=== PATIENT | female | born 1985 | race Caucasian/White ===

== ENCOUNTER 2018-02-11 17:01 | Emergency (ER) | payer OTHER, MEDICAID, SELFPAY ==
[2018-02-11 17:14] VITALS: BP 104/65; PULSE 72; RESP 16; TEMP 37.1; O2SAT 100; BMI 28.3
--- NOTE | 2018-02-11 17:30 | ED.EXTPRO ---
HPI - Extremity Problem General Chief complaint: Extremity Problem,Nontraumatic Stated complaint: LUMP LOWER ABDOMEN RIGHT SIDE Time Seen by Provider: 02/11/18 17:30 Source: patient Mode of arrival: ambulatory Limitations: no limitations History of Present Illness HPI Narrative: 32-year-old female here for complaint of right groin pain for the past couple weeks. She states she was crossing her legs when the pain started. She reports having increased pain trying to get into her vehicle and was trying to lift her leg. She denies any direct trauma to the area. She is ambulatory into the emergency room. No fevers no chills pain is limited to the right groin area. Decreased pain with not moving the groin area MD Complaint: extremity pain Related Data Home Medications Medication Instructions Recorded Confirmed LEVOTHYROXINE SODIUM (#LEVOTHROID 224 mcg PO QDAY #0 08/22/12 OFF MARKET) lamotrigine [Lamictal XR] 200 mg PO DAILY #0 08/22/12 02/11/18 sumatriptan succinate [Imitrex] #0 08/22/12 dextroamphetamine-amphetamine 20 mg PO QAM PRN 02/11/18 02/11/18 [Adderall XR] lithium carbonate 300 mg PO QID 02/11/18 02/11/18 Allergies Allergy/AdvReac Type Severity Reaction Status Date / Time adhesive [ADHESIVE] Allergy Intermediate Verified 02/11/18 17:18 amoxicillin [AMOXICILLIN] Allergy Intermediate Verified 02/11/18 17:18 cephalexin [From KEFLEX] Allergy Intermediate Verified 02/11/18 17:18 clindamycin [CLINDAMYCIN] Allergy Intermediate Verified 02/11/18 17:18 doxycycline [DOXYCYCLINE] Allergy Intermediate Verified 02/11/18 17:18 iodine [IODINE] Allergy Intermediate Verified 02/11/18 17:18 Sulfa (Sulfonamide Allergy Intermediate Verified 02/11/18 17:18 Antibiotics) [SULFA (SULFONAMIDE ANTIBIOTICS)] Penicillins [PENICILLINS] Allergy Unknown Verified 02/11/18 17:18 Review of Systems Constitutional Denies chills, Denies fever(s), Denies lethargy and Denies weakness Eyes Denies change in vision, Denies eye discharge, Denies irritation and Denies loss of vision ENT Ears, Nose, Mouth, and Throat: Denies change in voice, Denies neck pain and Denies sore throat Cardiovascular Denies chest pain, Denies irregular heart rhythm, Denies lightheadedness, Denies palpitations, Denies dyspnea, Denies dyspnea on exertion and Denies orthopnea Respiratory Denies cough, Denies dyspnea, Denies dyspnea on exertion and Denies wheezing Gastrointestinal Gastrointestinal: Denies abdominal pain, Denies change in bowel habits, Denies diarrhea, Denies nausea and Denies vomiting Genitourinary Denies hematuria, Denies flank pain, Denies urinary incontinence and Denies urinary urgency Musculoskeletal Denies neck pain Comments: Right groin pain Integumentary/Breasts Denies pruritus, Denies erythema, Denies rash and Denies wounds Neurologic Denies confusion, Denies loss of vision and Denies weakness Psychiatric Denies anxiety, Denies confusion, Denies depression, Denies homicidal ideation and Denies suicidal ideation Endocrine Denies palpitations Hematologic/Lymphatic Denies easy bruising Allergic/Immunologic Denies wheezing PFSH Medical History Bipolar 1 disorder (Acute) Hypothyroid (Acute) Thyroid cancer (Acute) Social History Smoking Status: Current some day smoker Exam Initial Vital Signs Initial Vital Signs: Vital Signs Temperature 98.7 F 02/11/18 17:14 Pulse Rate 72 02/11/18 17:14 Respiratory Rate 16 02/11/18 17:14 Blood Pressure 104/65 02/11/18 17:14 Pulse Oximetry 100 02/11/18 17:14 Const General: cooperative and well developed Nutritional Appearance: well nourished Orientation: alert, awake, oriented x3 and not confused [facility] Mouth: oral mucosae normal and moist mucous membranes Eyes Conjunctivae: conjunctivae normal Sclera: sclerae normal Pupils: PERRL EOM: EOM intact bilaterally Resp Effort & Inspection: normal respiratory effort, able to speak in complete sentences, no respiratory distress and no use of accessory muscles Auscultation: clear to auscultation bilaterally, no rales, no rhonchi and no wheezes Cardio Rate: regular rate Rhythm: regular rhythm Heart Sounds: no click, no gallops, no murmurs and no rubs Pulses: normal peripheral pulses GI Inspection: non-distended Palpation: soft, no hepatosplenomegaly, No guarding, No pulsatile mass and No tender Auscultation: normal bowel sounds General: No CVA tenderness Neuro General: alert, oriented x3, gait normal and no focal motor deficits Speech: speech normal Extrem General: full ROM, no clubbing, cyanosis or edema, no pedal edema and no calf tenderness Other: Tenderness on palpation to the left groin area. No swelling and no ecchymosis no signs of trauma. Distal sensation is intact. Distal pulses are intact. Full range of motion distally. Pain with flexion of the right hip Course Orders Ordered: ED Orders 02/11/18 18:33 XR hip w pel if done RT 2V Stat Discontinued Medications Ibuprofen (Advil) 400 mg PO NOW ONE Stop: 02/11/18 19:35 Last Admin: 02/11/18 19:36 Dose: 400 mg Vital Signs - 8 hr 02/11/18 17:14 02/11/18 17:53 02/11/18 19:37 Temperature 98.7 F Pulse Rate 72 72 Pulse Rate [Right Dorsalis Pedis] 72 Respiratory Rate 16 12 Blood Pressure 104/65 Blood Pressure [Left Arm] 122/72 H Pulse Oximetry 100 99 MDM - Extremity (Nontraumatic) Imaging Data Hip and pelvis: Radiologist's impression: [address] [address] XRay Report Signed Patient: Lexy Callahan MR#: [id number] : 1985 Acct:[id number] Age/Sex: 32 / F Date of Service: 02/11/18 Loc: ED Accession Number: [id number] Procedure: XR hip w pel if done RT 2V Ordering Provider: Donis Johnson PROCEDURE: XR HIP W PEL IF DONE RT 2V INDICATIONS: Pain into RIGHT groin area last couple weeks TECHNIQUE: AP pelvis with lateral view of the right hip. COMPARISON: [facility], CR, PELVIS W/LAT HIP (LT) (PNL), 09/06/2011, 16:07. FINDINGS: Bones: No fractures or dislocations. Pelvic ring appears intact. The hip joint spaces appear preserved. No suspicious bony lesions. Soft tissues: The visualized bowel gas pattern is normal. No suspicious soft tissue calcifications. IMPRESSION: 1. No acute bony abnormality. Dictated by: Juan Francisco Ordoñez M.D. on 02/11/2018 at 19:02 Approved by: Juan Francisco Ordoñez M.D. on 02/11/2018 at 19:02 [facility] Narrative Medical decision making narrative: X-ray of the right hip and pelvis was obtained was negative for any acute findings. Signs and symptoms presents as groin strain. [id number] Tylenol or Motrin as needed for any discomfort. Rest area. Follow up with primary care provider next week. Recommend MRI if symptoms do not resolve. For any worsening symptoms return to the emergency room. Discharge Plan Departure Patient Disposition: Home Clinical Impression: Strain of muscle of right groin region Discharge Date/Time: 02/11/18 19:39 Interventions: ED Discharge Assessment Last Done: 02/11/18 19:37 Instructions: DI for Groin Strain Activity Restrictions/Additional Instructions: X-ray of the right hip and pelvis was obtained was negative for any acute findings. Signs and symptoms presents as groin strain. [id number] Tylenol or Motrin as needed for any discomfort. Rest area. Follow up with primary care provider next week. Recommend MRI if symptoms do not resolve. For any worsening symptoms return to the emergency room. Prescriptions: No Action lamotrigine [Lamictal XR] 100 MG tablet extended release 24hr 200 mg PO DAILY Qty: 0 RF: 0 LEVOTHYROXINE SODIUM (#LEVOTHROID [place] MARKET) 224 mcg PO QDAY Qty: 0 RF: 0 sumatriptan succinate [Imitrex] 100 MG tablet Qty: 0 RF: 0 lithium carbonate 300 mg Capsule 300 mg PO QID RF: 0 dextroamphetamine-amphetamine [Adderall XR] 20 mg Capsule,Extended Release 24hr 20 mg PO QAM PRN (Reason: to help focus at work) RF: 0 Referrals: [facility] [Provider Group]
[2018-02-11 17:53] VITALS: PULSE 72
--- NOTE | 2018-02-11 17:54 | PC.NURSE ---
c/o right groin pain that worsens w/ deep palpation, movement. Denies trauma or known injury. Has been getting worse x 2 weeks.
--- NOTE | 2018-02-11 18:33 | DI.RAD.S_ITS ---
PROCEDURE: XR HIP W PEL IF DONE RT 2V INDICATIONS: Pain into RIGHT groin area last couple weeks TECHNIQUE: AP pelvis with lateral view of the right hip. COMPARISON: [facility], CR, PELVIS W/LAT HIP (LT) (PNL), 09/06/2011, 16:07. FINDINGS: Bones: No fractures or dislocations. Pelvic ring appears intact. The hip joint spaces appear preserved. No suspicious bony lesions. Soft tissues: The visualized bowel gas pattern is normal. No suspicious soft tissue calcifications. IMPRESSION: 1. No acute bony abnormality. Dictated by: Juan Francisco Ordoñez M.D. on 02/11/2018 at 19:02 Approved by: Juan Francisco Odroñez M.D. on 02/11/2018 at 19:02
--- NOTE | 2018-02-11 19:34 | ED_ITS ---
HPI - Extremity Problem General Chief complaint: Extremity Problem,Nontraumatic Stated complaint: LUMP LOWER ABDOMEN RIGHT SIDE Time Seen by Provider: 02/11/18 17:30 Source: patient Mode of arrival: ambulatory Limitations: no limitations History of Present Illness HPI Narrative: 32-year-old female here for complaint of right groin pain for the past couple weeks. She states she was crossing her legs when the pain started. She reports having increased pain trying to get into her vehicle and was trying to lift her leg. She denies any direct trauma to the area. She is ambulatory into the emergency room. No fevers no chills pain is limited to the right groin area. Decreased pain with not moving the groin area MD Complaint: extremity pain Related Data Home Medications Medication Instructions Recorded Confirmed LEVOTHYROXINE SODIUM (#LEVOTHROID 224 mcg PO QDAY #0 08/22/12 [place]) lamotrigine [Lamictal XR] 200 mg PO DAILY #0 08/22/12 02/11/18 sumatriptan succinate [Imitrex] #0 08/22/12 dextroamphetamine-amphetamine 20 mg PO QAM PRN 02/11/18 02/11/18 [Adderall XR] lithium carbonate 300 mg PO QID 02/11/18 02/11/18 Allergies Allergy/AdvReac Type Severity Reaction Status Date / Time adhesive [ADHESIVE] Allergy Intermediate Verified 02/11/18 17:18 amoxicillin [AMOXICILLIN] Allergy Intermediate Verified 02/11/18 17:18 cephalexin [From KEFLEX] Allergy Intermediate Verified 02/11/18 17:18 clindamycin [CLINDAMYCIN] Allergy Intermediate Verified 02/11/18 17:18 doxycycline [DOXYCYCLINE] Allergy Intermediate Verified 02/11/18 17:18 iodine [IODINE] Allergy Intermediate Verified 02/11/18 17:18 Sulfa (Sulfonamide Allergy Intermediate Verified 02/11/18 17:18 Antibiotics) [SULFA (SULFONAMIDE ANTIBIOTICS)] Penicillins [PENICILLINS] Allergy Unknown Verified 02/11/18 17:18 Review of Systems Constitutional Denies chills, Denies fever(s), Denies lethargy and Denies weakness Eyes Denies change in vision, Denies eye discharge, Denies irritation and Denies loss of vision ENT Ears, Nose, Mouth, and Throat: Denies change in voice, Denies neck pain and Denies sore throat Cardiovascular Denies chest pain, Denies irregular heart rhythm, Denies lightheadedness, Denies palpitations, Denies dyspnea, Denies dyspnea on exertion and Denies orthopnea Respiratory Denies cough, Denies dyspnea, Denies dyspnea on exertion and Denies wheezing Gastrointestinal Gastrointestinal: Denies abdominal pain, Denies change in bowel habits, Denies diarrhea, Denies nausea and Denies vomiting Genitourinary Denies hematuria, Denies flank pain, Denies urinary incontinence and Denies urinary urgency Musculoskeletal Denies neck pain Comments: Right groin pain Integumentary/Breasts Denies pruritus, Denies erythema, Denies rash and Denies wounds Neurologic Denies confusion, Denies loss of vision and Denies weakness Psychiatric Denies anxiety, Denies confusion, Denies depression, Denies homicidal ideation and Denies suicidal ideation Endocrine Denies palpitations Hematologic/Lymphatic Denies easy bruising Allergic/Immunologic Denies wheezing PFSH Medical History Bipolar 1 disorder (Acute) Hypothyroid (Acute) Thyroid cancer (Acute) Social History Smoking Status: Current some day smoker Exam Initial Vital Signs Initial Vital Signs: Vital Signs Temperature 98.7 F 02/11/18 17:14 Pulse Rate 72 02/11/18 17:14 Respiratory Rate 16 02/11/18 17:14 Blood Pressure 104/65 02/11/18 17:14 Pulse Oximetry 100 02/11/18 17:14 Const General: cooperative and well developed Nutritional Appearance: well nourished Orientation: alert, awake, oriented x3 and not confused [facility] Mouth: oral mucosae normal and moist mucous membranes Eyes Conjunctivae: conjunctivae normal Sclera: sclerae normal Pupils: PERRL EOM: EOM intact bilaterally Resp Effort & Inspection: normal respiratory effort, able to speak in complete sentences, no respiratory distress and no use of accessory muscles Auscultation: clear to auscultation bilaterally, no rales, no rhonchi and no wheezes Cardio Rate: regular rate Rhythm: regular rhythm Heart Sounds: no click, no gallops, no murmurs and no rubs Pulses: normal peripheral pulses GI Inspection: non-distended Palpation: soft, no hepatosplenomegaly, No guarding, No pulsatile mass and No tender Auscultation: normal bowel sounds General: No CVA tenderness Neuro General: alert, oriented x3, gait normal and no focal motor deficits Speech: speech normal Extrem General: full ROM, no clubbing, cyanosis or edema, no pedal edema and no calf tenderness Other: Tenderness on palpation to the left groin area. No swelling and no ecchymosis no signs of trauma. Distal sensation is intact. Distal pulses are intact. Full range of motion distally. Pain with flexion of the right hip Course Orders Ordered: ED Orders 02/11/18 18:33 XR hip w pel if done RT 2V Stat Discontinued Medications Ibuprofen (Advil) 400 mg PO NOW ONE Stop: 02/11/18 19:35 Last Admin: 02/11/18 19:36 Dose: 400 mg Vital Signs - 8 hr 02/11/18 17:14 02/11/18 17:53 02/11/18 19:37 Temperature 98.7 F Pulse Rate 72 72 Pulse Rate [Right Dorsalis Pedis] 72 Respiratory Rate 16 12 Blood Pressure 104/65 Blood Pressure [Left Arm] 122/72 H Pulse Oximetry 100 99 MDM - Extremity (Nontraumatic) Imaging Data Hip and pelvis: Radiologist's impression: [address] [address] XRay Report Signed Patient: Lexy Callahan MR#: [id number] : 1985 Acct:[id number] Age/Sex: 32 / F Date of Service: 02/11/18 Loc: ED Accession Number: [id number] Procedure: XR hip w pel if done RT 2V Ordering Provider: Donis Johnson PROCEDURE: XR HIP W PEL IF DONE RT 2V INDICATIONS: Pain into RIGHT groin area last couple weeks TECHNIQUE: AP pelvis with lateral view of the right hip. COMPARISON: [facility], CR, PELVIS W/LAT HIP (LT) (PNL), 09/06/2011 , 16:07. FINDINGS: Bones: No fractures or dislocations. Pelvic ring appears intact. The hip joint spaces appear preserved. No suspicious bony lesions. Soft tissues: The visualized bowel gas pattern is normal. No suspicious soft tissue calcifications. IMPRESSION: 1. No acute bony abnormality. Dictated by: Juan Francisco Ordoñez M.D. on 02/11/2018 at 19:02 Approved by: Juan Francisco Ordoñez M.D. on 02/11/2018 at 19:02 [facility] Narrative Medical decision making narrative: X-ray of the right hip and pelvis was obtained was negative for any acute findings. Signs and symptoms presents as groin strain. [id number] Tylenol or Motrin as needed for any discomfort. Rest area. Follow up with primary care provider next week. Recommend MRI if symptoms do not resolve. For any worsening symptoms return to the emergency room. Discharge Plan Departure Patient Disposition: Home Clinical Impression: Strain of muscle of right groin region Discharge Date/Time: 02/11/18 19:39 Interventions: ED Discharge Assessment Last Done: 02/11/18 19:37 Instructions: DI for Groin Strain Activity Restrictions/Additional Instructions: X-ray of the right hip and pelvis was obtained was negative for any acute findings. Signs and symptoms presents as groin strain. [id number] Tylenol or Motrin as needed for any discomfort. Rest area. Follow up with primary care provider next week. Recommend MRI if symptoms do not resolve. For any worsening symptoms return to the emergency room. Prescriptions: No Action lamotrigine [Lamictal XR] 100 MG tablet extended release 24hr 200 mg PO DAILY Qty: 0 RF: 0 LEVOTHYROXINE SODIUM (#LEVOTHROID [place] [employer]ET) 224 mcg PO QDAY Qty: 0 RF: 0 sumatriptan succinate [Imitrex] 100 MG tablet Qty: 0 RF: 0 lithium carbonate 300 mg Capsule 300 mg PO QID RF: 0 dextroamphetamine-amphetamine [Adderall XR] 20 mg Capsule,Extended Release 24hr 20 mg PO QAM PRN (Reason: to help focus at work) RF: 0 Referrals: [facility] [Provider Group]
[2018-02-11] MEDS: IBUPROFEN 400 MG TABLET PO (19:36)
[2018-02-11 19:37] VITALS: BP 122/72; PULSE 72; RESP 12; O2SAT 99
--- NOTE | 2018-02-11 19:37 | PC.NURSE ---
Pt requesting pain med for abd pain and rates 9/10. Informed the [employer] provider and obtained IBUprofen 400mg and medicated pt prior dc to home.
== END 2018-02-11 19:39 | disposition home or self-care (01) ==
PROVIDERS: Emergency Provider Nurse Practitioner Family
DX: S39.013A Strain of muscle, fascia and tendon of pelvis, initial encounter (principal)
CPT/HCPCS: 73502; 81003; 81025; 99282; 99284

== ENCOUNTER 2018-02-28 21:36 | Emergency (ER) | payer OTHER, MEDICAID, SELFPAY ==
[2018-02-28 21:56] VITALS: BP 112/63; PULSE 80; RESP 18; TEMP 36.8; O2SAT 100; BMI 28.1
--- NOTE | 2018-02-28 22:04 | PC.NURSE ---
pt reports long history of migraines. she had a headache all day that was mild. [place] 3[place] symptoms increased to migraine. pt took ibuprofen, tylenol, and imitrex with no relief. pt states i need the migraine cocktail.
--- NOTE | 2018-02-28 22:08 | ED_ITS ---
HPI - Headache General Chief Complaint: Headache Stated Complaint: states migraine Time Seen by Provider: 02/28/18 21:46 Source: patient Mode of arrival: ambulatory Limitations: no limitations History of Present Illness HPI Narrative: Patient states she has had headache for the last couple of days but today the headache ?turned into a migraine?. Patient has a longstanding history of headaches, including migraine headaches and states this feels the same. She states she took her Imitrex at home, but did not help. Patient states she began to have nausea and vomiting, and when she tried to take Tylenol and ibuprofen, she just threw them up. Patient denies any fever or head injury prior to the headache. She states symptoms are consistent with prior migraines. MD Complaint: migraine Onset (ago): day(s) Onset description: gradual Location: frontal Severity: similar to previous episodes Quality: throbbing Relieving factors: nothing Exacerbating factors: light Context: occurred at rest Associated symptoms: nausea and other (No neck stiffness, fever, malaise, shortness of breath, visual loss, or lightheadedness.) Treatments prior to arrival: migraine medication Related Data Home Medications Medication Instructions Recorded Confirmed LEVOTHYROXINE SODIUM (#LEVOTHROID 224 mcg PO QDAY #0 08/22/12 [place] [facility]ET) lamotrigine [Lamictal XR] 200 mg PO DAILY #0 08/22/12 02/11/18 sumatriptan succinate [Imitrex] #0 08/22/12 dextroamphetamine-amphetamine 20 mg PO QAM PRN 02/11/18 02/11/18 [Adderall XR] lithium carbonate 300 mg PO QID 02/11/18 02/11/18 Allergies Allergy/AdvReac Type Severity Reaction Status Date / Time adhesive [ADHESIVE] Allergy Intermediate Verified 02/11/18 17:18 amoxicillin [AMOXICILLIN] Allergy Intermediate Verified 02/11/18 17:18 cephalexin [From KEFLEX] Allergy Intermediate Verified 02/11/18 17:18 clindamycin [CLINDAMYCIN] Allergy Intermediate Verified 02/11/18 17:18 doxycycline [DOXYCYCLINE] Allergy Intermediate Verified 02/11/18 17:18 iodine [IODINE] Allergy Intermediate Verified 02/11/18 17:18 Sulfa (Sulfonamide Allergy Intermediate Verified 02/11/18 17:18 Antibiotics) [SULFA (SULFONAMIDE ANTIBIOTICS)] Penicillins [PENICILLINS] Allergy Unknown Verified 02/11/18 17:18 Review of Systems Review of Systems All systems reviewed & are unremarkable except as noted in HPI and below Constitutional Denies chills, Denies fever(s), Reports headache(s), Denies lethargy and Denies weakness Eyes Denies change in vision, Denies eye discharge, Denies irritation and Denies loss of vision ENT Ears, Nose, Mouth, and Throat: Denies change in voice, Reports headache(s), Denies neck pain and Denies sore throat Cardiovascular Denies chest pain, Denies irregular heart rhythm, Denies lightheadedness, Denies palpitations, Denies dyspnea, Denies dyspnea on exertion and Denies orthopnea Respiratory Denies cough, Denies dyspnea, Denies dyspnea on exertion and Denies wheezing Gastrointestinal Gastrointestinal: Denies abdominal pain, Denies change in bowel habits, Denies diarrhea, Reports nausea and Reports vomiting Genitourinary Denies hematuria, Denies flank pain, Denies urinary incontinence and Denies urinary urgency Musculoskeletal Denies neck pain Integumentary/Breasts Denies pruritus, Denies erythema, Denies rash and Denies wounds Neurologic Denies confusion, Reports headache(s), Denies loss of vision and Denies weakness Psychiatric Denies anxiety, Denies confusion, Denies depression, Denies homicidal ideation and Denies suicidal ideation Endocrine Denies palpitations Hematologic/Lymphatic Denies easy bruising Allergic/Immunologic Denies wheezing [facility] Medical History Bipolar 1 disorder (Acute) Hypothyroid (Acute) Thyroid cancer (Acute) Surgical History No pertinent past surgical history (Acute) Social History Smoking Status: Current some day smoker Exam Initial Vital Signs Initial Vital Signs: Vital Signs Temperature 98.2 F 02/28/18 21:56 Pulse Rate 80 02/28/18 21:56 Respiratory Rate 18 02/28/18 21:56 Blood Pressure 112/63 02/28/18 21:56 Pulse Oximetry 100 02/28/18 21:56 Const General: cooperative and well developed Nutritional Appearance: well nourished Orientation: alert, awake, oriented x3 and not confused Other: Patient appears uncomfortable, lying with her eyes covered in a darkened room. [facility] Head: normocephalic and atraumatic Ears: external ears normal and TM's normal bilaterally Nose: external nose normal and No nasal discharge Face and sinus: sinuses nontender, face symmetric, no sinus tenderness and No dry mucous membranes Mouth: oral mucosae normal and moist mucous membranes Teeth and gingiva: dentition normal Throat: tonsils normal and uvula midline Eyes General: appearance normal, both eyes and all related structures Eyelids: eyelids normal Conjunctivae: conjunctivae normal Sclera: sclerae normal Pupils: PERRL EOM: EOM intact bilaterally Neck Neck: normal visual inspection, trachea midline, No lymphadenopathy, No midline deformity and No JVD Lymphatic: No lymphedema Chest Chest: normal inspection of the chest Resp Effort & Inspection: normal respiratory effort, able to speak in complete sentences, no respiratory distress and no use of accessory muscles Auscultation: clear to auscultation bilaterally, no rales, no rhonchi and no wheezes Cardio Rate: regular rate Rhythm: regular rhythm Heart Sounds: no click, no gallops, no murmurs and no rubs Pulses: normal peripheral pulses GI Inspection: non-distended Palpation: soft, no hepatosplenomegaly, No guarding, No pulsatile mass and No tender Auscultation: normal bowel sounds Back/Spine/Pelvis Back: No CVA tenderness Cervical Spine: cervical ROM normal and No pain with cervical ROM Thoracic/Lumbar Spine: thoracic and lumbar spine normal to inspection Skin General: no rashes or lesions noted, No jaundice and No petechiae Neuro General: alert, oriented x3, gait normal and no focal motor deficits Speech: speech normal Extrem General: full ROM, no clubbing, cyanosis or edema, no pedal edema and no calf tenderness Psych Appearance: well kempt Mental Status: mental status grossly normal Attitude: cooperative Thought Content: normal and suicidality Judgment: judgment good Course Course Narrative: Patient was treated symptomatically with IV fluids, Toradol, and Reglan. Her symptoms were consistent with prior migraines. Patient was found to be feeling much better. I felt she was stable for discharge home. We have discussed symptomatic control at home and the usual indications for return. Orders Ordered: Discontinued Medications Hydromorphone HCl (Dilaudid) 0.5 mg IV NOW ONE Stop: 02/28/18 22:20 Sodium Chloride (Normal Saline 0.9%) 1,000 mls @ 1,000 mls/hr IV BOLUS ONE Stop: 02/28/18 23:18 Last Admin: 02/28/18 22:44 Dose: 1,000 mls/hr Ketorolac Tromethamine (Toradol) 30 mg IV NOW ONE Stop: 02/28/18 22:20 Last Admin: 02/28/18 22:44 Dose: 30 mg Metoclopramide HCl (Reglan) 10 mg IV NOW ONE Stop: 02/28/18 22:20 Last Admin: 02/28/18 22:44 Dose: 10 mg Vital Signs - 8 hr 02/28/18 21:56 Temperature 98.2 F Pulse Rate 80 Respiratory Rate 18 Blood Pressure 112/63 Pulse Oximetry 100 Discharge Plan Departure Patient Disposition: Home Clinical Impression: Migraine Discharge Date/Time: 02/28/18 23:59 Interventions: ED Discharge Assessment Last Done: 02/28/18 23:56 Instructions: DI for Migraine Prescriptions: No Action lamotrigine [Lamictal XR] 100 MG tablet extended release 24hr 200 mg PO DAILY Qty: 0 RF: 0 LEVOTHYROXINE SODIUM (#LEVOTHROID [place]ET) 224 mcg PO QDAY Qty: 0 RF: 0 sumatriptan succinate [Imitrex] 100 MG tablet Qty: 0 RF: 0 lithium carbonate 300 mg Capsule 300 mg PO QID RF: 0 dextroamphetamine-amphetamine [Adderall XR] 20 mg Capsule,Extended Release 24hr 20 mg PO QAM PRN (Reason: to help focus at work) RF: 0 Referrals: [facility] [Provider Group] (Follow-up as needed.)
[2018-02-28] MEDS: METOCLOPRAMIDE 10 MG/2 ML INJ IV (22:44)
[2018-02-28] MEDS: KETOROLAC 60 MG/2 ML VIAL 30 MG IV (22:44)
[2018-02-28] MEDS: SODIUM CHLORIDE 0.9% 1,000 ML 1000 ML IV (22:44)
[2018-02-28 23:56] VITALS: BP 85/52; PULSE 88; RESP 16; O2SAT 98
--- NOTE | 2018-02-28 23:56 | PC.NURSE ---
pt stated my normal blood pressure is in the 80s. It's normal now. 115 earlier is high for me. Provider notified and ok'd discharge.
== END 2018-02-28 23:59 | disposition home or self-care (01) ==
PROVIDERS: Emergency Provider Emergency Medicine
DX: G43.909 Migraine, unspecified, not intractable, without status migrainosus (principal)
CPT/HCPCS: 96361; 96374; 96375; 99282; 99284; J1885; J2765

== ENCOUNTER 2018-03-31 17:47 | Emergency (ER) | payer OTHER, MEDICAID, SELFPAY ==
[2018-03-31 17:59] VITALS: BP 106/66; PULSE 85; RESP 18; TEMP 36.7; O2SAT 98
--- NOTE | 2018-03-31 18:39 | DI.RAD.S_ITS ---
PROCEDURE: XR CHEST 1V INDICATIONS: chest pain TECHNIQUE: One view of the chest was acquired. COMPARISON: None. FINDINGS: Surgical changes and devices: Surgical clips are present at the thoracic inlet. Lungs and pleura: No pleural effusions or pneumothorax. Lungs are clear. Mediastinum: Mediastinal contours appear normal. Heart size is normal. Bones and chest wall: No suspicious bony lesions. Overlying soft tissues appear unremarkable. IMPRESSION: No acute cardiopulmonary findings. Dictated by: Cierra Wan M.D. on 03/31/2018 at 19:04 Approved by: Cierra Wan M.D. on 03/31/2018 at 19:04
[2018-03-31 19:47] LABS: Add Manual Diff / Slide Review NO; Basophils Percent Auto 0.9 % (0-2); Eosinophils Percent Auto 2.3 % (2-4); Hematocrit 41.1 % (36-46); Hemoglobin 13.7 g/dL (12.0-16.0); Lymphocytes Percent Auto 42.9 % (25-40); Mean Corpuscular HGB Conc 33.4 % (30-36); Monocytes Percent Auto 9.5 % (3-14); Neutrophils Absolute Auto 2200 /uL (3000-5900); Neutrophils Percent Auto 44.4 % (50-75); Platelet Count 254 X10^3/uL (150-400); Red Blood Cell Count 4.41 X10^6/uL (4.0-5.2); Red Cell Distribution Width 13.7 % (11.6-14.8)
[2018-03-31 19:57] LABS: Alanine Aminotransferase 28 IU/L (9-52); Albumin 4.1 g/dL (3.5-5.0); Albumin Globulin Ratio 1.3 (1.0-2.8); Alkaline Phosphatase 50 U/L (38-126); Aspartate Aminotransferase 25 IU/L (14-36); BUN Creatinine Ratio 27.1 (6-22); Bilirubin Total 0.3 mg/dL (0.2-1.3); Blood Urea Nitrogen 19 mg/dL (7-17); Carbon Dioxide 28 mmol/L (22-32); Chloride 104 mmol/L (98-107); Creatine Kinase 82 U/L (30-135); Estimated Glomerular Filt Rate > 60.0 mL/min (>60); Globulin 3.1 g/dL (1.7-4.1); Glucose 89 mg/dL (70-100); HEMOLYSIS < 15 (0-50); Lipase 88 U/L (23-300); Potassium 3.4 mmol/L (3.4-5.1); Sodium 142 mmol/L (137-145); Total Protein 7.2 g/dL (6.3-8.2)
[2018-03-31 20:09] LABS: Troponin I < 0.012 ng/mL (0.01-0.034)
[2018-03-31] MEDS: ASPIRIN 81 MG TAB 324 MG PO (20:15)
[2018-03-31 20:24] VITALS: BP 109/41; PULSE 78; RESP 18; O2SAT 99
--- NOTE | 2018-03-31 20:51 | ED_ITS ---
HPI - Chest Pain General Chief Complaint: Chest Pain Stated Complaint: CHEST PAIN - GETTING WORSE Time Seen by Provider: 03/31/18 18:39 Source: patient Mode of arrival: ambulatory Limitations: no limitations History of Present Illness HPI narrative: This is a 32-year-old female who comes to the emergency department with complaint of chest pain. She states this started about 530 this evening sort of sudden in symptoms. Nothing really seems to make it better or worse. It sort of sharp Um and right in the anterior chest hurts almost some point tenderness. She states she had similar symptoms in 2008 and was told that they were muscle spasms her chest. At that time she was also found to have changes on her chest x-ray and was ultimately diagnosed with thyroid cancer as well as some metastases to the uterus. She had thyroidectomy and hysterectomy. Patient states that she has felt a little bit of short of breath Um especially when she takes a deep breath. No nausea, no vomiting, no issues with bowel movements or urination. No changes to the skin or lesions. She does not smoke she uses alcohol rarely. She usually uses THC. Related Data Home Medications Medication Instructions Recorded Confirmed LEVOTHYROXINE SODIUM (#LEVOTHROID 224 mcg PO QDAY #0 08/22/12 [place]) lamotrigine [Lamictal XR] 200 mg PO DAILY #0 08/22/12 02/11/18 sumatriptan succinate [Imitrex] #0 08/22/12 dextroamphetamine-amphetamine 20 mg PO QAM PRN 02/11/18 02/11/18 [Adderall XR] lithium carbonate 300 mg PO QID 02/11/18 02/11/18 Previous Rx's Medication Instructions Recorded meloxicam [Mobic] 7.5 mg PO BID #10 tab 03/31/18 Allergies Allergy/AdvReac Type Severity Reaction Status Date / Time adhesive [ADHESIVE] Allergy Intermediate Verified 02/11/18 17:18 amoxicillin [AMOXICILLIN] Allergy Intermediate Verified 02/11/18 17:18 cephalexin [From KEFLEX] Allergy Intermediate Verified 02/11/18 17:18 clindamycin [CLINDAMYCIN] Allergy Intermediate Verified 02/11/18 17:18 doxycycline [DOXYCYCLINE] Allergy Intermediate Verified 02/11/18 17:18 iodine [IODINE] Allergy Intermediate Verified 02/11/18 17:18 Sulfa (Sulfonamide Allergy Intermediate Verified 02/11/18 17:18 Antibiotics) [SULFA (SULFONAMIDE ANTIBIOTICS)] Penicillins [PENICILLINS] Allergy Unknown Verified 02/11/18 17:18 Review of Systems Review of Systems All systems reviewed & are unremarkable except as noted in HPI and below Constitutional Denies chills and Denies fever(s) Cardiovascular Reports chest pain, Denies diaphoresis, Denies syncope, Denies rapid heart rate , Denies irregular heart rhythm, Denies lightheadedness, Denies radiating jaw, neck or arm pain, Denies palpitations and Denies dyspnea Respiratory Denies chest congestion, Denies cough, Denies excessive phlegm production, Reports pain on inspiration and Denies dyspnea Gastrointestinal Gastrointestinal: Denies abdominal pain, Denies constipation, Denies diarrhea, Denies nausea and Denies vomiting Genitourinary Denies hematuria, Denies flank pain, Denies urinary incontinence and Denies urinary urgency Musculoskeletal Denies back pain Integumentary/Breasts Denies lesions and Denies rash Neurologic Denies syncope Endocrine Denies palpitations PFSH Medical History Bipolar 1 disorder (Acute) H/O: hysterectomy (Acute) Hypothyroid (Acute) Thyroid cancer (Acute) Surgical History H/O thyroidectomy (Acute) No pertinent past surgical history (Acute) Social History Smoking Status: Current some day smoker Exam Narrative Exam Narrative: GENERAL: Alert and oriented x three, well-nourished, well- appearing female in mild distress. HEENT: Head normocephalic, atraumatic, EOMI, pupils reactive, face symmetric, moist mucous membranes NECK: Supple, full range of motion CARDIOVASCULAR: Regular rate and rhythm without murmurs, rubs or gallops. No rashes or skin changes. Patient does have tenderness with palpation of the anterior chest at the mid sternum. RESPIRATORY: Breath sounds equal bilaterally, no wheezes rales or rhonchi. ABDOMEN: Soft, nontender. Normoactive bowel sounds all 4 quadrants. No guarding or rebound, rigidity, no mass : No CVA tenderness EXTREMITIES: Normal range of motion, no clubbing or edema. Neurovascularly intact NEUROLOGICAL: Cranial nerves II through XII grossly intact. Moving all extremities SKIN: Warm, dry, no petechiae, no rashes or lesions. Initial Vital Signs Initial Vital Signs: Vital Signs Temperature 98.0 F 03/31/18 17:59 Pulse Rate 85 03/31/18 17:59 Respiratory Rate 18 03/31/18 17:59 Blood Pressure 106/66 03/31/18 17:59 Pulse Oximetry 98 03/31/18 17:59 Scores HEART Score Heart Score history: Slightly Suspicious Heart Score EKG: Non-Specific repolarization disturbance Heart Score Age: < 45 years old Heart Score risk factors: 1-2 risk factors Heart Score troponin: < or = to normal limit Heart Score Total: 2 Course Orders Ordered: ED Orders 03/31/18 21:27 Troponin I Stat 03/31/18 22:15 Urine Microscopic Stat Discontinued Medications Aspirin (Aspirin Chew) 324 mg PO NOW ONE Stop: 03/31/18 18:40 Last Admin: 03/31/18 20:15 Dose: 324 mg Ketorolac Tromethamine (Toradol) 60 mg IM NOW ONE Stop: 03/31/18 21:12 Last Admin: 03/31/18 21:16 Dose: 60 mg Vital Signs - 8 hr 03/31/18 21:30 03/31/18 22:30 Pulse Rate 69 90 Respiratory Rate 16 20 Blood Pressure 103/58 L Blood Pressure [Left Arm] 102/63 Pulse Oximetry 99 MDM - Chest Pain Lab Data Result diagrams: 03/31/18 19:35 03/31/18 19:35 Lab Results 03/31/18 03/31/18 03/31/18 Range/Units 19:35 19:35 19:35 WBC 5.0 (4.5-11.0) X10^3/uL RBC 4.41 (4.0-5.2) X10^6/uL Hgb 13.7 (12.0-16.0) g/dL Hct 41.1 (36-46) % MCV 93.0 (80-100) fL MCH 31.0 (26-34) PG MCHC 33.4 (30-36) % RDW 13.7 (11.6-14.8) % Plt Count 254 (150-400) X10^3/uL Neut % (Auto) 44.4 L (50-75) % Lymph % (Auto) 42.9 H (25-40) % [place] % (Auto) 9.5 (3-14) % Eos % (Auto) 2.3 (2-4) % Baso % (Auto) 0.9 (0-2) % Neut # (Auto) 2200 L (9024-3850) /uL D-Dimer 129 (<230) ng/mL Sodium 142 (137-145) mmol/L Potassium 3.4 (3.4-5.1) mmol/L Chloride 104 (98-107) mmol/L Carbon Dioxide 28 (22-32) mmol/L BUN 19 H (7-17) mg/dL Creatinine 0.70 (0.52-1.04) mg/dL Estimated GFR > 60.0 (>60) mL/min BUN/Creatinine Ratio 27.1 H (6-22) Glucose 89 (70-100) mg/dL Calcium 9.0 (8.4-10.2) mg/dL Total Bilirubin 0.3 (0.2-1.3) mg/dL AST 25 (14-36) IU/L ALT 28 (9-52) IU/L Alkaline Phosphatase 50 (38-126) U/L Total Creatine Kinase 82 (30-135) U/L CK-MB (CK-2) TNP CK-MB (CK-2) Rel Index TNP Troponin I < 0.012 (0.01-0.034) ng/mL Total Protein 7.2 (6.3-8.2) g/dL Albumin 4.1 (3.5-5.0) g/dL Globulin 3.1 (1.7-4.1) g/dL Albumin/Globulin Ratio 1.3 (1.0-2.8) Lipase 88 (23-300) U/L Urine RBC (0-5/HPF) Urine WBC (0-5/HPF) Urine Bacteria (None) Ur Culture Indicated? Micro UA Comment 03/31/18 03/31/18 Range/Units 21:27 22:15 WBC (4.5-11.0) X10^3/uL RBC (4.0-5.2) X10^6/uL Hgb (12.0-16.0) g/dL Hct (36-46) % MCV (80-100) fL MCH (26-34) PG MCHC (30-36) % RDW (11.6-14.8) % Plt Count (150-400) X10^3/uL Neut % (Auto) (50-75) % Lymph % (Auto) (25-40) % [place] % (Auto) (3-14) % Eos % (Auto) (2-4) % Baso % (Auto) (0-2) % Neut # (Auto) (0174-9999) /uL D-Dimer (<230) ng/mL Sodium (137-145) mmol/L Potassium (3.4-5.1) mmol/L Chloride (98-107) mmol/L Carbon Dioxide (22-32) mmol/L BUN (7-17) mg/dL Creatinine (0.52-1.04) mg/dL Estimated GFR (>60) mL/min BUN/Creatinine Ratio (6-22) Glucose (70-100) mg/dL Calcium (8.4-10.2) mg/dL Total Bilirubin (0.2-1.3) mg/dL AST (14-36) IU/L ALT (9-52) IU/L Alkaline Phosphatase (38-126) U/L Total Creatine Kinase (30-135) U/L CK-MB (CK-2) CK-MB (CK-2) Rel Index Troponin I < 0.012 (0.01-0.034) ng/mL Total Protein (6.3-8.2) g/dL Albumin (3.5-5.0) g/dL Globulin (1.7-4.1) g/dL Albumin/Globulin Ratio (1.0-2.8) Lipase (23-300) U/L Urine RBC 1-5/hpf (0-5/HPF) Urine WBC 0-1/hpf (0-5/HPF) Urine Bacteria Few (2-10) H (None) Ur Culture Indicated? Cult not indicated Micro UA Comment Not Reportable Urine Dip Bedside Urine Glucose Negative Bedside Urine Bilirubin - Negative Bedside Urine Ketone - Negative Urine Specific [place] 1.020 Bedside Urine Occult Blood + Bedside Urine pH 6.0 Bedside Urine Protein - Negative Bedside Urine Urobilinogen - Negative Bedside Urine Nitrite - Negative Bedside Urine Leukocytes - Negative Esterase Imaging Data Chest x-ray: Attestation: I personally reviewed and interpreted this imaging study as follows: Radiologist's impression: [address] [address] XRay Report Signed Patient: Lexy Callahan Solange#: [id number] : 1985Acct:[id number] Age/Sex: 32 / FDate of Service: 03/31/18 Loc: ED Accession Number: [id number] Procedure: XR chest 1V Ordering Provider: Fela Cifuentes D.O. PROCEDURE: XR CHEST 1V INDICATIONS: chest pain TECHNIQUE: One view of the chest was acquired. COMPARISON: None. FINDINGS: Surgical changes and devices: Surgical clips are present at the thoracic inlet. Lungs and pleura: No pleural effusions or pneumothorax. Lungs are clear. Mediastinum: Mediastinal contours appear normal. Heart size is normal. Bones and chest wall: No suspicious bony lesions. Overlying soft tissues appear unremarkable. IMPRESSION: No acute cardiopulmonary findings. Dictated by: Cierra Wan M.D. on 03/31/2018 at 19:04 Approved by: Cierra Wan M.D. on 03/31/2018 at 19:04 ECG Data Attestation: I personally reviewed and interpreted this ECG as follows: Interpretation: Sinus rhythm with a rate of 84, P are 188, QRS of 94 and QTC of 400. No ST elevation or depression is appreciated. EKG #2 sinus rhythm, rate of 74, P are 188, QRS of 106 CO2 for all 4. No ST changes are appreciated. Patient's leads 3 and aVL appear switched from prior I suspect on 1st EKG they were switched were properly placed on Discharge Plan Departure Patient Disposition: Home Clinical Impression: Chest pain Discharge Date/Time: 03/31/18 22:41 Interventions: ED Discharge Assessment Last Done: 03/31/18 22:30 Instructions: DI for Atypical Chest Pain Activity Restrictions/Additional Instructions: Follow-up in 2-3 days for recheck if your symptoms are not resolving. Take medications as prescribed, these medications can make you sleepy do not drive, perform hazards activities or make any major decisions while taking them. Return to the ER for increasing chest pain, shortness of breath, passing out or new swelling in your lower extremities, weakness or other new or concerning symptoms. Prescriptions: New meloxicam [Mobic] 7.5 mg tablet 7.5 mg PO BID Qty: 10 RF: 0 No Action lamotrigine [Lamictal XR] 100 MG tablet extended release 24hr 200 mg PO DAILY Qty: 0 RF: 0 LEVOTHYROXINE SODIUM (#LEVOTHROID OFF MARKET) 224 mcg PO QDAY Qty: 0 RF: 0 sumatriptan succinate [Imitrex] 100 MG tablet Qty: 0 RF: 0 lithium carbonate 300 mg Capsule 300 mg PO QID RF: 0 dextroamphetamine-amphetamine [Adderall XR] 20 mg Capsule,Extended Release 24hr 20 mg PO QAM PRN (Reason: to help focus at work) RF: 0
[2018-03-31 21:00] VITALS: BP 106/66; PULSE 78; RESP 18; TEMP 36.7; O2SAT 99
[2018-03-31] MEDS: KETOROLAC 60 MG/2 ML VIAL IM (21:16)
[2018-03-31 21:30] VITALS: BP 102/63; PULSE 69; RESP 16; O2SAT 99
[2018-03-31 22:01] LABS: D Dimer 129 ng/mL (<230)
[2018-03-31 22:03] LABS: Troponin I < 0.012 ng/mL (0.01-0.034)
[2018-03-31 22:30] VITALS: BP 103/58; PULSE 90; RESP 20
[2018-03-31 22:40] LABS: Bacteria Urine Few (2-10); RBC Urine 1-5/HPF (0-5/HPF); WBC Urine 0-1/HPF (0-5/HPF)
[2018-03-31 22:42] LABS: Culture Indicated Urine Cult Not Indicated
== END 2018-03-31 22:41 | disposition home or self-care (01) ==
PROVIDERS: Emergency Provider Emergency Medicine
DX: R07.89 Other chest pain (principal)
CPT/HCPCS: 36415; 71045; 80053; 81003; 81015; 82550; 83690; 84484; 85025; 85379; 93005; 93010; 96372; 99282; 99285; J1885

== ENCOUNTER 2018-04-22 11:00 | Emergency (ER) | payer OTHER, MEDICAID, SELFPAY ==
[2018-04-22 11:17] VITALS: BP 105/75; PULSE 89; RESP 20; TEMP 36.8; O2SAT 100
--- NOTE | 2018-04-22 12:04 | ED.BACK ---
HPI - Back Pain/Injury <HIGINIO Vicente - Last Filed: 04/22/18 22:22> General Chief Complaint: Back Pain/Injury Stated Complaint: lower back pain, hard to sit Time Seen by Provider: 04/22/18 11:32 Source: patient Mode of arrival: ambulatory Limitations: no limitations History of Present Illness HPI Narrative: a 32-year-old female with history of thyroid cancer and thyroidectomy that is nonsmoker for complaint of pain into her lower back region since yesterday. She reports she has had pain into her lower back on off over the past couple of years. She denies any trauma to the lower back. She reports increased pain with laying on her back. She is ambulatory to the emergency room. She denies any loss of bladder or bowel control. No nausea/vomiting. She states she has had increased urinary frequency. Pain radiates into the left buttocks and lower extremity. No fevers no chills no other concerns or complaints. Related Data Home Medications Medication Instructions Recorded Confirmed lamotrigine [Lamictal XR] 200 mg PO DAILY #0 08/22/12 02/11/18 sumatriptan succinate [Imitrex] #0 08/22/12 dextroamphetamine-amphetamine 20 mg PO QAM PRN 02/11/18 04/22/18 [Adderall XR] lithium carbonate 300 mg PO QID 02/11/18 02/11/18 levothyroxine 224 mcg PO DAILY 04/22/18 04/22/18 Previous Rx's Medication Instructions Recorded meloxicam [Mobic] 7.5 mg PO BID #10 tab 03/31/18 cyclobenzaprine 10 mg PO TID PRN #15 tab 04/22/18 levofloxacin 750 mg PO DAILY #7 tab 04/22/18 prednisone 40 mg PO DAILY #8 tab 04/22/18 Allergies Allergy/AdvReac Type Severity Reaction Status Date / Time adhesive [ADHESIVE] Allergy Intermediate Verified 02/11/18 17:18 amoxicillin [AMOXICILLIN] Allergy Intermediate Verified 02/11/18 17:18 cephalexin [From KEFLEX] Allergy Intermediate Verified 02/11/18 17:18 clindamycin [CLINDAMYCIN] Allergy Intermediate Verified 02/11/18 17:18 doxycycline [DOXYCYCLINE] Allergy Intermediate Verified 02/11/18 17:18 iodine [IODINE] Allergy Intermediate Verified 02/11/18 17:18 Sulfa (Sulfonamide Allergy Intermediate Verified 02/11/18 17:18 Antibiotics) [SULFA (SULFONAMIDE ANTIBIOTICS)] Penicillins [PENICILLINS] Allergy Unknown Verified 02/11/18 17:18 Review of Systems <HIGINIO Vicente - Last Filed: 04/22/18 22:22> Constitutional Denies chills, Denies fever(s), Denies lethargy and Denies weakness Eyes Denies change in vision, Denies eye discharge, Denies irritation and Denies loss of vision ENT Ears, Nose, Mouth, and Throat: Denies change in voice, Denies neck pain and Denies sore throat Cardiovascular Denies chest pain, Denies irregular heart rhythm, Denies lightheadedness, Denies palpitations, Denies dyspnea, Denies dyspnea on exertion and Denies orthopnea Respiratory Denies cough, Denies dyspnea, Denies dyspnea on exertion and Denies wheezing Gastrointestinal Gastrointestinal: Denies abdominal pain, Denies change in bowel habits, Denies diarrhea, Denies nausea and Denies vomiting Genitourinary Denies hematuria, Denies flank pain, Denies urinary incontinence and Denies urinary urgency Musculoskeletal Denies neck pain Comments: Lower back pain Integumentary/Breasts Denies pruritus, Denies erythema, Denies rash and Denies wounds Neurologic Denies confusion, Denies loss of vision and Denies weakness Psychiatric Denies anxiety, Denies confusion, Denies depression, Denies homicidal ideation and Denies suicidal ideation Endocrine Denies palpitations Hematologic/Lymphatic Denies easy bruising Allergic/Immunologic Denies wheezing Exam <HIGINIO Vicente - Last Filed: 04/22/18 22:22> Initial Vital Signs Initial Vital Signs: Vital Signs Temperature 98.2 F 04/22/18 11:17 Pulse Rate 89 04/22/18 11:17 Respiratory Rate 20 04/22/18 11:17 Blood Pressure 105/75 04/22/18 11:17 Pulse Oximetry 100 04/22/18 11:17 Const General: cooperative and well developed Nutritional Appearance: well nourished Orientation: alert, awake, oriented x3 and not confused HENKY Mouth: oral mucosae normal and oropharynx normal Eyes Conjunctivae: conjunctivae normal Sclera: sclerae normal Pupils: PERRL EOM: EOM intact bilaterally Resp Effort & Inspection: normal respiratory effort, able to speak in complete sentences, no respiratory distress and no use of accessory muscles Auscultation: clear to auscultation bilaterally, no rales, no rhonchi and no wheezes Cardio Rate: regular rate Rhythm: regular rhythm Heart Sounds: no click, no gallops, no murmurs and no rubs Pulses: normal peripheral pulses Back/Spine/Pelvis Thoracic/Lumbar Spine: paraspinal tenderness and lumbar spinal tenderness Other: tenderness on palpation to the lumbar spine and also to the paraspinals left greater than right. Distal sensation is intact. Distal range of motion is intact. Distal pulses are intact Skin General: no rashes or lesions noted, No jaundice and No petechiae <Davion Ruiz DO - Last Filed: 04/23/18 07:34> Initial Vital Signs Initial Vital Signs: Vital Signs Temperature 98.2 F 04/22/18 11:17 Pulse Rate 89 04/22/18 11:17 Respiratory Rate 20 04/22/18 11:17 Blood Pressure 105/75 04/22/18 11:17 Pulse Oximetry 100 04/22/18 11:17 Course <HIGINIO Vicente - Last Filed: 04/22/18 22:22> Orders Ordered: Discontinued Medications Cyclobenzaprine HCl (Flexeril) 10 mg PO NOW ONE Stop: 04/22/18 12:26 Last Admin: 04/22/18 12:59 Dose: 10 mg Ketorolac Tromethamine (Toradol) 30 mg IM NOW ONE Stop: 04/22/18 12:26 Last Admin: 04/22/18 12:58 Dose: 30 mg Vital Signs - 8 hr 04/22/18 11:17 Temperature 98.2 F Pulse Rate 89 Respiratory Rate 20 Blood Pressure 105/75 Pulse Oximetry 100 <Davion Ruiz DO - Last Filed: 04/23/18 07:34> Orders Ordered: Discontinued Medications Cyclobenzaprine HCl (Flexeril) 10 mg PO NOW ONE Stop: 04/22/18 12:26 Last Admin: 04/22/18 12:59 Dose: 10 mg Ketorolac Tromethamine (Toradol) 30 mg IM NOW ONE Stop: 04/22/18 12:26 Last Admin: 04/22/18 12:58 Dose: 30 mg Vital Signs - 8 hr 04/22/18 11:17 Temperature 98.2 F Pulse Rate 89 Respiratory Rate 20 Blood Pressure 105/75 Pulse Oximetry 100 MDM - Back Pain/Injury <HIGINIO Vicente - Last Filed: 04/22/18 22:22> Lab Data Lab Results 04/22/18 Range/Units 13:00 Urine RBC None seen (0-5/HPF) Urine WBC 5-10/hpf H (0-5/HPF) Ur Squamous Epith Cells 0-1 /hpf Urine Bacteria Many (>30) H (None) Ur Culture Indicated? Specimen cultured Micro UA Comment Not Reportable Urine Dip Bedside Urine Glucose Negative Bedside Urine Bilirubin - Negative Bedside Urine Ketone - Negative Urine Specific [place] 1.015 Bedside Urine Occult Blood - Negative Bedside Urine pH 8.0 Bedside Urine Protein - Negative Bedside Urine Urobilinogen - Negative Bedside Urine Nitrite + Positive Bedside Urine Leukocytes - Negative Esterase Imaging Data L spine ct: Radiologist's impression: [address] [address] [address] Scan Report Signed Patient: Lexy Callahan [facility]#: [id number] : 1985Acct:[id number] Age/Sex: 32 / FDate of Service: 04/22/18 Loc: ED Accession Number: [id number] Procedure: CT lumbar spine wo con Ordering Provider: Donis Johnson PROCEDURE: CT LUMBAR SPINE WO CON INDICATIONS: Lower back pain TECHNIQUE: Noncontrast 3 mm thick sections acquired from the T12 level to the sacrum. Sagittal and coronal reformats were constructed. For radiation dose reduction, the following was used: automated exposure control. COMPARISON: [facility], , SPINE LUMB 2 OR 3VW, 09/06/2011, 16:08. FINDINGS: Image quality: Excellent. Bones: There is normal bony alignment. No acute vertebral body compression fractures. No suspicious lytic or blastic bony lesions. Central spinal caliber is of normal overall caliber. No pars defects. Soft tissues: No retroperitoneal masses or hematomas. Visualized aorta is normal in caliber. IMPRESSION: No fracture. No acute osseous lesion. If symptoms and/or clinical suspicion for pathology persists, evaluation with MRI may be helpful for further assessment. Dictated by: Regla Zimmer MD, PhD on 04/22/2018 at 12:07 Approved by: Regla Zimmer MD, PhD on 04/22/2018 at 12:[address] [facility] Narrative Medical decision making narrative: Due to prior history of cancer CT of the lumbar spine was obtained was negative for any acute findings. Signs and symptoms presents as strain into the lumbar region with sciatica. She is prescribed cyclobenzaprine and also short course of prednisone. [id number] ibuprofen or naproxen as needed for any discomfort. Urinalysis indicates urinary tract infection She is prescribed Levaquin. Rest area follow up up with primary care provider. Return emergency room for any worsening symptoms. <Davion Ruiz, - Last Filed: 04/23/18 07:34> Lab Data Lab Results 04/22/18 Range/Units 13:00 Urine RBC None seen (0-5/HPF) Urine WBC 5-10/hpf H (0-5/HPF) Ur Squamous Epith Cells 0-1 /hpf Urine Bacteria Many (>30) H (None) Ur Culture Indicated? Specimen cultured Micro UA Comment Not Reportable Urine Dip Bedside Urine Glucose Negative Bedside Urine Bilirubin - Negative Bedside Urine Ketone - Negative Urine Specific [place] 1.015 Bedside Urine Occult Blood - Negative Bedside Urine pH 8.0 Bedside Urine Protein - Negative Bedside Urine Urobilinogen - Negative Bedside Urine Nitrite + Positive Bedside Urine Leukocytes - Negative Esterase Discharge Plan Departure Patient Disposition: Home Clinical Impression: Urinary tract infection, Strain of lumbar region Discharge Date/Time: 04/22/18 14:10 Interventions: ED Discharge Assessment Last Done: 04/22/18 14:09 Instructions: DI for Low Back Pain Activity Restrictions/Additional Instructions: CT of the lower back was obtained was negative for any acute findings. Signs and symptoms presents as strain into the lower back muscles Along with sciatica. UR placed on a muscle relaxer called cyclobenzaprine use as directed. No driving while on muscle relaxers a can make you drowsy. You also prescribe short course of prednisone to help with anti inflammation also use as directed. [id number] ibuprofen as needed for discomfort anti-inflammatory effects. Rest area. Gentle range of motion to painful areas to help keep muscles loose. Urinalysis indicates urinary tract infection UR placed on antibiotic called Levaquin use as directed. For any worsening symptoms return to the emergency room. Follow up with primary care provider next week. Prescriptions: New cyclobenzaprine 10 mg tablet 10 mg PO TID PRN (Reason: muscle spasm) Qty: 15 RF: 0 prednisone 20 mg tablet 40 mg PO DAILY Qty: 8 RF: 0 levofloxacin 750 mg tablet 750 mg PO DAILY Qty: 7 RF: 0 No Action lamotrigine [Lamictal XR] 100 MG tablet extended release 24hr 200 mg PO DAILY Qty: 0 RF: 0 sumatriptan succinate [Imitrex] 100 MG tablet Qty: 0 RF: 0 lithium carbonate 300 mg Capsule 300 mg PO QID RF: 0 dextroamphetamine-amphetamine [Adderall XR] 20 mg Capsule,Extended Release 24hr 20 mg PO QAM PRN (Reason: to help focus at work) RF: 0 meloxicam [Mobic] 7.5 mg tablet 7.5 mg PO BID Qty: 10 RF: 0 levothyroxine 112 mcg tablet 224 mcg PO DAILY RF: 0 Referrals: [facility] [Provider Group] <Davion Ruiz DO - Last Filed: 04/23/18 07:34> [facility] ED Attending Martha Attestation: I was immediately available in the department for consultation. Documentation has been reviewed. I agree with assessment and plan.
--- NOTE | 2018-04-22 12:25 | DI.CT.S_ITS ---
PROCEDURE: CT LUMBAR SPINE WO CON INDICATIONS: Lower back pain TECHNIQUE: Noncontrast 3 mm thick sections acquired from the T12 level to the sacrum. Sagittal and coronal reformats were constructed. For radiation dose reduction, the following was used: automated exposure control. COMPARISON: [facility], , SPINE LUMB 2 OR 3VW, 09/06/2011, 16:08. FINDINGS: Image quality: Excellent. Bones: There is normal bony alignment. No acute vertebral body compression fractures. No suspicious lytic or blastic bony lesions. Central spinal caliber is of normal overall caliber. No pars defects. Soft tissues: No retroperitoneal masses or hematomas. Visualized aorta is normal in caliber. IMPRESSION: No fracture. No acute osseous lesion. If symptoms and/or clinical suspicion for pathology persists, evaluation with MRI may be helpful for further assessment. Dictated by: Regla Zimmer MD, PhD on 04/22/2018 at 12:07 Approved by: Regla Zimmer MD, PhD on 04/22/2018 at 12:18
--- NOTE | 2018-04-22 12:31 | ED_ITS ---
HPI - Back Pain/Injury <HIGINIO Vicente - Last Filed: 04/22/18 22:22> General Chief Complaint: Back Pain/Injury Stated Complaint: lower back pain, hard to sit Time Seen by Provider: 04/22/18 11:32 Source: patient Mode of arrival: ambulatory Limitations: no limitations History of Present Illness HPI Narrative: a 32-year-old female with history of thyroid cancer and thyroidectomy that is nonsmoker for complaint of pain into her lower back region since yesterday. She reports she has had pain into her lower back on off over the past couple of years. She denies any trauma to the lower back. She reports increased pain with laying on her back. She is ambulatory to the emergency room. She denies any loss of bladder or bowel control. No nausea/ vomiting. She states she has had increased urinary frequency. Pain radiates into the left buttocks and lower extremity. No fevers no chills no other concerns or complaints. Related Data Home Medications Medication Instructions Recorded Confirmed lamotrigine [Lamictal XR] 200 mg PO DAILY #0 08/22/12 02/11/18 sumatriptan succinate [Imitrex] #0 08/22/12 dextroamphetamine-amphetamine 20 mg PO QAM PRN 02/11/18 04/22/18 [Adderall XR] lithium carbonate 300 mg PO QID 02/11/18 02/11/18 levothyroxine 224 mcg PO DAILY 04/22/18 04/22/18 Previous Rx's Medication Instructions Recorded meloxicam [Mobic] 7.5 mg PO BID #10 tab 03/31/18 cyclobenzaprine 10 mg PO TID PRN #15 tab 04/22/18 levofloxacin 750 mg PO DAILY #7 tab 04/22/18 prednisone 40 mg PO DAILY #8 tab 04/22/18 Allergies Allergy/AdvReac Type Severity Reaction Status Date / Time adhesive [ADHESIVE] Allergy Intermediate Verified 02/11/18 17:18 amoxicillin [AMOXICILLIN] Allergy Intermediate Verified 02/11/18 17:18 cephalexin [From KEFLEX] Allergy Intermediate Verified 02/11/18 17:18 clindamycin [CLINDAMYCIN] Allergy Intermediate Verified 02/11/18 17:18 doxycycline [DOXYCYCLINE] Allergy Intermediate Verified 02/11/18 17:18 iodine [IODINE] Allergy Intermediate Verified 02/11/18 17:18 Sulfa (Sulfonamide Allergy Intermediate Verified 02/11/18 17:18 Antibiotics) [SULFA (SULFONAMIDE ANTIBIOTICS)] Penicillins [PENICILLINS] Allergy Unknown Verified 02/11/18 17:18 Review of Systems <HIGINIO Vicente - Last Filed: 04/22/18 22:22> Constitutional Denies chills, Denies fever(s), Denies lethargy and Denies weakness Eyes Denies change in vision, Denies eye discharge, Denies irritation and Denies loss of vision ENT Ears, Nose, Mouth, and Throat: Denies change in voice, Denies neck pain and Denies sore throat Cardiovascular Denies chest pain, Denies irregular heart rhythm, Denies lightheadedness, Denies palpitations, Denies dyspnea, Denies dyspnea on exertion and Denies orthopnea Respiratory Denies cough, Denies dyspnea, Denies dyspnea on exertion and Denies wheezing Gastrointestinal Gastrointestinal: Denies abdominal pain, Denies change in bowel habits, Denies diarrhea, Denies nausea and Denies vomiting Genitourinary Denies hematuria, Denies flank pain, Denies urinary incontinence and Denies urinary urgency Musculoskeletal Denies neck pain Comments: Lower back pain Integumentary/Breasts Denies pruritus, Denies erythema, Denies rash and Denies wounds Neurologic Denies confusion, Denies loss of vision and Denies weakness Psychiatric Denies anxiety, Denies confusion, Denies depression, Denies homicidal ideation and Denies suicidal ideation Endocrine Denies palpitations Hematologic/Lymphatic Denies easy bruising Allergic/Immunologic Denies wheezing Exam <HIGINIO Vicente - Last Filed: 04/22/18 22:22> Initial Vital Signs Initial Vital Signs: Vital Signs Temperature 98.2 F 04/22/18 11:17 Pulse Rate 89 04/22/18 11:17 Respiratory Rate 20 04/22/18 11:17 Blood Pressure 105/75 04/22/18 11:17 Pulse Oximetry 100 04/22/18 11:17 Const General: cooperative and well developed Nutritional Appearance: well nourished Orientation: alert, awake, oriented x3 and not confused HENFL Mouth: oral mucosae normal and oropharynx normal Eyes Conjunctivae: conjunctivae normal Sclera: sclerae normal Pupils: PERRL EOM: EOM intact bilaterally Resp Effort & Inspection: normal respiratory effort, able to speak in complete sentences, no respiratory distress and no use of accessory muscles Auscultation: clear to auscultation bilaterally, no rales, no rhonchi and no wheezes Cardio Rate: regular rate Rhythm: regular rhythm Heart Sounds: no click, no gallops, no murmurs and no rubs Pulses: normal peripheral pulses Back/Spine/Pelvis Thoracic/Lumbar Spine: paraspinal tenderness and lumbar spinal tenderness Other: tenderness on palpation to the lumbar spine and also to the paraspinals left greater than right. Distal sensation is intact. Distal range of motion is intact. Distal pulses are intact Skin General: no rashes or lesions noted, No jaundice and No petechiae <Davion Ruiz DO - Last Filed: 04/23/18 07:34> Initial Vital Signs Initial Vital Signs: Vital Signs Temperature 98.2 F 04/22/18 11:17 Pulse Rate 89 04/22/18 11:17 Respiratory Rate 20 04/22/18 11:17 Blood Pressure 105/75 04/22/18 11:17 Pulse Oximetry 100 04/22/18 11:17 Course <HIGINIO Vicente - Last Filed: 04/22/18 22:22> Orders Ordered: Discontinued Medications Cyclobenzaprine HCl (Flexeril) 10 mg PO NOW ONE Stop: 04/22/18 12:26 Last Admin: 04/22/18 12:59 Dose: 10 mg Ketorolac Tromethamine (Toradol) 30 mg IM NOW ONE Stop: 04/22/18 12:26 Last Admin: 04/22/18 12:58 Dose: 30 mg Vital Signs - 8 hr 04/22/18 11:17 Temperature 98.2 F Pulse Rate 89 Respiratory Rate 20 Blood Pressure 105/75 Pulse Oximetry 100 <Davion Ruiz DO - Last Filed: 04/23/18 07:34> Orders Ordered: Discontinued Medications Cyclobenzaprine HCl (Flexeril) 10 mg PO NOW ONE Stop: 04/22/18 12:26 Last Admin: 04/22/18 12:59 Dose: 10 mg Ketorolac Tromethamine (Toradol) 30 mg IM NOW ONE Stop: 04/22/18 12:26 Last Admin: 04/22/18 12:58 Dose: 30 mg Vital Signs - 8 hr 04/22/18 11:17 Temperature 98.2 F Pulse Rate 89 Respiratory Rate 20 Blood Pressure 105/75 Pulse Oximetry 100 MDM - Back Pain/Injury <HIGINIO Vicente - Last Filed: 04/22/18 22:22> Lab Data Lab Results 04/22/18 Range/Units 13:00 Urine RBC None seen (0-5/HPF) Urine WBC 5-10/hpf H (0-5/HPF) Ur Squamous Epith Cells 0-1 /hpf Urine Bacteria Many (>30) H (None) Ur Culture Indicated? Specimen cultured Micro UA Comment Not Reportable Urine Dip Bedside Urine Glucose Negative Bedside Urine Bilirubin - Negative Bedside Urine Ketone - Negative Urine Specific [place] 1.015 Bedside Urine Occult Blood - Negative Bedside Urine pH 8.0 Bedside Urine Protein - Negative Bedside Urine Urobilinogen - Negative Bedside Urine Nitrite + Positive Bedside Urine Leukocytes - Negative Esterase Imaging Data L spine ct: Radiologist's impression: [address] [address] [address] Scan Report Signed Patient: Lexy Callahan [facility]#: [id number] : 1985Acct:[id number] Age/Sex: 32 / FDate of Service: 04/22/18 Loc: ED Accession Number: [id number] Procedure: CT lumbar spine wo con Ordering Provider: Donis Johnson PROCEDURE: CT LUMBAR SPINE WO CON INDICATIONS: Lower back pain TECHNIQUE: Noncontrast 3 mm thick sections acquired from the T12 level to the sacrum. Sagittal and coronal reformats were constructed. For radiation dose reduction, the following was used: automated exposure control. COMPARISON: [facility], , SPINE LUMB 2 OR 3VW, 09/06/2011, 16:08. FINDINGS: Image quality: Excellent. Bones: There is normal bony alignment. No acute vertebral body compression fractures. No suspicious lytic or blastic bony lesions. Central spinal caliber is of normal overall caliber. No pars defects. Soft tissues: No retroperitoneal masses or hematomas. Visualized aorta is normal in caliber. IMPRESSION: No fracture. No acute osseous lesion. If symptoms and/or clinical suspicion for pathology persists, evaluation with MRI may be helpful for further assessment. Dictated by: Regla Zimmer MD, PhD on 04/22/2018 at 12:07 Approved by: Regla Zimmer MD, PhD on 04/22/2018 at 12:18 [facility] Narrative Medical decision making narrative: Due to prior history of cancer CT of the lumbar spine was obtained was negative for any acute findings. Signs and symptoms presents as strain into the lumbar region with sciatica. She is prescribed cyclobenzaprine and also short course of prednisone. Over-the- counter ibuprofen or naproxen as needed for any discomfort. Urinalysis indicates urinary tract infection She is prescribed Levaquin. Rest area follow up up with primary care provider. Return emergency room for any worsening symptoms. <Davion Ruiz, - Last Filed: 04/23/18 07:34> Lab Data Lab Results 04/22/18 Range/Units 13:00 Urine RBC None seen (0-5/HPF) Urine WBC 5-10/hpf H (0-5/HPF) Ur Squamous Epith Cells 0-1 /hpf Urine Bacteria Many (>30) H (None) Ur Culture Indicated? Specimen cultured Micro UA Comment Not Reportable Urine Dip Bedside Urine Glucose Negative Bedside Urine Bilirubin - Negative Bedside Urine Ketone - Negative Urine Specific [place] 1.015 Bedside Urine Occult Blood - Negative Bedside Urine pH 8.0 Bedside Urine Protein - Negative Bedside Urine Urobilinogen - Negative Bedside Urine Nitrite + Positive Bedside Urine Leukocytes - Negative Esterase Discharge Plan Departure Patient Disposition: Home Clinical Impression: Urinary tract infection, Strain of lumbar region Discharge Date/Time: 04/22/18 14:10 Interventions: ED Discharge Assessment Last Done: 04/22/18 14:09 Instructions: DI for Low Back Pain Activity Restrictions/Additional Instructions: CT of the lower back was obtained was negative for any acute findings. Signs and symptoms presents as strain into the lower back muscles Along with sciatica. UR placed on a muscle relaxer called cyclobenzaprine use as directed. No driving while on muscle relaxers a can make you drowsy. You also prescribe short course of prednisone to help with anti inflammation also use as directed. [id number] ibuprofen as needed for discomfort anti- inflammatory effects. Rest area. Gentle range of motion to painful areas to help keep muscles loose. Urinalysis indicates urinary tract infection UR placed on antibiotic called Levaquin use as directed. For any worsening symptoms return to the emergency room. Follow up with primary care provider next week. Prescriptions: New cyclobenzaprine 10 mg tablet 10 mg PO TID PRN (Reason: muscle spasm) Qty: 15 RF: 0 prednisone 20 mg tablet 40 mg PO DAILY Qty: 8 RF: 0 levofloxacin 750 mg tablet 750 mg PO DAILY Qty: 7 RF: 0 No Action lamotrigine [Lamictal XR] 100 MG tablet extended release 24hr 200 mg PO DAILY Qty: 0 RF: 0 sumatriptan succinate [Imitrex] 100 MG tablet Qty: 0 RF: 0 lithium carbonate 300 mg Capsule 300 mg PO QID RF: 0 dextroamphetamine-amphetamine [Adderall XR] 20 mg Capsule,Extended Release 24hr 20 mg PO QAM PRN (Reason: to help focus at work) RF: 0 meloxicam [Mobic] 7.5 mg tablet 7.5 mg PO BID Qty: 10 RF: 0 levothyroxine 112 mcg tablet 224 mcg PO DAILY RF: 0 Referrals: [facility] [Provider Group] <Davion Ruiz DO - Last Filed: 04/23/18 07:34> [facility] ED Attending Martha Attestation: I was immediately available in the department for consultation. Documentation has been reviewed. I agree with assessment and plan.
[2018-04-22] MEDS: KETOROLAC 60 MG/2 ML VIAL 30 MG IM (12:58)
[2018-04-22] MEDS: CYCLOBENZAPRINE 10 MG TABLET PO (12:59)
[2018-04-22 13:22] LABS: RBC Urine None Seen (0-5/HPF)
[2018-04-22 13:29] LABS: Bacteria Urine Many (>30); Squamous Epithelial Cell Urine 0-1 /HPF; WBC Urine 5-10/HPF (0-5/HPF)
[2018-04-22 13:30] LABS: Culture Indicated Urine Specimen Cultured
[2018-04-22 14:09] VITALS: BP 104/53; PULSE 63; TEMP 36.6; O2SAT 100
== END 2018-04-22 14:10 | disposition home or self-care (01) ==
PROVIDERS: Emergency Provider Nurse Practitioner Family
DX: N39.0 Urinary tract infection, site not specified (principal); S39.012A Strain of muscle, fascia and tendon of lower back, initial encounter
CPT/HCPCS: 72131; 81003; 81015; 87077; 87086; 87186; 96372; 99282; 99284; J1885

== ENCOUNTER 2018-05-17 11:08 | Emergency (ER) | payer OTHER, MEDICAID, SELFPAY | END 2018-05-17 11:50 | disposition left against medical advice (07) | DX: M25.561 Pain in right knee (principal) | CPT/HCPCS: 99281 ==

== ENCOUNTER 2018-05-18 09:25 | Emergency (ER) | payer OTHER, MEDICAID, SELFPAY ==
[2018-05-18 09:35] VITALS: BP 104/52; PULSE 108; RESP 16; TEMP 36.7; O2SAT 98; BMI 32.5
--- NOTE | 2018-05-18 09:36 | DI.RAD.S_ITS ---
PROCEDURE: XR KNEE RT 3V INDICATIONS: pain TECHNIQUE: 3 views of the knee were acquired. COMPARISON: None. FINDINGS: Bones: No fractures or dislocations. No suspicious bony lesions. Soft tissues: No joint effusion. No suspicious soft tissue calcifications. IMPRESSION: No acute osseous abnormality of the right knee. Dictated by: Sebastián Ordonez M.D. on 05/18/2018 at 9:10 Approved by: Sebastián Ordonez M.D. on 05/18/2018 at 9:10
--- NOTE | 2018-05-18 10:26 | ED.LOWEXIN ---
HPI - Extremity Injury (Lower) General Chief Complaint: Extremity Injury, Lower Stated Complaint: RT KNEE PAIN Time Seen by Provider: 05/18/18 10:09 Source: patient Mode of arrival: ambulatory Limitations: no limitations History of Present Illness HPI Narrative: Patient is a 32-year-old female who presents with right knee pain. She had a knee surgery number of years ago to help clean up her knee. Over last few weeks she has had increasing pain she has been wearing her knee brace which helped he takes naproxen which helped a little. She has an appointment in 2 days with a new primary care physician. She occasionally has some numbness but it does not last long no weakness. MD complaint: knee injury Related Data Home Medications Medication Instructions Recorded Confirmed sumatriptan succinate [Imitrex] 100 mg PO PRN PRN #0 08/22/12 05/18/18 dextroamphetamine-amphetamine 20 mg PO QAM PRN 02/11/18 05/18/18 [Adderall XR] levothyroxine 224 mcg PO DAILY 04/22/18 05/18/18 naproxen 500 mg PO BID PRN 05/18/18 05/18/18 Previous Rx's Medication Instructions Recorded meloxicam 15 mg PO DAILY PRN #30 tab 05/18/18 Allergies Allergy/AdvReac Type Severity Reaction Status Date / Time adhesive [ADHESIVE] Allergy Intermediate Verified 02/11/18 17:18 amoxicillin [AMOXICILLIN] Allergy Intermediate Verified 02/11/18 17:18 cephalexin [From KEFLEX] Allergy Intermediate Verified 02/11/18 17:18 clindamycin [CLINDAMYCIN] Allergy Intermediate Verified 02/11/18 17:18 doxycycline [DOXYCYCLINE] Allergy Intermediate Verified 02/11/18 17:18 iodine [IODINE] Allergy Intermediate Verified 02/11/18 17:18 Sulfa (Sulfonamide Allergy Intermediate Verified 02/11/18 17:18 Antibiotics) [SULFA (SULFONAMIDE ANTIBIOTICS)] Penicillins [PENICILLINS] Allergy Unknown Verified 02/11/18 17:18 levofloxacin Allergy Verified 05/18/18 09:35 Review of Systems Review of Systems GENERAL: Denies chills,fever HEENT: Denies throat pain RESPIRATORY: Denies dyspnea, cough, wheezing CARDIOVASCULAR: Denies chest pain, palpitations GASTROINTESTINAL: Denies nausea, vomiting MUSCULOSKELETAL: See HPI SKIN: No rash, no laceration, no pruritus NEUROLOGIC: Denies weakness, dizziness, headache, numbness 8 point review of systems is negative except for those stated above and HPI PFSH Medical History Bipolar 1 disorder (Acute) H/O: hysterectomy (Acute) Hypothyroid (Acute) Thyroid cancer (Acute) Surgical History H/O thyroidectomy (Acute) No pertinent past surgical history (Acute) Social History Smoking Status: Current some day smoker Exam Initial Vital Signs Initial Vital Signs: Vital Signs Temperature 98.0 F 05/18/18 09:35 Pulse Rate 108 H 05/18/18 09:35 Respiratory Rate 16 05/18/18 09:35 Blood Pressure 104/52 L 05/18/18 09:35 Pulse Oximetry 98 05/18/18 09:35 GENERAL: Well-appearing, well-nourished and in no acute distress. CARDIOVASCULAR: peripheral pulses in tact, cap refill <2 sec RESPIRATORY: No respiratory distress, speaks in full sentences without difficulty EXTREMITIES: Normal range of motion, no clubbing or edema. Neurovascularly intact Right knee minimal swelling stable knee pain with meniscus testing distal pedal pulses NEUROLOGICAL: Cranial nerves II through XII grossly intact. Normal gait and speech. SKIN: Warm, dry, no petechiae, no rashes or lesions. Course Orders Ordered: ED Orders 05/18/18 09:36 XR knee RT 3V Stat Vital Signs - 8 hr 05/18/18 09:35 Temperature 98.0 F Pulse Rate 108 H Respiratory Rate 16 Blood Pressure 104/52 L Pulse Oximetry 98 Discharge Plan Departure Patient Disposition: Home Clinical Impression: Right knee sprain Instructions: DI for Knee Sprain, DI for Knee Pain Activity Restrictions/Additional Instructions: *You have been diagnosed with right knee sprain *What to do: You will need an MRI of urine need for further detail and evaluation. Wear knee brace well active use crutches if needed *Continue to take medications as directed: FAXED TO [facility] [place] Mobic 7.5-15 mg once a day with food do not combine with other NSAID such as naproxen, ibuprofen Motrin Aleve Advil etc *Follow up with your primary care provider in 2-3 days *Return to ER if you should have numbness, tingling, weakness or any new, worsening or concerning symptoms Prescriptions: New meloxicam 7.5 mg tablet 15 mg PO DAILY PRN (Reason: pain (scale score 7-10)) Qty: 30 RF: 0 No Action sumatriptan succinate [Imitrex] 100 MG tablet 100 mg PO PRN PRN (Reason: Migraine Headache) Qty: 0 RF: 0 dextroamphetamine-amphetamine [Adderall XR] 20 mg Capsule,Extended Release 24hr 20 mg PO QAM PRN (Reason: to help focus at work) RF: 0 levothyroxine 112 mcg tablet 224 mcg PO DAILY RF: 0 naproxen 500 mg tablet 500 mg PO BID PRN (Reason: pain) RF: 0 Referrals: Aldo Hernadez MD [Primary Care Provider] -
== END 2018-05-18 11:12 | disposition home or self-care (01) ==
PROVIDERS: Emergency Provider Emergency Medicine; PCP Family Medicine
DX: S83.91XA Sprain of unspecified site of right knee, initial encounter (principal)
CPT/HCPCS: 73562; 99282; 99283

== ENCOUNTER 2018-05-24 12:18 | Emergency (ER) | payer OTHER, MEDICAID, SELFPAY ==
[2018-05-24 12:23] VITALS: BP 131/95; PULSE 95; RESP 14; TEMP 36.1; O2SAT 99; BMI 33.6
[2018-05-24] MEDS: SODIUM CHLORIDE 0.9% 1,000 ML 1000 ML IV (12:46)
[2018-05-24] MEDS: ONDANSETRON 4 MG/2 ML INJ IV (12:46)
[2018-05-24 12:54] LABS: Add Manual Diff / Slide Review NO; Basophils Percent Auto 0.7 % (0-2); Eosinophils Percent Auto 3.2 % (2-4); Hematocrit 40.5 % (36-46); Hemoglobin 13.9 g/dL (12.0-16.0); Lymphocytes Percent Auto 32.9 % (25-40); Mean Corpuscular HGB Conc 34.2 % (30-36); Mean Corpuscular Hemoglobin 31.8 PG (26-34); Neutrophils Absolute Auto 2500 /uL (3000-5900); Neutrophils Percent Auto 52.2 % (50-75); Platelet Count 240 X10^3/uL (150-400); Prothrombin Time 10.6 SECONDS (10.1-12.7); Red Blood Cell Count 4.36 X10^6/uL (4.0-5.2); Red Cell Distribution Width 12.8 % (11.6-14.8); White Blood Cell Count 4.7 X10^3/uL (4.5-11.0)
[2018-05-24 12:57] LABS: PTT Partial Thromboplastin Tim 32 SECONDS (26.4-36.2)
[2018-05-24 13:00] LABS: Alanine Aminotransferase 27 IU/L (9-52); Albumin 3.8 g/dL (3.5-5.0); Albumin Globulin Ratio 1.3 (1.0-2.8); Alkaline Phosphatase 52 U/L (38-126); Aspartate Aminotransferase 23 IU/L (14-36); Bilirubin Total 0.4 mg/dL (0.2-1.3); Blood Urea Nitrogen 15 mg/dL (7-17); Calcium 8.9 mg/dL (8.4-10.2); Carbon Dioxide 27 mmol/L (22-32); Chloride 106 mmol/L (98-107); Estimated Glomerular Filt Rate > 60.0 mL/min (>60); Glucose 95 mg/dL (70-100); HEMOLYSIS < 15 (0-50); Lipase 81 U/L (23-300); Sodium 144 mmol/L (137-145); Total Protein 6.8 g/dL (6.3-8.2)
--- NOTE | 2018-05-24 13:19 | ED.NAVMDI ---
HPI - Nausea/Vomiting/Diarrhea <HIGINIO Vicente - Last Filed: 05/24/18 22:14> General Chief complaint: Nausea/Vomiting/Diarrhea Stated complaint: pounding head ache and vomiting Time Seen by Provider: 05/24/18 12:59 Source: patient Mode of arrival: ambulatory Limitations: no limitations History of Present Illness HPI Narrative: 32-year-old female with history of migraines as a part-time smoker here for complaint of headache that started earlier today with nausea vomiting. She states that this headache is not her typical migraine headache and is worse than normal. She denies any head trauma no fevers no chills. She denies any neuro deficits. She also reports having photophobia. No other stressors relievers of her discomfort and nausea vomiting. No abdominal pain. No urinary symptoms. No other concerns or complaints MD complaint: nausea, vomiting and other Related Data Home Medications Medication Instructions Recorded Confirmed sumatriptan succinate [Imitrex] 100 mg PO PRN PRN #0 08/22/12 05/24/18 dextroamphetamine-amphetamine 20 mg PO QAM PRN 02/11/18 05/24/18 [Adderall XR] levothyroxine 224 mcg PO DAILY 04/22/18 05/24/18 naproxen 500 mg PO BID PRN 05/18/18 05/24/18 lamotrigine 200 mg PO DAILY 05/24/18 05/24/18 lithium carbonate 300 mg PO QAM 05/24/18 05/24/18 lithium carbonate 600 mg PO QPM 05/24/18 05/24/18 trazodone 150 mg PO QPM 05/24/18 05/24/18 Previous Rx's Medication Instructions Recorded meloxicam 15 mg PO DAILY PRN #30 tab 05/18/18 Allergies Allergy/AdvReac Type Severity Reaction Status Date / Time adhesive [ADHESIVE] Allergy Intermediate Verified 02/11/18 17:18 amoxicillin [AMOXICILLIN] Allergy Intermediate Verified 02/11/18 17:18 cephalexin [From KEFLEX] Allergy Intermediate Verified 02/11/18 17:18 clindamycin [CLINDAMYCIN] Allergy Intermediate Verified 02/11/18 17:18 doxycycline [DOXYCYCLINE] Allergy Intermediate Verified 02/11/18 17:18 iodine [IODINE] Allergy Intermediate Verified 02/11/18 17:18 Sulfa (Sulfonamide Allergy Intermediate Verified 02/11/18 17:18 Antibiotics) [SULFA (SULFONAMIDE ANTIBIOTICS)] Penicillins [PENICILLINS] Allergy Unknown Verified 02/11/18 17:18 levofloxacin Allergy Verified 05/18/18 09:35 Review of Systems <HIGINIO Vicente - Last Filed: 05/24/18 22:14> Constitutional Denies chills, Denies fever(s), Reports headache(s), Denies lethargy and Denies weakness Eyes Denies change in vision, Denies eye discharge, Denies irritation and Denies loss of vision ENT Ears, Nose, Mouth, and Throat: Denies change in voice, Reports headache(s), Denies neck pain and Denies sore throat Cardiovascular Denies chest pain, Denies irregular heart rhythm, Denies lightheadedness, Denies palpitations, Denies dyspnea, Denies dyspnea on exertion and Denies orthopnea Respiratory Denies cough, Denies dyspnea, Denies dyspnea on exertion and Denies wheezing Gastrointestinal Gastrointestinal: Reports nausea and Reports vomiting Genitourinary Denies hematuria, Denies flank pain, Denies urinary incontinence and Denies urinary urgency Musculoskeletal Denies neck pain Integumentary/Breasts Denies pruritus, Denies erythema, Denies rash and Denies wounds Neurologic Denies confusion, Reports headache(s), Denies loss of vision and Denies weakness Psychiatric Denies anxiety, Denies confusion, Denies depression, Denies homicidal ideation and Denies suicidal ideation Endocrine Denies palpitations Hematologic/Lymphatic Denies easy bruising Allergic/Immunologic Denies wheezing Exam <HIGINIO Vicente - Last Filed: 05/24/18 22:14> Initial Vital Signs Initial Vital Signs: Vital Signs Temperature 97.0 F L 05/24/18 12:23 Pulse Rate 95 H 05/24/18 12:23 Respiratory Rate 14 05/24/18 12:23 Blood Pressure 131/95 H 05/24/18 12:23 Pulse Oximetry 99 05/24/18 12:23 Const General: cooperative and well developed Nutritional Appearance: well nourished Orientation: alert, awake, oriented x3 and not confused HENMT Mouth: oral mucosae normal and moist mucous membranes Eyes Conjunctivae: conjunctivae normal Sclera: sclerae normal Pupils: PERRL EOM: EOM intact bilaterally Resp Effort & Inspection: normal respiratory effort, able to speak in complete sentences, no respiratory distress and no use of accessory muscles Auscultation: clear to auscultation bilaterally, no rales, no rhonchi and no wheezes Cardio Rate: regular rate Rhythm: regular rhythm Heart Sounds: no click, no gallops, no murmurs and no rubs Pulses: normal peripheral pulses GI Inspection: non-distended Palpation: soft, no hepatosplenomegaly, No guarding, No pulsatile mass and No tender Auscultation: normal bowel sounds General: No CVA tenderness Skin General: no rashes or lesions noted, No jaundice and No petechiae Neuro General: alert, oriented x3, gait normal and no focal motor deficits Speech: speech normal <Fela Cifuentes DO - Last Filed: 05/25/18 08:11> Initial Vital Signs Initial Vital Signs: Vital Signs Temperature 97.0 F L 05/24/18 12:23 Pulse Rate 95 H 05/24/18 12:23 Respiratory Rate 14 05/24/18 12:23 Blood Pressure 131/95 H 05/24/18 12:23 Pulse Oximetry 99 05/24/18 12:23 Course <HIGINIO Vicente - Last Filed: 05/24/18 22:14> Orders Ordered: Discontinued Medications Diphenhydramine HCl (Benadryl) 25 mg IV NOW ONE Stop: 05/24/18 13:25 Last Admin: 05/24/18 13:44 Dose: 25 mg Hydromorphone HCl (Dilaudid) 0.5 mg IV NOW ONE Stop: 05/24/18 13:25 Last Admin: 05/24/18 13:44 Dose: 0.5 mg Sodium Chloride (Normal Saline 0.9%) 1,000 mls @ 1,000 mls/hr IV BOLUS ONE Stop: 05/24/18 13:33 Last Infusion: 05/24/18 14:22 Dose: 0 mls/hr Admin: 05/24/18 12:46 Dose: 1,000 mls/hr Metoclopramide HCl (Reglan) 10 mg IV NOW ONE Stop: 05/24/18 13:25 Last Admin: 05/24/18 13:44 Dose: 10 mg Ondansetron HCl (Zofran) 4 mg IV NOW ONE Stop: 05/24/18 12:35 Last Admin: 05/24/18 12:46 Dose: 4 mg Vital Signs - 8 hr 05/24/18 14:44 Pulse Rate 76 Respiratory Rate 20 Blood Pressure 99/54 L Pulse Oximetry 97 <Fela Cifuentes DO - Last Filed: 05/25/18 08:11> Orders Ordered: Discontinued Medications Diphenhydramine HCl (Benadryl) 25 mg IV NOW ONE Stop: 05/24/18 13:25 Last Admin: 05/24/18 13:44 Dose: 25 mg Hydromorphone HCl (Dilaudid) 0.5 mg IV NOW ONE Stop: 05/24/18 13:25 Last Admin: 05/24/18 13:44 Dose: 0.5 mg Sodium Chloride (Normal Saline 0.9%) 1,000 mls @ 1,000 mls/hr IV BOLUS ONE Stop: 05/24/18 13:33 Last Infusion: 05/24/18 14:22 Dose: 0 mls/hr Admin: 05/24/18 12:46 Dose: 1,000 mls/hr Metoclopramide HCl (Reglan) 10 mg IV NOW ONE Stop: 05/24/18 13:25 Last Admin: 05/24/18 13:44 Dose: 10 mg Ondansetron HCl (Zofran) 4 mg IV NOW ONE Stop: 05/24/18 12:35 Last Admin: 05/24/18 12:46 Dose: 4 mg Vital Signs - 8 hr 05/24/18 14:44 Pulse Rate 76 Respiratory Rate 20 Blood Pressure 99/54 L Pulse Oximetry 97 MDM - Nausea/Vomiting/Diarrhea <HIGINIO Vicente - Last Filed: 05/24/18 22:14> Lab Data Result diagrams: 05/24/18 12:45 05/24/18 12:45 Lab Results 05/24/18 05/24/18 05/24/18 Range/Units 12:42 12:45 12:45 WBC 4.7 (4.5-11.0) X10^3/uL RBC 4.36 (4.0-5.2) X10^6/uL Hgb 13.9 (12.0-16.0) g/dL Hct 40.5 (36-46) % MCV 93.0 (80-100) fL MCH 31.8 (26-34) PG MCHC 34.2 (30-36) % RDW 12.8 (11.6-14.8) % Plt Count 240 (150-400) X10^3/uL Neut % (Auto) 52.2 (50-75) % Lymph % (Auto) 32.9 (25-40) % [place] % (Auto) 11.0 (3-14) % Eos % (Auto) 3.2 (2-4) % Baso % (Auto) 0.7 (0-2) % Neut # (Auto) 2500 L (6741-3205) /uL PT 10.6 (10.1-12.7) SECONDS INR 1.0 (0.9-1.3) APTT 32 (26.4-36.2) SECONDS Sodium (137-145) mmol/L Potassium (3.4-5.1) mmol/L Chloride (98-107) mmol/L Carbon Dioxide (22-32) mmol/L BUN (7-17) mg/dL Creatinine (0.52-1.04) mg/dL Estimated GFR (>60) mL/min BUN/Creatinine Ratio (6-22) Glucose (70-100) mg/dL Calcium (8.4-10.2) mg/dL Total Bilirubin (0.2-1.3) mg/dL AST (14-36) IU/L ALT (9-52) IU/L Alkaline Phosphatase (38-126) U/L Total Protein (6.3-8.2) g/dL Albumin (3.5-5.0) g/dL Globulin (1.7-4.1) g/dL Albumin/Globulin Ratio (1.0-2.8) Lipase (23-300) U/L [place] 0.3 L (0.6-1.2) mmol/L 05/24/18 Range/Units 12:45 WBC (4.5-11.0) X10^3/uL RBC (4.0-5.2) X10^6/uL Hgb (12.0-16.0) g/dL Hct (36-46) % MCV (80-100) fL MCH (26-34) PG MCHC (30-36) % RDW (11.6-14.8) % Plt Count (150-400) X10^3/uL Neut % (Auto) (50-75) % Lymph % (Auto) (25-40) % [place] % (Auto) (3-14) % Eos % (Auto) (2-4) % Baso % (Auto) (0-2) % Neut # (Auto) (9671-5250) /uL PT (10.1-12.7) SECONDS INR (0.9-1.3) APTT (26.4-36.2) SECONDS Sodium 144 (137-145) mmol/L Potassium 4.0 (3.4-5.1) mmol/L Chloride 106 (98-107) mmol/L Carbon Dioxide 27 (22-32) mmol/L BUN 15 (7-17) mg/dL Creatinine 0.50 L (0.52-1.04) mg/dL Estimated GFR > 60.0 (>60) mL/min BUN/Creatinine Ratio 30.0 H (6-22) Glucose 95 (70-100) mg/dL Calcium 8.9 (8.4-10.2) mg/dL Total Bilirubin 0.4 (0.2-1.3) mg/dL AST 23 (14-36) IU/L ALT 27 (9-52) IU/L Alkaline Phosphatase 52 (38-126) U/L Total Protein 6.8 (6.3-8.2) g/dL Albumin 3.8 (3.5-5.0) g/dL Globulin 3.0 (1.7-4.1) g/dL Albumin/Globulin Ratio 1.3 (1.0-2.8) Lipase 81 (23-300) U/L [place] (0.6-1.2) mmol/L ECG Data Interpretation: [address] [address] [address] Scan Report Signed Patient: Lexy Callahan [facility]#: [id number] : 1985Acct:[id number] Age/Sex: 32 / FDate of Service: 05/24/18 Loc: ED Accession Number: [id number] Procedure: CT head/brain wo con Ordering Provider: Donis Johnson PROCEDURE: CT HEAD/BRAIN WO CON INDICATIONS: Migraine headache reported as a not typical for her TECHNIQUE: Noncontrast 4.5 mm thick angled axial sections acquired from the foramen magnum to the vertex, with coronal and sagittal reformats. For radiation dose reduction, the following was used: automated exposure control, adjustment of mA and/or kV according to patient size. COMPARISON: [facility], CT, BRAIN W/O CONTRAST, 12/16/2010, 21:37. FINDINGS: Image quality: Excellent. CSF spaces: Basal cisterns are patent. No extra-axial fluid collections. Ventricles are normal in size and shape. Brain: No midline shift. No intracranial masses or hemorrhage. Thompson-white matter interface is normal. 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 Skull and face: Calvarium and visualized facial bones are intact, without suspicious lesions. Sinuses: Visualized sinuses and mastoids are clear. IMPRESSION: Stable head CT. No acute intracranial hemorrhage. Dictated by: Sebastián Ordonez M.D. on 05/24/2018 at 12:49 Approved by: Sebastián Ordonez M.D. on 05/24/2018 at 12:51 MDM Narrative Medical decision making narrative: CT of the head was obtained and was negative for any acute findings. Signs symptoms presents as a migraine headache. She was given medications in the emergency room and fluids her headache was reduced. She is released home to a quiet environment for rest and fluids. Follow up with primary care provider. Return emergency room for any worsening symptoms. <Fela Cifuentes, DO - Last Filed: 05/25/18 08:11> Lab Data Lab Results 05/24/18 05/24/18 05/24/18 Range/Units 12:42 12:45 12:45 WBC 4.7 (4.5-11.0) X10^3/uL RBC 4.36 (4.0-5.2) X10^6/uL Hgb 13.9 (12.0-16.0) g/dL Hct 40.5 (36-46) % MCV 93.0 (80-100) fL MCH 31.8 (26-34) PG MCHC 34.2 (30-36) % RDW 12.8 (11.6-14.8) % Plt Count 240 (150-400) X10^3/uL Neut % (Auto) 52.2 (50-75) % Lymph % (Auto) 32.9 (25-40) % [place] % (Auto) 11.0 (3-14) % Eos % (Auto) 3.2 (2-4) % Baso % (Auto) 0.7 (0-2) % Neut # (Auto) 2500 L (1462-8210) /uL PT 10.6 (10.1-12.7) SECONDS INR 1.0 (0.9-1.3) APTT 32 (26.4-36.2) SECONDS Sodium (137-145) mmol/L Potassium (3.4-5.1) mmol/L Chloride (98-107) mmol/L Carbon Dioxide (22-32) mmol/L BUN (7-17) mg/dL Creatinine (0.52-1.04) mg/dL Estimated GFR (>60) mL/min BUN/Creatinine Ratio (6-22) Glucose (70-100) mg/dL Calcium (8.4-10.2) mg/dL Total Bilirubin (0.2-1.3) mg/dL AST (14-36) IU/L ALT (9-52) IU/L Alkaline Phosphatase (38-126) U/L Total Protein (6.3-8.2) g/dL Albumin (3.5-5.0) g/dL Globulin (1.7-4.1) g/dL Albumin/Globulin Ratio (1.0-2.8) Lipase (23-300) U/L [place] 0.3 L (0.6-1.2) mmol/L 05/24/18 Range/Units 12:45 WBC (4.5-11.0) X10^3/uL RBC (4.0-5.2) X10^6/uL Hgb (12.0-16.0) g/dL Hct (36-46) % MCV (80-100) fL MCH (26-34) PG MCHC (30-36) % RDW (11.6-14.8) % Plt Count (150-400) X10^3/uL Neut % (Auto) (50-75) % Lymph % (Auto) (25-40) % [place] % (Auto) (3-14) % Eos % (Auto) (2-4) % Baso % (Auto) (0-2) % Neut # (Auto) (8350-1217) /uL PT (10.1-12.7) SECONDS INR (0.9-1.3) APTT (26.4-36.2) SECONDS Sodium 144 (137-145) mmol/L Potassium 4.0 (3.4-5.1) mmol/L Chloride 106 (98-107) mmol/L Carbon Dioxide 27 (22-32) mmol/L BUN 15 (7-17) mg/dL Creatinine 0.50 L (0.52-1.04) mg/dL Estimated GFR > 60.0 (>60) mL/min BUN/Creatinine Ratio 30.0 H (6-22) Glucose 95 (70-100) mg/dL Calcium 8.9 (8.4-10.2) mg/dL Total Bilirubin 0.4 (0.2-1.3) mg/dL AST 23 (14-36) IU/L ALT 27 (9-52) IU/L Alkaline Phosphatase 52 (38-126) U/L Total Protein 6.8 (6.3-8.2) g/dL Albumin 3.8 (3.5-5.0) g/dL Globulin 3.0 (1.7-4.1) g/dL Albumin/Globulin Ratio 1.3 (1.0-2.8) Lipase 81 (23-300) U/L [place] (0.6-1.2) mmol/L Discharge Plan Departure Patient Disposition: Home Clinical Impression: Headache, migraine Discharge Date/Time: 05/24/18 14:46 Interventions: ED Discharge Assessment Last Done: 05/24/18 14:44 Instructions: DI for Migraine Activity Restrictions/Additional Instructions: Laboratory results today and head CT was negative. Signs and symptoms presents as a migraine headache. Home to a quiet environment for rest plenty of fluids. Use migraine medications as already prescribed. For any worsening symptoms return to the emergency room. Follow up with her primary care provider. Prescriptions: No Action sumatriptan succinate [Imitrex] 100 MG tablet 100 mg PO PRN PRN (Reason: Migraine Headache) Qty: 0 RF: 0 dextroamphetamine-amphetamine [Adderall XR] 20 mg Capsule,Extended Release 24hr 20 mg PO QAM PRN (Reason: to help focus at work) RF: 0 trazodone 100 mg tablet 150 mg PO QPM RF: 0 lithium carbonate 300 mg tablet 300 mg PO QAM RF: 0 lithium carbonate 300 mg tablet 600 mg PO QPM RF: 0 lamotrigine 100 mg tablet 200 mg PO DAILY RF: 0 levothyroxine 112 mcg tablet 224 mcg PO DAILY RF: 0 naproxen 500 mg tablet 500 mg PO BID PRN (Reason: pain) RF: 0 meloxicam 7.5 mg tablet 15 mg PO DAILY PRN (Reason: pain (scale score 7-10)) Qty: 30 RF: 0 Referrals: Aldo Hernadez MD [Primary Care Provider] - <Fela Cifuentes DO - Last Filed: 05/25/18 08:11> Cosign ED Attending Cosignature Attestation: I was immediately available in the department for consultation. This documentation has been reviewed and I agree with assessment and plan. Supervised by Fela Cifuentes DO
--- NOTE | 2018-05-24 13:29 | DI.CT.S_ITS ---
PROCEDURE: CT HEAD/BRAIN WO CON INDICATIONS: Migraine headache reported as a not typical for her TECHNIQUE: Noncontrast 4.5 mm thick angled axial sections acquired from the foramen magnum to the vertex, with coronal and sagittal reformats. For radiation dose reduction, the following was used: automated exposure control, adjustment of mA and/or kV according to patient size. COMPARISON: [facility], CT, BRAIN W/O CONTRAST, 12/16/2010, 21:37. FINDINGS: Image quality: Excellent. CSF spaces: Basal cisterns are patent. No extra-axial fluid collections. Ventricles are normal in size and shape. Brain: No midline shift. No intracranial masses or hemorrhage. Thompson-white matter interface is normal. 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 Skull and face: Calvarium and visualized facial bones are intact, without suspicious lesions. Sinuses: Visualized sinuses and mastoids are clear. IMPRESSION: Stable head CT. No acute intracranial hemorrhage. Dictated by: Sebastián Ordonez M.D. on 05/24/2018 at 12:49 Approved by: Sebastián Ordonez M.D. on 05/24/2018 at 12:51
[2018-05-24 13:32] LABS: Lithium 0.3 mmol/L (0.6-1.2)
[2018-05-24] MEDS: diphenhydrAMINE 50 MG/ML VIAL 25 MG IV (13:44)
[2018-05-24] MEDS: HYDROMORPHONE 1 MG INJ 0.5 MG IV (13:44)
[2018-05-24] MEDS: METOCLOPRAMIDE 10 MG/2 ML INJ IV (13:44)
[2018-05-24 14:44] VITALS: BP 99/54; PULSE 76; RESP 20; O2SAT 97
== END 2018-05-24 14:46 | disposition home or self-care (01) ==
PROVIDERS: Emergency Medicine; Emergency Provider Nurse Practitioner Family; PCP Family Medicine
DX: G43.909 Migraine, unspecified, not intractable, without status migrainosus (principal)
CPT/HCPCS: 36591; 70450; 80053; 80178; 83690; 85025; 85610; 85730; 96361; 96374; 96375; 99283; 99284; J1170; J1200; J2405; J2765

== ENCOUNTER 2018-05-29 06:46 | Emergency (ER) | payer OTHER, MEDICAID, SELFPAY ==
[2018-05-29 06:51] VITALS: BP 120/70; PULSE 97; RESP 18; TEMP 36.2; O2SAT 98; BMI 33.6
[2018-05-29] MEDS: SODIUM CHLORIDE 0.9% 1,000 ML 1000 ML IV ×2 (07:03→07:50)
[2018-05-29] MEDS: ONDANSETRON 4 MG/2 ML INJ IV (07:03)
[2018-05-29 07:04] VITALS: BP 120/70; PULSE 97; RESP 18; TEMP 36.2; O2SAT 98; BMI 33.6
[2018-05-29] MEDS: KETOROLAC 60 MG/2 ML VIAL 15 MG IV (07:50)
[2018-05-29] MEDS: METOCLOPRAMIDE 10 MG/2 ML INJ IV (07:50)
[2018-05-29] MEDS: DEXAMETHASONE 10 MG/ML VIAL IV (07:51)
--- NOTE | 2018-05-29 08:56 | ED_ITS ---
HPI - Headache General Chief Complaint: Headache Stated Complaint: migrane,puking Time Seen by Provider: 05/29/18 06:49 Source: patient Mode of arrival: ambulatory Limitations: no limitations History of Present Illness HPI Narrative: 32-year-old nonsmoker who presents with a migraine for the past 1 hr, since waking. She denies any injury or exposure to chemicals. She has not been ill recently and denies any fever or chills. She has a history of migraines and was seen by us under similar circumstances last week. She had been to the emergency department in quite some time prior to last week. She does state that she has a bipolar patient and had been off her meds for quite some time both of which were restarted last week and include Lamictal and lithium. She states her pain is worse with bright lights, loud noise and exertion. Her headache is right frontal. She denies associated symptoms such as blurred vision, numbness or tingling. She does have nausea but no vomiting. MD Complaint: headache and migraine Onset (ago): hour(s) Onset description: gradual Location: right Severity: moderate Quality: aching, throbbing and similar to previous headaches Relieving factors: nothing Exacerbating factors: light and noise Context: occurred at rest Associated symptoms: nausea Related Data Home Medications Medication Instructions Recorded Confirmed sumatriptan succinate [Imitrex] 100 mg PO PRN PRN #0 08/22/12 05/24/18 dextroamphetamine-amphetamine 20 mg PO QAM PRN 02/11/18 05/24/18 [Adderall XR] levothyroxine 224 mcg PO DAILY 04/22/18 05/24/18 naproxen 500 mg PO BID PRN 05/18/18 05/24/18 lamotrigine 200 mg PO DAILY 05/24/18 05/24/18 lithium carbonate 300 mg PO QAM 05/24/18 05/24/18 lithium carbonate 600 mg PO QPM 05/24/18 05/24/18 trazodone 150 mg PO QPM 05/24/18 05/24/18 Previous Rx's Medication Instructions Recorded meloxicam 15 mg PO DAILY PRN #30 tab 05/18/18 Allergies Allergy/AdvReac Type Severity Reaction Status Date / Time adhesive [ADHESIVE] Allergy Intermediate Verified 02/11/18 17:18 amoxicillin [AMOXICILLIN] Allergy Intermediate Verified 02/11/18 17:18 cephalexin [From KEFLEX] Allergy Intermediate Verified 02/11/18 17:18 clindamycin [CLINDAMYCIN] Allergy Intermediate Verified 02/11/18 17:18 doxycycline [DOXYCYCLINE] Allergy Intermediate Verified 02/11/18 17:18 iodine [IODINE] Allergy Intermediate Verified 02/11/18 17:18 Sulfa (Sulfonamide Allergy Intermediate Verified 02/11/18 17:18 Antibiotics) [SULFA (SULFONAMIDE ANTIBIOTICS)] Penicillins [PENICILLINS] Allergy Unknown Verified 02/11/18 17:18 levofloxacin Allergy Verified 05/18/18 09:35 Review of Systems Review of Systems All systems reviewed & are unremarkable except as noted in HPI and below Constitutional Denies chills, Denies fever(s), Reports headache(s), Denies lethargy and Denies weakness Eyes Denies change in vision, Denies eye discharge, Denies irritation and Denies loss of vision ENT Ears, Nose, Mouth, and Throat: Denies change in voice, Reports headache(s), Denies neck pain and Denies sore throat Cardiovascular Denies chest pain, Denies irregular heart rhythm, Denies lightheadedness, Denies palpitations, Denies dyspnea, Denies dyspnea on exertion and Denies orthopnea Respiratory Denies cough, Denies dyspnea, Denies dyspnea on exertion and Denies wheezing Gastrointestinal Gastrointestinal: Denies abdominal pain, Denies change in bowel habits, Denies diarrhea, Reports nausea and Denies vomiting Genitourinary Denies hematuria, Denies flank pain, Denies urinary incontinence and Denies urinary urgency Musculoskeletal Denies neck pain Integumentary/Breasts Denies pruritus, Denies erythema, Denies rash and Denies wounds Neurologic Denies confusion, Reports headache(s), Denies loss of vision and Denies weakness Psychiatric Denies anxiety, Denies confusion, Denies depression, Denies homicidal ideation and Denies suicidal ideation Endocrine Denies palpitations Hematologic/Lymphatic Denies easy bruising Allergic/Immunologic Denies wheezing PFSH Medical History Bipolar 1 disorder (Acute) H/O: hysterectomy (Acute) Hypothyroid (Acute) Thyroid cancer (Acute) Surgical History H/O thyroidectomy (Acute) No pertinent past surgical history (Acute) Social History Smoking Status: Current some day smoker Exam Narrative Exam Narrative: GENERAL: This is a well-nourished, well-developed patient, in mild distress. HEAD: Atraumatic. Normocephalic. No temporal or scalp tenderness. EYES: Pupils equal round and reactive. Extraocular motions intact. No scleral icterus. No injection or drainage. ENT: Nose without bleeding, purulent drainage or septal hematoma. Throat without erythema, tonsillar hypertrophy or exudate. Uvula midline. Airway patent. NECK: Trachea midline. No JVD or lymphadenopathy. Supple, nontender, no meningeal signs. CARDIOVASCULAR: Regular rate and rhythm without murmurs, gallops, or rubs. RESPIRATORY: Clear to auscultation. Breath sounds equal bilaterally. No wheezes , rales, or rhonchi. GASTROINTESTINAL: Abdomen soft, non-tender, nondistended. No hepato-splenomegaly , or palpable masses. No guarding. EXTREMITIES: No clubbing, cyanosis, or edema. No joint tenderness, effusion, or edema noted. BACK: Nontender without deformity or crepitance. No flank tenderness. NEURO: AOx3. SKIN: No rash or erythema. NIH Stroke Scale 1a. LOC: Patient is alert and keenly responsive (0) 1b. LOC Questions: Patient answers both LOC questions accurately (0) 1c. LOC Commands: Patient performs both tasks correctly (0) 2. Best Gaze: Normal (0) 3. Visual: No visual loss (0) 4. Facial palsy: Normal symmetrical movements (0) 5. Motor arm: No drift (0) 6. Motor leg: No drift (0) 7. Limb ataxia: Absent (0) 8. Sensory: Normal (0) 9. Best language: No aphasia; normal (0) 10. Dysarthria: Normal (0) 11. Extinction and inattention: No abnormality (0) NIHSS: 0 Initial Vital Signs Initial Vital Signs: Vital Signs Temperature 97.1 F L 05/29/18 06:51 Pulse Rate 97 H 05/29/18 06:51 Respiratory Rate 18 05/29/18 06:51 Blood Pressure 120/70 05/29/18 06:51 Pulse Oximetry 98 05/29/18 06:51 Course Orders Ordered: Discontinued Medications Dexamethasone (Decadron) 10 mg IV NOW ONE Stop: 05/29/18 07:40 Last Admin: 05/29/18 07:51 Dose: 10 mg Sodium Chloride (Normal Saline 0.9%) 1,000 mls @ 1,000 mls/hr IV BOLUS ONE Stop: 05/29/18 07:49 Last Infusion: 05/29/18 07:49 Dose: 0 mls/hr Admin: 05/29/18 07:03 Dose: 1,000 mls/hr Sodium Chloride (Normal Saline 0.9%) 1,000 mls @ 1,000 mls/hr IV BOLUS ONE Stop: 05/29/18 08:47 Last Admin: 05/29/18 07:50 Dose: 1,000 mls/hr Ketorolac Tromethamine (Toradol) 15 mg IV NOW ONE Stop: 05/29/18 07:40 Last Admin: 05/29/18 07:50 Dose: 15 mg Metoclopramide HCl (Reglan) 10 mg IV NOW ONE Stop: 05/29/18 07:40 Last Admin: 05/29/18 07:50 Dose: 10 mg Ondansetron HCl (Zofran) 4 mg IV NOW ONE Stop: 05/29/18 07:03 Last Admin: 05/29/18 07:03 Dose: 4 mg Reevaluation(s) Reevaluation #1: Patient has near complete resolution of symptoms after above- stated therapies and is requesting discharge. Vital Signs - 8 hr 05/29/18 06:51 05/29/18 07:04 Temperature 97.1 F L 97.1 F L Pulse Rate 97 H 97 H Respiratory Rate 18 18 Blood Pressure 120/70 120/70 Pulse Oximetry 98 98 Discharge Plan Departure Patient Disposition: Home Clinical Impression: Migraine Instructions: DI for Migraine Activity Restrictions/Additional Instructions: *You have been diagnosed with [ acute migraine headache ] *What to do: *Follow up with your primary care provider in 2-3 days, call for an appointment. Let them know you were seen in the Emergency Department and that we ask that you be seen in follow up *Return to ER if you should have any new, worsening or concerning symptoms Prescriptions: No Action sumatriptan succinate [Imitrex] 100 MG tablet 100 mg PO PRN PRN (Reason: Migraine Headache) Qty: 0 RF: 0 dextroamphetamine-amphetamine [Adderall XR] 20 mg Capsule,Extended Release 24hr 20 mg PO QAM PRN (Reason: to help focus at work) RF: 0 trazodone 100 mg tablet 150 mg PO QPM RF: 0 lithium carbonate 300 mg tablet 300 mg PO QAM RF: 0 lithium carbonate 300 mg tablet 600 mg PO QPM RF: 0 lamotrigine 100 mg tablet 200 mg PO DAILY RF: 0 levothyroxine 112 mcg tablet 224 mcg PO DAILY RF: 0 naproxen 500 mg tablet 500 mg PO BID PRN (Reason: pain) RF: 0 meloxicam 7.5 mg tablet 15 mg PO DAILY PRN (Reason: pain (scale score 7-10)) Qty: 30 RF: 0 Referrals: Aldo Hernadez MD [Primary Care Provider] -
[2018-05-29 09:08] VITALS: BP 109/57; PULSE 99; RESP 16; O2SAT 98
== END 2018-05-29 09:10 | disposition home or self-care (01) ==
PROVIDERS: Emergency Provider Emergency Medicine; PCP Family Medicine
DX: G43.909 Migraine, unspecified, not intractable, without status migrainosus (principal)
CPT/HCPCS: 96361; 96374; 96375; 99283; 99284; J1100; J1885; J2405; J2765

== ENCOUNTER 2018-08-12 10:30 | Outpatient (RCR) | payer OTHER, MEDICAID, SELFPAY ==
--- NOTE | 2018-07-29 12:57 | PT.OIE ---
Current Diagnoses Patellofemoral disorders, right knee (07/29/18) Past Medical History (Last Reviewed 05/29/18 @ 08:55 by Davion Ruiz DO) Bipolar 1 disorder (Acute) H/O: hysterectomy (Acute) Hypothyroid (Acute) Thyroid cancer (Acute) Past Surgical History (Last Reviewed 05/29/18 @ 08:55 by Davion Ruiz DO) H/O thyroidectomy (Acute) No pertinent past surgical history (Acute) Provider Visit Care Team Role Provider Type H Hunter Hernadez MD Primary Care Provider Physician Specialty: Medical Address: [address], [address] Email: Riana Coelho MD Attending Provider Physician Specialty: Orthopedics Address: [address] [place], [address] Email: Physical Therapy Initial Evaluation PT-OP-A Visit Information Start: 07/28/18 15:54 Freq: Status: Active Protocol: Document 07/27/18 10:30 [facility] (Rec: 07/28/18 15:56 [facility] [id number]) Out-Patient Physical Therapy Visit Information Visit Information Visit Type Initial Evaluation Visit Start Time 10:30 Visit Stop Time 11:15 Total Visit Minutes 45 Visit Number 1 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 She describes she pas pain around the patella and medial aspect of the knee. She has crunching an dpopping in the knee. She has pain with pivoting and sitting with knees bent for a perior of time. Lexy underwent right knee arthroscopic surgery in 2008. This did help with her pain for some time but since last summer symptoms have increased again to include pain and instability and decreased abilty to walk due to pain. She has had cortisone injections without success. Treatment Goals Patient/Caregiver Goals to reduce pain and allow her to do her work related activities without pain, walk without pain Current Functional Impairments (Reported) Functional Limitations- Mobility/Gait pain with walking more that a few blocks, pain with standing PT-OP-F Manual Assessment Start: 07/28/18 15:54 Freq: Status: Active Protocol: Document 07/27/18 10:30 [facility] (Rec: 07/29/18 12:54 [facility] [id number]) Manual Assessments Soft Tissue Assessment Soft Tissue Mobility Assessment ITB tightness especially at the distal insertion Joint Mobility Assessment Joint Mobility Assessment laterally tilted patella, pt tends to hyperextend her knee PT-OP-G Mobility & Gait Start: 07/28/18 15:54 Freq: Status: Active Protocol: Document 07/27/18 10:30 [facility] (Rec: 07/29/18 12:54 [facility] [email or web address]) OP Mobility Evaluation Functional Movements Squats crepitus with squats and pain, needs to ER at her hips in order to squat PT-OP-K Range of Motion Start: 07/29/18 12:55 Freq: Status: Active Protocol: Document 07/27/18 10:30 [facility] (Rec: 07/29/18 12:56 [facility] [email or web address]) Knee Goniometric Range of Motion Knee ROM Limitations Knee ROM Limitations Swelling Comments full ROM with pain at end range PT-OP-M Strength Start: 07/29/18 12:55 Freq: Status: Active Protocol: Document 07/27/18 10:30 [facility] (Rec: 07/29/18 12:56 [facility] [email or web address]) Hip Strength Hip Manual Muscle Testing Right Abduction 3 Fair External Rotation 3 Fair Knee Strength Knee Manual Muscle Testing Right Flexion (S2) 3+ Fair+ Extension (L3) 2+ Poor+ Comments weak VMO and pain with isometric quad contraction PT-OP-Q Treatments Start: 07/28/18 15:54 Freq: Status: Active Protocol: Document 07/27/18 10:30 [facility] (Rec: 07/29/18 12:54 [facility] [email or web address]) Therapeutic Exercises Supine Exercises 3 Supine Exercise Name prone quad stretch Side right 2 Supine Exercise Name hamstring and ITB stretch with strap Side right Reps/Minutes hold 1-2 min 1 Supine Exercise Name heel slides Side right Reps/Minutes 10 PT-OP-R Modalities Start: 07/28/18 15:54 Freq: Status: Active Protocol: Document 07/27/18 10:30 [facility] (Rec: 07/29/18 12:54 [facility] [id number]) Ultrasound Therapy Treatment Right Lateral Knee Treatment Duration (minutes) 8 Coupling Medium Ultrasound Gel Applicator Size (cm2) 5 Mode Setting Continuous Duty Cycle 100% Intensity Setting (w/cm2) 1.5 Comments right distal ITB insertion PT-OP-T Assessment and Plan Start: 07/28/18 15:54 Freq: Status: Active Protocol: Document 07/27/18 10:30 [facility] (Rec: 07/29/18 12:54 [facility] [email or web address]) Physical Therapy Assessment Rehab Potential Rehabilitation Potential Excellent Evaluation Complexity Number of Personal Factors/Comorbidities 0 Number of Body Systems Impaired 1-2 Clinical Presentation at Evaluation Stable Impairments Impairments Activity Tolerance Pain ROM Soft Tissue Mobility Strength Goals Four Impairment Right ITB tightness Short Term Goal (STG) Decrease tightness of the ITB with manual therapy work and stretches STG Duration 6 weeks Three Impairment 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[employer] Goal (LTG) Improve knee strength and stability allowing Lexy to stand and cook for 3-4 hours without increased pain LTG Duration 6-8 weeks Two Impairment pain produced with quadriceps contraction isometrically Short Term Goal (STG) Lexy is able to perform a quad contraction without pain and is able to tolerate SLR and closed chain strenthening STG Duration 6 weeks One Impairment pain rated 7/10 in the right knee Short Term Goal (STG) Decrease pain in the right knee from 7/10 to 1-2/10 STG Duration 6 weeks Assessment Summary Assessment Lexy presents to physical therapy with 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 There is swelling distally to the patella and in the patella femoral tendon. The distal ITB is tight and restricted and the patella is tilted laterally. Lexy has significant quad weakness and has pain with a quadraceps isometric contraction. She experiences tightness at end range flexion but is able to fully flex and extend her knee . Treatment will emphasize swelling reduction, Releasing the tight lateral ITB, improving quad strength and the position of the patella. I did use kinesiotape today for improved alignment and Lexy tolerated this well. She is a good candidate for PT Physical Therapy Plan Frequency and Duration Frequency of Treatment 2x/Week Duration of Treatment 8 Plan of Care Start Date 07/27/18 Plan of Care End Date 09/21/18 Therapeutic Interventions Therapeutic Interventions Home Exercise Program Manual Therapy Neuromuscular Re-education Self-Care/Home Management Soft Tissue Mobilization Therapeutic Exercises Modalities Cold Pack/Ice Massage Ultrasound
--- NOTE | 2018-07-29 12:57 | PT.OPPOC ---
Current Diagnoses Patellofemoral disorders, right knee (07/29/18) Provider Visit Care Team Role Provider Type H Hunter Hernadez MD Primary Care Provider Physician Specialty: Medical Address: [address] [address], [place], [address] Email: Riana Coelho MD Attending Provider Physician Specialty: Orthopedics Address: [address] [facility], [place], [address] Email: Plan Of Care PT-OP-T Assessment and Plan Start: 07/28/18 15:54 Freq: Status: Active Protocol: Document 07/27/18 10:30 [facility] (Rec: 07/29/18 12:54 [facility] [email or web address]) Physical Therapy Assessment Rehab Potential Rehabilitation Potential Excellent Evaluation Complexity Number of Personal Factors/Comorbidities 0 Number of Body Systems Impaired 1-2 Clinical Presentation at Evaluation Stable Impairments Impairments Activity Tolerance Pain ROM Soft Tissue Mobility Strength Goals Four Impairment Right ITB tightness Short Term Goal (STG) Decrease tightness of the ITB with manual therapy work and stretches STG Duration 6 weeks Three Impairment 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 (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) Improve knee strength and stability allowing Lexy to stand and cook for 3-4 hours without increased pain LTG Duration 6-8 weeks Two Impairment pain produced with quadriceps contraction isometrically Short Term Goal (STG) Lexy is able to perform a quad contraction without pain and is able to tolerate SLR and closed chain strenthening STG Duration 6 weeks One Impairment pain rated 7/10 in the right knee Short Term Goal (STG) Decrease pain in the right knee from 7/10 to 1-2/10 STG Duration 6 weeks Assessment Summary Assessment Lexy presents to physical therapy with 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 There is swelling distally to the patella and in the patella femoral tendon. The distal ITB is tight and restricted and the patella is tilted laterally. Lexy has significant quad weakness and has pain with a quadraceps isometric contraction. She experiences tightness at end range flexion but is able to fully flex and extend her knee . Treatment will emphasize swelling reduction, Releasing the tight lateral ITB, improving quad strength and the position of the patella. I did use kinesiotape today for improved alignment and Lexy tolerated this well. She is a good candidate for PT Physical Therapy Plan Frequency and Duration Frequency of Treatment 2x/Week Duration of Treatment 8 Plan of Care Start Date 07/27/18 Plan of Care End Date 09/21/18 Therapeutic Interventions Therapeutic Interventions Home Exercise Program Manual Therapy Neuromuscular Re-education Self-Care/Home Management Soft Tissue Mobilization Therapeutic Exercises Modalities Cold Pack/Ice Massage Ultrasound Plan of Care Dates Plan of Care Start Date 07/27/18 Plan of Care End Date 09/21/18 Please Sign and Return: I have reviewed this Plan of Care and certify that the skilled therapy services above are required to meet the patient?s needs. Physician Signature Date Printed Name and Credentials Clinical Instructor Signature Printed Name and Credentials
--- NOTE | 2018-07-29 16:31 | PT.OTN ---
Current Diagnoses Patellofemoral disorders, right knee (07/29/18) Physical Therapy Treatment Note PT-OP-A Visit Information Start: 07/28/18 15:54 Freq: Status: Active Protocol: Document 07/29/18 16:19 [facility] (Rec: 07/29/18 16:30 [facility] [email or web address]) Out-Patient Physical Therapy Visit Information Visit Information Visit Type Treatment Note Visit Start Time 09:45 Visit Stop Time 10:30 Total Visit Minutes 45 Visit Number 2 Number of [employer] Visits 0 Evaluation Information Evaluation Date 07/27/18 PT-OP-B Current Condition Start: 07/28/18 15:54 Freq: Status: Active Protocol: Document 07/27/18 10:30 [facility] (Rec: 07/29/18 12:54 [facility] [email or web address]) Current Condition History of Current Condition Onset Date gradual symptoms began December 2017 Current Complaints right sided knee pain under patella, medial and lateral, instability History of Current Condition Right sided knee pain worsening since December 2017. She describes she pas pain around the patella and medial aspect of the knee. She has crunching an dpopping in the knee. She has pain with pivoting and sitting with knees bent for a perior of time. Lexy underwent right knee arthroscopic surgery in 2008. This did help with her pain for some time but since last summer symptoms have increased again to include pain and instability and decreased abilty to walk due to pain. She has had cortisone injections without success. Treatment Goals Patient/Caregiver Goals to reduce pain and allow her to do her work related activities without pain, walk without pain Current Functional Impairments (Reported) Functional Limitations- Mobility/Gait pain with walking more that a few blocks, pain with standing PT-OP-C Subjective Start: 07/28/18 15:54 Freq: Status: Active Protocol: Document 07/29/18 16:19 [facility] (Rec: 07/29/18 16:30 [facility] [email or web address]) OP-PT Subjective Patient Comments Patient Comments Lexy reports she has been working on her exercises and icing PT-OP-F Manual Assessment Start: 07/28/18 15:54 Freq: Status: Active Protocol: Document 07/27/18 10:30 [facility] (Rec: 07/29/18 12:54 [facility] [email or web address]) Manual Assessments Soft Tissue Assessment Soft Tissue Mobility Assessment ITB tightness especially at the distal insertion Joint Mobility Assessment Joint Mobility Assessment laterally tilted patella, pt tends to hyperextend her knee PT-OP-G Mobility & Gait Start: 07/28/18 15:54 Freq: Status: Active Protocol: Document 07/27/18 10:30 [facility] (Rec: 07/29/18 12:54 [facility] [email or web address]) OP Mobility Evaluation Functional Movements Squats crepitus with squats and pain, needs to ER at her hips in order to squat PT-OP-K Range of Motion Start: 07/29/18 12:55 Freq: Status: Active Protocol: Document 07/27/18 10:30 [facility] (Rec: 07/29/18 12:56 [facility] [email or web address]) Knee Goniometric Range of Motion Knee ROM Limitations Knee ROM Limitations Swelling Comments full ROM with pain at end range PT-OP-M Strength Start: 07/29/18 12:55 Freq: Status: Active Protocol: Document 07/27/18 10:30 [facility] (Rec: 07/29/18 12:56 [facility] [email or web address]) Hip Strength Hip Manual Muscle Testing Right Abduction 3 Fair External Rotation 3 Fair Knee Strength Knee Manual Muscle Testing Right Flexion (S2) 3+ Fair+ Extension (L3) 2+ Poor+ Comments weak VMO and pain with isometric quad contraction PT-OP-Q Treatments Start: 07/28/18 15:54 Freq: Status: Active Protocol: Document 07/29/18 16:19 [facility] (Rec: 07/29/18 16:30 [facility] [email or web address]) Cardio Equipment Bicycle (Upright) Duration (Minutes) 5 Therapeutic Exercises Supine Exercises 4 Supine Exercise Name ball rolls Reps/Minutes 2 x 10 reps 3 Supine Exercise Name prone quad stretch Side right 2 Supine Exercise Name hamstring and ITB stretch with strap Side right Reps/Minutes hold 1-2 min 1 Supine Exercise Name heel slides Side right Reps/Minutes 10 Sidelying Exercises 1 Sidelying Exercise Name clam shells Standing Exercises 1 Standing Exercise Name standing mini squats Reps/Minutes 2 x 10 Manual Therapy Treatment Soft Tissue Mobilization 1 Body Location STM to the lateral ITB Taping 1 Body Location kinesiotape right knee for patellofemoral support PT-OP-R Modalities Start: 07/28/18 15:54 Freq: Status: Active Protocol: Document 07/29/18 16:30 [facility] (Rec: 02/07/19 16:31 [facility] [email or web address]) Hot Pack/Cold Pack Treatment Ice Massage Location ice massage to end treatment to the distal patella Ultrasound Therapy Treatment Right Lateral Knee Treatment Duration (minutes) 8 Coupling Medium Ultrasound Gel Applicator Size (cm2) 5 Mode Setting Continuous Duty Cycle 100% Intensity Setting (w/cm2) 1.5 Comments right distal ITB insertion PT-OP-T Assessment and Plan Start: 07/28/18 15:54 Freq: Status: Active Protocol: Document 07/29/18 16:19 [facility] (Rec: 07/29/18 16:30 [facility] [email or web address]) Physical Therapy Assessment Assessment Summary Assessment tolerated ITB and hamstring stretch in a supine position today. Began lateral hip strengthening and continuing to work on flexibility exercises and gentle strengthening. Also began the upright bike and Lexy tolerated that well. She is very dominant in her ITB and tight at the distal attachment Physical Therapy Plan Frequency and Duration Frequency of Treatment 2x/Week Duration of Treatment 8 Plan of Care Start Date 07/27/18 Plan of Care End Date 09/21/18 Therapeutic Interventions Therapeutic Interventions Home Exercise Program Manual Therapy Neuromuscular Re-education Self-Care/Home Management Soft Tissue Mobilization Therapeutic Exercises Modalities Cold Pack/Ice Massage Ultrasound Next Visit Focus/Plan Next Note Type Treatment Note Next Visit Plan continue to improve strengthening and flexibility exercises for patella femoral syndrome. Work on alignment with mini squats and progress exercises
--- NOTE | 2018-08-12 11:17 | PT.OTN ---
Current Diagnoses Patellofemoral disorders, right knee (08/12/18) Physical Therapy Treatment Note PT-OP-A Visit Information Start: 07/28/18 15:54 Freq: Status: Active Protocol: Document 08/12/18 10:30 [facility] (Rec: 08/12/18 11:17 [facility] [id number]) Out-Patient Physical Therapy Visit Information Visit Information Visit Type Treatment Note Visit Start Time 10:30 Visit Stop Time 11:15 Total Visit Minutes 45 Visit Number 3 Number of HEAD OF [employer] Visits 0 Evaluation Information Evaluation Date 07/27/18 PT-OP-B Current Condition Start: 07/28/18 15:54 Freq: Status: Active Protocol: Document 07/27/18 10:30 [facility] (Rec: 07/29/18 12:54 [facility] [email or web address]) Current Condition History of Current Condition Onset Date gradual symptoms began December 2017 Current Complaints right sided knee pain under patella, medial and lateral, instability History of Current Condition Right sided knee pain worsening since December 2017. She describes she pas pain around the patella and medial aspect of the knee. She has crunching an dpopping in the knee. She has pain with pivoting and sitting with knees bent for a perior of time. Lexy underwent right knee arthroscopic surgery in 2008. This did help with her pain for some time but since last summer symptoms have increased again to include pain and instability and decreased abilty to walk due to pain. She has had cortisone injections without success. Treatment Goals Patient/Caregiver Goals to reduce pain and allow her to do her work related activities without pain, walk without pain Current Functional Impairments (Reported) Functional Limitations- Mobility/Gait pain with walking more that a few blocks, pain with standing PT-OP-C Subjective Start: 07/28/18 15:54 Freq: Status: Active Protocol: Document 08/12/18 10:30 [facility] (Rec: 08/12/18 11:17 [facility] [id number]) OP-PT Subjective Patient Comments Patient Comments Pt reports that she has been pretty sore, notes that during the most recent snow storm, slipped while walking down her driveway, and of course, landed right on my bad knee. PT-OP-F Manual Assessment Start: 07/28/18 15:54 Freq: Status: Active Protocol: Document 07/27/18 10:30 [facility] (Rec: 07/29/18 12:54 [facility] [email or web address]) Manual Assessments Soft Tissue Assessment Soft Tissue Mobility Assessment ITB tightness especially at the distal insertion Joint Mobility Assessment Joint Mobility Assessment laterally tilted patella, pt tends to hyperextend her knee PT-OP-G Mobility & Gait Start: 07/28/18 15:54 Freq: Status: Active Protocol: Document 07/27/18 10:30 [facility] (Rec: 07/29/18 12:54 [facility] [email or web address]) OP Mobility Evaluation Functional Movements Squats crepitus with squats and pain, needs to ER at her hips in order to squat PT-OP-K Range of Motion Start: 07/29/18 12:55 Freq: Status: Active Protocol: Document 07/27/18 10:30 [facility] (Rec: 07/29/18 12:56 [facility] [email or web address]) Knee Goniometric Range of Motion Knee ROM Limitations Knee ROM Limitations Swelling Comments full ROM with pain at end range PT-OP-M Strength Start: 07/29/18 12:55 Freq: Status: Active Protocol: Document 07/27/18 10:30 [facility] (Rec: 07/29/18 12:56 [facility] [email or web address]) Hip Strength Hip Manual Muscle Testing Right Abduction 3 Fair External Rotation 3 Fair Knee Strength Knee Manual Muscle Testing Right Flexion (S2) 3+ Fair+ Extension (L3) 2+ Poor+ Comments weak VMO and pain with isometric quad contraction PT-OP-Q Treatments Start: 07/28/18 15:54 Freq: Status: Active Protocol: Document 08/12/18 10:30 [facility] (Rec: 08/12/18 11:17 DC[facility] [id number]) Cardio Equipment Bicycle (Upright) Duration (Minutes) 5 Resistance 5 Seat Position 4 Gym Equipment Therapeutic Ball Ball Wall squats Exercise Details Ball Wall squats /c adductor ball squeeze Ball Size/Color Blue - 45 cm Small Purple ball Body Position Standing Therapeutic Exercises Supine Exercises 5 Supine Exercise Name SLR /c ER 2 Supine Exercise Name hamstring and ITB stretch with strap Side right Reps/Minutes hold 1-2 min Standing Exercises 1 Standing Exercise Name standing mini squats /c resisted side-stepping Reps/Minutes length of bar Manual Therapy Treatment Soft Tissue Mobilization 1 Body Location STM to the lateral ITB Joint Mobilizations Patella Mobs Joint R patella Direction Superior/Medial glide Grade III Body Position Hooklying Taping 1 Body Location R knee K-tape in fan for swelling Type of Tape Kinesio Tape PT-OP-R Modalities Start: 07/28/18 15:54 Freq: Status: Active Protocol: Document 08/12/18 10:30 [facility] (Rec: 08/12/18 11:17 [facility] [id number]) Ultrasound Therapy Treatment Right Lateral Knee Treatment Duration (minutes) 8 Coupling Medium Ultrasound Gel Applicator Size (cm2) 5 Mode Setting Continuous Duty Cycle 100% Intensity Setting (w/cm2) 1.2 Comments right distal ITB insertion PT-OP-T Assessment and Plan Start: 07/28/18 15:54 Freq: Status: Active Protocol: Document 08/12/18 10:30 [facility] (Rec: 08/12/18 11:17 [facility] [id number]) Physical Therapy Assessment Impairments Impairments Activity Tolerance Pain ROM Soft Tissue Mobility Strength Goals Four Impairment Right ITB tightness Short Term Goal (STG) Decrease tightness of the ITB with manual therapy work and stretches STG Duration 6 weeks Three Impairment 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Jail Goal (LTG) Improve knee strength and stability allowing Lexy to stand and cook for 3-4 hours without increased pain LTG Duration 6-8 weeks Two Impairment pain produced with quadriceps contraction isometrically Short Term Goal (STG) Lexy is able to perform a quad contraction without pain and is able to tolerate SLR and closed chain strengthening STG Duration 6 weeks One Impairment pain rated 7/10 in the right knee Short Term Goal (STG) Decrease pain in the right knee from 7/10 to 1-2/10 STG Duration 6 weeks Assessment Summary Assessment Pt tolerated treatment with minimal complaints, however has constant painful crepitus with any knee movement. Pt frequently externally rotates her right leg with most activities, will require strengthening of internal rotators to help correct this. Physical Therapy Plan Frequency and Duration Frequency of Treatment 2x/Week Duration of Treatment 8 Plan of Care Start Date 07/27/18 Plan of Care End Date 09/21/18 Therapeutic Interventions Therapeutic Interventions Home Exercise Program Manual Therapy Neuromuscular Re-education Self-Care/Home Management Soft Tissue Mobilization Therapeutic Exercises Modalities Cold Pack/Ice Massage Ultrasound Next Visit Focus/Plan Next Note Type Treatment Note Next Visit Plan continue to improve strengthening and flexibility exercises for patella femoral syndrome. Work on alignment with mini squats and progress exercises
--- NOTE | 2019-05-03 08:34 | PT.OPDS ---
Current Diagnoses Patellofemoral disorders, right knee (08/12/18) Visit Care Team Role Provider Type H Hunter Hernadez MD Primary Care Provider Physician Specialty: Medical Address: [address] [place] [address] [place], [place], [address] Email: [email or web address] Attending Provider Physician Specialty: Orthopedics Address: [address] [place] [address] [place], [place], [address] opt2 Email: Visit Number Visit Number 3 Discharge Summary PT-OP-B Current Condition Start: 07/28/18 15:54 Freq: Status: Active Protocol: Document 07/27/18 10:30 AMH (Rec: 07/29/18 12:54 AMH [email or web address]) Current Condition History of Current Condition Onset Date gradual symptoms began December 2017 Current Complaints right sided knee pain under patella, medial and lateral, instability History of Current Condition Right sided knee pain worsening since December 2017. She describes she pas pain around the patella and medial aspect of the knee. She has crunching an dpopping in the knee. She has pain with pivoting and sitting with knees bent for a perior of time. Lexy underwent right knee arthroscopic surgery in 2008. This did help with her pain for some time but since last summer symptoms have increased again to include pain and instability and decreased abilty to walk due to pain. She has had cortisone injections without success. Treatment Goals Patient/Caregiver Goals to reduce pain and allow her to do her work related activities without pain, walk without pain Current Functional Impairments (Reported) Functional Limitations- Mobility/Gait pain with walking more that a few blocks, pain with standing PT-OP-C Subjective Start: 07/28/18 15:54 Freq: Status: Active Protocol: Document 08/12/18 10:30 DCW (Rec: 08/12/18 11:17 DCW [id number]) OP-PT Subjective Patient Comments Patient Comments Pt reports that she has been pretty sore, notes that during the most recent snow storm, slipped while walking down her driveway, and of course, landed right on my bad knee. PT-OP-F Manual Assessment Start: 07/28/18 15:54 Freq: Status: Active Protocol: Document 07/27/18 10:30 AMH (Rec: 07/29/18 12:54 AMH [email or web address]) Manual Assessments Soft Tissue Assessment Soft Tissue Mobility Assessment ITB tightness especially at the distal insertion Joint Mobility Assessment Joint Mobility Assessment laterally tilted patella, pt tends to hyperextend her knee PT-OP-G Mobility & Gait Start: 07/28/18 15:54 Freq: Status: Active Protocol: Document 07/27/18 10:30 AMH (Rec: 07/29/18 12:54 AMH [email or web address]) OP Mobility Evaluation Functional Movements Squats crepitus with squats and pain, needs to ER at her hips in order to squat PT-OP-K Range of Motion Start: 07/29/18 12:55 Freq: Status: Active Protocol: Document 07/27/18 10:30 AMH (Rec: 07/29/18 12:56 AMH [email or web address]) Knee Goniometric Range of Motion Knee ROM Limitations Knee ROM Limitations Swelling Comments full ROM with pain at end range PT-OP-M Strength Start: 07/29/18 12:55 Freq: Status: Active Protocol: Document 07/27/18 10:30 AMH (Rec: 07/29/18 12:56 AMH [email or web address]) Hip Strength Hip Manual Muscle Testing Right Abduction 3 Fair External Rotation 3 Fair Knee Strength Knee Manual Muscle Testing Right Flexion (S2) 3+ Fair+ Extension (L3) 2+ Poor+ Comments weak VMO and pain with isometric quad contraction PT-OP-T Assessment and Plan Start: 07/28/18 15:54 Freq: Status: Active Protocol: Document 05/03/19 08:33 AMH (Rec: 05/03/19 08:34 AMH [email or web address]) Physical Therapy Plan Discharge Physical Therapy Discharge Reasons No Longer Attending PT Discharge Comments The patient was seen for 3 visits in PT. She did not complete her course of treatment. She will be dishcarged at this time from PT
== END 2019-05-06 12:24 ==
LOC: PHYS 10:30
PROVIDERS: PCP Family Medicine; Visit Provider Orthopaedic Surgery
DX: M22.2X1 Patellofemoral disorders, right knee (principal)
CPT/HCPCS: 97035; 97110; 97140; 97161

== ENCOUNTER 2018-09-19 13:17 | Emergency (ER) | payer OTHER, MEDICAID, SELFPAY ==
[2018-09-19 13:20] VITALS: BP 108/65; PULSE 85; RESP 20; TEMP 36.9; O2SAT 97; BMI 30.9
--- NOTE | 2018-09-19 13:26 | DI.RAD.S_ITS ---
PROCEDURE: XR CHEST 2V INDICATIONS: cough, sob TECHNIQUE: 2 views of the chest were acquired. COMPARISON: [facility], CR, XR CHEST 1V, 03/31/2018, 18:17. FINDINGS: Surgical changes and devices: Surgical clips are noted in lower neck soft tissues suggest clinical correlation. Lungs and pleura: Lungs are clear. No pleural effusions or pneumothorax. Mediastinum: Mediastinal contours are normal. Heart size is normal. Bones and chest wall: No suspicious bony abnormalities. Soft tissues appear unremarkable. IMPRESSION: No acute cardiopulmonary pathology. Dictated by: Efraín Jama M.D. on 09/19/2018 at 13:48 Approved by: Efraín Jama M.D. on 09/19/2018 at 13:48
--- NOTE | 2018-09-19 13:29 | ED.URI ---
HPI - URI/Sore Throat <Fela Bruce, SPANISH INSTRUCTOR-BC - Last Filed: 09/19/18 15:20> General Chief Complaint: Upper Respiratory Symptoms Stated Complaint: CONGESTION,EAR PAIN Time Seen by Provider: 09/19/18 13:19 Source: patient Mode of arrival: ambulatory Limitations: no limitations History of Present Illness HPI Narrative: Patient is a 32-year-old female with history of bipolar who is a some day smoker who presents with a chief complaint of cough congestion sore throat for 3 days. She states she noted initial congestion about 2 weeks ago. She had some hot flashes yesterday. She denies abdominal pain, vomiting diarrhea. She complains of a productive cough. She complains of having lost her voice. She does complain of some chest pain when having coughing fits described as muscular. She has taken [employer] cold medicine once during her illness has not taken any other jeuw-ykt-tikdwuh remedies. She is concerned about pneumonia and flu. She states that she does have some dysuria, and states she gets UTIs when she has colds. She denies any flank pain. denies any vaginal bleeding or discharge. she states that she has had a complete hysterectomy. She states that occasionally she has blood on UA is, which has been evaluated. Related Data Home Medications Medication Instructions Recorded Confirmed sumatriptan succinate [Imitrex] 100 mg PO PRN PRN #0 08/22/12 05/24/18 dextroamphetamine-amphetamine 20 mg PO QAM PRN 02/11/18 05/24/18 [Adderall XR] levothyroxine 224 mcg PO DAILY 04/22/18 05/24/18 naproxen 500 mg PO BID PRN 05/18/18 05/24/18 lamotrigine 200 mg PO DAILY 05/24/18 05/24/18 lithium carbonate 300 mg PO QAM 05/24/18 05/24/18 lithium carbonate 600 mg PO QPM 05/24/18 05/24/18 trazodone 150 mg PO QPM 05/24/18 05/24/18 Previous Rx's Medication Instructions Recorded meloxicam 15 mg PO DAILY PRN #30 tab 05/18/18 Allergies Allergy/AdvReac Type Severity Reaction Status Date / Time adhesive [ADHESIVE] Allergy Intermediate Verified 02/11/18 17:18 amoxicillin [AMOXICILLIN] Allergy Intermediate Verified 02/11/18 17:18 cephalexin [From KEFLEX] Allergy Intermediate Verified 02/11/18 17:18 clindamycin [CLINDAMYCIN] Allergy Intermediate Verified 02/11/18 17:18 doxycycline [DOXYCYCLINE] Allergy Intermediate Verified 02/11/18 17:18 iodine [IODINE] Allergy Intermediate Verified 02/11/18 17:18 Sulfa (Sulfonamide Allergy Intermediate Verified 02/11/18 17:18 Antibiotics) [SULFA (SULFONAMIDE ANTIBIOTICS)] Penicillins [PENICILLINS] Allergy Unknown Verified 02/11/18 17:18 levofloxacin Allergy Verified 05/18/18 09:35 Review of Systems <RADHA Najera - Last Filed: 09/19/18 15:20> Review of Systems GENERAL: Denies chills, fatigue, malaise, fever, sweats. HEENT: See HPI RESPIRATORY: See HPI CARDIOVASCULAR: Denies chest pain, palpitations, orthopnea, edema, GASTROINTESTINAL: Denies nausea, vomiting, abdominal pain, diarrhea, constipation, melena. : Denies dysuria, frequency, incontinence, hematuria, urinary retention. MUSCULOSKELETAL: denies weakness, joint pain, or bony pain SKIN: Denies rash, skin lesions, or other NEUROLOGIC: Denies weakness, headache, numbness, change in speech, confusion, seizures, incoordination. PSYCHIATRIC: No concerning psychosocial issues. 12 point review of systems is negative except for those stated above PFSH <RADHA Najera - Last Filed: 09/19/18 15:20> Medical History Bipolar 1 disorder (Acute) H/O: hysterectomy (Acute) Hypothyroid (Acute) Thyroid cancer (Acute) Social History Smoking Status: Current some day smoker Exam <RADHA Najera - Last Filed: 09/19/18 15:20> Narrative Exam Narrative: GENERAL: This is a well-nourished, well-developed patient, sitting on stretcher HEAD: Atraumatic. Normocephalic. No temporal or scalp tenderness. EYES: Pupils equal round and reactive. Extraocular motions intact. No scleral icterus. No injection or drainage. ENT: Nose without bleeding, purulent drainage or septal hematoma. Throat without erythema, tonsillar hypertrophy or exudate. Uvula midline. Airway patent. bilateral TMs pearly encinas. NECK: Trachea midline. No JVD or lymphadenopathy. Supple, nontender, no meningeal signs. CARDIOVASCULAR: Regular rate and rhythm without murmurs, gallops, or rubs. RESPIRATORY: Clear to auscultation. Breath sounds equal bilaterally. No wheezes, rales, or rhonchi. Cough noted during exam. No accessory muscle use. No stridor. GASTROINTESTINAL: Abdomen soft, non-tender, nondistended. No hepato-splenomegaly, or palpable masses. No guarding. active bowel sounds all 4 quadrants. EXTREMITIES: No clubbing, cyanosis, or edema. No joint tenderness, effusion, or edema noted. BACK: Nontender without deformity or crepitance. No flank tenderness. NEURO: AOx3. SKIN: No rash or erythema. Initial Vital Signs Initial Vital Signs: Vital Signs Temperature 98.4 F 09/19/18 13:20 Pulse Rate 85 09/19/18 13:20 Respiratory Rate 20 09/19/18 13:20 Blood Pressure 108/65 09/19/18 13:20 Pulse Oximetry 97 09/19/18 13:20 <Ana Gunderson DO - Last Filed: 09/19/18 17:42> Initial Vital Signs Initial Vital Signs: Vital Signs Temperature 98.4 F 09/19/18 13:20 Pulse Rate 85 09/19/18 13:20 Respiratory Rate 20 09/19/18 13:20 Blood Pressure 108/65 09/19/18 13:20 Pulse Oximetry 97 09/19/18 13:20 Course <RADHA Najera - Last Filed: 09/19/18 15:20> Orders Ordered: ED Orders 09/19/18 13:26 XR chest 2V Stat 09/19/18 13:34 Influenza A and B by PCR Rapid Stat 09/19/18 14:00 Urinalysis and Microscopic Stat Vital Signs - 8 hr 09/19/18 13:20 09/19/18 13:39 Temperature 98.4 F Pulse Rate 85 75 Respiratory Rate 20 14 Blood Pressure 108/65 Blood Pressure [Right Arm] 111/73 Pulse Oximetry 97 97 <Ana Gunderson DO - Last Filed: 09/19/18 17:42> Orders Ordered: ED Orders 09/19/18 13:26 XR chest 2V Stat 09/19/18 13:34 Influenza A and B by PCR Rapid Stat 09/19/18 14:00 Urinalysis and Microscopic Stat Vital Signs - 8 hr 09/19/18 13:20 09/19/18 13:39 Temperature 98.4 F Pulse Rate 85 75 Respiratory Rate 20 14 Blood Pressure 108/65 Blood Pressure [Right Arm] 111/73 Pulse Oximetry 97 97 MDM - URI/Sore Throat <RADHA Najera - Last Filed: 09/19/18 15:20> Lab Data Lab Results 09/19/18 09/19/18 Range/Units 13:34 14:00 Urine Color Yellow Urine Appearance Clear Urine pH 8.5 H (4.5-8.0) Ur Specific [place] 1.015 (1.000-1.035) Urine Protein Trace H (Negative) Urine Glucose (UA) Negative (Negative) g/dL Urine Ketones Negative (NEGATIVE) Urine Occult Blood Trace-intact (Negative) Urine Nitrate Negative (Negative) Urine Bilirubin Negative (NEGATIVE) Urine Urobilinogen 0.2 (0.2) E.U./dL Ur Leukocyte Esterase Negative (NEGATIVE) Urine RBC 5-10/hpf H (0-5/HPF) Urine WBC 0-1/hpf (0-5/HPF) Ur Squamous Epith Cells 0-1 /hpf Urine Bacteria None seen (None) Ur Culture Indicated? Cult not indicated Influenza A & B (PCR) Negative (Negative) Imaging Data Chest x-ray: Radiologist's impression: [address] [address] XRay Report Signed Patient: Lexy Callahan#: [id number] : 1985Acct:[id number] Age/Sex: 32 / FDate of Service: 09/19/18 Loc: ED Accession Number: [id number] Procedure: XR chest 2V Ordering Provider: Fela Bruce PROCEDURE: XR CHEST 2V INDICATIONS: cough, sob TECHNIQUE: 2 views of the chest were acquired. COMPARISON: [facility], , XR CHEST 1V, 03/31/2018, 18:17. FINDINGS: Surgical changes and devices: Surgical clips are noted in lower neck soft tissues suggest clinical correlation. Lungs and pleura: Lungs are clear. No pleural effusions or pneumothorax. Mediastinum: Mediastinal contours are normal. Heart size is normal. Bones and chest wall: No suspicious bony abnormalities. Soft tissues appear unremarkable. IMPRESSION: No acute cardiopulmonary pathology. Dictated by: Efraín Jama M.D. on 09/19/2018 at 13:48 Approved by: Efraín Jama M.D. on 09/19/2018 at 13:48 [facility] Narrative Medical decision making narrative: The patient is a 32-year-old female who presents with complaints of congestion, cough and dysuria. Her UA did not demonstrate a UTI. She has no indications of bacterial infection on her exam, normal flu swab and a normal chest x-ray without pneumonia. She is in no respiratory distress the emergency department is hemodynamically stable, afebrile and oxygenating well. I encouraged her to use gwbs-era-avqwvgs medications as needed and able for her cough and cold symptoms. I discussed Flonase as well as a Neti pot. I encouraged rest and pushing fluids. I encouraged to come back to the emergency department for any acute concerns including chest pain, shortness of breath difficulty breathing etc. Encouraged her to follow up with her primary care provider in a few days. Patient had no questions or concerns upon discharge and was able to ambulate steadily outside the department. <Ana Gunderson, - Last Filed: 09/19/18 17:42> Lab Data Lab Results 09/19/18 09/19/18 Range/Units 13:34 14:00 Urine Color Yellow Urine Appearance Clear Urine pH 8.5 H (4.5-8.0) Ur Specific [place] 1.015 (1.000-1.035) Urine Protein Trace H (Negative) Urine Glucose (UA) Negative (Negative) g/dL Urine Ketones Negative (NEGATIVE) Urine Occult Blood Trace-intact (Negative) Urine Nitrate Negative (Negative) Urine Bilirubin Negative (NEGATIVE) Urine Urobilinogen 0.2 (0.2) E.U./dL Ur Leukocyte Esterase Negative (NEGATIVE) Urine RBC 5-10/hpf H (0-5/HPF) Urine WBC 0-1/hpf (0-5/HPF) Ur Squamous Epith Cells 0-1 /hpf Urine Bacteria None seen (None) Ur Culture Indicated? Cult not indicated Influenza A & B (PCR) Negative (Negative) Discharge Plan Departure Patient Disposition: Home Clinical Impression: Dysuria Upper respiratory infection Qualifiers: URI type: unspecified viral URI Qualified Code(s): J06.9 - Acute upper respiratory infection, unspecified Discharge Date/Time: 09/19/18 14:58 Interventions: ED Discharge Assessment Last Done: 09/19/18 14:58 Instructions: DI for Viral Upper Respiratory Infection -- Adult, DI for Dysuria -- Adult Activity Restrictions/Additional Instructions: Your chest x-ray shows no pneumonia, her flu test came back negative and her urine does not have any indications of UTI at this point time. Please follow up with your primary care provider in the next few days. I suggested zmry-rsn-yqmrbfs medications for her congestion such as Flonase, Lm med sinus rinse, etc. Please come back to the emergency department for any acute concerns including shortness of breath, chest pain concern of heart attack or stroke. Prescriptions: No Action sumatriptan succinate [Imitrex] 100 MG tablet 100 mg PO PRN PRN (Reason: Migraine Headache) Qty: 0 RF: 0 dextroamphetamine-amphetamine [Adderall XR] 20 mg Capsule,Extended Release 24hr 20 mg PO QAM PRN (Reason: to help focus at work) RF: 0 trazodone 100 mg tablet 150 mg PO QPM RF: 0 lithium carbonate 300 mg tablet 300 mg PO QAM RF: 0 lithium carbonate 300 mg tablet 600 mg PO QPM RF: 0 lamotrigine 100 mg tablet 200 mg PO DAILY RF: 0 levothyroxine 112 mcg tablet 224 mcg PO DAILY RF: 0 naproxen 500 mg tablet 500 mg PO BID PRN (Reason: pain) RF: 0 meloxicam 7.5 mg tablet 15 mg PO DAILY PRN (Reason: pain (scale score 7-10)) Qty: 30 RF: 0 Referrals: Aldo Hernadez MD [Primary Care Provider] - Stand Alone Forms: Work Release Note, Work/School Release <Ana Gunderson DO - Last Filed: 09/19/18 17:42> [facility] Attestation: I was immediately available in the department for consultation. Documentation has been reviewed. I agree with assessment and plan.
--- NOTE | 2018-09-19 13:34 | ED_ITS ---
HPI - URI/Sore Throat <Fela Bruce, AIR VALVE MECHANIC-BC - Last Filed: 09/19/18 15:20> General Chief Complaint: Upper Respiratory Symptoms Stated Complaint: CONGESTION,EAR PAIN Time Seen by Provider: 09/19/18 13:19 Source: patient Mode of arrival: ambulatory Limitations: no limitations History of Present Illness HPI Narrative: Patient is a 32-year-old female with history of bipolar who is a some day smoker who presents with a chief complaint of cough congestion sore throat for 3 days. She states she noted initial congestion about 2 weeks ago. She had some hot flashes yesterday. She denies abdominal pain, vomiting diarrhea. She complains of a productive cough. She complains of having lost her voice. She does complain of some chest pain when having coughing fits described as muscular. She has taken [employer] cold medicine once during her illness has not taken any other whcw-fkt-hyaplsq remedies. She is concerned about pneumonia and flu. She states that she does have some dysuria, and states she gets UTIs when she has colds. She denies any flank pain. denies any vaginal bleeding or discharge. she states that she has had a complete hysterectomy. She states that occasionally she has blood on UA is, which has been evaluated. Related Data Home Medications Medication Instructions Recorded Confirmed sumatriptan succinate [Imitrex] 100 mg PO PRN PRN #0 08/22/12 05/24/18 dextroamphetamine-amphetamine 20 mg PO QAM PRN 02/11/18 05/24/18 [Adderall XR] levothyroxine 224 mcg PO DAILY 04/22/18 05/24/18 naproxen 500 mg PO BID PRN 05/18/18 05/24/18 lamotrigine 200 mg PO DAILY 05/24/18 05/24/18 lithium carbonate 300 mg PO QAM 05/24/18 05/24/18 lithium carbonate 600 mg PO QPM 05/24/18 05/24/18 trazodone 150 mg PO QPM 05/24/18 05/24/18 Previous Rx's Medication Instructions Recorded meloxicam 15 mg PO DAILY PRN #30 tab 05/18/18 Allergies Allergy/AdvReac Type Severity Reaction Status Date / Time adhesive [ADHESIVE] Allergy Intermediate Verified 02/11/18 17:18 amoxicillin [AMOXICILLIN] Allergy Intermediate Verified 02/11/18 17:18 cephalexin [From KEFLEX] Allergy Intermediate Verified 02/11/18 17:18 clindamycin [CLINDAMYCIN] Allergy Intermediate Verified 02/11/18 17:18 doxycycline [DOXYCYCLINE] Allergy Intermediate Verified 02/11/18 17:18 iodine [IODINE] Allergy Intermediate Verified 02/11/18 17:18 Sulfa (Sulfonamide Allergy Intermediate Verified 02/11/18 17:18 Antibiotics) [SULFA (SULFONAMIDE ANTIBIOTICS)] Penicillins [PENICILLINS] Allergy Unknown Verified 02/11/18 17:18 levofloxacin Allergy Verified 05/18/18 09:35 Review of Systems <RADHA Najera - Last Filed: 09/19/18 15:20> Review of Systems GENERAL: Denies chills, fatigue, malaise, fever, sweats. HEENT: See HPI RESPIRATORY: See HPI CARDIOVASCULAR: Denies chest pain, palpitations, orthopnea, edema, GASTROINTESTINAL: Denies nausea, vomiting, abdominal pain, diarrhea, constipation, melena. : Denies dysuria, frequency, incontinence, hematuria, urinary retention. MUSCULOSKELETAL: denies weakness, joint pain, or bony pain SKIN: Denies rash, skin lesions, or other NEUROLOGIC: Denies weakness, headache, numbness, change in speech, confusion, seizures, incoordination. PSYCHIATRIC: No concerning psychosocial issues. 12 point review of systems is negative except for those stated above PFSH <RADHA Najera - Last Filed: 09/19/18 15:20> Medical History Bipolar 1 disorder (Acute) H/O: hysterectomy (Acute) Hypothyroid (Acute) Thyroid cancer (Acute) Social History Smoking Status: Current some day smoker Exam <RADHA Najera - Last Filed: 09/19/18 15:20> Narrative Exam Narrative: GENERAL: This is a well-nourished, well-developed patient, sitting on stretcher HEAD: Atraumatic. Normocephalic. No temporal or scalp tenderness. EYES: Pupils equal round and reactive. Extraocular motions intact. No scleral icterus. No injection or drainage. ENT: Nose without bleeding, purulent drainage or septal hematoma. Throat without erythema, tonsillar hypertrophy or exudate. Uvula midline. Airway patent. bilateral TMs pearly encinas. NECK: Trachea midline. No JVD or lymphadenopathy. Supple, nontender, no meni ngeal signs. CARDIOVASCULAR: Regular rate and rhythm without murmurs, gallops, or rubs. RESPIRATORY: Clear to auscultation. Breath sounds equal bilaterally. No wheezes, rales, or rhonchi. Cough noted during exam. No accessory muscle use. No stridor. GASTROINTESTINAL: Abdomen soft, non-tender, nondistended. No hepato- splenomegaly, or palpable masses. No guarding. active bowel sounds all 4 quad rants. EXTREMITIES: No clubbing, cyanosis, or edema. No joint tenderness, effusion, or edema noted. BACK: Nontender without deformity or crepitance. No flank tenderness. NEURO: AOx3. SKIN: No rash or erythema. Initial Vital Signs Initial Vital Signs: Vital Signs Temperature 98.4 F 09/19/18 13:20 Pulse Rate 85 09/19/18 13:20 Respiratory Rate 20 09/19/18 13:20 Blood Pressure 108/65 09/19/18 13:20 Pulse Oximetry 97 09/19/18 13:20 <Ana Gunderson DO - Last Filed: 09/19/18 17:42> Initial Vital Signs Initial Vital Signs: Vital Signs Temperature 98.4 F 09/19/18 13:20 Pulse Rate 85 09/19/18 13:20 Respiratory Rate 20 09/19/18 13:20 Blood Pressure 108/65 09/19/18 13:20 Pulse Oximetry 97 09/19/18 13:20 Course <RADHA Najera - Last Filed: 09/19/18 15:20> Orders Ordered: ED Orders 09/19/18 13:26 XR chest 2V Stat 09/19/18 13:34 Influenza A and B by PCR Rapid Stat 09/19/18 14:00 Urinalysis and Microscopic Stat Vital Signs - 8 hr 09/19/18 13:20 09/19/18 13:39 Temperature 98.4 F Pulse Rate 85 75 Respiratory Rate 20 14 Blood Pressure 108/65 Blood Pressure [Right Arm] 111/73 Pulse Oximetry 97 97 <DO Rickie Gaviria Last Filed: 09/19/18 17:42> Orders Ordered: ED Orders 09/19/18 13:26 XR chest 2V Stat 09/19/18 13:34 Influenza A and B by PCR Rapid Stat 09/19/18 14:00 Urinalysis and Microscopic Stat Vital Signs - 8 hr 09/19/18 13:20 09/19/18 13:39 Temperature 98.4 F Pulse Rate 85 75 Respiratory Rate 20 14 Blood Pressure 108/65 Blood Pressure [Right Arm] 111/73 Pulse Oximetry 97 97 MDM - URI/Sore Throat <RADHA Najera - Last Filed: 09/19/18 15:20> Lab Data Lab Results 09/19/18 09/19/18 Range/Units 13:34 14:00 Urine Color Yellow Urine Appearance Clear Urine pH 8.5 H (4.5-8.0) Ur Specific [place] 1.015 (1.000-1.035) Urine Protein Trace H (Negative) Urine Glucose (UA) Negative (Negative) g/dL Urine Ketones Negative (NEGATIVE) Urine Occult Blood Trace-intact (Negative) Urine Nitrate Negative (Negative) Urine Bilirubin Negative (NEGATIVE) Urine Urobilinogen 0.2 (0.2) E.U./dL Ur Leukocyte Esterase Negative (NEGATIVE) Urine RBC 5-10/hpf H (0-5/HPF) Urine WBC 0-1/hpf (0-5/HPF) Ur Squamous Epith Cells 0-1 /hpf Urine Bacteria None seen (None) Ur Culture Indicated? Cult not indicated Influenza A & B (PCR) Negative (Negative) Imaging Data Chest x-ray: Radiologist's impression: [address] [address] XRay Report Signed Patient: Lexy Callahan#: [id number] : 1985Acct:[id number] Age/Sex: 32 / FDate of Service: 09/19/18 Loc: ED Accession Number: [id number] Procedure: XR chest 2V Ordering Provider: Fela Bruce PROCEDURE: XR CHEST 2V INDICATIONS: cough, sob TECHNIQUE: 2 views of the chest were acquired. COMPARISON: [facility], , XR CHEST 1V, 03/31/2018, 18:17. FINDINGS: Surgical changes and devices: Surgical clips are noted in lower neck soft tissues suggest clinical correlation. Lungs and pleura: Lungs are clear. No pleural effusions or pneumothorax. Mediastinum: Mediastinal contours are normal. Heart size is normal. Bones and chest wall: No suspicious bony abnormalities. Soft tissues appear unremarkable. IMPRESSION: No acute cardiopulmonary pathology. Dictated by: Efraín Jama M.D. on 09/19/2018 at 13:48 Approved by: Efraín Jama M.D. on 09/19/2018 at 13:48 [facility] Narrative Medical decision making narrative: The patient is a 32-year-old female who presents with complaints of congestion, cough and dysuria. Her UA did not demonstrate a UTI. She has no indications of bacterial infection on her exam, normal flu swab and a normal chest x-ray without pneumonia. She is in no respiratory distress the emergency department is hemodynamically stable, afebrile and oxygenating well. I encouraged her to use pioq-rzm-lityxvj medications as needed and able for her cough and cold symptoms. I discussed Flonase as well as a Neti pot. I encouraged rest and pushing fluids. I encouraged to come back to the emergency department for any acute concerns including chest pain, shortness of breath difficulty breathing etc. Encouraged her to follow up with her primary care provider in a few days. Patient had no questions or concerns upon discharge and was able to ambulate steadily outside the department. <Ana Gunderson, DO - Last Filed: 09/19/18 17:42> Lab Data Lab Results 09/19/18 09/19/18 Range/Units 13:34 14:00 Urine Color Yellow Urine Appearance Clear Urine pH 8.5 H (4.5-8.0) Ur Specific [place] 1.015 (1.000-1.035) Urine Protein Trace H (Negative) Urine Glucose (UA) Negative (Negative) g/dL Urine Ketones Negative (NEGATIVE) Urine Occult Blood Trace-intact (Negative) Urine Nitrate Negative (Negative) Urine Bilirubin Negative (NEGATIVE) Urine Urobilinogen 0.2 (0.2) E.U./dL Ur Leukocyte Esterase Negative (NEGATIVE) Urine RBC 5-10/hpf H (0-5/HPF) Urine WBC 0-1/hpf (0-5/HPF) Ur Squamous Epith Cells 0-1 /hpf Urine Bacteria None seen (None) Ur Culture Indicated? Cult not indicated Influenza A & B (PCR) Negative (Negative) Discharge Plan Departure Patient Disposition: Home Clinical Impression: Dysuria Upper respiratory infection Qualifiers: URI type: unspecified viral URI Qualified Code(s): J06.9 - Acute upper respiratory infection, unspecified Discharge Date/Time: 09/19/18 14:58 Interventions: ED Discharge Assessment Last Done: 09/19/18 14:58 Instructions: DI for Viral Upper Respiratory Infection -- Adult, DI for Dysuria -- Adult Activity Restrictions/Additional Instructions: Your chest x-ray shows no pneumonia, her flu test came back negative and her urine does not have any indications of UTI at this point time. Please follow up with your primary care provider in the next few days. I suggested lqld-sit-kmmepvo medications for her congestion such as Flonase, Lm med sinus rinse, etc. Please come back to the emergency department for any acute concerns including shortness of breath, chest pain concern of heart attack or stroke. Prescriptions: No Action sumatriptan succinate [Imitrex] 100 MG tablet 100 mg PO PRN PRN (Reason: Migraine Headache) Qty: 0 RF: 0 dextroamphetamine-amphetamine [Adderall XR] 20 mg Capsule,Extended Release 24hr 20 mg PO QAM PRN (Reason: to help focus at work) RF: 0 trazodone 100 mg tablet 150 mg PO QPM RF: 0 lithium carbonate 300 mg tablet 300 mg PO QAM RF: 0 lithium carbonate 300 mg tablet 600 mg PO QPM RF: 0 lamotrigine 100 mg tablet 200 mg PO DAILY RF: 0 levothyroxine 112 mcg tablet 224 mcg PO DAILY RF: 0 naproxen 500 mg tablet 500 mg PO BID PRN (Reason: pain) RF: 0 meloxicam 7.5 mg tablet 15 mg PO DAILY PRN (Reason: pain (scale score 7-10)) Qty: 30 RF: 0 Referrals: Aldo Hernadez MD [Primary Care Provider] - Stand Alone Forms: Work Release Note, Work/School Release <Ana Gunderson DO - Last Filed: 09/19/18 17:42> [facility] ED Attending Martha Attestation: I was immediately available in the department for consultation. Documentation has been reviewed. I agree with assessment and plan.
[2018-09-19 13:39] VITALS: BP 111/73; PULSE 75; RESP 14; O2SAT 97
[2018-09-19 13:53] LABS: Influenza A and B by PCR Rapid Negative (Negative)
[2018-09-19 14:07] LABS: Bacteria Urine None Seen
[2018-09-19 14:09] LABS: Appearance Urine UA CLEAR; Bilirubin Urine UA NEGATIVE (NEGATIVE); Color Urine UA YELLOW; Glucose Urine UA NEGATIVE (Negative); Ketones Urine UA NEGATIVE (NEGATIVE); Leukocyte Esterase Urine UA NEGATIVE (NEGATIVE); Nitrite Urine UA NEGATIVE (Negative); Occult Blood Urine UA TRACE-INTACT (Negative); Protein Urine UA TRACE (Negative); Specific Gravity Urine UA 1.015 (1.000-1.035); Urobilinogen Urine UA 0.2 E.U./dL (0.2); pH Urine UA 8.5 (4.5-8.0)
[2018-09-19 14:23] LABS: Culture Indicated Urine Cult Not Indicated; RBC Urine 5-10/HPF (0-5/HPF); Squamous Epithelial Cell Urine 0-1 /HPF; WBC Urine 0-1/HPF (0-5/HPF)
== END 2018-09-19 14:58 | disposition home or self-care (01) ==
PROVIDERS: Emergency Provider Nurse Practitioner Family; PCP Family Medicine
DX: J06.9 Acute upper respiratory infection, unspecified (principal)
CPT/HCPCS: 71046; 81001; 87400; 99283

== ENCOUNTER 2018-10-17 13:15 | Emergency (ER) | payer OTHER, MEDICAID, SELFPAY ==
[2018-10-17 13:26] VITALS: BP 114/67; PULSE 86; RESP 16; TEMP 36.7; O2SAT 98; BMI 30.9
--- NOTE | 2018-10-17 13:33 | DI.US.S_ITS ---
PROCEDURE: US PELVIC COMPLETE INDICATIONS: VAGINAL BLEEDING 7 YEARS POST COMPLETE HYSTERECTOMY TECHNIQUE: Real-time scanning was performed of the pelvic organs, with image documentation. Additional endovaginal scanning was necessary due to incomplete visualization of the adnexal and endometrial structures by transabdominal scanning. COMPARISON: None. FINDINGS: Transabdominal scanning: Limited scanning through the kidneys shows no hydronephrosis. No pathologic free abdominal or pelvic fluid. Endovaginal scanning: Uterus: Surgically absent. There is a complex nonvascular cyst within the cervix measuring 19 mm. Ovaries: Surgically absent IMPRESSION: Complex nabothian cyst. Otherwise negative examination. Dictated by: Jayshree Adan M.D. on 10/17/2018 at 14:05 Approved by: Jayshree Adan M.D. on 10/17/2018 at 14:06
--- NOTE | 2018-10-17 14:27 | ED.FEMALEGU ---
HPI - Female Genitourinary General Chief complaint: Vaginal Bleeding Stated complaint: Vaginal bleeding,pain Time Seen by Provider: 10/17/18 14:16 Source: patient Mode of arrival: ambulatory Limitations: no limitations History of Present Illness HPI Narrative: Patient is a 32-year-old female who presents with vaginal bleeding. She has a history of total hysterectomy and thyroid cancer. She states she had thyroid cancer with chemotherapy in 2008. Last evening she started having some vaginal bleeding only when she wipes. She is not soaking up full super pad or tampons. No abdominal pain no pain with intercourse. She says after the pelvic ultrasound she did have some discomfort. She has not had any weight loss as shortness of breath dizziness or lightheadedness. Related Data Home Medications Medication Instructions Recorded Confirmed sumatriptan succinate [Imitrex] 100 mg PO PRN PRN #0 08/22/12 05/24/18 dextroamphetamine-amphetamine 20 mg PO QAM PRN 02/11/18 05/24/18 [Adderall XR] levothyroxine 224 mcg PO DAILY 04/22/18 05/24/18 naproxen 500 mg PO BID PRN 05/18/18 05/24/18 lamotrigine 200 mg PO DAILY 05/24/18 05/24/18 lithium carbonate 300 mg PO QAM 05/24/18 05/24/18 lithium carbonate 600 mg PO QPM 05/24/18 05/24/18 trazodone 150 mg PO QPM 05/24/18 05/24/18 Previous Rx's Medication Instructions Recorded meloxicam 15 mg PO DAILY PRN #30 tab 05/18/18 Allergies Allergy/AdvReac Type Severity Reaction Status Date / Time adhesive [ADHESIVE] Allergy Intermediate Verified 10/17/18 13:31 amoxicillin [AMOXICILLIN] Allergy Intermediate Verified 10/17/18 13:31 cephalexin [From KEFLEX] Allergy Intermediate Verified 10/17/18 13:31 clindamycin [CLINDAMYCIN] Allergy Intermediate Verified 10/17/18 13:31 doxycycline [DOXYCYCLINE] Allergy Intermediate Verified 10/17/18 13:31 iodine [IODINE] Allergy Intermediate Verified 10/17/18 13:31 Sulfa (Sulfonamide Allergy Intermediate Verified 10/17/18 13:31 Antibiotics) [SULFA (SULFONAMIDE ANTIBIOTICS)] Penicillins [PENICILLINS] Allergy Unknown Verified 10/17/18 13:31 levofloxacin Allergy Verified 10/17/18 13:31 Review of Systems Review of Systems GENERAL: Denies chills, fatigue, malaise, fever, sweats, travel HEENT: Denies sinus pain, ear pain, sore throat, difficulty swallowing, neck pain RESPIRATORY: Denies dyspnea, cough, wheezing, hemoptysis, sputum. CARDIOVASCULAR: Denies chest pain, palpitations, orthopnea, edema GASTROINTESTINAL: Denies nausea, vomiting, abdominal pain, diarrhea, constipation, melena. : Denies dysuria, frequency, incontinence, hematuria, urinary retention, flank pain. WEB CONTENT EDITOR: See HPI MUSCULOSKELETAL: Denies weakness, joint pain, or bony pain SKIN: No rash, no erythema, no pruritus NEUROLOGIC: Denies weakness, dizziness, headache, numbness, change in speech, confusion PSYCHIATRIC: No concerning psychosocial issues. 12 point review of systems is negative except for those stated above and HPI [facility] Medical History Bipolar 1 disorder (Acute) H/O: hysterectomy (Acute) Hypothyroid (Acute) Thyroid cancer (Acute) Surgical History H/O thyroidectomy (Acute) No pertinent past surgical history (Acute) Social History Smoking Status: Former smoker Social History Smoking Status: Former smoker Exam Initial Vital Signs Initial Vital Signs: Vital Signs Temperature 98.1 F 10/17/18 13:26 Pulse Rate 86 10/17/18 13:26 Respiratory Rate 16 10/17/18 13:26 Blood Pressure 114/67 10/17/18 13:26 Pulse Oximetry 98 10/17/18 13:26 GENERAL: Well-appearing, well-nourished and in no acute distress. HEENT: Head atraumatic,EOMI, pupils reactive, CARDIOVASCULAR: Regular rate and rhythm without murmurs, rubs or gallops. RESPIRATORY: Breath sounds equal bilaterally, no wheezes rales or rhonchi. ABDOMEN: Soft, nontender. Normoactive bowel sounds all 4 quadrants. No guarding or rebound. PELVIC: External genitalia is normal, no vaginal bleeding, no vaginal discharge, no odor, cervical os is closed, no adnexal tenderness. she actually does have 2 small cyst noted at about 11 o'clock position is not actively bleeding extremely small : No CVA tenderness EXTREMITIES: Normal range of motion, no clubbing or edema. Neurovascularly intact NEUROLOGICAL: Alert and oriented x4.Normal gait and speech. Cranial nerves II through XII grossly intact. SKIN: Warm, dry, no laceration, no petechiae, no rashes or lesions. Course Orders Ordered: ED Orders 10/17/18 13:33 US pelvic complete Stat 10/17/18 14:20 Complete Blood Count AUTO DIFF Stat Comprehensive Metabolic Panel Stat Lipase Stat 10/17/18 14:26 CT abdomen pelvis w con Stat Vital Signs - 8 hr 10/17/18 13:26 10/17/18 16:36 Temperature 98.1 F Pulse Rate 86 76 Respiratory Rate 16 14 Blood Pressure 114/67 121/53 L Pulse Oximetry 98 100 MDM - Female Genitourinary Lab Data Attestation: I reviewed the patient's lab results. Result diagrams: 10/17/18 14:20 10/17/18 14:20 Lab Results 10/17/18 10/17/18 Range/Units 14:20 14:20 WBC 3.7 L (4.5-11.0) X10^3/uL RBC 4.66 (4.0-5.2) X10^6/uL Hgb 14.0 (12.0-16.0) g/dL Hct 41.7 (36-46) % MCV 89.5 (80-100) fL MCH 30.1 (26-34) PG MCHC 33.6 (30-36) % RDW 12.9 (11.6-14.8) % Plt Count 223 (150-400) X10^3/uL Neut % (Auto) 40.8 L (50-75) % Lymph % (Auto) 42.8 H (25-40) % [place] % (Auto) 12.1 (3-14) % Eos % (Auto) 3.7 (2-4) % Baso % (Auto) 0.6 (0-2) % Neut # (Auto) 1500 (0377-4398) /uL Lymph # (Auto) 1600 (0240-8136) /uL [place]on # (Auto) 400 (0-900) /uL Eos # (Auto) 100 (0-450) /uL Baso # (Auto) 0 (0-100) /uL Sodium 141 (137-145) mmol/L Potassium 3.3 L (3.4-5.1) mmol/L Chloride 103 (98-107) mmol/L Carbon Dioxide 30 (22-32) mmol/L BUN 12 (7-17) mg/dL Creatinine 0.70 (0.52-1.04) mg/dL Estimated GFR > 60.0 (>60) mL/min BUN/Creatinine Ratio 17.1 (6-22) Glucose 74 (70-100) mg/dL Calcium 8.8 (8.4-10.2) mg/dL Total Bilirubin 0.5 (0.2-1.3) mg/dL AST 32 (14-36) IU/L ALT 52 (9-52) IU/L Alkaline Phosphatase 64 (38-126) U/L Total Protein 7.1 (6.3-8.2) g/dL Albumin 4.0 (3.5-5.0) g/dL Globulin 3.1 (1.7-4.1) g/dL Albumin/Globulin Ratio 1.3 (1.0-2.8) Lipase 90 (23-300) U/L Imaging Data CT scan - abdomen: Radiologist's impression: PROCEDURE: CT ABDOMEN PELVIS W CON INDICATIONS: vag bleeding hx of thyroid cancer TECHNIQUE: After the administration of intravenous contrast, 5 mm thick sections acquired from the diaphragm to the symphysis. 5 mm coronal and sagittal reformats were acquired. For radiation dose reduction, the following was used: automated exposure control, adjustment of mA and/or kV according to patient size. COMPARISON: [facility], CT, ABD/PELVIS W/CON (PNL), 01/21/2012, 16:21. FINDINGS: Image quality: Excellent. ABDOMEN: Lung bases: Lung bases are clear. Heart size is normal. Solid organs: 20 mm diameter low-density focus within the right hepatic lobe posterosuperiorly is present, which is increased in size and previously demonstrated peripheral nodular enhancement. Liver is otherwise normal in size and enhancement. Gallbladder is contracted. Biliary system is non dilated. Pancreas enhances normally. There is a new 12 mm diameter low-density focus within the posterolateral aspect of the spleen. Spleen is otherwise normal in size and enhancement. No adrenal nodules. Kidneys demonstrate normal size and enhancement, without hydronephrosis. Peritoneum and bowel: Bowel loops demonstrate normal wall thickness and caliber. No free fluid or air. Normal appendix. Nodes and vessels: No retroperitoneal or mesenteric adenopathy by size criteria. Aorta and inferior vena cava are normal in size. Miscellaneous: No ventral hernias. PELVIS: Genitourinary: Bladder wall thickness is normal. Miscellaneous: No inguinal hernias or adenopathy. Bones: No suspicious bony lesions. No vertebral body compression fractures. IMPRESSION: 1. No explanation for vaginal bleeding. 2. Increased right hepatic lobe hemangioma. 3. Indeterminate splenic hypodensity. 4. Normal appendix. Dictated by: Jayshree Adan M.D. on 10/17/2018 at 15:44 Approved by: Jayshree Adan M.D. on 10/17/2018 at 15:47 pelvic US: Radiologist's impression: PROCEDURE: US PELVIC COMPLETE INDICATIONS: VAGINAL BLEEDING 7 YEARS POST COMPLETE HYSTERECTOMY TECHNIQUE: Real-time scanning was performed of the pelvic organs, with image documentation. Additional endovaginal scanning was necessary due to incomplete visualization of the adnexal and endometrial structures by transabdominal scanning. COMPARISON: None. FINDINGS: Transabdominal scanning: Limited scanning through the kidneys shows no hydronephrosis. No pathologic free abdominal or pelvic fluid. Endovaginal scanning: Uterus: Surgically absent. There is a complex nonvascular cyst within the cervix measuring 19 mm. Ovaries: Surgically absent IMPRESSION: Complex nabothian cyst. Otherwise negative examination. Dictated by: Jayshree Adan M.D. on 10/17/2018 at 14:05 MDM Narrative Medical decision making narrative: No active bleeding at this time. Patient does wear that she was bleeding. They recommend outpatient follow-up. No sign a return of any cancer. She does have cysts but not actively bleeding. She agrees with follow-up and understands when to return to the ED. Discharge Plan Departure Patient Disposition: Home Clinical Impression: Cyst of cervix Discharge Date/Time: 10/17/18 16:36 Interventions: ED Discharge Assessment Last Done: 10/17/18 16:36 Instructions: DI for Vaginal Bleeding Activity Restrictions/Additional Instructions: *You have been diagnosed with vaginal bleeding *What to do: At this time we need further workup with her PCP. You do have 2 cervical cysts very small 5 mm and 10 mm *Continue to take medications as directed *Follow up with your primary care provider in 2-3 days *Return to ER if you should have increasing vaginal bleeding more than 1 super pad or tampon an hour, dizziness lightheadedness or any new, worsening or concerning symptoms Prescriptions: No Action sumatriptan succinate [Imitrex] 100 MG tablet 100 mg PO PRN PRN (Reason: Migraine Headache) Qty: 0 RF: 0 dextroamphetamine-amphetamine [Adderall XR] 20 mg Capsule,Extended Release 24hr 20 mg PO QAM PRN (Reason: to help focus at work) RF: 0 trazodone 100 mg tablet 150 mg PO QPM RF: 0 lithium carbonate 300 mg tablet 300 mg PO QAM RF: 0 lithium carbonate 300 mg tablet 600 mg PO QPM RF: 0 lamotrigine 100 mg tablet 200 mg PO DAILY RF: 0 levothyroxine 112 mcg tablet 224 mcg PO DAILY RF: 0 naproxen 500 mg tablet 500 mg PO BID PRN (Reason: pain) RF: 0 meloxicam 7.5 mg tablet 15 mg PO DAILY PRN (Reason: pain (scale score 7-10)) Qty: 30 RF: 0 Referrals: Aldo Hernadez MD [Primary Care Provider] -
[2018-10-17 14:46] LABS: Add Manual Diff / Slide Review NO; Alanine Aminotransferase 52 IU/L (9-52); Albumin Globulin Ratio 1.3 (1.0-2.8); Alkaline Phosphatase 64 U/L (38-126); Aspartate Aminotransferase 32 IU/L (14-36); BUN Creatinine Ratio 17.1 (6-22); Basophils Absolute Auto 0 /uL (0-100); Basophils Percent Auto 0.6 % (0-2); Bilirubin Total 0.5 mg/dL (0.2-1.3); Blood Urea Nitrogen 12 mg/dL (7-17); Calcium 8.8 mg/dL (8.4-10.2); Carbon Dioxide 30 mmol/L (22-32); Chloride 103 mmol/L (98-107); Eosinophils Absolute Auto 100 /uL (0-450); Eosinophils Percent Auto 3.7 % (2-4); Estimated Glomerular Filt Rate > 60.0 mL/min (>60); Globulin 3.1 g/dL (1.7-4.1); Glucose 74 mg/dL (70-100); HEMOLYSIS < 15 (0-50); Hematocrit 41.7 % (36-46); Lipase 90 U/L (23-300); Lymphocytes Absolute Auto 1600 /uL (1100-4500); Lymphocytes Percent Auto 42.8 % (25-40); Mean Corpuscular HGB Conc 33.6 % (30-36); Mean Corpuscular Hemoglobin 30.1 PG (26-34); Mean Corpuscular Volume 89.5 fL (80-100); Monocytes Absolute Auto 400 /uL (0-900); Monocytes Percent Auto 12.1 % (3-14); Neutrophils Absolute Auto 1500 /uL (1500-7000); Neutrophils Percent Auto 40.8 % (50-75); Platelet Count 223 X10^3/uL (150-400); Potassium 3.3 mmol/L (3.4-5.1); Red Blood Cell Count 4.66 X10^6/uL (4.0-5.2); Red Cell Distribution Width 12.9 % (11.6-14.8); Sodium 141 mmol/L (137-145); Total Protein 7.1 g/dL (6.3-8.2); White Blood Cell Count 3.7 X10^3/uL (4.5-11.0)
[2018-10-17 16:36] VITALS: BP 121/53; PULSE 76; RESP 14; O2SAT 100
== END 2018-10-17 16:36 | disposition home or self-care (01) ==
PROVIDERS: Emergency Provider Emergency Medicine; PCP Family Medicine
DX: N88.8 Other specified noninflammatory disorders of cervix uteri (principal); R10.2 Pelvic and perineal pain
CPT/HCPCS: 36415; 36591; 74177; 76856; 80053; 83690; 85025; 99283; 99284; Q9967

== ENCOUNTER → 2018-11-05 07:38 | Outpatient (CLI) | payer OTHER, MEDICAID, SELFPAY ==
--- NOTE | 2018-11-05 | DI.MRI.S_ITS ---
PROCEDURE: MR PELVIS WO/W CON INDICATIONS: History of vaginal bleeding with complex nabothian cyst on prior ultrasound. TECHNIQUE: Coronal HASTE, sagittal breath-hold T2 FSE; axial T1 FSE with and without fat saturation through the pelvis. Optional long- and short-axis uterine nonbreath-hold T2 FSE through the uterus. Sagittal or axial dynamic VIBE during administration of contrast. Post-contrast axial or coronal VIBE/2-D FLASH with fat saturation from the iliac crests to the symphysis. Optional diffusion weighted imaging and ADC may be performed. COMPARISON: [facility], US, US PELVIC COMPLETE, 10/17/2018, 13:47. [facility], CT, CT ABDOMEN PELVIS W CON, 10/17/2018, 15:19. FINDINGS: Image quality: Excellent. Uterus: The uterus is surgically absent. There is a left paracentral thin-walled cystic lesion in the vaginal cuff. This measures approximately 1.6 x 0.9 x 1.1 cm and demonstrates internal T2 hyperintensity as well as internal intrinsic T1 hyperintensity suggestive of proteinaceous contents or blood product. No definite internal enhancement following contrast administration. The vaginal cuff and vaginal wall appear normal in thickness. No additional mass lesions or fluid collections are identified. Adnexa: The ovaries are surgically absent. No adnexal masses identified. Urinary system: Bladder wall is normal in thickness. Distal ureters are non distended. Urethra appears normal in morphology. Nodes and vessels: No pelvic or inguinal adenopathy by size criteria. Iliac vessels are normal in size. Bowel and peritoneum: No pathologic free pelvic fluid. Inferior colon and small bowel loops are normal in caliber. Soft tissues: No inguinal hernias. No findings of pelvic floor incompetence in the absence of provocation. Bones: Marrow demonstrates normal overall signal. IMPRESSION: 1. Surgical absence of the uterus and ovaries redemonstrated. 2. Small circumscribed thin-walled cyst in the vaginal cuff demonstrating intrinsic T1 hyperintensity consistent with internal proteinaceous or blood products. No definite internal enhancement. The findings likely represent a complex nabothian cyst. The differential includes a Bartholin's duct cyst although the location is atypical. An abscess or cystic neoplasm are less likely given the imaging findings. 3. No pelvic mass or additional fluid collections. Dictated by: Juan Francisco Ordoñez M.D. on 11/05/2018 at 12:20 Approved by: Juan Francisco Ordoñez M.D. on 11/05/2018 at 12:37
== END ==
PROVIDERS: PCP Family Medicine; Visit Provider Family Medicine
DX: N93.9 Abnormal uterine and vaginal bleeding, unspecified (principal); N88.8 Other specified noninflammatory disorders of cervix uteri; Z90.710 Acquired absence of both cervix and uterus
CPT/HCPCS: 72197; A9579

== ENCOUNTER 2019-02-10 20:30 | Emergency (ER) | payer OTHER, MEDICAID, SELFPAY ==
[2019-02-10 20:35] VITALS: BP 99/65; PULSE 87; RESP 18; TEMP 36.8; O2SAT 97; BMI 27.4
--- NOTE | 2019-02-10 21:11 | ED_ITS ---
HPI - Back Pain/Injury General Chief Complaint: Back Pain/Injury Stated Complaint: RIGHT SIDED PAIN, DIFFICULT TO WALK Time Seen by Provider: 02/10/19 20:56 Source: patient Mode of arrival: ambulatory Limitations: no limitations History of Present Illness HPI Narrative: 33-year-old female here for evaluation of right-sided lower back pain and pain radiating down to her right lower extremity. Patient states the symptoms started yesterday but has worsened over the past 24 hours. No fevers. No specific trauma. Has had sciatic issues in the past but has been on the left side. Denies any urinary symptoms. No bowel changes. Has tried some Tylenol at home without any improvement. Related Data Home Medications Medication Instructions Recorded Confirmed sumatriptan succinate [Imitrex] 100 mg PO PRN PRN #0 08/22/12 12/14/18 dextroamphetamine-amphetamine 20 mg PO QAM PRN 02/11/18 12/14/18 [Adderall XR] lamotrigine 200 mg PO DAILY 05/24/18 12/14/18 lithium carbonate 300 mg PO QAM 05/24/18 12/14/18 lithium carbonate 600 mg PO QPM 05/24/18 12/14/18 trazodone 150 mg PO QPM 05/24/18 12/14/18 albuterol sulfate HFA 90 1 puff INHALATION Q6H PRN 12/14/18 12/14/18 mcg/actuation aerosol inhaler cetirizine 10 mg capsule 10 mg PO DAILY 12/14/18 12/14/18 fluticasone propionate 50 1 spray NASAL DAILY 12/14/18 12/14/18 mcg/actuation nasal spray,suspension hydroxyzine HCl 25 mg tablet 25 mg PO QID PRN 12/14/18 12/14/18 levothyroxine 200 mcg capsule 200 mcg PO DAILY 12/14/18 12/14/18 Previous Rx's Medication Instructions Recorded meloxicam 15 mg PO DAILY PRN #30 tab 05/18/18 estradiol 1 mg tablet 1 mg PO DAILY 90 Days #90 tab 12/14/18 cyclobenzaprine 10 mg PO TID PRN #20 tab 02/10/19 hydrocodone-acetaminophen [Serena] 1 tab PO Q4-6H PRN #10 tab 02/10/19 prednisone 20 mg PO DAILY #5 tab 02/10/19 Allergies Allergy/AdvReac Type Severity Reaction Status Date / Time adhesive [ADHESIVE] Allergy Intermediate Verified 12/14/18 10:02 amoxicillin [AMOXICILLIN] Allergy Intermediate Verified 12/14/18 10:02 cephalexin [From KEFLEX] Allergy Intermediate Verified 12/14/18 10:02 clindamycin [CLINDAMYCIN] Allergy Intermediate Verified 12/14/18 10:02 doxycycline [DOXYCYCLINE] Allergy Intermediate Verified 12/14/18 10:02 iodine [IODINE] Allergy Intermediate Verified 12/14/18 10:02 Sulfa (Sulfonamide Allergy Intermediate Verified 12/14/18 10:02 Antibiotics) [SULFA (SULFONAMIDE ANTIBIOTICS)] Penicillins [PENICILLINS] Allergy Unknown Verified 12/14/18 10:02 levofloxacin Allergy Verified 12/14/18 10:02 Review of Systems Constitutional Denies fever(s) and Denies headache(s) ENT Ears, Nose, Mouth, and Throat: Denies headache(s) Cardiovascular Denies chest pain and Denies dyspnea Respiratory Denies dyspnea Gastrointestinal Gastrointestinal: Denies abdominal pain Genitourinary Denies urinary frequency, Denies dysuria, Denies flank pain, Denies urinary incontinence, Denies urinary hesitancy and Denies urinary urgency Musculoskeletal Reports back pain, Denies myalgias, Denies arthralgias and Reports tingling (Right lower extremity) Integumentary/Breasts Denies lesions and Denies rash Neurologic Denies behavioral changes, Denies headache(s) and Reports tingling (Right lower extremity) Psychiatric Denies behavioral changes Hematologic/Lymphatic Denies easy bleeding and Denies easy bruising [facility] Medical History Bipolar 1 disorder (Acute) H/O: hysterectomy (Acute) Hypothyroid (Acute) Thyroid cancer (Acute) Social History Smoking Status: Former smoker Exam Initial Vital Signs Initial Vital Signs: Vital Signs Temperature 98.2 F 02/10/19 20:35 Pulse Rate 87 02/10/19 20:35 Respiratory Rate 18 02/10/19 20:35 Blood Pressure 99/65 02/10/19 20:35 Pulse Oximetry 97 02/10/19 20:35 Const General: cooperative, comfortable and well developed Orientation: alert, awake and oriented x3 HENMT Head: normal to inspection and normocephalic Resp Effort & Inspection: normal respiratory effort Cardio Rate: regular rate Back/Spine/Pelvis Other: Tenderness to palpation lower back right buttocks Skin Lesions: no lesions Rashes: no rashes Neuro General: alert and awake Cognition: normal cognition Extrem General: normal to inspection and capillary refill normal Psych Appearance: grossly normal and well kempt Course Orders Ordered: Discontinued Medications Hydrocodone Bitart/Acetaminophen (Serena 5/325) 1 tab PO NOW ONE Stop: 02/10/19 21:15 Last Admin: 02/10/19 21:22 Dose: 1 tab Hydrocodone Bitart/Acetaminophen (Vicodin Prepack) 1 bottle MISC SEEINSTR ONE Stop: 02/10/19 21:15 Last Admin: 02/10/19 21:22 Dose: 1 bottle Ketorolac Tromethamine (Toradol) 30 mg IM NOW ONE Stop: 02/10/19 21:15 Last Admin: 02/10/19 21:23 Dose: 30 mg Vital Signs - 8 hr 02/10/19 20:35 02/10/19 21:40 Temperature 98.2 F Pulse Rate 87 86 Respiratory Rate 18 14 Blood Pressure 99/65 120/80 Pulse Oximetry 97 99 MDM - Back Pain/Injury MDM Narrative Medical decision making narrative: Patient has no red flag symptoms concerning for cauda equina. No fevers. No recent instrumentation. No history of cancer. No specific trauma. I do suspect musculoskeletal low back pain. Hold on radiologic studies. Will send home with symptom treatment. I have her follow with her primary provider she was given return precautions and follow-up instructions she expressed understanding and agreement with plan. Discharge Plan Departure Patient Disposition: Home Clinical Impression: Lumbar radiculopathy Discharge Date/Time: 02/10/19 21:40 Interventions: ED Discharge Assessment Last Done: 02/10/19 21:40 Instructions: DI for Back Pain With Sciatica Activity Restrictions/Additional Instructions: Take all the medications as directed. Stay as active as possible. Contact your primary doctor for a follow-up to discuss referrals for physical therapy or other advanced studies. Return to the emergency department for any new or worsening symptoms Prescriptions: New cyclobenzaprine 10 mg tablet 10 mg PO TID PRN (Reason: muscle spasm) Qty: 20 RF: 0 hydrocodone-acetaminophen [Serena] 5-325 mg tablet 1 tab PO Q4-6H PRN (Reason: pain) Qty: 10 RF: 0 prednisone 20 mg tablet 20 mg PO DAILY Qty: 5 RF: 0 No Action sumatriptan succinate [Imitrex] 100 MG tablet 100 mg PO PRN PRN (Reason: Migraine Headache) Qty: 0 RF: 0 levothyroxine 200 mcg capsule 200 mcg PO DAILY RF: 0 All Day Allergy (cetirizine) 10 mg capsule 10 mg PO DAILY RF: 0 hydroxyzine HCl 25 mg tablet 25 mg PO QID PRNRF: 0 fluticasone propionate [Flonase Allergy Relief] 50 mcg/actuation spray,suspension 1 spray NASAL DAILY RF: 0 albuterol sulfate 90 mcg/actuation HFA aerosol inhaler 1 puff INHALATION Q6H PRNRF: 0 estradiol 1 mg tablet 1 mg PO DAILY 90 Days Qty: 90 RF: 0 dextroamphetamine-amphetamine [Adderall XR] 20 mg Capsule,Extended Release 24hr 20 mg PO QAM PRN (Reason: to help focus at work) RF: 0 trazodone 100 mg tablet 150 mg PO QPM RF: 0 lithium carbonate 300 mg tablet 300 mg PO QAM RF: 0 lithium carbonate 300 mg tablet 600 mg PO QPM RF: 0 lamotrigine 100 mg tablet 200 mg PO DAILY RF: 0 meloxicam 7.5 mg tablet 15 mg PO DAILY PRN (Reason: pain (scale score 7-10)) Qty: 30 RF: 0 Referrals: Aldo Hernadez MD [Primary Care Provider] -
[2019-02-10] MEDS: HYDROCODONE/ACET 5/325 TABLET 1 TAB PO (21:22)
[2019-02-10] MEDS: HYDROCODONE/ACET 5/325 PREPACK 1 BOTTLE MISC (21:22)
[2019-02-10] MEDS: KETOROLAC 60 MG/2 ML VIAL 30 MG IM (21:23)
[2019-02-10 21:40] VITALS: BP 120/80; PULSE 86; RESP 14; O2SAT 99
== END 2019-02-10 21:40 | disposition home or self-care (01) ==
PROVIDERS: Emergency Provider Emergency Medicine; PCP Family Medicine
DX: M54.16 Radiculopathy, lumbar region (principal)
CPT/HCPCS: 96372; 99282; 99283; J1885

== ENCOUNTER 2019-02-28 16:25 | Emergency (ER) | payer OTHER, MEDICAID, SELFPAY ==
[2019-02-28 16:27] VITALS: PULSE 78; RESP 16; TEMP 36.7; O2SAT 99
[2019-02-28 16:29] VITALS: BP 101/66
--- NOTE | 2019-02-28 17:34 | ED.WOUNDLAC ---
HPI - Wound/Laceration General Chief Complaint: Wound/Laceration Stated Complaint: LEFT HAND THUMB LACERATION WONT STOP BLEEDING Time Seen by Provider: 02/28/19 17:34 Source: patient Mode of arrival: ambulatory Limitations: no limitations History of Present Illness HPI narrative: Patient is a 33-year-old female who presents with left thumb laceration. She said she was cutting at home with a serrated knife when she cut her thumb. She did about 130 this afternoon she says it kept bleeding. Now the proper bandage has been placed bleeding has stopped. She has no numbness or tingling. Onset (ago): hour(s) Related Data Home Medications Medication Instructions Recorded Confirmed sumatriptan succinate [Imitrex] 100 mg PO PRN PRN #0 08/22/12 12/14/18 dextroamphetamine-amphetamine 20 mg PO QAM PRN 02/11/18 12/14/18 [Adderall XR] lamotrigine 200 mg PO DAILY 05/24/18 12/14/18 lithium carbonate 300 mg PO QAM 05/24/18 12/14/18 lithium carbonate 600 mg PO QPM 05/24/18 12/14/18 trazodone 150 mg PO QPM 05/24/18 12/14/18 albuterol sulfate 90 mcg/actuation 1 puff INHALATION Q6H PRN 12/14/18 12/14/18 aerosol inhaler cetirizine 10 mg capsule 10 mg PO DAILY 12/14/18 12/14/18 fluticasone propionate 50 1 spray NASAL DAILY 12/14/18 12/14/18 mcg/actuation nasal spray,suspension hydroxyzine HCl 25 mg tablet 25 mg PO QID PRN 12/14/18 12/14/18 levothyroxine 200 mcg capsule 200 mcg PO DAILY 12/14/18 12/14/18 Previous Rx's Medication Instructions Recorded meloxicam 15 mg PO DAILY PRN #30 tab 05/18/18 estradiol 1 mg tablet 1 mg PO DAILY 90 Days #90 tab 12/14/18 cyclobenzaprine 10 mg PO TID PRN #20 tab 02/10/19 hydrocodone-acetaminophen [[place]] 1 tab PO Q4-6H PRN #10 tab 02/10/19 prednisone 20 mg PO DAILY #5 tab 02/10/19 Allergies Allergy/AdvReac Type Severity Reaction Status Date / Time adhesive [ADHESIVE] Allergy Intermediate Verified 12/14/18 10:02 amoxicillin [AMOXICILLIN] Allergy Intermediate Verified 12/14/18 10:02 cephalexin [From KEFLEX] Allergy Intermediate Verified 12/14/18 10:02 clindamycin [CLINDAMYCIN] Allergy Intermediate Verified 12/14/18 10:02 doxycycline [DOXYCYCLINE] Allergy Intermediate Verified 12/14/18 10:02 iodine [IODINE] Allergy Intermediate Verified 12/14/18 10:02 Sulfa (Sulfonamide Allergy Intermediate Verified 12/14/18 10:02 Antibiotics) [SULFA (SULFONAMIDE ANTIBIOTICS)] Penicillins [PENICILLINS] Allergy Unknown Verified 12/14/18 10:02 levofloxacin Allergy Verified 12/14/18 10:02 Review of Systems Review of Systems Narrative: GENERAL: Denies chills,fever HEENT: Denies throat pain RESPIRATORY: Denies dyspnea, cough, wheezing CARDIOVASCULAR: Denies chest pain, palpitations GASTROINTESTINAL: Denies nausea, vomiting MUSCULOSKELETAL: Denies extremity pain, injury SKIN:+ laceration, see HPI NEUROLOGIC: Denies weakness, dizziness, headache, numbness 8 point review of systems is negative except for those stated above and HPI PFSH Medical History Bipolar 1 disorder (Acute) H/O: hysterectomy (Acute) Hypothyroid (Acute) Thyroid cancer (Acute) Surgical History H/O thyroidectomy (Acute) No pertinent past surgical history (Acute) Social History Smoking Status: Former smoker Social History Smoking Status: Former smoker Exam Initial Vital Signs Initial Vital Signs: Vital Signs Temperature 98.0 F 02/28/19 16:27 Pulse Rate 78 02/28/19 16:27 Respiratory Rate 16 02/28/19 16:27 Pulse Oximetry 99 02/28/19 16:27 GENERAL: Well-appearing, well-nourished and in no acute distress. CARDIOVASCULAR: peripheral pulses in tact, cap refill <2 sec RESPIRATORY: No respiratory distress, speaks in full sentences without difficulty EXTREMITIES: Normal range of motion, no clubbing or edema. Neurovascularly intact NEUROLOGICAL: Cranial nerves II through XII grossly intact. Normal gait and speech. SKIN: Left thumb0.25cm laceration lateral to the nail. Bleeding now controlled. Procedures Laceration Repair Laceration 1: Site: hand (Left thumb) Side (If applicable): left Size (cm): 0.25 Description: linear Depth: simple, single layer Pre-repair: wound explored and deep structures intact Skin layer closed with: steri-strips Course Vital Signs Vital signs: Vital Signs - 8 hr 02/28/19 16:27 02/28/19 16:29 Temperature 98.0 F Pulse Rate 78 Respiratory Rate 16 Blood Pressure [Left Arm] 101/66 Pulse Oximetry 99 Discharge Plan Departure Patient Disposition: Home Clinical Impression: Laceration Discharge Date/Time: 02/28/19 17:44 Instructions: DI for Laceration Repair Steri-Strips Activity Restrictions/Additional Instructions: *You have been diagnosed with left thumb laceration *What to do: Keep clean and dry with soap and water. Steri-Strips will fall off on its own. May use Neosporin or antibiotic ointment 1-2 times daily *Continue to take medications as directed *Follow up with your primary care provider in 2-3 days *Return to ER if you should have redness pus swelling or any new, worsening or concerning symptoms Prescriptions: No Action sumatriptan succinate [Imitrex] 100 MG tablet 100 mg PO PRN PRN (Reason: Migraine Headache) Qty: 0 RF: 0 levothyroxine 200 mcg capsule 200 mcg PO DAILY RF: 0 All Day Allergy (cetirizine) 10 mg capsule 10 mg PO DAILY RF: 0 hydroxyzine HCl 25 mg tablet 25 mg PO QID PRNRF: 0 fluticasone propionate [Flonase Allergy Relief] 50 mcg/actuation spray,suspension 1 spray NASAL DAILY RF: 0 albuterol sulfate 90 mcg/actuation HFA aerosol inhaler 1 puff INHALATION Q6H PRNRF: 0 estradiol 1 mg tablet 1 mg PO DAILY 90 Days Qty: 90 RF: 0 dextroamphetamine-amphetamine [Adderall XR] 20 mg Capsule,Extended Release 24hr 20 mg PO QAM PRN (Reason: to help focus at work) RF: 0 trazodone 100 mg tablet 150 mg PO QPM RF: 0 lithium carbonate 300 mg tablet 300 mg PO QAM RF: 0 lithium carbonate 300 mg tablet 600 mg PO QPM RF: 0 lamotrigine 100 mg tablet 200 mg PO DAILY RF: 0 cyclobenzaprine 10 mg tablet 10 mg PO TID PRN (Reason: muscle spasm) Qty: 20 RF: 0 hydrocodone-acetaminophen [[place]] 5-325 mg tablet 1 tab PO Q4-6H PRN (Reason: pain) Qty: 10 RF: 0 prednisone 20 mg tablet 20 mg PO DAILY Qty: 5 RF: 0 meloxicam 7.5 mg tablet 15 mg PO DAILY PRN (Reason: pain (scale score 7-10)) Qty: 30 RF: 0 Referrals: Aldo Hernadez MD [Primary Care Provider] -
== END 2019-02-28 17:44 | disposition home or self-care (01) ==
PROVIDERS: Emergency Provider Emergency Medicine; PCP Family Medicine
DX: S61.012A Laceration without foreign body of left thumb without damage to nail, initial encounter (principal); W26.0XXA Contact with knife, initial encounter
CPT/HCPCS: 99283

== ENCOUNTER 2019-04-26 15:59 | Emergency (ER) | payer OTHER, MEDICAID, SELFPAY ==
[2019-04-26 16:12] VITALS: BP 109/65; PULSE 94; RESP 15; TEMP 36.4; O2SAT 98; BMI 27.4
[2019-04-26 16:47] VITALS: BP 119/89; PULSE 90; RESP 14; TEMP 37.1; O2SAT 98
[2019-04-26] MEDS: KETOROLAC 60 MG/2 ML VIAL 30 MG IM (17:30)
[2019-04-26] MEDS: ACETAMINOPHEN 325 MG TABLET 975 MG PO (17:31)
[2019-04-26] MEDS: CYCLOBENZAPRINE 10 MG TABLET PO (17:31)
--- NOTE | 2019-04-26 17:36 | PC.NURSE ---
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 denies bladder or bowel issue. denies fever,vomiting.
--- NOTE | 2019-04-26 18:05 | ED.BACK ---
HPI - Back Pain/Injury <HIGINIO Hurley - Last Filed: 04/26/19 18:22> General Chief Complaint: Back Pain/Injury Stated Complaint: sciatica pain Time Seen by Provider: 04/26/19 16:51 Source: patient Mode of arrival: Ambulatory Limitations: no limitations History of Present Illness HPI Narrative: This is a 33-year-old female, nonsmoker, who presents with family with chief complain of nontraumatic severe right low back which radiating to her right he and lateral leg above knee onset this morning. Patient states intermittent tingling to her toes. Pain in his constant pressure and throbbing like with intermittent shooting pain and rates as 9/10.. Patient reports pain worse with bearing weight, walking and improves with offloading on affected site. Patient denies weakness to right leg however she limbs with the ambulation due to pain. Patient denies fever, chills, nausea or vomiting, recent manipulation or injection on her back. Patient denies incontinence for bladder or stool, urinary symptoms such as urgency, dysuria, frequency or hematuria, rash. Patient had similar symptoms about 2-3 months ago and treated with muscle relaxant, pain medication, and steroids. 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 Related Data Home Medications Medication Instructions Recorded Confirmed sumatriptan succinate [Imitrex] 100 mg PO PRN PRN #0 08/22/12 12/14/18 dextroamphetamine-amphetamine 20 mg PO QAM PRN 02/11/18 04/26/19 [Adderall XR] lamotrigine 200 mg PO DAILY 05/24/18 12/14/18 lithium carbonate 300 mg PO QAM 05/24/18 04/26/19 lithium carbonate 600 mg PO QPM 05/24/18 12/14/18 trazodone 150 mg PO QPM 05/24/18 12/14/18 albuterol sulfate 90 mcg/actuation 1 puff INHALATION Q6H PRN 12/14/18 12/14/18 aerosol inhaler cetirizine 10 mg capsule 10 mg PO DAILY 12/14/18 04/26/19 fluticasone propionate 50 1 spray NASAL DAILY 12/14/18 04/26/19 mcg/actuation nasal spray,suspension hydroxyzine HCl 25 mg tablet 25 mg PO QID PRN 12/14/18 12/14/18 levothyroxine 200 mcg PO DAILY 04/26/19 04/26/19 Previous Rx's Medication Instructions Recorded meloxicam 15 mg PO DAILY PRN #30 tab 05/18/18 cyclobenzaprine 10 mg PO TID PRN #20 tab 02/10/19 estradiol 1 mg tablet 1 mg PO DAILY #90 tab 03/30/19 cyclobenzaprine 5 - 10 mg PO BID PRN #10 tab 04/26/19 prednisone 40 mg PO BID 5 Days #20 tab 04/26/19 Allergies Allergy/AdvReac Type Severity Reaction Status Date / Time adhesive [ADHESIVE] Allergy Intermediate Verified 04/26/19 16:12 amoxicillin [AMOXICILLIN] Allergy Intermediate Verified 04/26/19 16:12 cephalexin [From KEFLEX] Allergy Intermediate Verified 04/26/19 16:12 clindamycin [CLINDAMYCIN] Allergy Intermediate Verified 04/26/19 16:12 doxycycline [DOXYCYCLINE] Allergy Intermediate Verified 04/26/19 16:12 iodine [IODINE] Allergy Intermediate Verified 04/26/19 16:12 Sulfa (Sulfonamide Allergy Intermediate Verified 04/26/19 16:12 Antibiotics) [SULFA (SULFONAMIDE ANTIBIOTICS)] Penicillins [PENICILLINS] Allergy Unknown Verified 04/26/19 16:12 levofloxacin Allergy Verified 04/26/19 16:12 Review of Systems <GIOVANNA HurleyP - Last Filed: 04/26/19 18:22> Review of Systems Narrative: General: Denies fever, chills, fatigue, malaise, sweats. HEENT: Denies sinus pain, ear pain, sore throat, difficulty swallowing, dizziness. Respiratory: Denies dyspnea, cough, wheezing, hemoptysis, sputum. Cardiovascular: Denies chest pain, palpitations, orthopnea, edema. Gastrointestinal: Denies nausea, vomiting, abdominal pain, diarrhea, constipation, melena. : Denies dysuria, frequency, incontinence, hematuria, urinary retention. Musculoskeletal: See HPI Skin: Denies rash, skin lesions, or other. Neurologic: Denies weakness, headache, numbness, change in speech, confusion, seizures, incoordination. Psychiatric: No concerning psychosocial issues. 12-point review of systems is negative except for those stated above. Patient History <Micha SubramanianHIGINIO Horn - Last Filed: 04/26/19 18:22> Medical History ADHD (Chronic ~1991) Anxiety (Chronic) Asthma (Chronic) Bipolar 1 disorder (Acute) Chicken pox (Resolved ~1988) Chronic back pain (Chronic) Depression (Chronic) Herpes (Inactive) Hypothyroid (Acute) Post traumatic stress disorder (PTSD) (Chronic) Thyroid cancer (Acute ~2008) Surgical History Anesthesia (Resolved) H/O thyroidectomy (Acute ~05/2009) H/O: hysterectomy (Acute) History of hysterectomy (Resolved ~11/2011) History of knee surgery (Resolved ~04/2009) History of partial hysterectomy (Resolved ~09/2009) History of tonsillectomy and adenoidectomy (Resolved ~06/2008) No pertinent past surgical history (Acute) Family History Mother Breast cancer Grandmother History of cancer of spinal cord Lung cancer Grandfather Lung cancer Social History Smoking Status: Former smoker alcohol intake frequency: a few times a month Substance Use Type: marijuana Exam <HIGINIO Hurley - Last Filed: 04/26/19 18:22> Narrative Exam Narrative: General appearance: well developed, well nourished, in no acute distress. Head: normocephalic, atraumatic, no scalp lesions, non-tender. Eye: pupil equal, round. EOMI. Nose: nares patent. Oral: mucosa moist. Neck/Thyroid: neck supple, full range of motion, no visible masses. Skin: no suspicious rashes, lesions over visible areas. Warm and dry. Heart: no clubbing, no cyanosis, no edema. Lungs: Breathing even and unlabored. No stridor. No accessory muscles used. Chest: normal shape and expansion. Abdomen: non-obese, non-distended. Neurologic: alert and oriented. 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 Psych: good eye contact, normal affect. Initial Vital Signs Initial Vital Signs: Vital Signs Temperature 97.6 F 04/26/19 16:12 Pulse Rate 94 H 04/26/19 16:12 Respiratory Rate 15 04/26/19 16:12 Blood Pressure 109/65 04/26/19 16:12 Pulse Oximetry 98 04/26/19 16:12 Back/Spine/Pelvis Thoracic/Lumbar Spine: thoracic and lumbar spine normal to inspection, No surgical scar(s) present, pain with thoraco-lumbar ROM, paraspinal tenderness (Right-sided), thoraco-lumbar ROM limited, lumbar spinal tenderness, straight leg raise positive and tilt present Sacroiliac Joints: nontender <Fela Cifuentes DO - Last Filed: 04/27/19 07:06> Initial Vital Signs Initial Vital Signs: Vital Signs Temperature 97.6 F 04/26/19 16:12 Pulse Rate 94 H 04/26/19 16:12 Respiratory Rate 15 04/26/19 16:12 Blood Pressure 109/65 04/26/19 16:12 Pulse Oximetry 98 04/26/19 16:12 Scores <HIGINIO Hurley - Last Filed: 04/26/19 18:22> GCS [place] coma scale eye opening: Spontaneous [place] coma scale verbal response: Orientated Reyes coma scale motor response: Obey commands Reyes coma scale total score: 15 Course <HIGINIO Hurley - Last Filed: 04/26/19 18:22> Orders Ordered: Discontinued Medications Acetaminophen (Tylenol) 975 mg PO NOW ONE Stop: 04/26/19 17:21 Last Admin: 04/26/19 17:31 Dose: 975 mg Documented by: UZMA Cyclobenzaprine HCl (Flexeril) 10 mg PO NOW ONE Stop: 04/26/19 17:21 Last Admin: 04/26/19 17:31 Dose: 10 mg Documented by: MEISENLc Ketorolac Tromethamine (Toradol) 30 mg IM NOW ONE Stop: 04/26/19 17:21 Last Admin: 04/26/19 17:30 Dose: 30 mg Documented by: UZMA Vital Signs Vital signs: Vital Signs - 8 hr 04/26/19 16:12 04/26/19 16:47 Temperature 97.6 F 98.8 F Pulse Rate 94 H 90 Respiratory Rate 15 14 Blood Pressure 109/65 Blood Pressure [Left Arm] 119/89 Pulse Oximetry 98 98 <Fela Cifuentes DO - Last Filed: 04/27/19 07:06> Orders Ordered: Discontinued Medications Acetaminophen (Tylenol) 975 mg PO NOW ONE Stop: 04/26/19 17:21 Last Admin: 04/26/19 17:31 Dose: 975 mg Documented by: UZMA Cyclobenzaprine HCl (Flexeril) 10 mg PO NOW ONE Stop: 04/26/19 17:21 Last Admin: 04/26/19 17:31 Dose: 10 mg Documented by: UZMA Ketorolac Tromethamine (Toradol) 30 mg IM NOW ONE Stop: 04/26/19 17:21 Last Admin: 04/26/19 17:30 Dose: 30 mg Documented by: UZMA Vital Signs Vital signs: Vital Signs - 8 hr 04/26/19 16:12 04/26/19 16:47 Temperature 97.6 F 98.8 F Pulse Rate 94 H 90 Respiratory Rate 15 14 Blood Pressure 109/65 Blood Pressure [Left Arm] 119/89 Pulse Oximetry 98 98 MDM - Back Pain/Injury <HIGINIO Hurley - Last Filed: 04/26/19 18:22> Differential Diagnosis Differential diagnosis: Likely lumbar radiculopathy, sciatica and strain of lumbar region Medical Records Attestation: I reviewed the patient's medical records. [facility] Narrative Medical decision making narrative: This is a 33-year-old female presents to ED with right lower back pain which radiates down to right lateral knee with shooting pain which started today. Patient afebrile, no constitutional symptoms, no incontinence, no rashes. Patient was treated with Tradol, Flexeril and Tylenol in the ED which patient felt improvement. Patient discharged to home with Flexeril, prednisone and advised continue with [id number] Tylenol or Motrin as needed. Return precautions were discussed with the patient and patient verbalized understanding and agrees with the treatment plan. Initial urine sample was ordered but patient denies any urinary symptoms and it has canceled. Discharge Plan Departure Patient Disposition: Home Clinical Impression: Sciatica Qualifiers: Laterality: right Qualified Code(s): M54.31 - Sciatica, right side Discharge Date/Time: 04/26/19 18:30 Instructions: DI for Back Pain With Sciatica Activity Restrictions/Additional Instructions: You have been diagnosed with [right-sided low back pain radiates to right leg.]. What to do: *Take your medications as directed. Please take cyclobenzaprine for muscle relaxant. This may cause drowsiness so please do not drive, drink alcohol, or operate heavy equipments. Please take [id number] Tylenol and Motrin as needed for discomfort. Tylenol up to 4000 mg in 24 hour period. Motrin 6-800 mg 3 times a day with food. Also prednisone once a day for next 5 days. Prednisone has side effects such as upsetting her stomach, difficulty with sleeping and mood changes as we discussed. The medications has been transmitted to [facility]. *Follow up with your primary care provider in 2-3 days, call for an appointment. Let them know you were seen in the ED and that we asked you to be seen in follow up. *Return to ED if you have any new, worsening, or concerning symptoms, such as [fever, weakness to her legs, chest pain, breathing difficulty, unable to tolerate fluids, incontinence, rash on her back or any acute concerns]. Prescriptions: New cyclobenzaprine 10 mg tablet 5 - 10 mg PO BID PRN (Reason: muscle spasm) Qty: 10 RF: 0 prednisone 20 mg tablet 40 mg PO BID 5 Days Qty: 20 RF: 0 No Action sumatriptan succinate [Imitrex] 100 MG tablet 100 mg PO PRN PRN (Reason: Migraine Headache) Qty: 0 RF: 0 estradiol 1 mg tablet 1 mg PO DAILY Qty: 90 RF: 3 All Day Allergy (cetirizine) 10 mg capsule 10 mg PO DAILY RF: 0 hydroxyzine HCl 25 mg tablet 25 mg PO QID PRN (Reason: Anxiety) RF: 0 fluticasone propionate [Flonase Allergy Relief] 50 mcg/actuation spray,suspension 1 spray NASAL DAILY RF: 0 albuterol sulfate 90 mcg/actuation HFA aerosol inhaler 1 puff INHALATION Q6H PRNRF: 0 dextroamphetamine-amphetamine [Adderall XR] 20 mg Capsule,Extended Release 24hr 20 mg PO QAM PRN (Reason: to help focus at work) RF: 0 trazodone 100 mg tablet 150 mg PO QPM RF: 0 lithium carbonate 300 mg tablet 300 mg PO QAM RF: 0 lithium carbonate 300 mg tablet 600 mg PO QPM RF: 0 lamotrigine 100 mg tablet 200 mg PO DAILY RF: 0 cyclobenzaprine 10 mg tablet 10 mg PO TID PRN (Reason: muscle spasm) Qty: 20 RF: 0 meloxicam 7.5 mg tablet 15 mg PO DAILY PRN (Reason: pain (scale score 7-10)) Qty: 30 RF: 0 levothyroxine 200 mcg tablet 200 mcg PO DAILY RF: 0 Referrals: Aldo Hernadez MD [Primary Care Provider] -
[2019-04-26 18:30] VITALS: BP 105/63; PULSE 75; RESP 16; O2SAT 100
== END 2019-04-26 18:30 | disposition home or self-care (01) ==
PROVIDERS: Emergency Provider Nurse Practitioner Family; Family Provider Family Medicine; PCP Family Medicine
DX: M54.31 Sciatica, right side (principal)
CPT/HCPCS: 96372; 99283; J1885

== ENCOUNTER 2019-06-17 15:43 | Emergency (ER) | payer OTHER, MEDICAID, SELFPAY ==
[2019-06-17 16:03] VITALS: BP 111/72; PULSE 92; RESP 18; TEMP 36.9; O2SAT 100
--- NOTE | 2019-06-17 16:08 | DI.RAD.S_ITS ---
PROCEDURE: XR CHEST 2V INDICATIONS: cough x 1 month (hysterectomy) TECHNIQUE: 2 views of the chest were acquired. COMPARISON: [facility], CR, XR CHEST 2V, 09/19/2018, 13:33. [facility], CR, XR CHEST 1V, 03/31/2018, 18:17. [facility], CR, CHEST 2VW, 11/19/2011, 14:25. [facility], CR, CHEST 2VW, 07/11/2011, 0:21. [facility], CR, CHEST 2VW, 04/03/2011, 22:53. [facility], 08/16/2010, 11:32. [facility]ST 2[place], 07/25/2009, 14:44. FINDINGS: Surgical changes and devices: None. Lungs and pleura: Lungs are clear. No pleural effusions or pneumothorax. Mediastinum: Mediastinal contours are normal. Heart size is normal. Bones and chest wall: No suspicious bony abnormalities. Soft tissues appear unremarkable. IMPRESSION: Negative chest. No acute cardiopulmonary process is evident. Dictated by: Sebastián Ordonez M.D. on 06/17/2019 at 15:42 Approved by: Sebastián Ordonez M.D. on 06/17/2019 at 15:45
[2019-06-17 16:58] LABS: Influenza A - CEPHEID Flu A NEGATIVE (NEGATIVE); Influenza B - CEPHEID Flu B NEGATIVE (NEGATIVE)
[2019-06-17 17:30] VITALS: BP 107/57; PULSE 85; O2SAT 100
[2019-06-17 17:31] VITALS: PULSE 84; RESP 16; O2SAT 98
[2019-06-17] MEDS: ALBUTEROL/IPRATROPIUM 3 ML AMPUL INH (17:31)
[2019-06-17] MEDS: BENZONATATE 100 MG CAPSULE PO (18:33)
--- NOTE | 2019-06-17 19:11 | ED_ITS ---
HPI - URI/Sore Throat <Fela Carrillomer, PORTABLE [employer]MAN-BC - Last Filed: 06/17/19 19:16> General Chief Complaint: Upper Respiratory Symptoms Stated Complaint: COUGHING GREEN MUCUS TIGHT CHEST Time Seen by Provider: 06/17/19 17:44 Source: patient Mode of arrival: Ambulatory Limitations: no limitations History of Present Illness HPI Narrative: The patient is a 33-year-old female who presents with a chief complaint of cough, mucus, sore throat that started today as well as ear pain. She complains of nausea due to cough. Denies any vomiting, diarrhea, abdominal pain. She states that she has used DayQuil and NyQuil. She initially started coughing approximately 1 month ago. She states that her sore throat started yesterday. She has used her as needed inhaler at home with slight relief. She denies any fevers. Related Data Home Medications Medication Instructions Recorded Confirmed sumatriptan succinate [Imitrex] 100 mg PO PRN PRN #0 08/22/12 06/17/19 dextroamphetamine-amphetamine 20 mg PO QAM PRN 02/11/18 06/17/19 [Adderall XR] lamotrigine 200 mg PO DAILY 05/24/18 06/17/19 lithium carbonate 300 mg PO QAM 05/24/18 06/17/19 lithium carbonate 600 mg PO QPM 05/24/18 06/17/19 trazodone 150 mg PO QPM 05/24/18 06/17/19 albuterol sulfate 90 mcg/actuation 1 puff INHALATION Q6H PRN 12/14/18 06/17/19 aerosol inhaler cetirizine 10 mg capsule 10 mg PO DAILY 12/14/18 06/17/19 fluticasone propionate 50 1 spray NASAL DAILY 12/14/18 06/17/19 mcg/actuation nasal spray,suspension levothyroxine 200 mcg PO DAILY 04/26/19 06/17/19 Previous Rx's Medication Instructions Recorded meloxicam 15 mg PO DAILY PRN #30 tab 05/18/18 estradiol 1 mg tablet 1 mg PO DAILY #90 tab 03/30/19 cyclobenzaprine 5 - 10 mg PO BID PRN #10 tab 04/26/19 albuterol sulfate 2 puff INHALATION Q4-6H PRN #18 06/17/19 gram benzonatate 100 mg PO BID-TID PRN #14 cap 06/17/19 ondansetron 4 mg PO Q6H PRN #10 tab 06/17/19 prednisone 50 mg PO DAILY #5 tab 06/17/19 Allergies Allergy/AdvReac Type Severity Reaction Status Date / Time adhesive [ADHESIVE] Allergy Intermediate Verified 06/17/19 16:07 amoxicillin [AMOXICILLIN] Allergy Intermediate Verified 06/17/19 16:07 cephalexin [From KEFLEX] Allergy Intermediate Verified 06/17/19 16:07 clindamycin [CLINDAMYCIN] Allergy Intermediate Verified 06/17/19 16:07 doxycycline [DOXYCYCLINE] Allergy Intermediate Verified 06/17/19 16:07 iodine [IODINE] Allergy Intermediate Verified 06/17/19 16:07 Sulfa (Sulfonamide Allergy Intermediate Verified 06/17/19 16:07 Antibiotics) [SULFA (SULFONAMIDE ANTIBIOTICS)] Penicillins [PENICILLINS] Allergy Unknown Verified 06/17/19 16:07 levofloxacin Allergy Verified 06/17/19 16:07 Review of Systems <RADHA Najera - Last Filed: 06/17/19 19:16> Review of Systems Narrative: GENERAL: Denies chills, fatigue, malaise, fever, sweats. HEENT: See HPI RESPIRATORY: See HPI CARDIOVASCULAR: Denies chest pain, palpitations, orthopnea, edema, GASTROINTESTINAL: Denies nausea, vomiting, abdominal pain, diarrhea, constipation, melena. : Denies dysuria, frequency, incontinence, hematuria, urinary retention. MUSCULOSKELETAL: denies weakness, joint pain, or bony pain SKIN: Denies rash, skin lesions, or other NEUROLOGIC: Denies weakness, headache, numbness, change in speech, confusion, seizures, incoordination. PSYCHIATRIC: No concerning psychosocial issues. 12 point review of systems is negative except for those stated above Patient History <RADHA Najera - Last Filed: 06/17/19 19:16> Social History Smoking Status: Former smoker Smoking Status: Former smoker alcohol intake frequency: a few times a month Substance Use Type: marijuana Exam <RADHA Najera - Last Filed: 06/17/19 19:16> Narrative Exam Narrative: GENERAL: This is a well-nourished, well-developed patient, no acute distress HEAD: Atraumatic. Normocephalic. No temporal or scalp tenderness. EYES: Pupils equal round and reactive. Extraocular motions intact. No scleral icterus. No injection or drainage. ENT: Nose without bleeding, purulent drainage or septal hematoma. Throat without erythema, tonsillar hypertrophy or exudate. Uvula midline. Airway patent. Bilateral TMs pearly encinas. NECK: Trachea midline. No JVD or lymphadenopathy. Supple, nontender, no meningeal signs. CARDIOVASCULAR: Regular rate and rhythm without murmurs, gallops, or rubs. RESPIRATORY: Clear to auscultation. Breath sounds equal bilaterally. No wheezes, rales, or rhonchi. Occasional cough. No increased respiratory effort. No retractions. No accessory muscle use. GASTROINTESTINAL: Abdomen soft, non-tender, nondistended. No hepato- splenomegaly, or palpable masses. No guarding. EXTREMITIES: No clubbing, cyanosis, or edema. No joint tenderness, effusion, or edema noted. BACK: Nontender without deformity or crepitance. No flank tenderness. NEURO: AOx3. SKIN: No rash or erythema on visible skin Initial Vital Signs Initial Vital Signs: Vital Signs Temperature 98.4 F 06/17/19 16:03 Pulse Rate 92 H 06/17/19 16:03 Respiratory Rate 18 06/17/19 16:03 Blood Pressure 111/72 06/17/19 16:03 Pulse Oximetry 100 06/17/19 16:03 <Ana Gunderson DO - Last Filed: 06/20/19 08:14> Initial Vital Signs Initial Vital Signs: Vital Signs Temperature 98.4 F 06/17/19 16:03 Pulse Rate 92 H 06/17/19 16:03 Respiratory Rate 18 06/17/19 16:03 Blood Pressure 111/72 06/17/19 16:03 Pulse Oximetry 100 06/17/19 16:03 Course <RADHA Najera - Last Filed: 06/17/19 19:16> Orders Ordered: Discontinued Medications Albuterol/Ipratropium (Duoneb) 3 ml INH NOW ONE Stop: 06/17/19 17:27 Last Admin: 06/17/19 17:31 Dose: 3 ml Documented by: JFREELA Benzonatate (Tessalon Perles) 100 mg PO NOW ONE Stop: 06/17/19 18:29 Last Admin: 06/17/19 18:33 Dose: 100 mg Documented by: SCANAPO Vital Signs Vital signs: Vital Signs - 8 hr 06/17/19 16:03 06/17/19 17:30 06/17/19 17:31 Temperature 98.4 F Pulse Rate 92 H 85 84 Respiratory Rate 18 16 Blood Pressure 111/72 Blood Pressure [Left Arm] 107/57 L Pulse Oximetry 100 100 98 <DO Rickie Gaviria Last Filed: 06/20/19 08:14> Orders Ordered: Discontinued Medications Albuterol/Ipratropium (Duoneb) 3 ml INH NOW ONE Stop: 06/17/19 17:27 Last Admin: 06/17/19 17:31 Dose: 3 ml Documented by: JFREELA Benzonatate (Tessalon Perles) 100 mg PO NOW ONE Stop: 06/17/19 18:29 Last Admin: 06/17/19 18:33 Dose: 100 mg Documented by: SCANAPO Vital Signs Vital signs: Vital Signs - 8 hr 06/17/19 16:03 06/17/19 17:30 06/17/19 17:31 Temperature 98.4 F Pulse Rate 92 H 85 84 Respiratory Rate 18 16 Blood Pressure 111/72 Blood Pressure [Left Arm] 107/57 L Pulse Oximetry 100 100 98 MDM - URI/Sore Throat <RADHA Najera - Last Filed: 06/17/19 19:16> Lab Data Labs: Lab Results 06/17/19 Range/Units 16:06 Influenza A (RT-PCR) Flu a negative (NEGATIVE) Influenza B (RT-PCR) Flu b negative (NEGATIVE) Point of Care Testing Rapid Strep A Negative Imaging Data Chest x-ray: Radiologist's Impression: [address] [address] XRay Report Signed Patient: Lexy Callahan LMR#: [id number] : 1985Acct:[id number] Age/Sex: 33 / FDate of Service: 06/17/19 Loc: ED Accession Number: [id number] Procedure: XR chest 2V Ordering Provider: Ana Gunderson D.O. PROCEDURE: XR CHEST 2V INDICATIONS: cough x 1 month (hysterectomy) TECHNIQUE: 2 views of the chest were acquired. COMPARISON: [facility], CR, XR CHEST 2V, 09/19/2018, 13:33. [facility], CR, XR CHEST 1V, 03/31/2018, 18:17. [facility], CR, CHEST 2VW, 11/19/2011, 14:25. [facility], CR, CHEST 2VW, 07/11/2011, 0:21. [facility], CR, CHEST 2VW, 04/03/2011, 22:53. [facility] [place], [place], [place]ST 2VW, 08/16/2010, 11:32. [facility] [place], [place], [place]ST 2VW, 07/25/2009, 14:44. FINDINGS: Surgical changes and devices: None. Lungs and pleura: Lungs are clear. No pleural effusions or pneumothorax. Mediastinum: Mediastinal contours are normal. Heart size is normal. Bones and chest wall: No suspicious bony abnormalities. Soft tissues appear unremarkable. IMPRESSION: Negative chest. No acute cardiopulmonary process is evident. Dictated by: Sebastián Ordonez M.D. on 06/17/2019 at 15:42 Approved by: Sebastián Ordonez M.D. on 06/17/2019 at 15:45 MDM Narrative Medical decision making narrative: The patient is a 33-year-old female who presents with a chief complaint of upper respiratory infection symptoms times several days to 1 month. She is a poor historian at times, not able to specify duration of symptoms and pattern of symptoms. However she is negative for flu, negative for strep, has no pneumonia on x-ray. She is also allergic to many antibiotics including amoxicillin, Keflex, clinda, doxy, sulfa and Levaquin. I encouraged use of [id number] remedies regularly for a few days including Lm med sinus rinse, Flonase, Sudafed etcetera. I did give her a burst of p rednisone, Santi Chopra refilled her inhaler and a prescription of Zofran. She felt improved after single dose of Tessalon Perles in the emergency department. She was evaluated by respiratory therapist, received a nebulizer, as well as spacer teaching. Encouraged follow-up with primary care provider in the next few days. Patient has no questions or concerns upon discharge and states understanding of return precautions as well as follow-up care. <Ana Gunderson, - Last Filed: 06/20/19 08:14> Lab Data Labs: Lab Results 06/17/19 Range/Units 16:06 Influenza A (RT-PCR) Flu a negative (NEGATIVE) Influenza B (RT-PCR) Flu b negative (NEGATIVE) Point of Care Testing Rapid Strep A Negative Discharge Plan Departure Patient Disposition: Home Clinical Impression: Acute upper respiratory infection Discharge Date/Time: 06/17/19 19:22 Instructions: DI for Viral Upper Respiratory Infection -- Adult Activity Restrictions/Additional Instructions: Thank you for trusting us with your care today Today you tested negative for the flu, negative for strep, your x-ray shows no pneumonia As discussed please push fluids and rest. Please use [id number] measures as needed and able. I suggest Flonase, Neti pot, as well as Sudafed and deconge stants of able. [facility]. This includes a refill of your inhaler, nausea medication, cough medicine and prednisone Please follow-up with primary care provider in the next few days. Please come back to the emergency department for any acute concerns such as concern of heart attack, stroke, severe shortness of breath etc. Prescriptions: New albuterol sulfate 90 mcg/actuation HFA aerosol inhaler 2 puff INHALATION Q4-6H PRN (Reason: shortness of breath) Qty: 18 RF: 0 ondansetron 4 mg tablet,disintegrating 4 mg PO Q6H PRN (Reason: nausea and vomiting) Qty: 10 RF: 0 benzonatate 100 mg capsule 100 mg PO BID-TID PRN (Reason: cough) Qty: 14 RF: 0 prednisone 50 mg tablet 50 mg PO DAILY Qty: 5 RF: 0 No Action sumatriptan succinate [Imitrex] 100 MG tablet 100 mg PO PRN PRN (Reason: Migraine Headache) Qty: 0 RF: 0 estradiol 1 mg tablet 1 mg PO DAILY Qty: 90 RF: 3 All Day Allergy (cetirizine) 10 mg capsule 10 mg PO DAILY RF: 0 fluticasone propionate [Flonase Allergy Relief] 50 mcg/actuation spray,suspension 1 spray NASAL DAILY RF: 0 albuterol sulfate 90 mcg/actuation HFA aerosol inhaler 1 puff INHALATION Q6H PRN (Reason: Shortness Of Breath) RF: 0 dextroamphetamine-amphetamine [Adderall XR] 20 mg Capsule,Extended Release 24hr 20 mg PO QAM PRN (Reason: to help focus at work) RF: 0 trazodone 100 mg tablet 150 mg PO QPM RF: 0 lithium carbonate 300 mg tablet 300 mg PO QAM RF: 0 lithium carbonate 300 mg tablet 600 mg PO QPM RF: 0 lamotrigine 100 mg tablet 200 mg PO DAILY RF: 0 meloxicam 7.5 mg tablet 15 mg PO DAILY PRN (Reason: pain (scale score 7-10)) Qty: 30 RF: 0 levothyroxine 200 mcg tablet 200 mcg PO DAILY RF: 0 cyclobenzaprine 10 mg tablet 5 - 10 mg PO BID PRN (Reason: muscle spasm) Qty: 10 RF: 0 Referrals: Aldo Hernadez MD [Primary Care Provider] - Stand Alone Forms: Work Release Note, Work/School Release
[2019-06-17 19:22] VITALS: BP 123/64; PULSE 88; RESP 18; O2SAT 100
== END 2019-06-17 19:22 | disposition home or self-care (01) ==
PROVIDERS: Emergency Medicine; Emergency Provider Nurse Practitioner Family; Family Provider Family Medicine; PCP Family Medicine
DX: J06.9 Acute upper respiratory infection, unspecified (principal)
CPT/HCPCS: 71046; 87070; 87077; 87185; 87502; 87880; 94640; 99282; 99283

== ENCOUNTER 2019-12-28 15:32 | Emergency (ER) | payer OTHER, MEDICAID, SELFPAY ==
[2019-12-28 15:39] VITALS: BP 118/76; PULSE 106; RESP 22; TEMP 37.2; O2SAT 98; BMI 30.9
--- NOTE | 2019-12-28 15:44 | ED_ITS ---
HPI - Nausea/Vomiting/Diarrhea <Claudia HeahtHIGINIO - Last Filed: 12/28/19 18:55> General Chief complaint: Nausea/Vomiting/Diarrhea Stated complaint: PUKING WEAKNESS HAND NUMBNESS Time Seen by Provider: 12/28/19 15:35 Source: patient Mode of arrival: Ambulatory Limitations: no limitations History of Present Illness HPI Narrative: 34yo female with history of a hysterectomy and thyroid CA (in remission after thyroidectomy), presents to the emergency department complaining of right lower quadrant abdominal pain and right flank pain for the past 24 hours. Patient reports the pain is a cramping and dull aching that radiates down to bilateral anterior aspect of her legs. Patient states she has been vomiting continually and has been unable to keep any liquids down. She states her last episode of dry heaving and vomiting clear yellow fluid was approximately 20 minutes ago. Patient does report 2 days of dysuria and history of urinary tract infections. She denies any history of renal calculi or abdominal surgeries. She denies any diarrhea, fevers, chest pain, shortness of breath, dizziness, syncope, trauma, or any other concerns. Patient states she has been experiencing intermittent numbness in both her hands particularly after vomiting. Patient denies any weakness, facial droop, difficulty speaking, vertigo, or any other concerns. She denies any sick contacts. Patient states she has had IV contrast in the past and she does not react very strongly to it, states (?I get 1 hive ?), last time she was given an antihistamine and did well. Related Data Home Medications Medication Instructions Recorded Confirmed sumatriptan succinate [Imitrex] 100 mg PO PRN PRN #0 08/22/12 06/17/19 dextroamphetamine-amphetamine 20 mg PO QAM PRN 02/11/18 06/17/19 [Adderall XR] lamotrigine 200 mg PO DAILY 05/24/18 06/17/19 lithium carbonate 300 mg PO QAM 05/24/18 06/17/19 lithium carbonate 600 mg PO QPM 05/24/18 06/17/19 trazodone 150 mg PO QPM 05/24/18 06/17/19 albuterol sulfate 90 mcg/actuation 1 puff INHALATION Q6H PRN 12/14/18 06/17/19 aerosol inhaler cetirizine 10 mg capsule 10 mg PO DAILY 12/14/18 06/17/19 fluticasone propionate 50 1 spray NASAL DAILY 12/14/18 06/17/19 mcg/actuation nasal spray,suspension levothyroxine 200 mcg PO DAILY 04/26/19 06/17/19 Previous Rx's Medication Instructions Recorded meloxicam 15 mg PO DAILY PRN #30 tab 05/18/18 estradiol 1 mg tablet 1 mg PO DAILY #90 tab 03/30/19 cyclobenzaprine 5 - 10 mg PO BID PRN #10 tab 04/26/19 albuterol sulfate 2 puff INHALATION Q4-6H PRN #18 06/17/19 gram benzonatate 100 mg PO BID-TID PRN #14 cap 06/17/19 ondansetron 4 mg PO Q6H PRN #10 tab 06/17/19 prednisone 50 mg PO DAILY #5 tab 06/17/19 ondansetron 4 mg PO Q6H PRN #10 tab 12/28/19 pantoprazole 40 mg PO DAILY #30 tab 12/29/19 potassium chloride 20 meq PO BID #14 tab 12/29/19 Allergies Allergy/AdvReac Type Severity Reaction Status Date / Time adhesive [ADHESIVE] Allergy Intermediate Verified 06/17/19 16:07 amoxicillin [AMOXICILLIN] Allergy Intermediate Verified 06/17/19 16:07 cephalexin [From KEFLEX] Allergy Intermediate Verified 06/17/19 16:07 clindamycin [CLINDAMYCIN] Allergy Intermediate Verified 06/17/19 16:07 doxycycline [DOXYCYCLINE] Allergy Intermediate Verified 06/17/19 16:07 iodine [IODINE] Allergy Intermediate Verified 06/17/19 16:07 Sulfa (Sulfonamide Allergy Intermediate Verified 06/17/19 16:07 Antibiotics) [SULFA (SULFONAMIDE ANTIBIOTICS)] Penicillins [PENICILLINS] Allergy Unknown Verified 06/17/19 16:07 levofloxacin Allergy Verified 06/17/19 16:07 Review of Systems <HIGINIO Gomes - Last Filed: 12/28/19 18:55> Review of Systems Narrative: REVIEW OF SYSTEMS: GENERAL: Denies fever, chills, malaise, or wt. loss. HENT: No head trauma, sore throat, or dysphagia. EYES: No loss of vision, double vision, eye pain, or irritation. CARDIOVASCULAR: No chest pain, palpitations, or orthopnea. RESPIRATORY: No shortness of breath or cough. GASTROINTESTINAL: Complains of abdominal pain and vomiting, see HPI GENITOURINARY: Reports flank pain and dysuria. No vaginal discharge, no concern for STIs. MUSCULOSKELETAL: No pain, weakness, or trauma. INTEGUMENTARY: No rash, lesions, or pruritus. NEURO: Reports numbness in bilateral hands after vomiting, see HPI. PSYCH: No behavior or mood changes. Patient History <HIGINIO Gomes - Last Filed: 12/28/19 18:55> Medical History ADHD (Chronic ~1991) Anxiety (Chronic) Asthma (Chronic) Bipolar 1 disorder (Acute) Chicken pox (Resolved ~1988) Chronic back pain (Chronic) Depression (Chronic) Herpes (Inactive) Hypothyroid (Acute) Post traumatic stress disorder (PTSD) (Chronic) Thyroid cancer (Acute ~2008) Surgical History Anesthesia (Resolved) H/O thyroidectomy (Acute ~05/2009) H/O: hysterectomy (Acute) History of hysterectomy (Resolved ~11/2011) History of knee surgery (Resolved ~04/2009) History of partial hysterectomy (Resolved ~09/2009) History of tonsillectomy and adenoidectomy (Resolved ~06/2008) No pertinent past surgical history (Acute) Family History Mother Breast cancer Grandmother History of cancer of spinal cord Lung cancer Grandfather Lung cancer Social History Smoking Status: Former smoker Smoking Status: Former smoker alcohol intake frequency: a few times a month Substance Use Type: marijuana Exam <HIGINIO Gomes - Last Filed: 12/28/19 18:55> Initial Vital Signs Initial Vital Signs: Vital Signs Temperature 99.0 F 12/28/19 15:39 Pulse Rate 106 H 12/28/19 15:39 Respiratory Rate 22 12/28/19 15:39 Blood Pressure 118/76 12/28/19 15:39 Pulse Oximetry 98 12/28/19 15:39 PHYSICAL EXAMINATION: GENERAL: Well groomed, alert, and cooperative. Answers questions promptly and appropriately. Vital signs noted. HENT: Normocephalic, atraumatic. Hearing intact. Oral mucosa is pink and moist. EYES: Conjunctiva pink, sclera white, no periorbital swelling. CARDIOVASCULAR: S1 and S2 sounds normal. Regular rate and rhythm, no murmurs, clicks, or bruits. No pedal edema. RESPIRATORY: Normal respiratory rate, trachea midline, airway patent. No stridor, nasal flaring or accessory muscle use. Lungs are clear in all pineda without wheeze, rhonchi, or crackles. GASTROINTESTINAL: Bowel sounds normoactive. Abdomen is soft, right lower quadrant tenderness, slight rebound tenderness.. No organomegaly, no palpable masses. GENITALURINARY: Right CVA tenderness. MUSCULOSKELETAL: Normal gait and coordination. Equal tone and mass bilaterally. Equal sulfonator operator strength and equal forearm strength. EXTREMITIES: CMS intact, no pedal edema. SKIN: Warm, dry, soft, appropriate color for ethnicity. No lesions, rashes, or wounds to visualized areas. NEURO: Alert and Oriented X 3. Good coordination. No ataxia, or sensory deficits, or cognitive issues. Light touch sensation intact to upper extremit ies bilaterally. PSYCH: Appropriate affect and mood. <Davion Ruiz DO - Last Filed: 12/29/19 18:40> Initial Vital Signs Initial Vital Signs: Vital Signs Temperature 99.0 F 12/28/19 15:39 Pulse Rate 106 H 12/28/19 15:39 Respiratory Rate 22 12/28/19 15:39 Blood Pressure 118/76 12/28/19 15:39 Pulse Oximetry 98 12/28/19 15:39 Course <HIGINIO Gomes - Last Filed: 12/28/19 18:55> Course Course Narrative: 1540: Discussed patient had an allergy, reports ?I get [address] but usually does not bother me. Patient states occasionally she takes an antihistamine before hand. Patient was premedicated with Benadryl. 1630: Patient reports nausea has resolved and is able to take p.o. medications and fluids orally without vomiting. Discussed follow-up instruction and CT findings. Orders Ordered: Discontinued Medications Diphenhydramine HCl (Benadryl) 25 mg IV NOW ONE Stop: 12/28/19 15:50 Last Admin: 12/28/19 15:59 Dose: 25 mg Documented by: DENIZ Sodium Chloride (Normal Saline 0.9%) 1,000 mls @ 1,000 mls/hr IV BOLUS ONE Stop: 12/28/19 16:43 Last Infusion: 12/28/19 17:00 Dose: 0 mls/hr Documented by: Admin: 12/28/19 15:52 Dose: 1,000 mls/hr Documented by: DENIZ Ketorolac Tromethamine (Toradol) 30 mg IV NOW ONE Stop: 12/28/19 15:45 Last Admin: 12/28/19 15:56 Dose: 30 mg Documented by: DENIZ Ondansetron HCl (Zofran) 4 mg IV NOW ONE Stop: 12/28/19 15:45 Last Admin: 12/28/19 15:54 Dose: 4 mg Documented by: DENIZ Potassium Chloride (Potassium Chloride) 20 meq PO NOW ONE Stop: 12/28/19 16:36 Last Admin: 12/28/19 16:50 Dose: 20 meq Documented by: DENIZ Vital Signs Vital signs: Vital Signs - 8 hr 12/28/19 15:39 12/28/19 17:06 Temperature 99.0 F Pulse Rate 106 H 104 H Respiratory Rate 22 Blood Pressure 118/76 108/55 L Pulse Oximetry 98 97 <Davion Ruiz DO - Last Filed: 12/29/19 18:40> Orders Ordered: Discontinued Medications Diphenhydramine HCl (Benadryl) 25 mg IV NOW ONE Stop: 12/28/19 15:50 Last Admin: 12/28/19 15:59 Dose: 25 mg Documented by: DENIZ Sodium Chloride (Normal Saline 0.9%) 1,000 mls @ 1,000 mls/hr IV BOLUS ONE Stop: 12/28/19 16:43 Last Infusion: 12/28/19 17:00 Dose: 0 mls/hr Documented by: Admin: 12/28/19 15:52 Dose: 1,000 mls/hr Documented by: DENIZ Ketorolac Tromethamine (Toradol) 30 mg IV NOW ONE Stop: 12/28/19 15:45 Last Admin: 12/28/19 15:56 Dose: 30 mg Documented by: DENIZ Ondansetron HCl (Zofran) 4 mg IV NOW ONE Stop: 12/28/19 15:45 Last Admin: 12/28/19 15:54 Dose: 4 mg Documented by: DENIZ Potassium Chloride (Potassium Chloride) 20 meq PO NOW ONE Stop: 12/28/19 16:36 Last Admin: 12/28/19 16:50 Dose: 20 meq Documented by: DENIZ Vital Signs Vital signs: Vital Signs - 8 hr 12/28/19 15:39 12/28/19 17:06 Temperature 99.0 F Pulse Rate 106 H 104 H Respiratory Rate 22 Blood Pressure 118/76 108/55 L Pulse Oximetry 98 97 MDM - Nausea/Vomiting/Diarrhea <HIGINIO Gomes - Last Filed: 12/28/19 18:55> Medical Records Attestation: I reviewed the patient's medical records. Lab Data Attestation: I reviewed the patient's lab results. Result diagrams: 12/28/19 15:40 12/28/19 15:40 Labs: Lab Results 12/28/19 12/28/19 12/28/19 Range/Units 15:40 15:40 15:54 WBC 6.3 (4.5-11.0) X10^3/uL RBC 4.36 (4.0-5.2) X10^6/uL Hgb 13.4 (12.0-16.0) g/dL Hct 39.9 (36-46) % MCV 91.6 (80-100) fL MCH 30.8 (26-34) PG MCHC 33.6 (30-36) % RDW 13.5 (11.6-14.8) % Plt Count 221 (150-400) X10^3/uL Neut % (Auto) 73.3 (50-75) % Lymph % (Auto) 15.9 L (25-40) % Harris % (Auto) 9.7 (3-14) % Eos % (Auto) 0.5 L (2-4) % Baso % (Auto) 0.6 (0-2) % Neut # (Auto) 4600 (9625-0246) /uL Lymph # (Auto) 1000 L (2365-4453) /uL Harris # (Auto) 600 (0-900) /uL Eos # (Auto) 0 (0-450) /uL Baso # (Auto) 0 (0-100) /uL Sodium 137 (137-145) mmol/L Potassium 3.1 L (3.4-5.1) mmol/L Chloride 105 (98-107) mmol/L Carbon Dioxide 22 (22-32) mmol/L BUN 17 (7-17) mg/dL Creatinine 0.63 (0.52-1.04) mg/dL Estimated GFR > 60.0 (>60) mL/min BUN/Creatinine Ratio 27.0 H (6-22) Glucose 100 (70-100) mg/dL Calcium 8.8 (8.4-10.2) mg/dL Total Bilirubin 0.4 (0.2-1.3) mg/dL AST 30 (14-36) IU/L ALT 17 (<35) IU/L Alkaline Phosphatase 74 (38-126) U/L Total Protein 7.6 (6.3-8.2) g/dL Albumin 4.3 (3.5-5.0) g/dL Globulin 3.3 (1.7-4.1) g/dL Albumin/Globulin Ratio 1.3 (1.0-2.8) Lipase 78 (23-300) U/L Urine RBC 5-10/hpf H (0-5/HPF) Urine WBC 1-5/hpf (0-5/HPF) Ur Squamous Epith Cells 1-5 /hpf (0-5/HPF) Ur Transition Epith Cell 0-1/hpf (0-5/HPF) Amorphous Sediment 1+ Urine Bacteria Occasional (0-1) (None) Urine Mucus 1+ H (Negative) Ur Culture Indicated? Specimen cultured Urine Dip Bedside Urine Glucose Negative Bedside Urine Bilirubin ++ 2 Bedside Urine Ketone ++ 40 Urine Specific [place] 1.025 Bedside Urine Occult Blood ++ Bedside Urine pH 5.5 Bedside Urine Protein - Negative Bedside Urine Urobilinogen - Negative Bedside Urine Nitrite - Negative Bedside Urine Leukocytes +/- [address] scan - abdomen/pelvis: Radiologist's Impression: [address] [address] [address] Scan Report Signed Patient: Lexy Callahan LMR#: [id number] : 1985Acct:[id number] Age/Sex: 34 / FDate of Service: 12/28/19 Loc: ED Accession Number: [id number] Procedure: CT abdomen pelvis w con Ordering Provider: Claudia Heath PROCEDURE: CT ABDOMEN PELVIS W CON INDICATIONS: RLQ pain and L Flank pain, vomiting TECHNIQUE: After the administration of intravenous contrast, 5 mm thick sections acquired from the diaphragm to the symphysis. 5 mm coronal and sagittal reformats were acquired. For radiation dose reduction, the following was used: automated exposure control, adjustment of mA and/or kV according to patient size. COMPARISON: [facility], CT, CT ABDOMEN PELVIS W CON, 10/17/2018, 15:19. FINDINGS: Image quality: Excellent. ABDOMEN: Lung bases: Lung bases are clear. Heart size is normal. Solid organs: Liver is normal in size and enhancement. Note is again made of a right posterior hepatic segment subcapsular hemangioma. Gallbladder appears normal. Biliary system is non dilated. Pancreas enhances normally. Spleen is normal in size and enhancement. No adrenal nodules. Kidneys demonstrate normal size and enhancement, without hydronephrosis. Peritoneum and bowel: Bowel loops demonstrate normal wall thickness and caliber. No free fluid or air. Nodes and vessels: No retroperitoneal or mesenteric adenopathy by size criteria. Aorta and inferior vena cava are normal in size. Miscellaneous: No ventral hernias. PELVIS: Genitourinary: Bladder wall thickness is normal. There is a small amount of free fluid adjacent to the right adnexal structures, potentially a manifestation of a recent right ovarian cyst rupture. Presumed prior hysterectomy. Miscellaneous: No inguinal hernias or adenopathy. A normal appendix is seen at the right lower quadrant. Bones: No suspicious bony lesions. No vertebral body compression fractures. IMPRESSION: A normal appendix is found. Source of reported flank pain and pain above the umbilicus is not identified. Again noted is a small hepatic hemangioma abutting the capsular border of the right posterior hepatic segment. Dictated by: Duglas Abrams M.D. on 12/28/2019 at 16:19 Approved by: Duglas Abrams M.D. on 12/28/2019 at 16:22 MDM Narrative Medical decision making narrative: 34-year-old female presents emergency department for right lower quadrant and right flank pain. Unsure exact cause of pain, possibly viral gastroenteritis. Less likely acute appendicitis due to lack of concerning CT findings, normal white blood cell count, minor rebound abdominal pain. Less likely renal calculi or pyelonephritis due to lack of findings on CT, no white blood cells or bacteria found in urine micro, patient afebrile, non tachycardic. Less likely bowel rupture due to lack of findings on CT, no complain of severe pain, symptoms improved after administration of Zofran fluids. Patient had mother decrease in potassium, she was able to tolerate p.o. potassi um, she was encouraged to drink fluids such as Gatorade with electrolytes in it. Patient did have blood in urine without evidence of infection, was instructed follow up PCP for further evaluation of this. Return precautions given for new or worsening symptoms. Patient agreed to plan of care verbalized understanding. <Davion Ruiz, DO - Last Filed: 12/29/19 18:40> Lab Data Labs: Lab Results 12/28/19 12/28/19 12/28/19 Range/Units 15:40 15:40 15:54 WBC 6.3 (4.5-11.0) X10^3/uL RBC 4.36 (4.0-5.2) X10^6/uL Hgb 13.4 (12.0-16.0) g/dL Hct 39.9 (36-46) % MCV 91.6 (80-100) fL MCH 30.8 (26-34) PG MCHC 33.6 (30-36) % RDW 13.5 (11.6-14.8) % Plt Count 221 (150-400) X10^3/uL Neut % (Auto) 73.3 (50-75) % Lymph % (Auto) 15.9 L (25-40) % Harris % (Auto) 9.7 (3-14) % Eos % (Auto) 0.5 L (2-4) % Baso % (Auto) 0.6 (0-2) % Neut # (Auto) 4600 (2017-3722) /uL Lymph # (Auto) 1000 L (9311-8374) /uL Harris # (Auto) 600 (0-900) /uL Eos # (Auto) 0 (0-450) /uL Baso # (Auto) 0 (0-100) /uL Sodium 137 (137-145) mmol/L Potassium 3.1 L (3.4-5.1) mmol/L Chloride 105 (98-107) mmol/L Carbon Dioxide 22 (22-32) mmol/L BUN 17 (7-17) mg/dL Creatinine 0.63 (0.52-1.04) mg/dL Estimated GFR > 60.0 (>60) mL/min BUN/Creatinine Ratio 27.0 H (6-22) Glucose 100 (70-100) mg/dL Calcium 8.8 (8.4-10.2) mg/dL Total Bilirubin 0.4 (0.2-1.3) mg/dL AST 30 (14-36) IU/L ALT 17 (<35) IU/L Alkaline Phosphatase 74 (38-126) U/L Total Protein 7.6 (6.3-8.2) g/dL Albumin 4.3 (3.5-5.0) g/dL Globulin 3.3 (1.7-4.1) g/dL Albumin/Globulin Ratio 1.3 (1.0-2.8) Lipase 78 (23-300) U/L Urine RBC 5-10/hpf H (0-5/HPF) Urine WBC 1-5/hpf (0-5/HPF) Ur Squamous Epith Cells 1-5 /hpf (0-5/HPF) Ur Transition Epith Cell 0-1/hpf (0-5/HPF) Amorphous Sediment 1+ Urine Bacteria Occasional (0-1) (None) Urine Mucus 1+ H (Negative) Ur Culture Indicated? Specimen cultured Urine Dip Bedside Urine Glucose Negative Bedside Urine Bilirubin ++ 2 Bedside Urine Ketone ++ 40 Urine Specific [place] 1.025 Bedside Urine Occult Blood ++ Bedside Urine pH 5.5 Bedside Urine Protein - Negative Bedside Urine Urobilinogen - Negative Bedside Urine Nitrite - Negative Bedside Urine Leukocytes +/- 15 Esterase Discharge Plan Departure Patient Disposition: Home Clinical Impression: Acute flank pain Hematuria Qualifiers: Hematuria type: unspecified type Qualified Code(s): R31.9 - Hematuria, unspecified Discharge Date/Time: 12/28/19 17:15 Activity Restrictions/Additional Instructions: Thank you for entrusting me with your care today. As discussed, your CT was negative for any concerning findings, no kidney stone and no appendicitis were seen. There was an incidental note of a hemangioma on your liver which was seen on your last CT scan. Your urine showed some blood, no signs of infection at this time. Your laboratory work showed decreased potassium from vomiting. I have given you prescription for nausea medication. [facility] [place] Please eat a bland diet such as bananas, rice, toast, and apples. Drink lots of fluids, especially with electrolytes like Gatorade. Follow-up with your primary care provider in 1-2 weeks for further evaluation if symptoms continue. Return emergency department for any new or worsening symptoms such as severe pain, high fevers, uncontrollable vomiting, chest pain, shortness of breath, or any other concerns. Prescriptions: New ondansetron 4 mg tablet,disintegrating 4 mg PO Q6H PRN (Reason: nausea and vomiting) Qty: 10 RF: 0 No Action sumatriptan succinate [Imitrex] 100 MG tablet 100 mg PO PRN PRN (Reason: Migraine Headache) Qty: 0 RF: 0 estradiol 1 mg tablet 1 mg PO DAILY Qty: 90 RF: 3 All Day Allergy (cetirizine) 10 mg capsule 10 mg PO DAILY RF: 0 fluticasone propionate [Flonase Allergy Relief] 50 mcg/actuation spray,suspension 1 spray NASAL DAILY RF: 0 albuterol sulfate 90 mcg/actuation HFA aerosol inhaler 1 puff INHALATION Q6H PRN (Reason: Shortness Of Breath) RF: 0 dextroamphetamine-amphetamine [Adderall XR] 20 mg Capsule,Extended Release 24hr 20 mg PO QAM PRN (Reason: to help focus at work) RF: 0 trazodone 100 mg tablet 150 mg PO QPM RF: 0 lithium carbonate 300 mg tablet 300 mg PO QAM RF: 0 lithium carbonate 300 mg tablet 600 mg PO QPM RF: 0 lamotrigine 100 mg tablet 200 mg PO DAILY RF: 0 pantoprazole 40 mg tablet,delayed release (DR/EC) 40 mg PO DAILY Qty: 30 RF: 0 potassium chloride 20 mEq tablet,ER particles/crystals 20 meq PO BID Qty: 14 RF: 0 meloxicam 7.5 mg tablet 15 mg PO DAILY PRN (Reason: pain (scale score 7-10)) Qty: 30 RF: 0 levothyroxine 200 mcg tablet 200 mcg PO DAILY RF: 0 cyclobenzaprine 10 mg tablet 5 - 10 mg PO BID PRN (Reason: muscle spasm) Qty: 10 RF: 0 albuterol sulfate 90 mcg/actuation HFA aerosol inhaler 2 puff INHALATION Q4-6H PRN (Reason: shortness of breath) Qty: 18 RF: 0 ondansetron 4 mg tablet,disintegrating 4 mg PO Q6H PRN (Reason: nausea and vomiting) Qty: 10 RF: 0 benzonatate 100 mg capsule 100 mg PO BID-TID PRN (Reason: cough) Qty: 14 RF: 0 prednisone 50 mg tablet 50 mg PO DAILY Qty: 5 RF: 0 Referrals: Aldo Hernadez MD [Primary Care Provider] -
[2019-12-28] MEDS: SODIUM CHLORIDE 0.9% 1,000 ML 1000 ML IV (15:52)
[2019-12-28] MEDS: ONDANSETRON 4 MG/2 ML INJ IV (15:54)
[2019-12-28 15:55] LABS: Add Manual Diff / Slide Review NO; Basophils Absolute Auto 0 /uL (0-100); Basophils Percent Auto 0.6 % (0-2); Eosinophils Absolute Auto 0 /uL (0-450); Eosinophils Percent Auto 0.5 % (2-4); Hematocrit 39.9 % (36-46); Hemoglobin 13.4 g/dL (12.0-16.0); Lymphocytes Absolute Auto 1000 /uL (1100-4500); Lymphocytes Percent Auto 15.9 % (25-40); Mean Corpuscular HGB Conc 33.6 % (30-36); Mean Corpuscular Hemoglobin 30.8 PG (26-34); Mean Corpuscular Volume 91.6 fL (80-100); Monocytes Absolute Auto 600 /uL (0-900); Monocytes Percent Auto 9.7 % (3-14); Neutrophils Absolute Auto 4600 /uL (1500-7000); Neutrophils Percent Auto 73.3 % (50-75); Platelet Count 221 X10^3/uL (150-400); Red Blood Cell Count 4.36 X10^6/uL (4.0-5.2); Red Cell Distribution Width 13.5 % (11.6-14.8); White Blood Cell Count 6.3 X10^3/uL (4.5-11.0)
[2019-12-28] MEDS: KETOROLAC 60 MG/2 ML VIAL 30 MG IV (15:56)
[2019-12-28] MEDS: diphenhydrAMINE 50 MG/ML VIAL 25 MG IV (15:59)
[2019-12-28 16:04] LABS: Alanine Aminotransferase 17 IU/L (<35); Albumin 4.3 g/dL (3.5-5.0); Albumin Globulin Ratio 1.3 (1.0-2.8); Alkaline Phosphatase 74 U/L (38-126); Aspartate Aminotransferase 30 IU/L (14-36); Bilirubin Total 0.4 mg/dL (0.2-1.3); Blood Urea Nitrogen 17 mg/dL (7-17); Calcium 8.8 mg/dL (8.4-10.2); Carbon Dioxide 22 mmol/L (22-32); Chloride 105 mmol/L (98-107); Estimated Glomerular Filt Rate > 60.0 mL/min (>60); Globulin 3.3 g/dL (1.7-4.1); Glucose 100 mg/dL (70-100); HEMOLYSIS < 15 (0-50); Lipase 78 U/L (23-300); Potassium 3.1 mmol/L (3.4-5.1); Sodium 137 mmol/L (137-145); Total Protein 7.6 g/dL (6.3-8.2)
[2019-12-28 16:16] LABS: Amorphous Sediment Urine 1+; Bacteria Urine Occasional (0-1); Culture Indicated Urine Specimen Cultured; Mucus Urine 1+ (Negative); RBC Urine 5-10/HPF (0-5/HPF); Squamous Epithelial Cell Urine 1-5 /HPF (0-5/HPF); Transitional Epi Cells Urine 0-1/HPF (0-5/HPF); WBC Urine 1-5/HPF (0-5/HPF)
[2019-12-28] MEDS: POTASSIUM CHLORIDE 20 MEQ/15 ML UDC PO (16:50)
[2019-12-28 17:06] VITALS: BP 108/55; PULSE 104; O2SAT 97
== END 2019-12-28 17:15 | disposition home or self-care (01) ==
PROVIDERS: Emergency Provider Nurse Practitioner; Family Provider Family Medicine; PCP Family Medicine
DX: R10.9 Unspecified abdominal pain (principal); R31.9 Hematuria, unspecified
CPT/HCPCS: 36415; 74177; 80053; 81003; 81015; 83690; 85025; 87086; 96361; 96374; 96375; 99284; J1200; J1885; J2405; Q9967

== ENCOUNTER 2019-12-29 06:28 | Emergency (ER) | payer OTHER, MEDICAID, SELFPAY ==
[2019-12-29 06:47] VITALS: BP 119/72; PULSE 95; RESP 20; TEMP 36.4; O2SAT 100
[2019-12-29 06:52] LABS: Add Manual Diff / Slide Review NO; Basophils Percent Auto 0.5 % (0-2); Eosinophils Percent Auto 0.3 % (2-4); Hematocrit 39.3 % (36-46); Hemoglobin 13.3 g/dL (12.0-16.0); Lymphocytes Absolute Auto 800 /uL (1100-4500); Mean Corpuscular HGB Conc 33.9 % (30-36); Mean Corpuscular Hemoglobin 31.1 PG (26-34); Mean Corpuscular Volume 91.6 fL (80-100); Monocytes Percent Auto 6.3 % (3-14); Neutrophils Absolute Auto 4600 /uL (1500-7000); Neutrophils Percent Auto 78.9 % (50-75); Platelet Count 206 X10^3/uL (150-400); Red Blood Cell Count 4.29 X10^6/uL (4.0-5.2); Red Cell Distribution Width 13.7 % (11.6-14.8); White Blood Cell Count 5.9 X10^3/uL (4.5-11.0)
[2019-12-29 06:53] LABS: Basophils Absolute Auto 0 /uL (0-100); Eosinophils Absolute Auto 0 /uL (0-450); Monocytes Absolute Auto 400 /uL (0-900)
[2019-12-29] MEDS: SODIUM CHLORIDE 0.9% 1,000 ML 1000 ML IV ×2 (06:55→08:14)
[2019-12-29] MEDS: METOCLOPRAMIDE 10 MG/2 ML INJ IV (06:55)
[2019-12-29 07:02] LABS: Alanine Aminotransferase 16 IU/L (<35); Albumin 4.1 g/dL (3.5-5.0); Albumin Globulin Ratio 1.2 (1.0-2.8); Alkaline Phosphatase 64 U/L (38-126); Aspartate Aminotransferase 34 IU/L (14-36); BUN Creatinine Ratio 23.2 (6-22); Bilirubin Total 0.4 mg/dL (0.2-1.3); Blood Urea Nitrogen 13 mg/dL (7-17); Calcium 8.6 mg/dL (8.4-10.2); Carbon Dioxide 20 mmol/L (22-32); Chloride 105 mmol/L (98-107); Estimated Glomerular Filt Rate > 60.0 mL/min (>60); Globulin 3.4 g/dL (1.7-4.1); Glucose 138 mg/dL (70-100); HEMOLYSIS 41 (0-50); Lipase 101 U/L (23-300); Sodium 136 mmol/L (137-145); Total Protein 7.5 g/dL (6.3-8.2)
--- NOTE | 2019-12-29 07:23 | ED.ABDPAIN ---
HPI - Abdominal Pain General Chief Complaint: Abdominal Pain Stated Complaint: nausea/vomiting/throwing up blood Time Seen by Provider: 12/29/19 06:38 Source: patient Mode of arrival: Ambulatory Limitations: no limitations History of Present Illness HPI narrative: 34-year-old female former smoker with history of thyroid cancer (in remission) and hysterectomy presents with a chief complaint of right lower quadrant right flank pain for the past day or 2. She states that it is cramping in nature and seems to radiate along her right flank and may be her upper abdomen. She has had multiple episodes of nausea and vomiting and is unable to keep liquids down. She denies any history of the same. She denies recent fever, chills or exposure to ill persons. She has had no medication or dietary change. She was seen and evaluated yesterday in our emergency department and had a very thorough workup including labs and IV contrasted CT of the abdomen and pelvis which was largely unremarkable. She was treated for pain and nausea and felt better on discharge. MD complaint: abdominal pain and flank pain Onset (ago): day(s) Pain Consistency: constant Location: RLQ and R flank Severity: severe Quality: cramping and stabbing Radiation: none Relieving factors: nothing Exacerbating factors: nothing Associated symptoms: nausea and vomiting Related Data Home Medications Medication Instructions Recorded Confirmed sumatriptan succinate [Imitrex] 100 mg PO PRN PRN #0 08/22/12 06/17/19 dextroamphetamine-amphetamine 20 mg PO QAM PRN 02/11/18 06/17/19 [Adderall XR] lamotrigine 200 mg PO DAILY 05/24/18 06/17/19 lithium carbonate 300 mg PO QAM 05/24/18 06/17/19 lithium carbonate 600 mg PO QPM 05/24/18 06/17/19 trazodone 150 mg PO QPM 05/24/18 06/17/19 albuterol sulfate 90 mcg/actuation 1 puff INHALATION Q6H PRN 12/14/18 06/17/19 aerosol inhaler cetirizine 10 mg capsule 10 mg PO DAILY 12/14/18 06/17/19 fluticasone propionate 50 1 spray NASAL DAILY 12/14/18 06/17/19 mcg/actuation nasal spray,suspension levothyroxine 200 mcg PO DAILY 04/26/19 06/17/19 Previous Rx's Medication Instructions Recorded meloxicam 15 mg PO DAILY PRN #30 tab 05/18/18 estradiol 1 mg tablet 1 mg PO DAILY #90 tab 03/30/19 cyclobenzaprine 5 - 10 mg PO BID PRN #10 tab 04/26/19 albuterol sulfate 2 puff INHALATION Q4-6H PRN #18 06/17/19 gram benzonatate 100 mg PO BID-TID PRN #14 cap 06/17/19 ondansetron 4 mg PO Q6H PRN #10 tab 06/17/19 prednisone 50 mg PO DAILY #5 tab 06/17/19 ondansetron 4 mg PO Q6H PRN #10 tab 12/28/19 pantoprazole 40 mg PO DAILY #30 tab 12/29/19 potassium chloride 20 meq PO BID #14 tab 12/29/19 Allergies Allergy/AdvReac Type Severity Reaction Status Date / Time adhesive [ADHESIVE] Allergy Intermediate Verified 06/17/19 16:07 amoxicillin [AMOXICILLIN] Allergy Intermediate Verified 06/17/19 16:07 cephalexin [From KEFLEX] Allergy Intermediate Verified 06/17/19 16:07 clindamycin [CLINDAMYCIN] Allergy Intermediate Verified 06/17/19 16:07 doxycycline [DOXYCYCLINE] Allergy Intermediate Verified 06/17/19 16:07 iodine [IODINE] Allergy Intermediate Verified 06/17/19 16:07 Sulfa (Sulfonamide Allergy Intermediate Verified 06/17/19 16:07 Antibiotics) [SULFA (SULFONAMIDE ANTIBIOTICS)] Penicillins [PENICILLINS] Allergy Unknown Verified 06/17/19 16:07 levofloxacin Allergy Verified 06/17/19 16:07 Review of Systems Constitutional Constitutional: Denies chills, Denies fatigue, Denies fever(s), Denies frequent falls, Denies lethargy and Denies weakness Eyes Eyes: Denies change in vision, Denies eye discharge, Denies irritation and Denies loss of vision ENT Ears, Nose, Mouth, and Throat: Denies change in voice, Denies dizziness, Denies neck pain, Denies sore throat and Denies throat swelling Cardiovascular Cardiovascular: Denies chest pain, Denies irregular heart rhythm, Denies lightheadedness, Denies palpitations, Denies dyspnea, Denies dyspnea on exertion and Denies orthopnea Respiratory Respiratory: Denies cough, Denies dyspnea, Denies dyspnea on exertion and Denies wheezing Gastrointestinal Gastrointestinal: Reports abdominal pain, Denies change in bowel habits, Reports cramping, Denies diarrhea, Reports nausea and Reports vomiting Musculoskeletal Musculoskeletal: Denies neck pain and Denies numbness Integumentary/Breasts Skin/Breast: Denies pruritus, Denies erythema, Denies rash and Denies wounds Neurologic Neurologic: Denies behavioral changes, Denies confusion, Denies dizziness, Denies frequent falls, Denies loss of vision, Denies numbness and Denies weakness Psychiatric Psychiatric: Denies anxiety, Denies behavioral changes, Denies confusion, Denies depression, Denies homicidal ideation and Denies suicidal ideation Endocrine Endocrine: Denies fatigue, Denies flushing and Denies palpitations Hematologic/Lymphatic Hematologic/Lymphatic: Denies easy bruising Allergic/Immunologic Allergic/Immunologic: Denies urticaria, Denies throat swelling and Denies wheezing Patient History Medical History ADHD (Chronic ~1991) Anxiety (Chronic) Asthma (Chronic) Bipolar 1 disorder (Acute) Chicken pox (Resolved ~1988) Chronic back pain (Chronic) Depression (Chronic) Herpes (Inactive) Hypothyroid (Acute) Post traumatic stress disorder (PTSD) (Chronic) Thyroid cancer (Acute ~2008) Surgical History Anesthesia (Resolved) H/O thyroidectomy (Acute ~05/2009) H/O: hysterectomy (Acute) History of hysterectomy (Resolved ~11/2011) History of knee surgery (Resolved ~04/2009) History of partial hysterectomy (Resolved ~09/2009) History of tonsillectomy and adenoidectomy (Resolved ~06/2008) No pertinent past surgical history (Acute) Family History Mother Breast cancer Grandmother History of cancer of spinal cord Lung cancer Grandfather Lung cancer Social History Smoking Status: Former smoker Smoking Status: Former smoker alcohol intake frequency: a few times a month Substance Use Type: marijuana Exam Narrative Exam Narrative: GENERAL: [34] year old patient appears stated age. Well-nourished, well-developed patient, in mild distress. Crying, obviously in pain, rubbing the right side of her abdomen, holding an emesis bag HEAD: Atraumatic. Normocephalic. EYES: Pupils equal round and reactive. Extraocular motions intact. No scleral icterus. No injection or drainage. ENT: Nose without bleeding, purulent drainage. Throat without erythema, tonsillar hypertrophy or exudate. Airway patent. NECK: Trachea midline. Non tender CARDIOVASCULAR: Regular rate and rhythm without murmurs, gallops, or rubs. RESPIRATORY: Clear to auscultation. Breath sounds equal bilaterally. No wheezes, rales, or rhonchi. GASTROINTESTINAL: Abdomen soft, tender all over, nondistended. EXTREMITIES: No edema or joint tenderness. BACK: Nontender without deformity or crepitance. No flank tenderness. NEURO: AOx3. SKIN: No rash or erythema of visible areas Initial Vital Signs Initial Vital Signs: Vital Signs Temperature 97.6 F 12/29/19 06:47 Pulse Rate 95 H 12/29/19 06:47 Respiratory Rate 20 12/29/19 06:47 Blood Pressure 119/72 12/29/19 06:47 Pulse Oximetry 100 12/29/19 06:47 Course Orders Ordered: Discontinued Medications Hydromorphone HCl (Dilaudid) 0.5 mg IV NOW ONE Stop: 12/29/19 08:08 Last Admin: 12/29/19 08:14 Dose: 0.5 mg Documented by: BTONER Sodium Chloride (Normal Saline 0.9%) 1,000 mls @ 1,000 mls/hr IV BOLUS ONE Stop: 12/29/19 07:44 Last Infusion: 12/29/19 08:00 Dose: 0 mls/hr Documented by: Admin: 12/29/19 06:55 Dose: 1,000 mls/hr Documented by: MMCFARL Sodium Chloride (Normal Saline 0.9%) 1,000 mls @ 1,000 mls/hr IV BOLUS ONE Stop: 12/29/19 09:06 Last Infusion: 12/29/19 09:08 Dose: 0 mls/hr Documented by: Admin: 12/29/19 08:14 Dose: 1,000 mls/hr Documented by: BTONER Metoclopramide HCl (Reglan) 10 mg IV NOW ONE Stop: 07/09/20 06:43 Last Admin: 12/29/19 06:55 Dose: 10 mg Documented by: ELISAFARL Ondansetron HCl (Zofran) 4 mg IV Q4HR PRN PRN Reason: Nausea And Vomiting Last Admin: 12/29/19 08:13 Dose: 4 mg Documented by: IZABELLA Pantoprazole Sodium (Protonix) 40 mg IV NOW ONE Stop: 12/29/19 08:08 Last Admin: 12/29/19 08:13 Dose: 40 mg Documented by: BTONER Vital Signs Vital signs: Vital Signs - 8 hr 12/29/19 06:47 Temperature 97.6 F Pulse Rate 95 H Respiratory Rate 20 Blood Pressure 119/72 Pulse Oximetry 100 MDM - Abdominal Pain Lab Data Result diagrams: 12/29/19 06:40 12/29/19 06:40 Labs: Lab Results 12/29/19 12/29/19 Range/Units 06:40 06:40 WBC 5.9 (4.5-11.0) X10^3/uL RBC 4.29 (4.0-5.2) X10^6/uL Hgb 13.3 (12.0-16.0) g/dL Hct 39.3 (36-46) % MCV 91.6 (80-100) fL MCH 31.1 (26-34) PG MCHC 33.9 (30-36) % RDW 13.7 (11.6-14.8) % Plt Count 206 (150-400) X10^3/uL Neut % (Auto) 78.9 H (50-75) % Lymph % (Auto) 14.0 L (25-40) % [place] % (Auto) 6.3 (3-14) % Eos % (Auto) 0.3 L (2-4) % Baso % (Auto) 0.5 (0-2) % Neut # (Auto) 4600 (3304-8777) /uL Lymph # (Auto) 800 L (1742-7605) /uL [place] # (Auto) 400 (0-900) /uL Eos # (Auto) 0 (0-450) /uL Baso # (Auto) 0 (0-100) /uL Sodium 136 L (137-145) mmol/L Potassium 3.0 L (3.4-5.1) mmol/L Chloride 105 (98-107) mmol/L Carbon Dioxide 20 L (22-32) mmol/L BUN 13 (7-17) mg/dL Creatinine 0.56 (0.52-1.04) mg/dL Estimated GFR > 60.0 (>60) mL/min BUN/Creatinine Ratio 23.2 H (6-22) Glucose 138 H (70-100) mg/dL Calcium 8.6 (8.4-10.2) mg/dL Total Bilirubin 0.4 (0.2-1.3) mg/dL AST 34 (14-36) IU/L ALT 16 (<35) IU/L Alkaline Phosphatase 64 (38-126) U/L Total Protein 7.5 (6.3-8.2) g/dL Albumin 4.1 (3.5-5.0) g/dL Globulin 3.4 (1.7-4.1) g/dL Albumin/Globulin Ratio 1.2 (1.0-2.8) Lipase 101 (23-300) U/L Imaging Data CT scan - abdomen/pelvis: Radiologist's Impression: Chart Viewer Diagnostics DATE TYPE STATUS REF RANGE/AUTHOR Hx 12/29/19 08:07 Pranav Doss 12/28/19 15:44 Duglas Abrams 06/17/19 16:08 Sebastián Ordonez 11/05/18 00:00 Juan Francisco Ordoñez 10/17/18 14:26 AdanJayshree 10/17/18 13:33 Jayshree Adan 09/19/18 13:26 Efraín Jama 05/24/18 13:29 Sebastián Ordonez 05/18/18 09:36 Sebastián Ordonez 04/22/18 12:25 Regla Zimmer 03/31/18 18:39 Cierra Wan 02/11/18 18:33 Juan Francisco Ordoñez Cassandra L 34, F1985 DEP ER, [facility] ED Abdominal Pain Search Chart No Data to Display ONSET ~1991 Today 09:52 Lexy Callahan 34 F [address] [address] Ultrasound Report Signed Patient: Lexy Callahan LMR#: [id number] : 1985Acct:[id number] Age/Sex: 34 / FDate of Service: 12/29/19 Loc: ED Accession Number: [id number] Procedure: US abdomen complete Ordering Provider: Davion Ruiz D.O. PROCEDURE: US ABDOMEN COMPLETE INDICATIONS: Severe abdominal pain worse on right TECHNIQUE: Real-time scanning was performed of the abdominal and retroperitoneal organs, with image documentation. COMPARISON: [facility], CT, CT ABDOMEN PELVIS W CON, 12/28/2019, 15:59. FINDINGS: Liver: Hepatic hemangioma redemonstrated, better seen on comparison CT. Liver is otherwise normal in size and homogeneous in echotexture. Gallbladder: Normal size and appearance. Biliary ducts: Normal caliber bile ducts. Pancreas: Visualized portions of the pancreas are sonographically normal. Spleen: Spleen is normal in size and homogeneous in echotexture. Kidneys: Kidneys are normal in size and echotexture. No hydronephrosis. Aorta: Visualized aorta is normal in caliber at less than 3 cm. Iliacs: Proximal common iliac arteries are normal in caliber at less than 2.5 cm. IVC: Intrahepatic inferior vena cava is patent. Miscellaneous: No free abdominal fluid. IMPRESSION: No acute finding demonstrates sonographically. Mesenteric fat stranding and lymphadenopathy seen on the comparison CT is most consistent with mesenteric panniculitis. Followup to resolution both clinically and on CT is recommended to help exclude a more worrisome but less likely lymphoproliferative disorder. Dictated by: Pranav Doss M.D. on 12/29/2019 at 9:03 Approved by: Pranav Doss M.D. on 12/29/2019 at 9:13 [facility] Narrative Medical decision making narrative: Multiple etiologies for patient's symptoms considered including: [Kidney stone versus gallbladder disease versus irritable bowel syndrome versus other] Patient's symptoms improved or duration of stay with above-stated therapies. Findings and discharge diagnosis discussed with patient/family followed by verbalization of understanding Return precautions discussed with patient/family whom verbalize understanding. Discharge Plan Departure Patient Disposition: Home Clinical Impression: Abdominal pain Qualifiers: Abdominal location: right lower quadrant Qualified Code(s): R10.31 - Right lower quadrant pain Discharge Date/Time: 12/29/19 10:05 Instructions: DI for Abdominal Pain-Adult Activity Restrictions/Additional Instructions: 1. Drink plenty of fluids with frequent small sips. 2. For the next 24 hours a clear liquid diet is advised. After that please employ a brat diet which would include bananas, rice, apples, toast. 3. Please take medications as directed. Prescription sent to [facility] 4. Please follow-up with your doctor in the next 1-2 days. Call the office for an appointment. 5. Please return to the emergency Department for any worsening or persistent symptoms, such as increasing pain or fever. Prescriptions: New pantoprazole 40 mg tablet,delayed release (DR/EC) 40 mg PO DAILY Qty: 30 RF: 0 potassium chloride 20 mEq tablet,ER particles/crystals 20 meq PO BID Qty: 14 RF: 0 No Action sumatriptan succinate [Imitrex] 100 MG tablet 100 mg PO PRN PRN (Reason: Migraine Headache) Qty: 0 RF: 0 estradiol 1 mg tablet 1 mg PO DAILY Qty: 90 RF: 3 All Day Allergy (cetirizine) 10 mg capsule 10 mg PO DAILY RF: 0 fluticasone propionate [Flonase Allergy Relief] 50 mcg/actuation spray,suspension 1 spray NASAL DAILY RF: 0 albuterol sulfate 90 mcg/actuation HFA aerosol inhaler 1 puff INHALATION Q6H PRN (Reason: Shortness Of Breath) RF: 0 dextroamphetamine-amphetamine [Adderall XR] 20 mg Capsule,Extended Release 24hr 20 mg PO QAM PRN (Reason: to help focus at work) RF: 0 trazodone 100 mg tablet 150 mg PO QPM RF: 0 lithium carbonate 300 mg tablet 300 mg PO QAM RF: 0 lithium carbonate 300 mg tablet 600 mg PO QPM RF: 0 lamotrigine 100 mg tablet 200 mg PO DAILY RF: 0 ondansetron 4 mg tablet,disintegrating 4 mg PO Q6H PRN (Reason: nausea and vomiting) Qty: 10 RF: 0 meloxicam 7.5 mg tablet 15 mg PO DAILY PRN (Reason: pain (scale score 7-10)) Qty: 30 RF: 0 levothyroxine 200 mcg tablet 200 mcg PO DAILY RF: 0 cyclobenzaprine 10 mg tablet 5 - 10 mg PO BID PRN (Reason: muscle spasm) Qty: 10 RF: 0 albuterol sulfate 90 mcg/actuation HFA aerosol inhaler 2 puff INHALATION Q4-6H PRN (Reason: shortness of breath) Qty: 18 RF: 0 ondansetron 4 mg tablet,disintegrating 4 mg PO Q6H PRN (Reason: nausea and vomiting) Qty: 10 RF: 0 benzonatate 100 mg capsule 100 mg PO BID-TID PRN (Reason: cough) Qty: 14 RF: 0 prednisone 50 mg tablet 50 mg PO DAILY Qty: 5 RF: 0 Referrals: Aldo Hernadez MD [Primary Care Provider] - Stand Alone Forms: Work Release Note
--- NOTE | 2019-12-29 08:07 | DI.US.S_ITS ---
PROCEDURE: US ABDOMEN COMPLETE INDICATIONS: Severe abdominal pain worse on right TECHNIQUE: Real-time scanning was performed of the abdominal and retroperitoneal organs, with image documentation. COMPARISON: [facility], CT, CT ABDOMEN PELVIS W CON, 12/28/2019, 15:59. FINDINGS: Liver: Hepatic hemangioma redemonstrated, better seen on comparison CT. Liver is otherwise normal in size and homogeneous in echotexture. Gallbladder: Normal size and appearance. Biliary ducts: Normal caliber bile ducts. Pancreas: Visualized portions of the pancreas are sonographically normal. Spleen: Spleen is normal in size and homogeneous in echotexture. Kidneys: Kidneys are normal in size and echotexture. No hydronephrosis. Aorta: Visualized aorta is normal in caliber at less than 3 cm. Iliacs: Proximal common iliac arteries are normal in caliber at less than 2.5 cm. IVC: Intrahepatic inferior vena cava is patent. Miscellaneous: No free abdominal fluid. IMPRESSION: No acute finding demonstrates sonographically. Mesenteric fat stranding and lymphadenopathy seen on the comparison CT is most consistent with mesenteric panniculitis. Followup to resolution both clinically and on CT is recommended to help exclude a more worrisome but less likely lymphoproliferative disorder. Dictated by: Pranav Doss M.D. on 12/29/2019 at 9:03 Approved by: Pranav Doss M.D. on 12/29/2019 at 9:13
[2019-12-29] MEDS: PANTOPRAZOLE 40 MG VIAL IV (08:13)
[2019-12-29] MEDS: ONDANSETRON 4 MG/2 ML INJ IV (08:13)
[2019-12-29] MEDS: HYDROMORPHONE 0.5 MG INJ IV (08:14)
[2019-12-29 09:52] VITALS: BP 114/57; PULSE 88; O2SAT 100
== END 2019-12-29 10:05 | disposition home or self-care (01) ==
PROVIDERS: Emergency Medicine; Emergency Provider Emergency Medicine; Family Provider Family Medicine; PCP Family Medicine
DX: R10.31 Right lower quadrant pain (principal); R11.2 Nausea with vomiting, unspecified
CPT/HCPCS: 36415; 76700; 80053; 83690; 85025; 96361; 96374; 96375; 99284; C9113; J1170; J2405; J2765

== ENCOUNTER 2019-12-31 00:08 | Emergency (ER) | payer OTHER, MEDICAID, SELFPAY ==
[2019-12-31] VITALS (15 sets, daily range): BP systolic 92–140; BP diastolic 50–87; PULSE 66–84; RESP 20–24; TEMP 36.8; O2SAT 94–100; BMI 29.2
--- NOTE | 2019-12-31 00:19 | ED.GENADULT ---
HPI - General Adult General Chief complaint: Nausea/Vomiting/Diarrhea Stated complaint: vomiting/nausea Time Seen by Provider: 12/31/19 00:09 Source: patient Mode of arrival: Ambulatory Limitations: no limitations History of Present Illness HPI narrative: Patient is a 34-year-old female here for the 3rd time in the past week to this emergency department for evaluation of similar symptoms. She arrives today for diarrhea, abdominal pain, nausea, vomiting. When she was seen here initially patient did have a fairly extensive workup to include a CT scan of her abdomen which showed no acute pathology. She is sent home with nausea medication. She returned a short time later and had an ultrasound of her abdomen which again was unremarkable. During this time she also had unremarkable labs. Was sent home with medications for reflux disease during that visit. She returns today now for diarrhea, continued abdominal pain, nausea and vomiting despite the medications at home. She states she feels like her abdominal pain is worsening. States she has not been able to keep anything down despite the nausea medicine. No recent travel. No fevers. Describes the pain as sharp and aching at the same time over her abdomen Related Data Home Medications Medication Instructions Recorded Confirmed sumatriptan succinate [Imitrex] 100 mg PO PRN PRN #0 08/22/12 06/17/19 dextroamphetamine-amphetamine 20 mg PO QAM PRN 02/11/18 06/17/19 [Adderall XR] lamotrigine 200 mg PO DAILY 05/24/18 06/17/19 lithium carbonate 300 mg PO QAM 05/24/18 06/17/19 lithium carbonate 600 mg PO QPM 05/24/18 06/17/19 trazodone 150 mg PO QPM 05/24/18 06/17/19 albuterol sulfate 90 mcg/actuation 1 puff INHALATION Q6H PRN 12/14/18 06/17/19 aerosol inhaler cetirizine 10 mg capsule 10 mg PO DAILY 12/14/18 06/17/19 fluticasone propionate 50 1 spray NASAL DAILY 12/14/18 06/17/19 mcg/actuation nasal spray,suspension levothyroxine 200 mcg PO DAILY 04/26/19 06/17/19 Previous Rx's Medication Instructions Recorded meloxicam 15 mg PO DAILY PRN #30 tab 05/18/18 estradiol 1 mg tablet 1 mg PO DAILY #90 tab 03/30/19 cyclobenzaprine 5 - 10 mg PO BID PRN #10 tab 04/26/19 albuterol sulfate 2 puff INHALATION Q4-6H PRN #18 06/17/19 gram benzonatate 100 mg PO BID-TID PRN #14 cap 06/17/19 ondansetron 4 mg PO Q6H PRN #10 tab 06/17/19 prednisone 50 mg PO DAILY #5 tab 06/17/19 ondansetron 4 mg PO Q6H PRN #10 tab 12/28/19 pantoprazole 40 mg PO DAILY #30 tab 12/29/19 potassium chloride 20 meq PO BID #14 tab 12/29/19 metoclopramide HCl [Reglan] 10 mg PO Q6H PRN #10 tab 12/31/19 Allergies Allergy/AdvReac Type Severity Reaction Status Date / Time adhesive [ADHESIVE] Allergy Intermediate Verified 06/17/19 16:07 amoxicillin [AMOXICILLIN] Allergy Intermediate Verified 06/17/19 16:07 cephalexin [From KEFLEX] Allergy Intermediate Verified 06/17/19 16:07 clindamycin [CLINDAMYCIN] Allergy Intermediate Verified 06/17/19 16:07 doxycycline [DOXYCYCLINE] Allergy Intermediate Verified 06/17/19 16:07 iodine [IODINE] Allergy Intermediate Verified 06/17/19 16:07 Sulfa (Sulfonamide Allergy Intermediate Verified 06/17/19 16:07 Antibiotics) [SULFA (SULFONAMIDE ANTIBIOTICS)] Penicillins [PENICILLINS] Allergy Unknown Verified 06/17/19 16:07 levofloxacin Allergy Verified 06/17/19 16:07 Review of Systems Constitutional Constitutional: Denies fever(s) and Denies headache(s) ENT Ears, Nose, Mouth, and Throat: Denies headache(s) Cardiovascular Cardiovascular: Denies chest pain and Denies dyspnea Respiratory Respiratory: Denies dyspnea Gastrointestinal Gastrointestinal: Reports abdominal pain, Reports diarrhea, Reports loose stools and Reports vomiting Genitourinary Genitourinary: Denies dysuria Genitourinary: Denies dysuria Musculoskeletal Musculoskeletal: Denies arthralgias and Denies myalgias Integumentary/Breasts Skin/Breast: Denies lesions and Denies rash Neurologic Neurologic: Denies behavioral changes and Denies headache(s) Psychiatric Psychiatric: Denies behavioral changes Hematologic/Lymphatic Hematologic/Lymphatic: Denies easy bleeding and Denies easy bruising Patient History Medical History ADHD (Chronic ~1991) Anxiety (Chronic) Asthma (Chronic) Bipolar 1 disorder (Acute) Chicken pox (Resolved ~1988) Chronic back pain (Chronic) Depression (Chronic) Herpes (Inactive) Hypothyroid (Acute) Post traumatic stress disorder (PTSD) (Chronic) Thyroid cancer (Acute ~2008) Surgical History Anesthesia (Resolved) H/O thyroidectomy (Acute ~05/2009) H/O: hysterectomy (Acute) History of hysterectomy (Resolved ~11/2011) History of knee surgery (Resolved ~04/2009) History of partial hysterectomy (Resolved ~09/2009) History of tonsillectomy and adenoidectomy (Resolved ~06/2008) No pertinent past surgical history (Acute) Family History Mother Breast cancer Grandmother History of cancer of spinal cord Lung cancer Grandfather Lung cancer Social History Smoking Status: Former smoker Smoking Status: Former smoker alcohol intake frequency: a few times a month Substance Use Type: marijuana Exam Initial Vital Signs Initial Vital Signs: Vital Signs Pulse Rate 76 12/31/19 00:13 Blood Pressure 127/72 12/31/19 00:13 Pulse Oximetry 97 12/31/19 00:13 Const General: cooperative, comfortable, well developed, well groomed and No acute distress Limitations: mental status not altered HENGA Head: normal to inspection and normocephalic Resp Effort & Inspection: normal respiratory effort Auscultation: clear to auscultation bilaterally Cardio Rate: regular rate Rhythm: regular rhythm GI Inspection: non-distended Palpation: soft and tender (Diffuse tenderness) Back/Spine/Pelvis Back: CVA tenderness Skin Lesions: no lesions Rashes: no rashes Neuro General: patient alert, patient awake and patient oriented x3 Cognition: normal cognition Speech: speech normal Extrem General: normal to inspection and capillary refill normal Psych Appearance: grossly normal and well kempt Scores GCS [place] coma scale eye opening: Spontaneous [place] coma scale verbal response: Orientated [place] coma scale motor response: Obey commands [place] coma scale total score: 15 Course Orders Ordered: ED Orders 12/31/19 00:18 EKG-12 Lead Stat 12/31/19 00:22 C-Reactive Protein Quant Stat Complete Blood Count AUTO DIFF Stat Comprehensive Metabolic Panel Stat Erythrocyte Sedimentation Rate Stat Lactate (Lactic Acid) Stat Lipase Stat Procalcitonin Stat 12/31/19 00:56 CT abdomen pelvis w con Stat Discontinued Medications Diphenhydramine HCl (Benadryl) 50 mg IV NOW ONE Stop: 12/31/19 01:41 Last Admin: 12/31/19 01:44 Dose: 50 mg Documented by: MABEL Hydromorphone HCl (Dilaudid) 0.5 mg IV NOW ONE Stop: 12/31/19 00:55 Last Admin: 12/31/19 01:07 Dose: 0.5 mg Documented by: MABEL Sodium Chloride (Normal Saline 0.9%) 1,000 mls @ 1,000 mls/hr IV BOLUS ONE Stop: 12/31/19 01:15 Last Infusion: 12/31/19 02:49 Dose: 0 mls/hr Documented by: Admin: 12/31/19 00:35 Dose: 1,000 mls/hr Documented by: MABEL Potassium Chloride 20 meq/ (Sodium Chloride) 260 mls @ 130 mls/hr IV NOW ONE Stop: 12/31/19 02:54 Last Infusion: 12/31/19 04:27 Dose: 130 mls/hr Documented by: MABEL Cosigned by: CHELY Admin: 12/31/19 01:35 Dose: 130 mls/hr Documented by: MABEL Cosigned by: CHELY Sodium Chloride (Normal Saline 0.9%) 1,000 mls @ 1,000 mls/hr IV BOLUS ONE Stop: 12/31/19 04:07 Last Infusion: 12/31/19 04:34 Dose: 1,000 mls/hr Documented by: Admin: 12/31/19 03:17 Dose: 1,000 mls/hr Documented by: MABEL Metoclopramide HCl (Reglan) 10 mg IV NOW ONE Stop: 12/31/19 01:16 Last Admin: 12/31/19 01:18 Dose: 10 mg Documented by: MABEL Ondansetron HCl (Zofran) 4 mg IV NOW ONE Stop: 12/31/19 00:17 Last Admin: 12/31/19 00:39 Dose: 4 mg Documented by: MABEL Ondansetron HCl (Zofran) 4 mg IV NOW ONE Stop: 12/31/19 01:42 Last Admin: 12/31/19 01:44 Dose: 4 mg Documented by: MABEL Ondansetron HCl (Zofran Odt Prepack) 1 bottle MISC SEEINSTR ONE Stop: 12/31/19 05:30 Last Admin: 12/31/19 05:51 Dose: 1 bottle Documented by: MABEL Pantoprazole Sodium (Protonix) 40 mg IV NOW ONE Stop: 12/31/19 00:55 Last Admin: 12/31/19 01:10 Dose: 40 mg Documented by: MABEL Potassium Chloride (Potassium Chloride) 40 meq PO NOW ONE Stop: 12/31/19 00:56 Last Admin: 12/31/19 01:21 Dose: 40 meq Documented by: MABEL Vital Signs Vital signs: Vital Signs - 8 hr 12/31/19 00:13 12/31/19 00:30 12/31/19 00:36 Temperature 98.2 F Pulse Rate 76 Respiratory Rate Blood Pressure 127/72 Pulse Oximetry 97 100 12/31/19 00:39 12/31/19 01:09 12/31/19 01:30 Temperature Pulse Rate 76 66 Respiratory Rate 20 24 Blood Pressure 140/87 Pulse Oximetry 99 100 98 12/31/19 02:09 12/31/19 02:13 12/31/19 02:30 Temperature Pulse Rate 84 81 73 Respiratory Rate 22 22 22 Blood Pressure 105/55 L 92/51 L Pulse Oximetry 98 98 96 12/31/19 03:00 12/31/19 03:30 12/31/19 04:00 Temperature Pulse Rate 79 70 72 Respiratory Rate 22 Blood Pressure 93/54 L 98/50 L 98/54 L Pulse Oximetry 99 98 95 12/31/19 04:30 12/31/19 05:00 12/31/19 05:30 Temperature Pulse Rate 75 83 71 Respiratory Rate Blood Pressure 99/57 L 96/55 L 94/55 L Pulse Oximetry 96 94 98 Medical Decision Making Lab Data Lab results reviewed: Yes I reviewed the patient's lab results. Result diagrams: 12/31/19 00:22 12/31/19 00:22 Labs: Lab Results 12/31/19 12/31/19 12/31/19 Range/Units 00:22 00:22 00:22 WBC 6.8 (4.5-11.0) X10^3/uL RBC 4.26 (4.0-5.2) X10^6/uL Hgb 13.0 (12.0-16.0) g/dL Hct 38.4 (36-46) % MCV 90.1 (80-100) fL MCH 30.6 (26-34) PG MCHC 34.0 (30-36) % RDW 13.8 (11.6-14.8) % Plt Count 225 (150-400) X10^3/uL Neut % (Auto) 48.0 L D (50-75) % Lymph % (Auto) 34.2 D (25-40) % [place] % (Auto) 14.7 H (3-14) % Eos % (Auto) 2.5 (2-4) % Baso % (Auto) 0.6 (0-2) % Neut # (Auto) 3300 (6531-0128) /uL Lymph # (Auto) 2300 (8418-8374) /uL [place] # (Auto) 1000 H (0-900) /uL Eos # (Auto) 200 (0-450) /uL Baso # (Auto) 0 (0-100) /uL ESR 23 H (0-20) MM/HR Sodium (137-145) mmol/L Potassium (3.4-5.1) mmol/L Chloride (98-107) mmol/L Carbon Dioxide (22-32) mmol/L BUN (7-17) mg/dL Creatinine (0.52-1.04) mg/dL Estimated GFR (>60) mL/min BUN/Creatinine Ratio (6-22) Glucose (70-100) mg/dL Lactate (0.7-2.1) mmol/L Calcium (8.4-10.2) mg/dL Total Bilirubin (0.2-1.3) mg/dL AST (14-36) IU/L ALT (<35) IU/L Alkaline Phosphatase (38-126) U/L C-Reactive Protein 2.6 H (<1.0) mg/dL Total Protein (6.3-8.2) g/dL Albumin (3.5-5.0) g/dL Globulin (1.7-4.1) g/dL Albumin/Globulin Ratio (1.0-2.8) Lipase (23-300) U/L Procalcitonin (<0.5) ng/mL 12/31/19 12/31/19 12/31/19 Range/Units 00:22 00:22 00:22 WBC (4.5-11.0) X10^3/uL RBC (4.0-5.2) X10^6/uL Hgb (12.0-16.0) g/dL Hct (36-46) % MCV (80-100) fL MCH (26-34) PG MCHC (30-36) % RDW (11.6-14.8) % Plt Count (150-400) X10^3/uL Neut % (Auto) (50-75) % Lymph % (Auto) (25-40) % [place] % (Auto) (3-14) % Eos % (Auto) (2-4) % Baso % (Auto) (0-2) % Neut # (Auto) (0545-3029) /uL Lymph # (Auto) (4241-9666) /uL [place] # (Auto) (0-900) /uL Eos # (Auto) (0-450) /uL Baso # (Auto) (0-100) /uL ESR (0-20) MM/HR Sodium 138 (137-145) mmol/L Potassium 2.5 L* (3.4-5.1) mmol/L Chloride 105 (98-107) mmol/L Carbon Dioxide 21 L (22-32) mmol/L BUN 8 (7-17) mg/dL Creatinine 0.59 (0.52-1.04) mg/dL Estimated GFR > 60.0 (>60) mL/min BUN/Creatinine Ratio 13.6 (6-22) Glucose 124 H (70-100) mg/dL Lactate 1.6 (0.7-2.1) mmol/L Calcium 8.9 (8.4-10.2) mg/dL Total Bilirubin 0.3 (0.2-1.3) mg/dL AST 35 (14-36) IU/L ALT 19 (<35) IU/L Alkaline Phosphatase 62 (38-126) U/L C-Reactive Protein (<1.0) mg/dL Total Protein 7.2 (6.3-8.2) g/dL Albumin 4.1 (3.5-5.0) g/dL Globulin 3.1 (1.7-4.1) g/dL Albumin/Globulin Ratio 1.3 (1.0-2.8) Lipase 113 (23-300) U/L Procalcitonin 0.06 (<0.5) ng/mL Point of Care Testing Test Results Negative Urine Dip Bedside Urine Glucose Negative Bedside Urine Bilirubin - Negative Bedside Urine Ketone +/- 5 Urine Specific [place] 1.005 Bedside Urine Occult Blood +/- Bedside Urine pH 6.0 Bedside Urine Protein - Negative Bedside Urine Urobilinogen - Negative Bedside Urine Nitrite - Negative Bedside Urine Leukocytes - Negative Esterase Point of care testing: Point of Care Testing Test Results Negative Urine Dip Bedside Urine Glucose Negative Bedside Urine Bilirubin - Negative Bedside Urine Ketone +/- 5 Urine Specific [place] 1.005 Bedside Urine Occult Blood +/- Bedside Urine pH 6.0 Bedside Urine Protein - Negative Bedside Urine Urobilinogen - Negative Bedside Urine Nitrite - Negative Bedside Urine Leukocytes - Negative Esterase Imaging Data CT scan - abdomen/pelvis: Radiologist's Impression: Possible mesenteric adenitis or mesenteric panniculitis Relatively axis of large and small bowel fluid, without evidence of obstruction, raises possibility of enteritis. Normal appendix No urinary tract abnormality Small liver and spleen lesions are re-identified, probably are benign findings ECG Data Attestation: I personally reviewed and interpreted this ECG as follows: Prior ECG tracings: not available for review Interpretation: Sinus rhythm Ventricular rate is 60 Normal QRS Normal QTC Occasional PAC MDM Narrative Medical decision making narrative: Patient has generalized abdominal tenderness. Difficult to obtain a exam upon her arrival given this discomfort that she is having. She states that she feels like the symptoms are worsening in potentially changing from when she was here and had the CT scan a couple days ago. Given the fact that her symptoms are not improving of potentially worsening did feel the need to repeat a CT scan. This did show mesenteric adenitis. She does have a history of thyroid cancer so we did discuss this and informed her that she needed to talk with her primary doctor about a follow-up potential reimaging in several months down the road. Patient was given multiple doses of nausea and pain medication. This did seem to improve her symptoms. She was able to hold down fluids. She was also hypokalemic. Most likely secondary to all of her vomiting. This was replaced. She was able to hold down oral potassium. No indication for admission to the hospital. No indication for surgical consultation. Will send home with a prepack of Gaye until she is able to make it to the pharmacy and ordered of fill a prescription for Reglan. We did discuss the use of anti diarrheal medications. There is no indication for antibiotics given her presentation workup today. She was given return precautions and follow-up instructions. She expressed understanding and agreement. Discharge Plan Departure Patient Disposition: Home Clinical Impression: Nausea vomiting and diarrhea, Mesenteric adenitis, Hypokalemia Abdominal pain Qualifiers: Abdominal location: generalized Qualified Code(s): R10.84 - Generalized abdominal pain Discharge Date/Time: 12/31/19 06:00 Instructions: Diarrhea, Nausea and Vomiting-Adult Activity Restrictions/Additional Instructions: Continue all of your medications as directed. Recommend that you drink small amounts of fluid over longer periods of time. The medication year given for your nausea and vomiting may not take the nausea completely away. This medication is designed for you to be able to take small amounts of fluids. If your diarrhea becomes unbearable you can purchase Imodium/loperamide [id number]. Take this as directed. Recommend you contact your primary provider for follow-up. Return to the emergency department for any new symptoms. A prescription for a medication called Reglan for your nausea was electronically transmitted to [facility]. Prescriptions: New metoclopramide HCl [Reglan] 10 mg tablet 10 mg PO Q6H PRN (Reason: nausea and vomiting) Qty: 10 RF: 0 No Action sumatriptan succinate [Imitrex] 100 MG tablet 100 mg PO PRN PRN (Reason: Migraine Headache) Qty: 0 RF: 0 estradiol 1 mg tablet 1 mg PO DAILY Qty: 90 RF: 3 All Day Allergy (cetirizine) 10 mg capsule 10 mg PO DAILY RF: 0 fluticasone propionate [Flonase Allergy Relief] 50 mcg/actuation spray,suspension 1 spray NASAL DAILY RF: 0 albuterol sulfate 90 mcg/actuation HFA aerosol inhaler 1 puff INHALATION Q6H PRN (Reason: Shortness Of Breath) RF: 0 dextroamphetamine-amphetamine [Adderall XR] 20 mg Capsule,Extended Release 24hr 20 mg PO QAM PRN (Reason: to help focus at work) RF: 0 trazodone 100 mg tablet 150 mg PO QPM RF: 0 lithium carbonate 300 mg tablet 300 mg PO QAM RF: 0 lithium carbonate 300 mg tablet 600 mg PO QPM RF: 0 lamotrigine 100 mg tablet 200 mg PO DAILY RF: 0 ondansetron 4 mg tablet,disintegrating 4 mg PO Q6H PRN (Reason: nausea and vomiting) Qty: 10 RF: 0 pantoprazole 40 mg tablet,delayed release (DR/EC) 40 mg PO DAILY Qty: 30 RF: 0 potassium chloride 20 mEq tablet,ER particles/crystals 20 meq PO BID Qty: 14 RF: 0 meloxicam 7.5 mg tablet 15 mg PO DAILY PRN (Reason: pain (scale score 7-10)) Qty: 30 RF: 0 levothyroxine 200 mcg tablet 200 mcg PO DAILY RF: 0 cyclobenzaprine 10 mg tablet 5 - 10 mg PO BID PRN (Reason: muscle spasm) Qty: 10 RF: 0 albuterol sulfate 90 mcg/actuation HFA aerosol inhaler 2 puff INHALATION Q4-6H PRN (Reason: shortness of breath) Qty: 18 RF: 0 ondansetron 4 mg tablet,disintegrating 4 mg PO Q6H PRN (Reason: nausea and vomiting) Qty: 10 RF: 0 benzonatate 100 mg capsule 100 mg PO BID-TID PRN (Reason: cough) Qty: 14 RF: 0 prednisone 50 mg tablet 50 mg PO DAILY Qty: 5 RF: 0 Referrals: Aldo Hernadez MD [Primary Care Provider] -
[2019-12-31 00:34] LABS: Add Manual Diff / Slide Review NO; Basophils Absolute Auto 0 /uL (0-100); Basophils Percent Auto 0.6 % (0-2); Eosinophils Absolute Auto 200 /uL (0-450); Eosinophils Percent Auto 2.5 % (2-4); Hematocrit 38.4 % (36-46); Lymphocytes Absolute Auto 2300 /uL (1100-4500); Lymphocytes Percent Auto 34.2 % (25-40); Mean Corpuscular Hemoglobin 30.6 PG (26-34); Mean Corpuscular Volume 90.1 fL (80-100); Monocytes Absolute Auto 1000 /uL (0-900); Monocytes Percent Auto 14.7 % (3-14); Neutrophils Absolute Auto 3300 /uL (1500-7000); Platelet Count 225 X10^3/uL (150-400); Red Blood Cell Count 4.26 X10^6/uL (4.0-5.2); Red Cell Distribution Width 13.8 % (11.6-14.8); White Blood Cell Count 6.8 X10^3/uL (4.5-11.0)
[2019-12-31] MEDS: SODIUM CHLORIDE 0.9% 1,000 ML 1000 ML IV ×2 (00:35→03:17)
[2019-12-31] MEDS: ONDANSETRON 4 MG/2 ML INJ IV ×2 (00:39→01:44)
[2019-12-31 00:46] LABS: Alanine Aminotransferase 19 IU/L (<35); Albumin 4.1 g/dL (3.5-5.0); Albumin Globulin Ratio 1.3 (1.0-2.8); Alkaline Phosphatase 62 U/L (38-126); Aspartate Aminotransferase 35 IU/L (14-36); BUN Creatinine Ratio 13.6 (6-22); Bilirubin Total 0.3 mg/dL (0.2-1.3); Blood Urea Nitrogen 8 mg/dL (7-17); Calcium 8.9 mg/dL (8.4-10.2); Carbon Dioxide 21 mmol/L (22-32); Chloride 105 mmol/L (98-107); Estimated Glomerular Filt Rate > 60.0 mL/min (>60); Globulin 3.1 g/dL (1.7-4.1); Glucose 124 mg/dL (70-100); HEMOLYSIS < 15 (0-50); Lipase 113 U/L (23-300); Sodium 138 mmol/L (137-145); Total Protein 7.2 g/dL (6.3-8.2)
[2019-12-31 00:48] LABS: C-Reactive Protein Quant 2.6 mg/dL (<1.0)
[2019-12-31 00:49] LABS: Lactate (Lactic Acid) 1.6 mmol/L (0.7-2.1)
[2019-12-31 00:53] LABS: Potassium 2.5 mmol/L (3.4-5.1)
[2019-12-31 00:56] LABS: Erythrocyte Sedimentation Rate 23 MM/HR (0-20)
--- NOTE | 2019-12-31 00:56 | DI.CT.S_ITS ---
PROCEDURE: CT ABDOMEN PELVIS W CON INDICATIONS: Worsening right-sided abdominal pain TECHNIQUE: After the administration of oral and intravenous contrast, 5 mm thick sections acquired from the diaphragms to the symphysis. 5 mm thick coronal and sagittal reformats were performed. For radiation dose reduction, the following was used: automated exposure control, adjustment of mA and/or kV according to patient size. COMPARISON: [facility], CT, ABD/PELVIS W/CON (PNL), 01/21/2012, 16:21. [facility], CT, CT ABDOMEN PELVIS W CON, 12/28/2019, 15:59. [facility], CR, XR CHEST 2V, 06/17/2019, 16:11. [facility], CT, CT ABDOMEN PELVIS W CON, 10/17/2018, 15:19. [facility], CR, XR CHEST 2V, 09/19/2018, 13:33. FINDINGS: Image quality: Excellent. ABDOMEN: Lung bases: Lung bases are clear. Heart size is normal. Solid organs: Liver is normal in size and enhancement. There is an irregular area of decreased density identified involving the posterior segment of the right hepatic lobe that is similar to previous examinations and measures 1.9 x 2.2 cm. This is unchanged since the exams from 2019, but has increased in size since 2012 previously measuring approximately 11 mm in diameter in 2012). Biliary system is non-dilated. Pancreas enhances normally. Spleen is normal in size and enhancement. A small hypodense lesion within it the spleen is also evident, which is not well characterize, but unchanged since previous examinations, measuring up to approximately 10 mm in diameter. No adrenal nodules. Kidneys are normal in size and enhancement, without hydronephrosis. Peritoneum and bowel: The stomach is unremarkable. The small bowel loops are nondilated. However, fluid filled bowel loops are seen within the pelvis, which are not significantly distended. There is also small amount of fluid identified within the proximal colon. The appendix is well-visualized and normal. The colon is unremarkable. Nonspecific mild increased density is evident involving the mesentery of the abdomen. This is similar to the prior study. There is no free fluid, loculated fluid collection, or free air. Nodes and vessels: No retroperitoneal or mesenteric adenopathy. However, numerous borderline prominent lymph nodes along the root of the mesentery. This is similar to the previous exam. Aorta and inferior vena cava are normal in caliber. Bones: No acute fracture or suspicious osseous lesion is identified. PELVIS: Genitourinary: Bladder wall thickness is normal. Postoperative changes are present related to prior hysterectomy. There is mild edema at the vaginal cuff with possible wall thickening of the vagina. The ovaries are not identified and may either be surgically absent or small in size. Miscellaneous: No inguinal hernias or adenopathy. A small amount of free fluid within the pelvis appears to be present, likely physiologic. There is no loculated fluid collection or free air. Bones: No suspicious bony lesions. No acute pelvic fractures are identified. IMPRESSION: 1. Mesenteric edema and borderline prominent mesenteric lymph nodes is nonspecific, but similar to the previous examination and remains suspicious for mesenteric adenitis. Please correlate clinically. 2. No bowel obstruction. 3. Low attenuation lesion within the posterior right hepatic lobe and spleen are unchanged since the prior studies, but increased since 2012. MRI with intravenous contrast is recommended for further evaluation. 4. Normal appendix. 5. Slightly increased amount of fluid within the small bowel and colon is nonspecific. However, clinical correlation to exclude enteritis is recommended. Note: The preliminary report provided by [facility] is concordant with the final report. Dictated by: Sebastián Ordonez M.D. on 12/31/2019 at 7:20 Approved by: Sebastián Ordonez M.D. on 12/31/2019 at 7:30
[2019-12-31 01:02] LABS: Procalcitonin 0.06 ng/mL (<0.5)
[2019-12-31] MEDS: HYDROMORPHONE 0.5 MG INJ IV (01:07)
[2019-12-31] MEDS: PANTOPRAZOLE 40 MG VIAL IV (01:10)
[2019-12-31] MEDS: METOCLOPRAMIDE 10 MG/2 ML INJ IV (01:18)
[2019-12-31] MEDS: POTASSIUM CHLORIDE 20 MEQ/15 ML UDC 40 MEQ PO (01:21)
--- NOTE | 2019-12-31 01:28 | PC.NURSE ---
Patient states she has been experiencing abdominal pain, vomiting, and diarrhea the past four days. Patient provided warm blankets. Patient states she was prescribed potassium in one of recent ER visits but is unable to keep it down. Patient states she has smoked marijuana a few times since this started with no relief. Patient states she has been wearing Depends due to excessive diarrhea. Provided patient with new brief due to brief worn being soiled. Left room briefly and upon re-entry patient had taken brief off and had diarrhea in the floor.
[2019-12-31] MEDS: POTASSIUM CHLORIDE 20 MEQ in SODIUM CHLORIDE 0.9% 250 ML 130 ML IV (01:35)
[2019-12-31] MEDS: diphenhydrAMINE 50 MG/ML VIAL IV (01:44)
--- NOTE | 2019-12-31 04:23 | PC.NURSE ---
Patient tolerated ice chips well that were given to her earlier. Patient now requesting Sprite. Doctor approves. Sprite provided. Denies needing anything further at this time.
[2019-12-31] MEDS: ONDANSETRON 4 MG ODT PREPACK 1 BOTTLE MISC (05:51)
== END 2019-12-31 06:00 | disposition home or self-care (01) ==
PROVIDERS: Emergency Provider Emergency Medicine; Family Provider Family Medicine; PCP Family Medicine
DX: R11.2 Nausea with vomiting, unspecified (principal); I88.0 Nonspecific mesenteric lymphadenitis; E87.6 Hypokalemia; R10.84 Generalized abdominal pain; R19.7 Diarrhea, unspecified
CPT/HCPCS: 36415; 74177; 80053; 81003; 81025; 83605; 83690; 84145; 85025; 85651; 86140; 93005; 93010; 96365; 96366; 96375; 96376; 99284; 99285; C9113; J1170; J1200; J2405; J2765; J3480; Q9967

== ENCOUNTER 2020-01-03 14:51 | Inpatient (IN) | payer OTHER, MEDICAID, SELFPAY ==
[2020-01-03] VITALS (11 sets, daily range): BP systolic 115–131; BP diastolic 62–78; PULSE 65–96; RESP 13–23; TEMP 36.6–37.3; O2SAT 96–100; BMI 30.6
[2020-01-03] MEDS: HYDROMORPHONE 1 MG INJ 0.5 MG IV (15:14)
[2020-01-03] MEDS: SODIUM CHLORIDE 0.9% 1,000 ML 1000 ML IV (15:15)
[2020-01-03 15:17] LABS: Add Manual Diff / Slide Review NO; Basophils Absolute Auto 0 /uL (0-100); Basophils Percent Auto 0.7 % (0-2); Eosinophils Absolute Auto 100 /uL (0-450); Eosinophils Percent Auto 1.8 % (2-4); Hematocrit 39.7 % (36-46); Hemoglobin 13.8 g/dL (12.0-16.0); Lymphocytes Absolute Auto 2100 /uL (1100-4500); Lymphocytes Percent Auto 36.4 % (25-40); Mean Corpuscular HGB Conc 34.6 % (30-36); Mean Corpuscular Hemoglobin 30.9 PG (26-34); Mean Corpuscular Volume 89.4 fL (80-100); Monocytes Absolute Auto 500 /uL (0-900); Monocytes Percent Auto 9.2 % (3-14); Neutrophils Absolute Auto 3100 /uL (1500-7000); Neutrophils Percent Auto 51.9 % (50-75); Platelet Count 323 X10^3/uL (150-400); Red Blood Cell Count 4.45 X10^6/uL (4.0-5.2); Red Cell Distribution Width 13.6 % (11.6-14.8); White Blood Cell Count 5.9 X10^3/uL (4.5-11.0)
--- NOTE | 2020-01-03 15:20 | DI.RAD.S_ITS ---
PROCEDURE: XR ACUTE ABDOMEN SERIES INDICATIONS: abd pain, vomiting TECHNIQUE: One view chest and two views of the abdomen were acquired. COMPARISON: None. FINDINGS: Surgical changes and devices: None. Chest: Lungs are clear. Heart size is normal. No pleural effusions. No pneumoperitoneum. Abdomen: Bowel gas pattern is nonobstructive. Mild to moderate amount of fecal matter throughout the colon is seen. No suspicious calcifications. Visualized solid organ contours appear normal. Bones: No suspicious bony lesions. IMPRESSION: No evidence of bowel obstruction or gross free air. No acute cardiopulmonary pathology. Mild to moderate constipation. Dictated by: Efraín Jama M.D. on 01/03/2020 at 16:27 Approved by: Efraín Jama M.D. on 01/03/2020 at 16:31
[2020-01-03 15:23] LABS: Albumin 4.2 g/dL (3.5-5.0); Albumin Globulin Ratio 1.3 (1.0-2.8); Alkaline Phosphatase 54 U/L (38-126); Amylase 56 U/L (30-110); Aspartate Aminotransferase 36 IU/L (14-36); BUN Creatinine Ratio 13.5 (6-22); Bilirubin Total 0.3 mg/dL (0.2-1.3); Blood Urea Nitrogen 7 mg/dL (7-17); Calcium 9.1 mg/dL (8.4-10.2); Carbon Dioxide 31 mmol/L (22-32); Chloride 99 mmol/L (98-107); Estimated Glomerular Filt Rate > 60.0 mL/min (>60); Globulin 3.2 g/dL (1.7-4.1); Glucose 95 mg/dL (70-100); Lipase 85 U/L (23-300); Magnesium 1.9 mg/dL (1.6-2.3); Sodium 138 mmol/L (137-145); Total Protein 7.4 g/dL (6.3-8.2)
[2020-01-03 15:32] LABS: Prothrombin Time 11.5 SECONDS (10.1-12.7)
[2020-01-03 15:35] LABS: PTT Partial Thromboplastin Tim 31 SECONDS (26.4-36.2); Potassium 2.7 mmol/L (3.4-5.1)
[2020-01-03 15:38] LABS: Creatine Kinase 58 U/L (30-135)
[2020-01-03 15:42] LABS: Lactate (Lactic Acid) 1.5 mmol/L (0.7-2.1)
[2020-01-03 15:50] LABS: Troponin I < 0.012 ng/mL (0.01-0.034)
[2020-01-03] MEDS: POTASSIUM CHLORIDE 20 MEQ in SODIUM CHLORIDE 0.9% 250 ML 130 ML IV (16:03)
[2020-01-03] MEDS: PANTOPRAZOLE 40 MG VIAL IV (16:03)
[2020-01-03] MEDS: METOCLOPRAMIDE 10 MG/2 ML INJ IV (16:03)
[2020-01-03] MEDS: MAG HYDROX/ALUMINUM/SIMETH SUS 20 ML, LIDOCAINE VISCOUS 2% 15 ML PO (16:23)
[2020-01-03] MEDS: LORazepam 2 MG/ML INJ 1 MG IV (16:56)
[2020-01-03] MEDS: SUCRALFATE 1 GM/10 ML ORAL SUSP PO (17:01)
[2020-01-03 17:07] LABS: RBC Urine None Seen (0-5/HPF)
[2020-01-03 17:20] LABS: Bacteria Urine Many (>30); Culture Indicated Urine Specimen Cultured; Squamous Epithelial Cell Urine 0-1 /HPF (0-5/HPF); WBC Urine 1-5/HPF (0-5/HPF)
--- NOTE | 2020-01-03 18:56 | PC.NURSE ---
pt minimally assisted to bedside commode. Pt had an episode of vomiting during this
[2020-01-03] MEDS: HYDROMORPHONE 0.5 MG INJ IV (19:02)
[2020-01-03] MEDS: ONDANSETRON 4 MG/2 ML INJ IV ×2 (19:02→23:19)
--- NOTE | 2020-01-03 19:27 | ED_ITS ---
HPI - Nausea/Vomiting/Diarrhea <Fela Bruce, [employer]-BC - Last Filed: 01/03/20 19:34> General Chief complaint: Nausea/Vomiting/Diarrhea Stated complaint: Nausea/CP Time Seen by Provider: 01/03/20 15:02 Source: patient Mode of arrival: EMS Limitations: no limitations History of Present Illness HPI Narrative: The patient is a 34-year-old female current marijuana smoker who presents with a chief complaint of continued nausea vomiting and abdominal pain. The patient has been to this emergency department multiple times in the past week, lab work on 12/27, 12/28, 12/30. She had no leukocytosis on any of her labs of lactate, normal renal function for all of her visits. She was noted to be hypokalemic on 12/30 and started on potassium supplement outpatient. She states she is unable to keep this down given her persistent nausea and vomiting. She has received multiple medications including Zofran, Reglan, Protonix. She states that she is vomiting so much she is unable to keep down her schedule medications such as her Protonix. She states that she is not taking her lithium at this point time, is no longer on steroids. She denies any fevers. She denies any urinary symptoms. She denies any diarrhea. She has not followed up with primary care provider. She denies any cough or congestion. She denies any possibility of as she has had hysterectomy. Denies any other abd ominal surgeries. Her pain is epigastric. An abdominal pelvis CT on 12/27, an abdominal pelvis CT on 12/30 indicating possible mesenteric adenitis. She had an ultrasound on 12/28 with no acute findings as well. The patient is a daily marijuana smoker. She has continued to smoke over the past week. Related Data Home Medications Medication Instructions Recorded Confirmed sumatriptan succinate [Imitrex] 100 mg PO PRN PRN #0 08/22/12 01/03/20 dextroamphetamine-amphetamine 20 mg PO QAM PRN 02/11/18 01/03/20 [Adderall XR] lamotrigine 200 mg PO DAILY 05/24/18 01/03/20 lithium carbonate 300 mg PO QAM 05/24/18 01/03/20 lithium carbonate 600 mg PO QPM 05/24/18 01/03/20 trazodone 150 mg PO QPM 05/24/18 01/03/20 cetirizine 10 mg capsule 10 mg PO DAILY 12/14/18 01/03/20 fluticasone propionate 50 1 spray NASAL DAILY 12/14/18 01/03/20 mcg/actuation nasal spray,suspension levothyroxine 200 mcg PO DAILY 04/26/19 01/03/20 Previous Rx's Medication Instructions Recorded estradiol 1 mg tablet 1 mg PO DAILY #90 tab 03/30/19 albuterol sulfate 2 puff INHALATION Q4-6H PRN #18 06/17/19 gram prednisone 50 mg PO DAILY #5 tab 06/17/19 ondansetron 4 mg PO Q6H PRN #10 tab 12/28/19 pantoprazole 40 mg PO DAILY #30 tab 12/29/19 metoclopramide HCl [Reglan] 10 mg PO Q6H PRN #10 tab 12/31/19 Allergies Allergy/AdvReac Type Severity Reaction Status Date / Time adhesive [ADHESIVE] Allergy Intermediate Verified 06/17/19 16:07 amoxicillin [AMOXICILLIN] Allergy Intermediate Verified 06/17/19 16:07 cephalexin [From KEFLEX] Allergy Intermediate Verified 06/17/19 16:07 clindamycin [CLINDAMYCIN] Allergy Intermediate Verified 06/17/19 16:07 doxycycline [DOXYCYCLINE] Allergy Intermediate Verified 06/17/19 16:07 iodine [IODINE] Allergy Intermediate Verified 06/17/19 16:07 Sulfa (Sulfonamide Allergy Intermediate Verified 06/17/19 16:07 Antibiotics) [SULFA (SULFONAMIDE ANTIBIOTICS)] Penicillins [PENICILLINS] Allergy Unknown Verified 06/17/19 16:07 levofloxacin Allergy Verified 06/17/19 16:07 Review of Systems <POONAM Najera-BC - Last Filed: 01/03/20 19:34> Review of Systems Narrative: GENERAL: Denies chills, fatigue, malaise, fever, sweats. HEENT: Denies sinus pain, ear pain, sore throat, difficulty swallowing, dizziness. RESPIRATORY: Denies dyspnea, cough, wheezing, hemoptysis, sputum. CARDIOVASCULAR: Denies chest pain, palpitations, orthopnea, edema, GASTROINTESTINAL: See HPI : Denies dysuria, frequency, incontinence, hematuria, urinary retention. MUSCULOSKELETAL: denies weakness, joint pain, or bony pain SKIN: Denies rash, skin lesions, or other NEUROLOGIC: Denies weakness, headache, numbness, change in speech, confusion, seizures, incoordination. PSYCHIATRIC: No concerning psychosocial issues. 12 point review of systems is negative except for those stated above Patient History <RADHA Najera - Last Filed: 01/03/20 19:34> Medical History ADHD (Chronic ~1991) Anxiety (Chronic) Asthma (Chronic) Bipolar 1 disorder (Acute) Chicken pox (Resolved ~1988) Chronic back pain (Chronic) Depression (Chronic) Herpes (Inactive) Hypothyroid (Acute) Post traumatic stress disorder (PTSD) (Chronic) Thyroid cancer (Acute ~2008) Surgical History (Updated 01/04/20 @ 01:47 by HIGINIO Jarrell) Anesthesia (Resolved) H/O thyroidectomy (Acute ~05/2009) H/O: hysterectomy (Acute) History of hysterectomy (Resolved ~11/2011) History of knee surgery (Resolved ~04/2009) History of partial hysterectomy (Resolved ~09/2009) History of tonsillectomy and adenoidectomy (Resolved ~06/2008) Family History (Updated 01/04/20 @ 01:47 by HIGINIO Jarrell) Mother Breast cancer Grandmother History of cancer of spinal cord Lung cancer Grandfather Lung cancer Father Hyperlipidemia Social History Smoking Status: Former smoker Smoking Status: Former smoker alcohol intake frequency: a few times a month Substance Use Type: marijuana Exam <RADHA Najera - Last Filed: 01/03/20 19:34> Narrative Exam Narrative: GENERAL: This is a well-nourished, well-developed patient, in very teary HEAD: Atraumatic. Normocephalic. No temporal or scalp tenderness. EYES: Pupils equal round and reactive. Extraocular motions intact. No scleral icterus. No injection or drainage. ENT: Nose without bleeding, purulent drainage or septal hematoma. Airway patent. NECK: Trachea midline. No JVD or lymphadenopathy. Supple, nontender, no meningeal signs. CARDIOVASCULAR: Regular rate and rhythm without murmurs, gallops, or rubs. RESPIRATORY: Clear to auscultation. Breath sounds equal bilaterally. No wheezes, rales, or rhonchi. GASTROINTESTINAL: Abdomen soft, diffusely tender, nondistended. No hepato- splenomegaly, or palpable masses. No guarding. Active bowel sounds all 4 quadrants EXTREMITIES: No clubbing, cyanosis, or edema. No joint tenderness, effusion, or edema noted. BACK: Nontender without deformity or crepitance. No flank tenderness. NEURO: AOx3. SKIN: No rash or erythema on visible skin Initial Vital Signs Initial Vital Signs: Vital Signs Temperature 97.8 F 01/03/20 14:59 Pulse Rate 76 01/03/20 14:59 Respiratory Rate 16 01/03/20 14:59 Blood Pressure 131/75 01/03/20 14:59 Pulse Oximetry 98 01/03/20 14:59 <Jose Manuel Monaco MD - Last Filed: 01/04/20 08:08> Initial Vital Signs Initial Vital Signs: Vital Signs Temperature 97.8 F 01/03/20 14:59 Pulse Rate 76 01/03/20 14:59 Respiratory Rate 16 01/03/20 14:59 Blood Pressure 131/75 01/03/20 14:59 Pulse Oximetry 98 01/03/20 14:59 Scores <RADHA Najera - Last Filed: 01/03/20 19:34> GCS Arion coma scale eye opening: Spontaneous Reyes coma scale verbal response: Orientated Arion coma scale motor response: Obey commands Reyes coma scale total score: 15 Course <RADHA Najera - Last Filed: 01/03/20 19:34> Orders Ordered: Acetaminophen (Tylenol) 650 mg PO Q4HR PRN PRN Reason: Fever/Mild Pain (1-3) Albuterol (Ventolin Hfa) 2 puff INH Q4H PRN PRN Reason: Shortness Of Breath Enoxaparin Sodium (Lovenox) 40 mg SUBCUT DAILY JUD Estradiol (Estrace) 1 mg PO DAILY JUD Fluticasone Propionate (Flonase) 1 spray NASAL DAILY JUD Hydromorphone HCl (Dilaudid) 0.5 mg IV Q4HR PRN PRN Reason: Pain, Severe (7-10) Last Admin: 01/04/20 00:53 Dose: 0.5 mg Documented by: SHARIFA Sodium Chloride (Normal Saline 0.9%) 1,000 mls @ 100 mls/hr IV CONT JUD Last Infusion: 01/04/20 02:37 Dose: 100 mls/hr Documented by: Admin: 01/03/20 20:28 Dose: 125 mls/hr Documented by: JOHN PAUL Ciprofloxacin (Cipro) 400 mg in 200 mls @ 200 mls/hr IV Q12H JUD Last Infusion: 01/04/20 01:56 Dose: 0 mls/hr Documented by: Admin: 01/04/20 00:34 Dose: 200 mls/hr Documented by: SHARIFA Potassium Chloride 40 meq/ (Sodium Chloride) 520 mls @ 130 mls/hr IV NOW ONE Stop: 01/04/20 09:48 Last Admin: 01/04/20 06:25 Dose: 130 mls/hr Documented by: SHARIFA Cosigned by: TIMMY Ketorolac Tromethamine (Toradol) 15 mg IV Q6HR PRN PRN Reason: Pain, Moderate (4-6) Stop: 01/08/20 19:48 Last Admin: 01/04/20 06:04 Dose: 15 mg Documented by: Admin: 01/03/20 23:20 Dose: 15 mg Documented by: SHARIFA Lamotrigine (Lamictal) 200 mg PO DAILY [facility] Levothyroxine Sodium (Synthroid) 200 mcg PO QACBREAK [facility] Lorazepam (Ativan) 0.5 mg IV Q6HR PRN PRN Reason: Nausea Last Admin: 01/04/20 06:31 Dose: 0.5 mg Documented by: Admin: 01/04/20 01:28 Dose: 0.5 mg Documented by: SHARIFA Melatonin (Melatonin) 6 mg PO BEDTIME PRN PRN Reason: Sleep Naloxone HCl (Narcan) 0.2 mg IV Q2MIN PRN PRN Reason: Opiate Reversal Non-Formulary Medication (Dextroamphetamine-Amphetamine [Adderall Xr]) 20 mg PO DAILY PRN PRN Reason: FOCUS AT WORK Ondansetron HCl (Zofran) 4 mg IV Q6HR PRN PRN Reason: Nausea Last Admin: 01/04/20 05:35 Dose: 4 mg Documented by: SHARIFA Pantoprazole Sodium (Protonix) 40 mg IV DAILY [facility] Promethazine HCl (Phenergan) 25 mg PO Q6HR PRN PRN Reason: Nausea Promethazine HCl (Phenadoz) 25 mg [place] Q6HR PRN PRN Reason: Nausea Discontinued Medications Albuterol (Ventolin Hfa) 2 puff INH RTQ6HR PRN PRN Reason: Shortness Of Breath Albuterol (Ventolin Hfa (Vent/Covid R/O)) 2 puff INH Q4H PRN PRN Reason: shortness of breath Al Hydrox/Mg Hydrox/Simethicone 20 ml/ Lidocaine HCl 15 ml 0 ml PO NOW ONE Stop: 01/03/20 16:11 Last Admin: 01/03/20 16:23 Dose: 30 ml Documented by: ARSLANIN Hydromorphone HCl (Dilaudid) 0.5 mg IV NOW ONE Stop: 01/03/20 15:10 Last Admin: 01/03/20 15:14 Dose: 0.5 mg Documented by: CATHIE Hydromorphone HCl (Dilaudid) 0.5 mg IV NOW ONE Stop: 01/03/20 18:33 Last Admin: 01/03/20 19:02 Dose: 0.5 mg Documented by: ARSLANIN Sodium Chloride (Normal Saline 0.9%) 1,000 mls @ 1,000 mls/hr IV BOLUS ONE Stop: 01/03/20 16:08 Last Infusion: 01/03/20 18:56 Dose: 0 mls/hr Documented by: Admin: 01/03/20 15:15 Dose: 1,000 mls/hr Documented by: CATHIE Potassium Chloride 20 meq/ (Sodium Chloride) 260 mls @ 130 mls/hr IV NOW ONE Stop: 01/03/20 17:41 Last Infusion: 01/03/20 20:21 Dose: 50 mls/hr Documented by: JOHN PAUL Cosigned by: ELBA Infusion: 01/03/20 18:58 Dose: 75 mls/hr Documented by: CATHIE Cosigned by: KASSIE Infusion: 01/03/20 16:30 Dose: 75 mls/hr Documented by: CATHIE Cosigned by: KASSIE Admin: 01/03/20 16:03 Dose: 130 mls/hr Documented by: FAISAL Cosigned by: CATHIE Ceftriaxone Sodium/Dextrose (Rocephin) 1 gm in 50 mls @ 100 mls/hr IV NOW ONE Stop: 01/03/20 18:54 Last Infusion: 01/03/20 22:26 Dose: 100 mls/hr Documented by: JOHN PAUL Admin: 01/03/20 20:29 Dose: 100 mls/hr Documented by: JOHN PAUL Potassium Chloride 40 meq/ (Sodium Chloride) 520 mls @ 130 mls/hr IV NOW ONE Stop: 01/03/20 23:53 Last Infusion: 01/04/20 02:39 Dose: 0 mls/hr Documented by: SHARIFA Cosigned by: ALISSON Admin: 01/03/20 20:51 Dose: 130 mls/hr Documented by: JOHNP AUL Cosigned by: ELBA Levothyroxine Sodium (Synthroid) 200 mcg PO QACBREAK [facility] Last Admin: 01/04/20 01:14 Dose: Not Given Documented by: SHARIFA Levothyroxine Sodium (Synthroid Inj) 75 mcg IV NOW ONE Stop: 01/04/20 00:59 Last Admin: 01/04/20 02:49 Dose: Not Given Documented by: SHARIFA Levothyroxine Sodium (Synthroid Inj) 100 mcg IV QACBREAK ONE Stop: 01/04/20 07:01 [place] Carbonate ([place] Carbonate) 300 mg PO DAILY [facility] [place] Carbonate ([place] Carbonate) 600 mg PO QPM [facility] Last Admin: 01/04/20 00:33 Dose: 600 mg Documented by: SHARIFA Lorazepam (Ativan) 1 mg IV NOW ONE Stop: 01/03/20 16:38 Last Admin: 01/03/20 16:56 Dose: 1 mg Documented by: CATHIE Metoclopramide HCl (Reglan) 10 mg IV NOW ONE Stop: 01/03/20 15:21 Last Admin: 01/03/20 16:03 Dose: 10 mg Documented by: FAISAL Non-Formulary Medication (Dextroamphetamine-Amphetamine [Adderall Xr]) 20 mg PO DAILY [facility] Last Admin: 01/04/20 00:41 Dose: Not Given Documented by: SHARIFA Ondansetron HCl (Zofran) 4 mg IV NOW ONE Stop: 01/03/20 18:33 Last Admin: 01/03/20 19:02 Dose: 4 mg Documented by: FAISAL Ondansetron HCl (Zofran) 4 mg IV Q6HR [facility] Last Admin: 01/03/20 23:19 Dose: 4 mg Documented by: SHARIFA Pantoprazole Sodium (Protonix) 40 mg IV NOW ONE Stop: 01/03/20 15:21 Last Admin: 01/03/20 16:03 Dose: 40 mg Documented by: FAISAL Pantoprazole Sodium (Protonix) 40 mg PO DAILY [facility] Promethazine HCl (Phenadoz) 25 mg [place] Q8HR PRN PRN Reason: Nausea Promethazine HCl (Phenadoz) 25 mg [place] Q6HR [facility] Sucralfate (Carafate) 1 gm PO NOW ONE Stop: 01/03/20 16:38 Last Admin: 01/03/20 17:01 Dose: 1 gm Documented by: CATHIE Vital Signs Vital signs: Vital Signs - 8 hr 01/03/20 14:59 01/03/20 15:30 01/03/20 16:00 Temperature 97.8 F Pulse Rate 76 66 68 Respiratory Rate 16 18 23 Blood Pressure 131/75 127/78 125/66 Pulse Oximetry 98 100 99 01/03/20 16:30 01/03/20 17:00 01/03/20 17:30 Temperature Pulse Rate 78 65 73 Respiratory Rate 13 20 Blood Pressure Pulse Oximetry 98 01/03/20 18:02 01/03/20 18:30 Temperature Pulse Rate 94 H 96 H Respiratory Rate 20 20 Blood Pressure 119/64 124/64 Pulse Oximetry <Jose Manuel Monaco MD - Last Filed: 01/04/20 08:08> Orders Ordered: Acetaminophen (Tylenol) 650 mg PO Q4HR PRN PRN Reason: Fever/Mild Pain (1-3) Albuterol (Ventolin Hfa) 2 puff INH Q4H PRN PRN Reason: Shortness Of Breath Enoxaparin Sodium (Lovenox) 40 mg SUBCUT DAILY [facility] Estradiol (Estrace) 1 mg PO DAILY [facility] Fluticasone Propionate (Flonase) 1 spray NASAL DAILY [facility] Hydromorphone HCl (Dilaudid) 0.5 mg IV Q4HR PRN PRN Reason: Pain, Severe (7-10) Last Admin: 01/04/20 00:53 Dose: 0.5 mg Documented by: SHARIFA Sodium Chloride (Normal Saline 0.9%) 1,000 mls @ 100 mls/hr IV CONT JUD Last Infusion: 01/04/20 02:37 Dose: 100 mls/hr Documented by: Admin: 01/03/20 20:28 Dose: 125 mls/hr Documented by: JOHN PAUL Ciprofloxacin (Cipro) 400 mg in 200 mls @ 200 mls/hr IV Q12H JUD Last Infusion: 01/04/20 01:56 Dose: 0 mls/hr Documented by: Admin: 01/04/20 00:34 Dose: 200 mls/hr Documented by: SHARIFA Potassium Chloride 40 meq/ (Sodium Chloride) 520 mls @ 130 mls/hr IV NOW ONE Stop: 01/04/20 09:48 Last Admin: 01/04/20 06:25 Dose: 130 mls/hr Documented by: SHARIFA Cosigned by: TIMMY Ketorolac Tromethamine (Toradol) 15 mg IV Q6HR PRN PRN Reason: Pain, Moderate (4-6) Stop: 01/08/20 19:48 Last Admin: 01/04/20 06:04 Dose: 15 mg Documented by: Admin: 01/03/20 23:20 Dose: 15 mg Documented by: SHARIFA Lamotrigine (Lamictal) 200 mg PO DAILY [facility] Levothyroxine Sodium (Synthroid) 200 mcg PO QACBREAK [facility] Lorazepam (Ativan) 0.5 mg IV Q6HR PRN PRN Reason: Nausea Last Admin: 01/04/20 06:31 Dose: 0.5 mg Documented by: Admin: 01/04/20 01:28 Dose: 0.5 mg Documented by: SHARIFA Melatonin (Melatonin) 6 mg PO BEDTIME PRN PRN Reason: Sleep Naloxone HCl (Narcan) 0.2 mg IV Q2MIN PRN PRN Reason: Opiate Reversal Non-Formulary Medication (Dextroamphetamine-Amphetamine [Adderall Xr]) 20 mg PO DAILY PRN PRN Reason: FOCUS AT WORK Ondansetron HCl (Zofran) 4 mg IV Q6HR PRN PRN Reason: Nausea Last Admin: 01/04/20 05:35 Dose: 4 mg Documented by: SHARIFA Pantoprazole Sodium (Protonix) 40 mg IV DAILY [facility] Promethazine HCl (Phenergan) 25 mg PO Q6HR PRN PRN Reason: Nausea Promethazine HCl (Phenadoz) 25 mg [place] Q6HR PRN PRN Reason: Nausea Discontinued Medications Albuterol (Ventolin Hfa) 2 puff INH RTQ6HR PRN PRN Reason: Shortness Of Breath Albuterol (Ventolin Hfa (Vent/Covid R/O)) 2 puff INH Q4H PRN PRN Reason: shortness of breath Al Hydrox/Mg Hydrox/Simethicone 20 ml/ Lidocaine HCl 15 ml 0 ml PO NOW ONE Stop: 01/03/20 16:11 Last Admin: 01/03/20 16:23 Dose: 30 ml Documented by: ARSLANIN Hydromorphone HCl (Dilaudid) 0.5 mg IV NOW ONE Stop: 01/03/20 15:10 Last Admin: 01/03/20 15:14 Dose: 0.5 mg Documented by: CATHIE Hydromorphone HCl (Dilaudid) 0.5 mg IV NOW ONE Stop: 01/03/20 18:33 Last Admin: 01/03/20 19:02 Dose: 0.5 mg Documented by: ARSLANIN Sodium Chloride (Normal Saline 0.9%) 1,000 mls @ 1,000 mls/hr IV BOLUS ONE Stop: 01/03/20 16:08 Last Infusion: 01/03/20 18:56 Dose: 0 mls/hr Documented by: Admin: 01/03/20 15:15 Dose: 1,000 mls/hr Documented by: CATHIE Potassium Chloride 20 meq/ (Sodium Chloride) 260 mls @ 130 mls/hr IV NOW ONE Stop: 01/03/20 17:41 Last Infusion: 01/03/20 20:21 Dose: 50 mls/hr Documented by: JOHN PAUL Cosigned by: ELBA Infusion: 01/03/20 18:58 Dose: 75 mls/hr Documented by: CATHIE Cosigned by: KASSIE Infusion: 01/03/20 16:30 Dose: 75 mls/hr Documented by: CATHIE Cosigned by: KASSIE Admin: 01/03/20 16:03 Dose: 130 mls/hr Documented by: FAISAL Cosigned by: CATHIE Ceftriaxone Sodium/Dextrose (Rocephin) 1 gm in 50 mls @ 100 mls/hr IV NOW ONE Stop: 01/03/20 18:54 Last Infusion: 01/03/20 22:26 Dose: 100 mls/hr Documented by: JOHN PAUL Admin: 01/03/20 20:29 Dose: 100 mls/hr Documented by: JOHN PAUL Potassium Chloride 40 meq/ (Sodium Chloride) 520 mls @ 130 mls/hr IV NOW ONE Stop: 01/03/20 23:53 Last Infusion: 01/04/20 02:39 Dose: 0 mls/hr Documented by: SHARIFA Cosigned by: ALISSON Admin: 01/03/20 20:51 Dose: 130 mls/hr Documented by: JOHN PAUL Cosigned by: ELBA Levothyroxine Sodium (Synthroid) 200 mcg PO QACBREAK [facility] Last Admin: 01/04/20 01:14 Dose: Not Given Documented by: SHARIFA Levothyroxine Sodium (Synthroid Inj) 75 mcg IV NOW ONE Stop: 01/04/20 00:59 Last Admin: 01/04/20 02:49 Dose: Not Given Documented by: SHARIFA Levothyroxine Sodium (Synthroid Inj) 100 mcg IV QACBREAK ONE Stop: 01/04/20 07:01 [place] Carbonate ([place] Carbonate) 300 mg PO DAILY [facility] [place] Carbonate ([place] Carbonate) 600 mg PO QPM [facility] Last Admin: 01/04/20 00:33 Dose: 600 mg Documented by: SHARIFA Lorazepam (Ativan) 1 mg IV NOW ONE Stop: 01/03/20 16:38 Last Admin: 01/03/20 16:56 Dose: 1 mg Documented by: CATHIE Metoclopramide HCl (Reglan) 10 mg IV NOW ONE Stop: 01/03/20 15:21 Last Admin: 01/03/20 16:03 Dose: 10 mg Documented by: FAISAL Non-Formulary Medication (Dextroamphetamine-Amphetamine [Adderall Xr]) 20 mg PO DAILY [facility] Last Admin: 01/04/20 00:41 Dose: Not Given Documented by: SHARIFA Ondansetron HCl (Zofran) 4 mg IV NOW ONE Stop: 01/03/20 18:33 Last Admin: 01/03/20 19:02 Dose: 4 mg Documented by: FAISAL Ondansetron HCl (Zofran) 4 mg IV Q6HR [facility] Last Admin: 01/03/20 23:19 Dose: 4 mg Documented by: SHARIFA Pantoprazole Sodium (Protonix) 40 mg IV NOW ONE Stop: 01/03/20 15:21 Last Admin: 01/03/20 16:03 Dose: 40 mg Documented by: FAISAL Pantoprazole Sodium (Protonix) 40 mg PO DAILY JUD Promethazine HCl (Phenadoz) 25 mg [place] Q8HR PRN PRN Reason: Nausea Promethazine HCl (Phenadoz) 25 mg [place] Q6HR JUD Sucralfate (Carafate) 1 gm PO NOW ONE Stop: 01/03/20 16:38 Last Admin: 01/03/20 17:01 Dose: 1 gm Documented by: CATHIE Vital Signs Vital signs: Vital Signs - 8 hr 01/03/20 14:59 01/03/20 15:30 01/03/20 16:00 Temperature 97.8 F Pulse Rate 76 66 68 Respiratory Rate 16 18 23 Blood Pressure 131/75 127/78 125/66 Pulse Oximetry 98 100 99 01/03/20 16:30 01/03/20 17:00 01/03/20 17:30 Temperature Pulse Rate 78 65 73 Respiratory Rate 13 20 Blood Pressure Pulse Oximetry 98 01/03/20 18:02 01/03/20 18:30 Temperature Pulse Rate 94 H 96 H Respiratory Rate 20 20 Blood Pressure 119/64 124/64 Pulse Oximetry MDM - Nausea/Vomiting/Diarrhea <POONAM Najera- - Last Filed: 01/03/20 19:34> Lab Data Attestation: I reviewed the patient's lab results. Result diagrams: 01/04/20 05:09 01/04/20 05:09 Labs: Lab Results 01/03/20 01/03/20 01/03/20 Range/Units 15:13 15:13 15:13 WBC 5.9 (4.5-11.0) X10^3/uL RBC 4.45 (4.0-5.2) X10^6/uL Hgb 13.8 (12.0-16.0) g/dL Hct 39.7 (36-46) % MCV 89.4 (80-100) fL MCH 30.9 (26-34) PG MCHC 34.6 (30-36) % RDW 13.6 (11.6-14.8) % Plt Count 323 (150-400) X10^3/uL Neut % (Auto) 51.9 (50-75) % Lymph % (Auto) 36.4 (25-40) % Powell % (Auto) 9.2 (3-14) % Eos % (Auto) 1.8 L (2-4) % Baso % (Auto) 0.7 (0-2) % Neut # (Auto) 3100 (3459-2793) /uL Lymph # (Auto) 2100 (5914-3767) /uL Powell # (Auto) 500 (0-900) /uL Eos # (Auto) 100 (0-450) /uL Baso # (Auto) 0 (0-100) /uL PT 11.5 (10.1-12.7) SECONDS INR 1.0 (0.9-1.3) APTT 31 (26.4-36.2) SECONDS Sodium 138 (137-145) mmol/L Potassium 2.7 L* (3.4-5.1) mmol/L Chloride 99 (98-107) mmol/L Carbon Dioxide 31 (22-32) mmol/L BUN 7 (7-17) mg/dL Creatinine 0.52 (0.52-1.04) mg/dL Estimated GFR > 60.0 (>60) mL/min BUN/Creatinine Ratio 13.5 (6-22) Glucose 95 (70-100) mg/dL Lactate (0.7-2.1) mmol/L Calcium 9.1 (8.4-10.2) mg/dL Magnesium 1.9 (1.6-2.3) mg/dL Total Bilirubin 0.3 (0.2-1.3) mg/dL AST 36 (14-36) IU/L Alkaline Phosphatase 54 (38-126) U/L Total Creatine Kinase (30-135) U/L CK-MB (CK-2) CK-MB (CK-2) Rel Index Troponin I (0.01-0.034) ng/mL C-Reactive Protein (<1.0) mg/dL Total Protein 7.4 (6.3-8.2) g/dL Albumin 4.2 (3.5-5.0) g/dL Globulin 3.2 (1.7-4.1) g/dL Albumin/Globulin Ratio 1.3 (1.0-2.8) Amylase 56 (30-110) U/L Lipase 85 (23-300) U/L Urine RBC (0-5/HPF) Urine WBC (0-5/HPF) Ur Squamous Epith Cells (0-5/HPF) Urine Bacteria (None) Ur Culture Indicated? [place] (0.6-1.2) mmol/L 01/03/20 01/03/20 01/03/20 Range/Units 15:13 15:13 15:13 WBC (4.5-11.0) X10^3/uL RBC (4.0-5.2) X10^6/uL Hgb (12.0-16.0) g/dL Hct (36-46) % MCV (80-100) fL MCH (26-34) PG MCHC (30-36) % RDW (11.6-14.8) % Plt Count (150-400) X10^3/uL Neut % (Auto) (50-75) % Lymph % (Auto) (25-40) % Powell % (Auto) (3-14) % Eos % (Auto) (2-4) % Baso % (Auto) (0-2) % Neut # (Auto) (9263-0649) /uL Lymph # (Auto) (3571-4046) /uL Powell # (Auto) (0-900) /uL Eos # (Auto) (0-450) /uL Baso # (Auto) (0-100) /uL PT (10.1-12.7) SECONDS INR (0.9-1.3) APTT (26.4-36.2) SECONDS Sodium (137-145) mmol/L Potassium (3.4-5.1) mmol/L Chloride (98-107) mmol/L Carbon Dioxide (22-32) mmol/L BUN (7-17) mg/dL Creatinine (0.52-1.04) mg/dL Estimated GFR (>60) mL/min BUN/Creatinine Ratio (6-22) Glucose (70-100) mg/dL Lactate (0.7-2.1) mmol/L Calcium (8.4-10.2) mg/dL Magnesium (1.6-2.3) mg/dL Total Bilirubin (0.2-1.3) mg/dL AST (14-36) IU/L Alkaline Phosphatase (38-126) U/L Total Creatine Kinase 58 (30-135) U/L CK-MB (CK-2) TNP CK-MB (CK-2) Rel Index TNP Troponin I < 0.012 (0.01-0.034) ng/mL C-Reactive Protein < 0.5 (<1.0) mg/dL Total Protein (6.3-8.2) g/dL Albumin (3.5-5.0) g/dL Globulin (1.7-4.1) g/dL Albumin/Globulin Ratio (1.0-2.8) Amylase (30-110) U/L Lipase (23-300) U/L Urine RBC (0-5/HPF) Urine WBC (0-5/HPF) Ur Squamous Epith Cells (0-5/HPF) Urine Bacteria (None) Ur Culture Indicated? [place] < 0.2 L (0.6-1.2) mmol/L 01/03/20 01/03/20 Range/Units 15:23 16:43 WBC (4.5-11.0) X10^3/uL RBC (4.0-5.2) X10^6/uL Hgb (12.0-16.0) g/dL Hct (36-46) % MCV (80-100) fL MCH (26-34) PG MCHC (30-36) % RDW (11.6-14.8) % Plt Count (150-400) X10^3/uL Neut % (Auto) (50-75) % Lymph % (Auto) (25-40) % [place] % (Auto) (3-14) % Eos % (Auto) (2-4) % Baso % (Auto) (0-2) % Neut # (Auto) (1811-1234) /uL Lymph # (Auto) (7139-5839) /uL [place] # (Auto) (0-900) /uL Eos # (Auto) (0-450) /uL Baso # (Auto) (0-100) /uL PT (10.1-12.7) SECONDS INR (0.9-1.3) APTT (26.4-36.2) SECONDS Sodium (137-145) mmol/L Potassium (3.4-5.1) mmol/L Chloride (98-107) mmol/L Carbon Dioxide (22-32) mmol/L BUN (7-17) mg/dL Creatinine (0.52-1.04) mg/dL Estimated GFR (>60) mL/min BUN/Creatinine Ratio (6-22) Glucose (70-100) mg/dL Lactate 1.5 (0.7-2.1) mmol/L Calcium (8.4-10.2) mg/dL Magnesium (1.6-2.3) mg/dL Total Bilirubin (0.2-1.3) mg/dL AST (14-36) IU/L Alkaline Phosphatase (38-126) U/L Total Creatine Kinase (30-135) U/L CK-MB (CK-2) CK-MB (CK-2) Rel Index Troponin I (0.01-0.034) ng/mL C-Reactive Protein (<1.0) mg/dL Total Protein (6.3-8.2) g/dL Albumin (3.5-5.0) g/dL Globulin (1.7-4.1) g/dL Albumin/Globulin Ratio (1.0-2.8) Amylase (30-110) U/L Lipase (23-300) U/L Urine RBC None seen (0-5/HPF) Urine WBC 1-5/hpf (0-5/HPF) Ur Squamous Epith Cells 0-1 /hpf (0-5/HPF) Urine Bacteria Many (>30) H (None) Ur Culture Indicated? Specimen cultured [place] (0.6-1.2) mmol/L Urine Dip Bedside Urine Glucose Negative Bedside Urine Bilirubin - Negative Bedside Urine Ketone + 15 Urine Specific [place] 1.015 Bedside Urine Occult Blood - Negative Bedside Urine pH 8.0 Bedside Urine Protein - Negative Bedside Urine Urobilinogen - Negative Bedside Urine Nitrite + Positive Bedside Urine Leukocytes - Negative Esterase MDM Narrative Medical decision making narrative: The patient is a 34-year-old female with multiple emergency department visits in the past week. She presents with a chief complaint of nausea vomiting and abdominal pain. She has been able to keep down her medications at home, including a potassium Protonix. I reviewed her images from the past several days, indicating the possibility of mesenteric adenitis, no acute findings. Given that she had a CT on the , did not want to repeat that at this point time, especially given that she has no leukocytosis and a negative lactate. X-ray has no acute findings. The patient does have a UTI, on her urinalysis given the positive nitrates so she was started on ceftriaxone as per Dr. Brizuela. The patient was noted to be hypokalemic at 2.7, so we started a k rider in the emergency department. She was not noted have any EKG changes related to this. The patient was given multiple medications in the emergency department for nausea vomiting including Zofran, Reglan, Ativan and was still unable to pass a p.o. trial. I called and discussed the patient with Dr. Brizuela who kindly accepted the patient for observation given that she is unable to keep down fluids. <Jose Manuel Monaco MD - Last Filed: 01/04/20 08:08> Lab Data Labs: Lab Results 01/03/20 01/03/20 01/03/20 Range/Units 15:13 15:13 15:13 WBC 5.9 (4.5-11.0) X10^3/uL RBC 4.45 (4.0-5.2) X10^6/uL Hgb 13.8 (12.0-16.0) g/dL Hct 39.7 (36-46) % MCV 89.4 (80-100) fL MCH 30.9 (26-34) PG MCHC 34.6 (30-36) % RDW 13.6 (11.6-14.8) % Plt Count 323 (150-400) X10^3/uL Neut % (Auto) 51.9 (50-75) % Lymph % (Auto) 36.4 (25-40) % [place] % (Auto) 9.2 (3-14) % Eos % (Auto) 1.8 L (2-4) % Baso % (Auto) 0.7 (0-2) % Neut # (Auto) 3100 (0667-5797) /uL Lymph # (Auto) 2100 (1935-1350) /uL [place] # (Auto) 500 (0-900) /uL Eos # (Auto) 100 (0-450) /uL Baso # (Auto) 0 (0-100) /uL PT 11.5 (10.1-12.7) SECONDS INR 1.0 (0.9-1.3) APTT 31 (26.4-36.2) SECONDS Sodium 138 (137-145) mmol/L Potassium 2.7 L* (3.4-5.1) mmol/L Chloride 99 (98-107) mmol/L Carbon Dioxide 31 (22-32) mmol/L BUN 7 (7-17) mg/dL Creatinine 0.52 (0.52-1.04) mg/dL Estimated GFR > 60.0 (>60) mL/min BUN/Creatinine Ratio 13.5 (6-22) Glucose 95 (70-100) mg/dL Lactate (0.7-2.1) mmol/L Calcium 9.1 (8.4-10.2) mg/dL Magnesium 1.9 (1.6-2.3) mg/dL Total Bilirubin 0.3 (0.2-1.3) mg/dL AST 36 (14-36) IU/L Alkaline Phosphatase 54 (38-126) U/L Total Creatine Kinase (30-135) U/L CK-MB (CK-2) CK-MB (CK-2) Rel Index Troponin I (0.01-0.034) ng/mL C-Reactive Protein (<1.0) mg/dL Total Protein 7.4 (6.3-8.2) g/dL Albumin 4.2 (3.5-5.0) g/dL Globulin 3.2 (1.7-4.1) g/dL Albumin/Globulin Ratio 1.3 (1.0-2.8) Amylase 56 (30-110) U/L Lipase 85 (23-300) U/L Urine RBC (0-5/HPF) Urine WBC (0-5/HPF) Ur Squamous Epith Cells (0-5/HPF) Urine Bacteria (None) Ur Culture Indicated? [place] (0.6-1.2) mmol/L 01/03/20 01/03/20 01/03/20 Range/Units 15:13 15:13 15:13 WBC (4.5-11.0) X10^3/uL RBC (4.0-5.2) X10^6/uL Hgb (12.0-16.0) g/dL Hct (36-46) % MCV (80-100) fL MCH (26-34) PG MCHC (30-36) % RDW (11.6-14.8) % Plt Count (150-400) X10^3/uL Neut % (Auto) (50-75) % Lymph % (Auto) (25-40) % [place] % (Auto) (3-14) % Eos % (Auto) (2-4) % Baso % (Auto) (0-2) % Neut # (Auto) (7259-5389) /uL Lymph # (Auto) (4068-6003) /uL [place] # (Auto) (0-900) /uL Eos # (Auto) (0-450) /uL Baso # (Auto) (0-100) /uL PT (10.1-12.7) SECONDS INR (0.9-1.3) APTT (26.4-36.2) SECONDS Sodium (137-145) mmol/L Potassium (3.4-5.1) mmol/L Chloride (98-107) mmol/L Carbon Dioxide (22-32) mmol/L BUN (7-17) mg/dL Creatinine (0.52-1.04) mg/dL Estimated GFR (>60) mL/min BUN/Creatinine Ratio (6-22) Glucose (70-100) mg/dL Lactate (0.7-2.1) mmol/L Calcium (8.4-10.2) mg/dL Magnesium (1.6-2.3) mg/dL Total Bilirubin (0.2-1.3) mg/dL AST (14-36) IU/L Alkaline Phosphatase (38-126) U/L Total Creatine Kinase 58 (30-135) U/L CK-MB (CK-2) TNP CK-MB (CK-2) Rel Index TNP Troponin I < 0.012 (0.01-0.034) ng/mL C-Reactive Protein < 0.5 (<1.0) mg/dL Total Protein (6.3-8.2) g/dL Albumin (3.5-5.0) g/dL Globulin (1.7-4.1) g/dL Albumin/Globulin Ratio (1.0-2.8) Amylase (30-110) U/L Lipase (23-300) U/L Urine RBC (0-5/HPF) Urine WBC (0-5/HPF) Ur Squamous Epith Cells (0-5/HPF) Urine Bacteria (None) Ur Culture Indicated? [place] < 0.2 L (0.6-1.2) mmol/L 01/03/20 01/03/20 Range/Units 15:23 16:43 WBC (4.5-11.0) X10^3/uL RBC (4.0-5.2) X10^6/uL Hgb (12.0-16.0) g/dL Hct (36-46) % MCV (80-100) fL MCH (26-34) PG MCHC (30-36) % RDW (11.6-14.8) % Plt Count (150-400) X10^3/uL Neut % (Auto) (50-75) % Lymph % (Auto) (25-40) % [place] % (Auto) (3-14) % Eos % (Auto) (2-4) % Baso % (Auto) (0-2) % Neut # (Auto) (5787-0000) /uL Lymph # (Auto) (2425-7255) /uL [place] # (Auto) (0-900) /uL Eos # (Auto) (0-450) /uL Baso # (Auto) (0-100) /uL PT (10.1-12.7) SECONDS INR (0.9-1.3) APTT (26.4-36.2) SECONDS Sodium (137-145) mmol/L Potassium (3.4-5.1) mmol/L Chloride (98-107) mmol/L Carbon Dioxide (22-32) mmol/L BUN (7-17) mg/dL Creatinine (0.52-1.04) mg/dL Estimated GFR (>60) mL/min BUN/Creatinine Ratio (6-22) Glucose (70-100) mg/dL Lactate 1.5 (0.7-2.1) mmol/L Calcium (8.4-10.2) mg/dL Magnesium (1.6-2.3) mg/dL Total Bilirubin (0.2-1.3) mg/dL AST (14-36) IU/L Alkaline Phosphatase (38-126) U/L Total Creatine Kinase (30-135) U/L CK-MB (CK-2) CK-MB (CK-2) Rel Index Troponin I (0.01-0.034) ng/mL C-Reactive Protein (<1.0) mg/dL Total Protein (6.3-8.2) g/dL Albumin (3.5-5.0) g/dL Globulin (1.7-4.1) g/dL Albumin/Globulin Ratio (1.0-2.8) Amylase (30-110) U/L Lipase (23-300) U/L Urine RBC None seen (0-5/HPF) Urine WBC 1-5/hpf (0-5/HPF) Ur Squamous Epith Cells 0-1 /hpf (0-5/HPF) Urine Bacteria Many (>30) H (None) Ur Culture Indicated? Specimen cultured [place] (0.6-1.2) mmol/L Urine Dip Bedside Urine Glucose Negative Bedside Urine Bilirubin - Negative Bedside Urine Ketone + 15 Urine Specific [place] 1.015 Bedside Urine Occult Blood - Negative Bedside Urine pH 8.0 Bedside Urine Protein - Negative Bedside Urine Urobilinogen - Negative Bedside Urine Nitrite + Positive Bedside Urine Leukocytes - Negative Esterase Discharge Plan Departure Patient Disposition: Admitted as Observation Clinical Impression: Nausea & vomiting Qualifiers: Vomiting type: unspecified Vomiting Intractability: unspecified Qualified Code(s): R11.2 - Nausea with vomiting, unspecified Discharge Date/Time: 01/03/20 19:07 Admit Date/Time: 01/03/20 18:41 Admit Provider: Micky Brizuela <Jose Manuel Monaco MD - Last Filed: 01/04/20 08:08> Cosign ED Attending [place] Attestation: I was immediately available in the department for consultation. This documentation has been reviewed and I agree with assessment and plan. Supervised by Jose Manuel Monaco MD
[2020-01-03 20:05] LABS: Lithium < 0.2 mmol/L (0.6-1.2)
[2020-01-03 20:06] LABS: COVID19 -Nasal RAPID Negative (Negative)
[2020-01-03 20:11] LABS: C-Reactive Protein Quant < 0.5 mg/dL (<1.0)
[2020-01-03] MEDS: SODIUM CHLORIDE 0.9% 1,000 ML 125 ML IV (20:28)
[2020-01-03] MEDS: CEFTRIAXONE 1 GM/50 ML FROZ.PIGGY IV (20:29)
[2020-01-03] MEDS: POTASSIUM CHLORIDE 40 MEQ in SODIUM CHLORIDE 0.9% 500 ML 130 ML IV (20:51)
--- NOTE | 2020-01-03 23:19 | P.HP_ITS ---
History of Present Illness History of Present Illness Date Patient Seen: 01/03/20 Time Patient Seen: 20:00 Chief complaint: Nausea/CP Narrative: Ms. Lexy Callahan is a 34-year-old female with a past medical history attention deficit disorder, bipolar disorder, anxiety, hypothyroidism status post thyroidectomy for thyroid cancer and migraine headaches who presents to the ER via EMS with complaints of nausea, vomiting and diarrhea and abdominal pain. The patient has been seen in the ER 3 times this week on December 27, December 28 and December 30 and returned today for worsening symptoms uncontrolled with outpatient medications. The patient has and emmanuel nuous nausea vomiting and associated increased weakness and has been sleeping on the on the ground floor for 2 story house because she is too weak to ascend stairs and complains of frontal headache unlike her typical migraines and has had diarrhea since Thursday which started as explosive liquid and now she describes as ?baby poop?. She denies hematemesis, hematochezia or melena. She could describes her abdominal pain as a generalized intense aching but great is on the right side that she rates as a 10/10 upon arrival to the ER. The patient also reports that she has been able to keep down many of her medications for 1 week. Patient also resources smoking marijuana daily which helps with her nausea and anxiety. She has had no recent travel, no sick contacts including COVID-19 or dietary changes. Describes headache as above with mild photophobia and states her last migraine headache was 1 month ago. She does complain of generalized neck pain without nuchal rigidity or fever. Denies complaints of chest pain or palpitations. She reports no shortness of breath but has abdominal discomfort on taking a deep inspiration. She denies cough or wheezing. Chest abdominal pain is above. She denies urinary symptoms but has had a recent urinary tract infection treated with antibiotics in Oct, 2019. Patient has generalized weakness and denies falls or trauma. Upon arrival to the ER the patient is afebrile with temperature 97.8?, heart rate of 76, blood pressure 131/75, respirations 16, oxygen saturation 98% on room air. The patient has had serial imaging completed over the course of several visits this week. On 12/29/2019 she had abdominal ultrasound that was unremarkable. She had a CT of the abdomen and pelvis on 12/31/2019 finding excess of large and small bowel fluid without obstruction and possible enteritis, possible mesenteric angiitis or mesenteric panniculitis, low-density lesion in the right lobe of the liver which is described as possible hemangioma, spleen with 1 cm cyst or hemangioma. On laboratory analysis she has white count of 5.9, hemoglobin of 13.8, hematocrit of 39.7 and platelets of 223. She has a PT of 11.5, INR 1.0, PTT of 31. She has a sodium 138 and potassium at 2.7 with a BUN is 7 and creatinine is 0.52. Her of nonfasting glucose is 95. Magnesium level is 1.9 She has a total bilirubin of 0.3, AST of 36, ALT is yet pending and alkaline phosphatase 54. She has an albumin of 4.2 and lipase of 85. Her lactic acid is 1.9. Total CK is 58 and troponin is negative is less than 0.012. Twelve lead EKG is obtained du to hypokalemia revealing sinus rhythm without conduction abnormalities, block, ectopy, ST or T-wave changes. The patient is admitted to the medicine service for intractable nausea vomiting secondary to probable gastroenteritis. Patient History Medical History ADHD (Chronic ~1991) Anxiety (Chronic) Asthma (Chronic) Bipolar 1 disorder (Acute) Chicken pox (Resolved ~1988) Chronic back pain (Chronic) Depression (Chronic) Herpes (Inactive) Hypothyroid (Acute) Post traumatic stress disorder (PTSD) (Chronic) Thyroid cancer (Acute ~2008) Surgical History (Updated 01/04/20 @ 01:47 by HIGINIO Jarrell) Anesthesia (Resolved) H/O thyroidectomy (Acute ~05/2009) H/O: hysterectomy (Acute) History of hysterectomy (Resolved ~11/2011) History of knee surgery (Resolved ~04/2009) History of partial hysterectomy (Resolved ~09/2009) History of tonsillectomy and adenoidectomy (Resolved ~06/2008) Family & Social History Family History (Updated 01/04/20 @ 01:47 by HIGINIO Jarrell) Mother Breast cancer Grandmother History of cancer of spinal cord Lung cancer Grandfather Lung cancer Father Hyperlipidemia Safety & Behavioral: Feels Safe in Current Yes Environment Been Physically Hurt or No Threatened By a Person Suicidal Ideation Description None Suicide Plan Description No Plan Tobacco & Substance use: Smoking Status Former smoker alcohol intake frequency a few times a month Substance Use Type marijuana Comment: 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 She endorses smoking marijuana that helps with the nausea and anxiety and last smoked earlier today. Meds Home Medications and Allergies Home Medications Medication Instructions Recorded Confirmed Type sumatriptan succinate [Imitrex] 100 mg PO PRN PRN #0 08/22/12 01/03/20 History dextroamphetamine-amphetamine 20 mg PO QAM PRN 02/11/18 01/03/20 History [Adderall XR] lamotrigine 200 mg PO DAILY 05/24/18 01/03/20 History lithium carbonate 300 mg PO QAM 05/24/18 01/03/20 History lithium carbonate 600 mg PO QPM 05/24/18 01/03/20 History trazodone 150 mg PO QPM 05/24/18 01/03/20 History cetirizine 10 mg capsule 10 mg PO DAILY 12/14/18 01/03/20 History fluticasone propionate 50 1 spray NASAL DAILY 12/14/18 01/03/20 History mcg/actuation nasal spray,suspension estradiol 1 mg tablet 1 mg PO DAILY #90 tab 03/30/19 01/03/20 Rx levothyroxine 200 mcg PO DAILY 04/26/19 01/03/20 History albuterol sulfate 2 puff INHALATION Q4-6H PRN #18 06/17/19 01/03/20 Rx gram prednisone 50 mg PO DAILY #5 tab 06/17/19 01/03/20 Rx ondansetron 4 mg PO Q6H PRN #10 tab 12/28/19 01/03/20 Rx pantoprazole 40 mg PO DAILY #30 tab 12/29/19 01/03/20 Rx metoclopramide HCl [Reglan] 10 mg PO Q6H PRN #10 tab 12/31/19 01/03/20 Rx Allergies Allergy/AdvReac Type Severity Reaction Status Date / Time adhesive [ADHESIVE] Allergy Intermediate Verified 06/17/19 16:07 amoxicillin [AMOXICILLIN] Allergy Intermediate Verified 06/17/19 16:07 cephalexin [From KEFLEX] Allergy Intermediate Verified 06/17/19 16:07 clindamycin [CLINDAMYCIN] Allergy Intermediate Verified 06/17/19 16:07 doxycycline [DOXYCYCLINE] Allergy Intermediate Verified 06/17/19 16:07 iodine [IODINE] Allergy Intermediate Verified 06/17/19 16:07 Sulfa (Sulfonamide Allergy Intermediate Verified 06/17/19 16:07 Antibiotics) [SULFA (SULFONAMIDE ANTIBIOTICS)] Penicillins [PENICILLINS] Allergy Unknown Verified 06/17/19 16:07 levofloxacin Allergy Verified 06/17/19 16:07 Review of Systems Review of Systems ROS: Yes All systems reviewed with the patient and are negative except as otherwise documented Exam Vital Signs (past 8 hours): - 01/03/20 16:30 01/03/20 17:00 01/03/20 17:30 Temperature Pulse Rate 78 65 73 Respiratory Rate 13 20 Blood Pressure Pulse Oximetry 98 01/03/20 18:02 01/03/20 18:30 01/03/20 19:00 Temperature Pulse Rate 94 H 96 H 76 Respiratory Rate 20 20 18 Blood Pressure 119/64 124/64 126/63 Pulse Oximetry 97 01/03/20 20:06 01/03/20 23:30 Temperature 99.1 F 98.8 F Pulse Rate 78 69 Respiratory Rate 18 18 Blood Pressure 129/71 115/62 Pulse Oximetry 97 96 Oxygen Delivery Method Room Air Oxygen Flow Rate 0 Narrative Exam Narrative: GENERAL APPEARANCE: well developed, obese female with BMI of 30.7 who was ill- appearing. HEENT: Normocephalic, PERRLA, conjunctiva clear, EOMs intact without nystagmus, no sinus tenderness to percussion, no rhinorrhea, mucous membranes are dry and pink without lesions or exudate. NECK/THYROID: Preserved ROM, tenderness on palpation without muscular rigidity, no JVD, well-healed thyroid surgical scar, trachea midline. LYMPH NODES: no cervical or supraclavicular lymphadenopathy. SKIN: [place], warm and dry, no visible lesions, rashes, ulcerations or petechiae. HEART: regular rate and rhythm, S1-S2, no murmur, no rubs or gallops, brisk capillary refill, no edema LUNGS: clear to auscultation bilaterally, no coarseness crackles or wheezing, no cough present CHEST: Symmetrical movement, no accessory muscle use, shallow tidal volume ABDOMEN: Soft, no distention, generalized abdominal pain on palpation greatest right upper and lower quadrants, no rigidity or peritoneal signs, no organomegaly, no flank or suprapubic tenderness, hyperactive bowel tones. BACK: Normal curvature, nontender to palpation, no CVA tenderness on percussion EXTREMITIES: moves all extremities, strength is 5/5 and symmetrical, no deformities or joint effusions. NEUROLOGIC: AAO x4, no focal neurologic deficits, cranial nerves II-XII grossly intact, decreased sensation bilateral lower extremities to light touch, hearing grossly normal to speech. PSYCH: Restless, conversant, linear thought, cooperative, stable behavior Objective Labs Result Diagrams: 01/03/20 15:13 01/03/20 15:13 Labs: Laboratory Results - last 24 hr 01/03/20 01/03/20 01/03/20 15:13 15:13 15:13 WBC 5.9 RBC 4.45 Hgb 13.8 Hct 39.7 MCV 89.4 MCH 30.9 MCHC 34.6 RDW 13.6 Plt Count 323 Neut % (Auto) 51.9 Lymph % (Auto) 36.4 [place] % (Auto) 9.2 Eos % (Auto) 1.8 L Baso % (Auto) 0.7 Neut # (Auto) 3100 Lymph # (Auto) 2100 [place] # (Auto) 500 Eos # (Auto) 100 Baso # (Auto) 0 PT 11.5 INR 1.0 APTT 31 Sodium 138 Potassium 2.7 L* Chloride 99 Carbon Dioxide 31 BUN 7 Creatinine 0.52 Estimated GFR > 60.0 BUN/Creatinine Ratio 13.5 Glucose 95 Lactate Calcium 9.1 Magnesium 1.9 Total Bilirubin 0.3 AST 36 Alkaline Phosphatase 54 Total Creatine Kinase CK-MB (CK-2) CK-MB (CK-2) Rel Index Troponin I C-Reactive Protein Total Protein 7.4 Albumin 4.2 Globulin 3.2 Albumin/Globulin Ratio 1.3 Amylase 56 Lipase 85 Urine RBC Urine WBC Ur Squamous Epith Cells Urine Bacteria Ur Culture Indicated? [place] COVID-19 PCR 01/03/20 01/03/20 01/03/20 15:13 15:13 15:13 WBC RBC Hgb Hct MCV MCH MCHC RDW Plt Count Neut % (Auto) Lymph % (Auto) [place] % (Auto) Eos % (Auto) Baso % (Auto) Neut # (Auto) Lymph # (Auto) [place] # (Auto) Eos # (Auto) Baso # (Auto) PT INR APTT Sodium Potassium Chloride Carbon Dioxide BUN Creatinine Estimated GFR BUN/Creatinine Ratio Glucose Lactate Calcium Magnesium Total Bilirubin AST Alkaline Phosphatase Total Creatine Kinase 58 CK-MB (CK-2) TNP CK-MB (CK-2) Rel Index TNP Troponin I < 0.012 C-Reactive Protein < 0.5 Total Protein Albumin Globulin Albumin/Globulin Ratio Amylase Lipase Urine RBC Urine WBC Ur Squamous Epith Cells Urine Bacteria Ur Culture Indicated? [place] < 0.2 L COVID-19 PCR 01/03/20 01/03/20 01/03/20 15:23 16:43 18:55 WBC RBC Hgb Hct MCV MCH MCHC RDW Plt Count Neut % (Auto) Lymph % (Auto) [place] % (Auto) Eos % (Auto) Baso % (Auto) Neut # (Auto) Lymph # (Auto) [place] # (Auto) Eos # (Auto) Baso # (Auto) PT INR APTT Sodium Potassium Chloride Carbon Dioxide BUN Creatinine Estimated GFR BUN/Creatinine Ratio Glucose Lactate 1.5 Calcium Magnesium Total Bilirubin AST Alkaline Phosphatase Total Creatine Kinase CK-MB (CK-2) CK-MB (CK-2) Rel Index Troponin I C-Reactive Protein Total Protein Albumin Globulin Albumin/Globulin Ratio Amylase Lipase Urine RBC None seen Urine WBC 1-5/hpf Ur Squamous Epith Cells 0-1 /hpf Urine Bacteria Many (>30) H Ur Culture Indicated? Specimen cultured [place] COVID-19 PCR Negative Assessment & Plan Assessment & Plan narrative: This is a 34-year-old female patient who presents to the ER for the 4th time in 1 week with intractable nausea, vomiting and diarrhea with worsening abdominal pain. 1. Acute intractable nausea and vomiting with diarrhea, present on admission, active. -patient has been to the ER 3 times previously for intractable nausea vomiting and discharged home with Zofran and metoclopramide. She is presently unable to keep down her regular home medications. -she continues to have nausea vomiting with white frothy emesis, no hematemesis. -the patient does endorse smoking marijuana daily and states helps her nausea and anxiety. Consideration is given to cannabis hyperemesis emesis syndrome when the patient requests take shower and showers frequently at home. -ordered Zofran 4 mg IV every 6 hours as needed. -ordered promethazine 25 mg oral or rectally every 6 hours as needed. -ordered Ativan 0.5 mg IV every 6 hours as needed. 2. Acute abdominal pain, probable gastroenteritis, present on admission, active. -patient will marked tenderness on palpation over epigastrium and abdomen. Greatest pain over right upper lower quadrants. -CT scan finds excess large and small bowel fluid without obstruction, possible enteritis. Possible mesenteric angiitis or mesenteric panniculitis. -white count is normal at 5.9 and lactic acid is 1.5. Liver functions and lipase are all normal. -ordered GI PCR and procalcitonin, CRP. -ordered Cipro 400 mg IV every 12 hours. -ordered hydromorphone 0.5 mg IV every 4 hours as needed for pain 3. Acute hypokalemia, present on admission, active. -patient with acute hyperkalemia secondary to nausea vomiting and diarrhea. -Serum per 10 level on admission is 2.7 and on 12/31/19 her level was 2.5 at which time she was prescribed 20 mEq of potassium twice daily which she was unable to tolerate. -in the ER the patient received 20 mEq of potassium IV, ordered an additional 40 mEq of potassium IV. -recheck potassium level on chemistries in the morning 4. Acquired hypothyroidism, chronic, present on admission, active. -the patient underwent total thyroidectomy in 2008 for thyroid cancer. -she takes home regimen of 200 mcg of levothyroxine daily but states she has not been able to keep medication down for 1 week. -ordered levothyroxine 100 mcg IV since the patient is unable to tolerate oral medication. Will transition to oral medication once tolerating orals. -will check a TSH and T4 level. 5. Bipolar disorder with anxiety and depression, chronic, stable. -patient is uncomfortable restless but remains cooperative and is able to focus on conversation and respond to questions appropriately. -the patient normally takes lamotrigine 200 mg daily, lithium 300 mg in the morning and 600 mg at night and trazodone 150 mg at bedtime. -ordered lithium level which is found to be less than 0.2. -ordered lorazepam 0.5 mg IV every 6 hours as needed. -will resume oral medications when patient is able to take POs. 6. Possible urinary tract infection, acute -patient with recent UTI treated with nitro for on 10 in October of 2019 -patient complains of suprapubic pain on palpation, denies urinary frequency or urgency, burning or hematuria. -partial screening UA of from the ER finds and many bacteria, wbc's 1-5 and reflex to culture. -ordered full urinalysis. VTE prophylaxis: Bilateral SCDs, enoxaparin IV fluid: 125 cc/hour Diet: NPO Code status: FULL CODE, the patient designates her mother Lamar ([phone]) to be her surrogate decision maker. The patient is admitted to the hospital due to the severity of her symptoms secondary to gastroenteritis and failing multiple attempts at outpatient treatment. The patient is admitted as observation with expected length of stay to be less than 2 midnights. COVID-19 COVID-19 status: Negative Result date/Date tested (Pos, Neg/Pending): 01/03/20 Quality VTE Deep Vein Thrombosis/Pulmonary Embolism Present on Admission: No
[2020-01-03] MEDS: KETOROLAC 15 MG/ML VIAL IV (23:20)
[2020-01-04] MEDS: LITHIUM 300 MG IR CAPSULE 600 MG PO (00:33)
[2020-01-04] MEDS: CIPROFLOXACIN 400 MG/200 ML PIGGYBACK 200 MG IV ×3 (00:34→23:41)
[2020-01-04] MEDS: HYDROMORPHONE 0.5 MG INJ IV ×2 (00:53→15:45)
[2020-01-04] MEDS: LORazepam 2 MG/ML INJ 0.5 MG IV ×3 (01:28→13:06)
--- NOTE | 2020-01-04 02:55 | PC.NURSE ---
Addendum entered by Carri Garcia R.N. 01/04/20 06:52: additional note: Ativan given 1 hour early as per verbal agreement by Linden SYLVESTER. Addendum entered by Carri Garcia R.N. 01/04/20 06:35: Complains of leg cramps and abdominal pain again this morning and was medicated with Toradol and now states pain is down to 4/10. Also complained earlier of nausea and was medicated with Zofran but continues to have nausea so now medicated with Ativan. Original Note: Patient initially seen and assessed at 2330. Is alert and oriented. Breath sounds CTA with RA sat of 96%. Admits to feeling slightly nauseated and was medicated with scheduled Zofran. BT hypoactive and abdomen is tender throughout; states she is passing flatus. Voiding without dysuria, frequency or urgency. Able to turn self in bed. States she feels weak in bilateral LE so is provided SBA when out of bed. Complained of leg cramps and was medicated with Toradol. Bilateral calf SCD's were placed but only wore them for 1 hour and then requested they be removed as she was unable to sleep with them on. States she has some chronic tingling of toes on bilateral feet. Was given [place] at 0033 with sips of water and approximately 15 minutes later began complaining of nausea and vomited 50cc. Complained of severe upper abdominal pain with severity of 8/10 so was medicated with IV Dilaudid. [employer] was informed of nausea/vomiting and only order for antiemetic is po Phenergan; new orders received and IV Ativan was given after pharmacy verification and patient now states she is feeling much improved.
[2020-01-04 05:00] VITALS: BP 125/71; PULSE 84; RESP 18; TEMP 36.8; O2SAT 94
[2020-01-04] MEDS: ONDANSETRON 4 MG/2 ML INJ IV ×2 (05:35→13:38)
[2020-01-04 05:41] LABS: Add Manual Diff / Slide Review NO; Basophils Absolute Auto 0 /uL (0-100); Basophils Percent Auto 0.6 % (0-2); Eosinophils Absolute Auto 100 /uL (0-450); Eosinophils Percent Auto 2.1 % (2-4); Hematocrit 34.9 % (36-46); Lymphocytes Absolute Auto 2500 /uL (1100-4500); Lymphocytes Percent Auto 41.1 % (25-40); Mean Corpuscular HGB Conc 34.4 % (30-36); Monocytes Absolute Auto 600 /uL (0-900); Monocytes Percent Auto 9.6 % (3-14); Neutrophils Absolute Auto 2900 /uL (1500-7000); Neutrophils Percent Auto 46.6 % (50-75); Platelet Count 278 X10^3/uL (150-400); Red Blood Cell Count 3.88 X10^6/uL (4.0-5.2); Red Cell Distribution Width 13.4 % (11.6-14.8); White Blood Cell Count 6.1 X10^3/uL (4.5-11.0)
[2020-01-04 05:44] LABS: BUN Creatinine Ratio 13.5 (6-22); Blood Urea Nitrogen 7 mg/dL (7-17); Calcium 7.9 mg/dL (8.4-10.2); Carbon Dioxide 30 mmol/L (22-32); Chloride 106 mmol/L (98-107); Estimated Glomerular Filt Rate > 60.0 mL/min (>60); Glucose 88 mg/dL (70-100); HEMOLYSIS < 15 (0-50); Potassium 3.3 mmol/L (3.4-5.1); Sodium 139 mmol/L (137-145)
[2020-01-04] MEDS: KETOROLAC 15 MG/ML VIAL IV ×3 (06:04→23:40)
[2020-01-04] MEDS: POTASSIUM CHLORIDE 40 MEQ in SODIUM CHLORIDE 0.9% 500 ML 130 ML IV (06:25)
[2020-01-04 06:32] LABS: Free T4, Direct Thyroxine 1.85 ng/dL (0.78-2.19)
[2020-01-04 06:49] LABS: Procalcitonin < 0.05 ng/mL (<0.5)
[2020-01-04 06:50] LABS: Thyroid Stimulating Hormone < 0.015 uIU/mL (0.47-4.68)
[2020-01-04 08:24] VITALS: BP 115/67; PULSE 72; RESP 16; TEMP 36.8; O2SAT 96
[2020-01-04] MEDS: LEVOTHYROXINE INJ 100 MCG/5 ML VIAL IV (08:27)
[2020-01-04] MEDS: ENOXAPARIN 40 MG/0.4 ML SYRINGE SUBCUT (08:27)
[2020-01-04] MEDS: FLUTICASONE 120 SPRAY/16 GM SPRAY.SUSP NASAL (08:28)
[2020-01-04] MEDS: PANTOPRAZOLE 40 MG VIAL IV (08:28)
[2020-01-04] MEDS: PROMETHAZINE 25 MG SUPP PR ×2 (08:44→15:57)
[2020-01-04 11:20] VITALS: BP 112/70; PULSE 62; RESP 16; TEMP 36.7; O2SAT 99
--- NOTE | 2020-01-04 13:41 | PM.PN.1 ---
Subjective Subjective Date Patient Seen: 01/04/20 Time Patient Seen: 14:43 Interval history: Lexy Callahan is a 34-year-old female who was admitted for intractable nausea and vomiting. Patient today was sleeping for much of the morning, and was tried on a bland diet. She reports tolerance with no issues mainly to liquids, but when swallowing food boluses she reports a sensation as if the food gets stuck substernally with corresponding pain. This resides after few minutes. She further reports history of prior endoscopy showing bad reflux and a prior colonoscopy many years ago in [place]. I did discuss with Dr. Hernandez of surgery, and agrees that endoscopy is reasonable. Patient will be NPO this evening with plan for endoscopy tomorrow for further evaluation of dysphagia. Exam Vital Signs (past 8 hours): - 01/04/20 08:24 01/04/20 11:20 Temperature 98.3 F 98.0 F Pulse Rate 72 62 Respiratory Rate 16 16 Blood Pressure 115/67 112/70 Pulse Oximetry 96 99 Oxygen Delivery Method Room Air Oxygen Flow Rate 0 Narrative Exam Narrative: GENERAL APPEARANCE: well developed, obese female, mildly ill-appearing and mildly anxious HEENT: Normocephalic, PERRLA, conjunctiva clear, EOMs intact without nystagmus, no sinus tenderness to percussion, no rhinorrhea, mucous membranes are dry and pink without lesions or exudate. NECK/THYROID: Preserved ROM, tenderness on palpation without muscular rigidity, no JVD, well-healed thyroid surgical scar, trachea midline. LYMPH NODES: no cervical or supraclavicular lymphadenopathy. SKIN: [place], warm and dry, no visible lesions, rashes, ulcerations or petechiae. HEART: regular rate and rhythm, S1-S2, no murmur, no rubs or gallops, brisk capillary refill, no edema LUNGS: clear to auscultation bilaterally, no coarseness crackles or wheezing, no cough present CHEST: Symmetrical movement, no accessory muscle use, shallow tidal volume ABDOMEN: Soft, no distention, generalized abdominal pain on palpation greatest right upper and lower quadrants, no rigidity or peritoneal signs, no organomegaly, no flank or suprapubic tenderness, hyperactive bowel tones. BACK: Normal curvature, nontender to palpation, no CVA tenderness on percussion EXTREMITIES: moves all extremities, strength is 5/5 and symmetrical, no deformities or joint effusions. NEUROLOGIC: AAO x4, no focal neurologic deficits, cranial nerves II-XII grossly intact, decreased sensation bilateral lower extremities to light touch, hearing grossly normal to speech. PSYCH: Restless, conversant, linear thought, cooperative, stable behavior Objective Labs Result Diagrams: 01/04/20 05:09 01/04/20 05:09 Labs: Laboratory Results - last 24 hr 01/03/20 01/03/20 01/03/20 15:13 15:13 15:13 WBC 5.9 RBC 4.45 Hgb 13.8 Hct 39.7 MCV 89.4 MCH 30.9 MCHC 34.6 RDW 13.6 Plt Count 323 Neut % (Auto) 51.9 Lymph % (Auto) 36.4 [place] % (Auto) 9.2 Eos % (Auto) 1.8 L Baso % (Auto) 0.7 Neut # (Auto) 3100 Lymph # (Auto) 2100 [place] # (Auto) 500 Eos # (Auto) 100 Baso # (Auto) 0 PT 11.5 INR 1.0 APTT 31 Sodium 138 Potassium 2.7 L* Chloride 99 Carbon Dioxide 31 BUN 7 Creatinine 0.52 Estimated GFR > 60.0 BUN/Creatinine Ratio 13.5 Glucose 95 Lactate Calcium 9.1 Magnesium 1.9 Total Bilirubin 0.3 AST 36 Alkaline Phosphatase 54 Total Creatine Kinase CK-MB (CK-2) CK-MB (CK-2) Rel Index Troponin I C-Reactive Protein Total Protein 7.4 Albumin 4.2 Globulin 3.2 Albumin/Globulin Ratio 1.3 Amylase 56 Lipase 85 Procalcitonin TSH Free T4 Urine RBC Urine WBC Ur Squamous Epith Cells Urine Bacteria Ur Culture Indicated? [place] COVID-19 PCR 01/03/20 01/03/20 01/03/20 15:13 15:13 15:13 WBC RBC Hgb Hct MCV MCH MCHC RDW Plt Count Neut % (Auto) Lymph % (Auto) [place] % (Auto) Eos % (Auto) Baso % (Auto) Neut # (Auto) Lymph # (Auto) [place] # (Auto) Eos # (Auto) Baso # (Auto) PT INR APTT Sodium Potassium Chloride Carbon Dioxide BUN Creatinine Estimated GFR BUN/Creatinine Ratio Glucose Lactate Calcium Magnesium Total Bilirubin AST Alkaline Phosphatase Total Creatine Kinase 58 CK-MB (CK-2) TNP CK-MB (CK-2) Rel Index TNP Troponin I < 0.012 C-Reactive Protein < 0.5 Total Protein Albumin Globulin Albumin/Globulin Ratio Amylase Lipase Procalcitonin TSH Free T4 Urine RBC Urine WBC Ur Squamous Epith Cells Urine Bacteria Ur Culture Indicated? [place] < 0.2 L COVID-19 PCR 01/03/20 01/03/20 01/03/20 15:23 16:43 18:55 WBC RBC Hgb Hct MCV MCH MCHC RDW Plt Count Neut % (Auto) Lymph % (Auto) [place] % (Auto) Eos % (Auto) Baso % (Auto) Neut # (Auto) Lymph # (Auto) [place] # (Auto) Eos # (Auto) Baso # (Auto) PT INR APTT Sodium Potassium Chloride Carbon Dioxide BUN Creatinine Estimated GFR BUN/Creatinine Ratio Glucose Lactate 1.5 Calcium Magnesium Total Bilirubin AST Alkaline Phosphatase Total Creatine Kinase CK-MB (CK-2) CK-MB (CK-2) Rel Index Troponin I C-Reactive Protein Total Protein Albumin Globulin Albumin/Globulin Ratio Amylase Lipase Procalcitonin TSH Free T4 Urine RBC None seen Urine WBC 1-5/hpf Ur Squamous Epith Cells 0-1 /hpf Urine Bacteria Many (>30) H Ur Culture Indicated? Specimen cultured [place] COVID-19 PCR Negative 01/04/20 01/04/20 01/04/20 05:09 05:09 05:09 WBC 6.1 RBC 3.88 L Hgb 12.0 Hct 34.9 L MCV 90.0 MCH 31.0 MCHC 34.4 RDW 13.4 Plt Count 278 Neut % (Auto) 46.6 L Lymph % (Auto) 41.1 H [place] % (Auto) 9.6 Eos % (Auto) 2.1 Baso % (Auto) 0.6 Neut # (Auto) 2900 Lymph # (Auto) 2500 [place] # (Auto) 600 Eos # (Auto) 100 Baso # (Auto) 0 PT INR APTT Sodium 139 Potassium 3.3 L Chloride 106 Carbon Dioxide 30 BUN 7 Creatinine 0.52 Estimated GFR > 60.0 BUN/Creatinine Ratio 13.5 Glucose 88 Lactate Calcium 7.9 L Magnesium Total Bilirubin AST Alkaline Phosphatase Total Creatine Kinase CK-MB (CK-2) CK-MB (CK-2) Rel Index Troponin I C-Reactive Protein Total Protein Albumin Globulin Albumin/Globulin Ratio Amylase Lipase Procalcitonin TSH < 0.015 L Free T4 1.85 Urine RBC Urine WBC Ur Squamous Epith Cells Urine Bacteria Ur Culture Indicated? [place] COVID-19 PCR 01/04/20 05:09 WBC RBC Hgb Hct MCV MCH MCHC RDW Plt Count Neut % (Auto) Lymph % (Auto) [place] % (Auto) Eos % (Auto) Baso % (Auto) Neut # (Auto) Lymph # (Auto) [place] # (Auto) Eos # (Auto) Baso # (Auto) PT INR APTT Sodium Potassium Chloride Carbon Dioxide BUN Creatinine Estimated GFR BUN/Creatinine Ratio Glucose Lactate Calcium Magnesium Total Bilirubin AST Alkaline Phosphatase Total Creatine Kinase CK-MB (CK-2) CK-MB (CK-2) Rel Index Troponin I C-Reactive Protein Total Protein Albumin Globulin Albumin/Globulin Ratio Amylase Lipase Procalcitonin < 0.05 TSH Free T4 Urine RBC Urine WBC Ur Squamous Epith Cells Urine Bacteria Ur Culture Indicated? [place] COVID-19 PCR Assessment & Plan Assessment & Plan narrative: This is a 34-year-old female patient who presents to the ER for the 4th time in 1 week with intractable nausea, vomiting and diarrhea with worsening abdominal pain, today patient was able to tolerate some clears but reported dysphagia today to solids only. Plan for EGD tomorrow after discussion with surgery. 1. Acute intractable nausea and vomiting with diarrhea, present on admission, active. -patient has been to the ER 3 times previously for intractable nausea vomiting and discharged home with Zofran and metoclopramide. She is presently unable to keep down her regular home medications. She reports now ability to tolerate liquids and will continue on a CLD. Reported dysphagia with feelings of food getting stuck distally. Plan for EGD tomorrow, appreciate surgery assistance and recommendations. -the patient does endorse smoking marijuana daily and states helps her nausea and anxiety. Consideration is given to cannabis hyperemesis emesis syndrome when the patient requests take shower and showers frequently at home. -ordered Zofran 4 mg IV every 6 hours as needed. -ordered promethazine 25 mg oral or rectally every 6 hours as needed. -ordered Ativan 0.5 mg IV every 6 hours as needed. -will check HIV testing for panniculitis as this may broaden the differential. -COVID -19 testing negative. 2. Acute abdominal pain, probable gastroenteritis, present on admission, active. -patient will marked tenderness on palpation over epigastrium and abdomen on admission. Greatest pain over right upper lower quadrants but this is worsened after meals. -CT scan finds excess large and small bowel fluid without obstruction, possible enteritis. Possible mesenteric angiitis or mesenteric panniculitis. -white count is normal at 5.9 and lactic acid is 1.5. Liver functions and lipase are all normal. -ordered GI PCR and procalcitonin, CRP. Patient without diarrhea this admission. -ordered Cipro 400 mg IV every 12 hours, will continue course for now pending endoscopy. -ordered hydromorphone 0.5 mg IV every 4 hours as needed for pain 3. Acute dysphagia - as noted above in nausea/vomiting/abdominal pain. - patient is on IV ppi daily. 3. Acute hypokalemia, present on admission, active. -patient with acute hyperkalemia secondary to nausea vomiting and diarrhea. -Serum per 10 level on admission is 2.7 and on 12/31/19 her level was 2.5 at which time she was prescribed 20 mEq of potassium twice daily which she was unable to tolerate. -in the ER the patient received 20 mEq of potassium IV, ordered an additional 40 mEq of potassium IV. -recheck potassium level on chemistries in the morning 4. Acquired hypothyroidism, chronic, present on admission, active. -the patient underwent total thyroidectomy in 2008 for thyroid cancer. -she takes home regimen of 200 mcg of levothyroxine daily but states she has not been able to keep medication down for 1 week. -ordered levothyroxine 100 mcg IV since the patient is unable to tolerate oral medication. Will transition to oral medication once tolerating orals. -patient with normal free t4 level. Continue management as above. TSH not reliable in setting of surgical resection. 5. Bipolar disorder with anxiety and depression, chronic, stable. -patient is uncomfortable restless but remains cooperative and is able to focus on conversation and respond to questions appropriately. -the patient normally takes lamotrigine 200 mg daily, lithium 300 mg in the morning and 600 mg at night and trazodone 150 mg at bedtime. -ordered lithium level which is found to be less than 0.2. -ordered lorazepam 0.5 mg IV every 6 hours as needed. -will resume oral medications when patient is able to take POs. 6. Possible urinary tract infection, acute -patient with recent UTI treated with nitro for on 10 in October of 2019 -patient complains of suprapubic pain on palpation, denies urinary frequency or urgency, burning or hematuria. -partial screening UA of from the ER finds and many bacteria, wbc's 1-5 and reflex to culture. Started on cipro as noted above. Urine culture with gram - bacilli. VTE prophylaxis: Bilateral SCDs, enoxaparin Diet: CLD Code status: FULL CODE, the patient designates her mother Lamar ([phone]) to be her surrogate decision maker. Quality VTE Deep Vein Thrombosis/Pulmonary Embolism Present on Admission: No
[2020-01-04 14:36] LABS: Alanine Aminotransferase 19 IU/L (<35); HEMOLYSIS < 15 (0-50)
--- NOTE | 2020-01-04 15:27 | DIET.PN ---
Dietary Progress Note RD attempted consult for gastroenteritis and hypokalemia, surgery was in talking c pt about upcoming EGD tomorrow, will defer consult to post-EGD.
--- NOTE | 2020-01-04 15:29 | PM.CN ---
History of Present Illness Consult details Date Patient Seen: 01/04/20 Time Patient Seen: 15:29 Chief complaint: Nausea/CP Narrative: This Is a 34-year-old woman seen in consultation for dysphagia. She is admitted hospital with nausea vomiting and dysphagia. She said for the past several days she has had worsening difficulty swallowing and solid food feels like it is getting stuck in her lower esophagus. She tells me that she is doing okay with drinking liquids but this is about it. She has a history of chronic gastroesophageal reflux disease and has had a previous upper endoscopy approximately 5 years ago at an outside institution which was reportedly normal no history of esophageal stricture. This she takes omeprazole 40 mg daily at home. Her medical history is significant for bipolar thyroid cancer. Meds Home Medications and Allergies Home Medications Medication Instructions Recorded Confirmed Type sumatriptan succinate [Imitrex] 100 mg PO PRN PRN #0 08/22/12 01/03/20 History dextroamphetamine-amphetamine 20 mg PO QAM PRN 02/11/18 01/03/20 History [Adderall XR] lamotrigine 200 mg PO DAILY 05/24/18 01/03/20 History lithium carbonate 300 mg PO QAM 05/24/18 01/03/20 History lithium carbonate 600 mg PO QPM 05/24/18 01/03/20 History trazodone 150 mg PO QPM 05/24/18 01/03/20 History cetirizine 10 mg capsule 10 mg PO DAILY 12/14/18 01/03/20 History fluticasone propionate 50 1 spray NASAL DAILY 12/14/18 01/03/20 History mcg/actuation nasal spray,suspension estradiol 1 mg tablet 1 mg PO DAILY #90 tab 03/30/19 01/03/20 Rx levothyroxine 200 mcg PO DAILY 04/26/19 01/03/20 History albuterol sulfate 2 puff INHALATION Q4-6H PRN #18 06/17/19 01/03/20 Rx gram prednisone 50 mg PO DAILY #5 tab 06/17/19 01/03/20 Rx ondansetron 4 mg PO Q6H PRN #10 tab 12/28/19 01/03/20 Rx pantoprazole 40 mg PO DAILY #30 tab 12/29/19 01/03/20 Rx metoclopramide HCl [Reglan] 10 mg PO Q6H PRN #10 tab 12/31/19 01/03/20 Rx Allergies Allergy/AdvReac Type Severity Reaction Status Date / Time adhesive [ADHESIVE] Allergy Intermediate Verified 06/17/19 16:07 amoxicillin [AMOXICILLIN] Allergy Intermediate Verified 06/17/19 16:07 cephalexin [From KEFLEX] Allergy Intermediate Verified 06/17/19 16:07 clindamycin [CLINDAMYCIN] Allergy Intermediate Verified 06/17/19 16:07 doxycycline [DOXYCYCLINE] Allergy Intermediate Verified 06/17/19 16:07 iodine [IODINE] Allergy Intermediate Verified 06/17/19 16:07 Sulfa (Sulfonamide Allergy Intermediate Verified 06/17/19 16:07 Antibiotics) [SULFA (SULFONAMIDE ANTIBIOTICS)] Penicillins [PENICILLINS] Allergy Unknown Verified 06/17/19 16:07 levofloxacin Allergy Verified 06/17/19 16:07 Review of Systems Review of Systems Narrative: A 10 point review of systems is negative except as noted in the HPI Exam Vital Signs (past 8 hours): - 01/04/20 08:24 01/04/20 11:20 Temperature 98.3 F 98.0 F Pulse Rate 72 62 Respiratory Rate 16 16 Blood Pressure 115/67 112/70 Pulse Oximetry 96 99 Oxygen Delivery Method Room Air Oxygen Flow Rate 0 Narrative Exam Narrative: General-adult female appears anxious and uncomfortable HEENT-moist mucous membranes, no scleral icterus Neck-supple, no lymphadenopathy Chest- non labored respirations, clear to auscultation bilaterally Cardiac-regular rate no peripheral edema Abdomen-soft, nontender, non distended Extremities-warm, well perfused Neurological-alert and oriented, no focal deficits Objective Labs Result Diagrams: 01/04/20 05:09 01/04/20 05:09 Labs: Laboratory Results - last 24 hr 01/03/20 01/03/20 01/03/20 15:13 15:13 15:13 WBC RBC Hgb Hct MCV MCH MCHC RDW Plt Count Neut % (Auto) Lymph % (Auto) [place] % (Auto) Eos % (Auto) Baso % (Auto) Neut # (Auto) Lymph # (Auto) [place] # (Auto) Eos # (Auto) Baso # (Auto) PT 11.5 INR 1.0 APTT 31 Sodium 138 Potassium 2.7 L* Chloride 99 Carbon Dioxide 31 BUN 7 Creatinine 0.52 Estimated GFR > 60.0 BUN/Creatinine Ratio 13.5 Glucose 95 Lactate Calcium 9.1 Magnesium 1.9 Total Bilirubin 0.3 AST 36 ALT 19 Alkaline Phosphatase 54 Total Creatine Kinase 58 CK-MB (CK-2) TNP CK-MB (CK-2) Rel Index TNP Troponin I < 0.012 C-Reactive Protein Total Protein 7.4 Albumin 4.2 Globulin 3.2 Albumin/Globulin Ratio 1.3 Amylase 56 Lipase 85 Procalcitonin TSH Free T4 Urine RBC Urine WBC Ur Squamous Epith Cells Urine Bacteria Ur Culture Indicated? [place] COVID-19 [facility] 01/03/20 01/03/20 01/03/20 15:13 15:13 15:23 WBC RBC Hgb Hct MCV MCH MCHC RDW Plt Count Neut % (Auto) Lymph % (Auto) [place] % (Auto) Eos % (Auto) Baso % (Auto) Neut # (Auto) Lymph # (Auto) [place] # (Auto) Eos # (Auto) Baso # (Auto) PT INR APTT Sodium Potassium Chloride Carbon Dioxide BUN Creatinine Estimated GFR BUN/Creatinine Ratio Glucose Lactate 1.5 Calcium Magnesium Total Bilirubin AST ALT Alkaline Phosphatase Total Creatine Kinase CK-MB (CK-2) CK-MB (CK-2) Rel Index Troponin I C-Reactive Protein < 0.5 Total Protein Albumin Globulin Albumin/Globulin Ratio Amylase Lipase Procalcitonin TSH Free T4 Urine RBC Urine WBC Ur Squamous Epith Cells Urine Bacteria Ur Culture Indicated? [place] < 0.2 L COVID-19 [facility] 01/03/20 01/03/20 01/04/20 16:43 18:55 05:09 WBC 6.1 RBC 3.88 L Hgb 12.0 Hct 34.9 L MCV 90.0 MCH 31.0 MCHC 34.4 RDW 13.4 Plt Count 278 Neut % (Auto) 46.6 L Lymph % (Auto) 41.1 H [place] % (Auto) 9.6 Eos % (Auto) 2.1 Baso % (Auto) 0.6 Neut # (Auto) 2900 Lymph # (Auto) 2500 [place] # (Auto) 600 Eos # (Auto) 100 Baso # (Auto) 0 PT INR APTT Sodium Potassium Chloride Carbon Dioxide BUN Creatinine Estimated GFR BUN/Creatinine Ratio Glucose Lactate Calcium Magnesium Total Bilirubin AST ALT Alkaline Phosphatase Total Creatine Kinase CK-MB (CK-2) CK-MB (CK-2) Rel Index Troponin I C-Reactive Protein Total Protein Albumin Globulin Albumin/Globulin Ratio Amylase Lipase Procalcitonin TSH Free T4 Urine RBC None seen Urine WBC 1-5/hpf Ur Squamous Epith Cells 0-1 /hpf Urine Bacteria Many (>30) H Ur Culture Indicated? Specimen cultured [place] COVID-19 PCR Negative 01/04/20 01/04/20 01/04/20 05:09 05:09 05:09 WBC RBC Hgb Hct MCV MCH MCHC RDW Plt Count Neut % (Auto) Lymph % (Auto) [place] % (Auto) Eos % (Auto) Baso % (Auto) Neut # (Auto) Lymph # (Auto) [place] # (Auto) Eos # (Auto) Baso # (Auto) PT INR APTT Sodium 139 Potassium 3.3 L Chloride 106 Carbon Dioxide 30 BUN 7 Creatinine 0.52 Estimated GFR > 60.0 BUN/Creatinine Ratio 13.5 Glucose 88 Lactate Calcium 7.9 L Magnesium Total Bilirubin AST ALT Alkaline Phosphatase Total Creatine Kinase CK-MB (CK-2) CK-MB (CK-2) Rel Index Troponin I C-Reactive Protein Total Protein Albumin Globulin Albumin/Globulin Ratio Amylase Lipase Procalcitonin < 0.05 TSH < 0.015 L Free T4 1.85 Urine RBC Urine WBC Ur Squamous Epith Cells Urine Bacteria Ur Culture Indicated? [place] COVID-19 PCR Assessment & Plan Assessment and plan (1) Dysphagia: Status: Acute Assessment & Plan narrative: 34-year-old female admitted to the hospital with nausea vomiting and new onset dysphagia. It is possible she has an esophageal stricture given her description of dysphagia occurring in her lower esophagus with solid food and history of chronic gastroesophageal reflux disease. I told I recommended that we perform an esophagoduodenoscopy with possible dilation. I described the nature of the procedure to her, the benefit of both diagnostic and theraputic treatment of possible esophageal stricture or esophagitis. I told her the potential complications include cardiopulmonary secondary to sedation, bleeding, perforation, infection, need for future procedures and missed diagnosis. Her questions have been answered she is in agreement with this plan -NPO after midnight COVID-19 COVID-19 status: Negative Result date/Date tested (Pos, Neg/Pending): 01/03/20
[2020-01-04 15:34] VITALS: BP 133/69; PULSE 69; RESP 18; TEMP 36.1; O2SAT 94
--- NOTE | 2020-01-04 15:45 | CM.DANOTE ---
DCP/Assessment: Reviewed chart. Patient admitted to [facility] with abdominal pain. PCP is Dr. Hernadez. Primary payor is 1)PW 2)Medicaid. Reviewed chart. Patient admitted to [facility] after 3 previous visits to the ED within 1 week. Patient alert and oriented during visit. Patient emotional and requesting that her Mother come be with me. Patient with MH history that includes bipolar and anxiety. Patient reports that she is treated by Dr. Hernadez as outpatient. Patient does report interest in getting established with MH provider in or near [place]. CONSTRUCTION SITE MANAGER provided patient with name/number of [employer]. Patient given her insurance information and instructed to call them to get established as outpatient. Patient appreciative. Patient scheduled for scope tomorrow 01-05-20. CONSTRUCTION SITE MANAGER spoke with charge lpn/Amaury she confirms that patient can have 1 visitor. Mother will be coming tomorrow from [place]. Patient I in all ADL's. Patient currently works at [employer] in [place]. Patient employed there for the last 2yrs. Patient hopes that she does not lose her employment due to illness. Encouraged patient to obtain note from provider when she leaves [facility] P: Anticipate home when medically stable. Patient's MH at baseline today. Patient provided with community resources for MH. CM team to continue to follow. KALPESH Ledesma Discharge Planning/Care Management CM Discharge Assessment Start: 01/04/20 15:41 Freq: Status: Active Protocol: Document 01/04/20 15:41 KJS (Rec: 01/04/20 15:45 KJS [id number]) Discharge Planning Assessment Assigned Shoemaking Finisher KALPESH Ledesma Contact Information Lamar Callahan (Mother) # [phone] Advance Directives? No History Provided By Patient,Medical Record Has Patient been admitted in last 30 No days? Comment Patient has been to the Emergency Department 3x within last week with same complaint of abdominal pain. Admitted on 4th visit. Prior Living Arrangements House Household Members significant other,other Comment Patient resides with significant other/Stefan and his parents in [place]. Type of transporation used prior to Drives own vehicle admit Independent with ADL's Yes Is patient alert and oriented? Yes Caregiver for Another No Comment None needed Barriers to Discharge No Discharge Plan Home Transportation Arrangement Family or significant other to provide transport. Referrals Initiated Other Additional Comment Provided patient with [facility] brochure to enroll in MH services. Whiteboard Updated in Patient Room with Yes name and ext. # of Shoemaking Finisher Review Status In Process Next Review Type Continued Stay Review
[2020-01-04 19:41] VITALS: BP 131/56; PULSE 66; RESP 18; TEMP 36.1; O2SAT 99
[2020-01-04] MEDS: MELATONIN 3 MG TABLET 6 MG PO (23:39)
[2020-01-04 23:42] VITALS: BP 106/67; PULSE 66; RESP 17; TEMP 37.1; O2SAT 98
[2020-01-05] VITALS (13 sets, daily range): BP systolic 102–137; BP diastolic 58–81; PULSE 55–87; RESP 14–20; TEMP 35.9–37.1; O2SAT 94–99; BMI 29.8
--- NOTE | 2020-01-05 | PATH_ITS ---
[facility] Accession Number: [id number] . 01 Material submitted: . gastrointestinal site - RANDOM GASTRIC BIOPSIES . 01 Clinical history: . NAUSEA/CP . 02 Diagnosis: Random Gastric Biopsies: Gastric body type mucosa with no diagnostic abnormality. Negative for Helicobacter organisms by immunohistochemistry. Negative for intestinal metaplasia. Negative for dysplasia and malignancy. V 01/09/2020 1236 Local . 02 Electronically signed: . Summer Dickerson MD, Pathologist NPI- [id number] . 01 Gross description: . RANDOM GASTRIC BIOPSIES: Received in formalin are 2 fragment(s) of augustin, soft tissue measuring 0.1 x 0.1 x 0.1 cm to 0.3 x 0.2 x 0.2 cm submitted entirely in 1 cassette(s) /JOSEPH 01/06/2020 0021 Local . 02 Microscopic: . An immunohistochemical stain was performed to evaluate for Helicobacter organisms and is negative. The control stain showed appropriate reactivity. . * This test was developed and its performance characteristics determined by [facility]. It has not been cleared or approved by the U.S. Food and Drug Administration. The FDA has determined that such clearance or approval is not necessary. This test is used for clinical purposes. It should not be regarded as investigational or for research. . 02 Pathologist provided ICD-10: K29.70 . 02 CPT . 101091, [id number] Performed at: 01 [facility] [address], [place], [place] [id number] MD Juan Francisco Henao MD Phone: [phone] Performed at: 02 [facility] [place] [address] [place], [place] [id number] MD Loraine Miller MD Phone: [phone]
--- NOTE | 2020-01-05 00:44 | PC.NURSE ---
Addendum entered by Carri Garcia R.N. 01/05/20 06:05: Complaining of leg cramps again this morning with 5/10 severity; medicated with Toradol Addendum entered by Carri Garcia R.N. 01/05/20 05:28: Complaining of feeling nauseated this morning but without emesis or pain; medicated with Zofran Original Note: Patient seen and assessed at 0012. Is alert and oriented. Breath sounds CTA with RA sat of 98%. HRR. Denies nausea. BT present and abdomen is soft. Denies dysuria with urination but is voiding frequently. Complained of leg cramps at shift change and was medicated with Toradol with good relief. Is able to turn self in bed. Is unsteady at times and states she still feels weak in the legs so is assisted when out of bed. Refusing SCD's as not able to sleep with them on; educated on DVT prevention and patient verbalizes understanding. Medicated earlier with Melatonin for sleep. NPO after 0000 as having EGD later today. Fall risk score is moderate and bed alarm is activated.
[2020-01-05] MEDS: ONDANSETRON 4 MG/2 ML INJ IV ×2 (05:25→16:16)
[2020-01-05 05:46] LABS: Add Manual Diff / Slide Review NO; Basophils Absolute Auto 0 /uL (0-100); Basophils Percent Auto 0.5 % (0-2); Eosinophils Absolute Auto 200 /uL (0-450); Hematocrit 37.9 % (36-46); Hemoglobin 12.9 g/dL (12.0-16.0); Lymphocytes Absolute Auto 2200 /uL (1100-4500); Lymphocytes Percent Auto 47.3 % (25-40); Mean Corpuscular HGB Conc 34.1 % (30-36); Mean Corpuscular Hemoglobin 30.8 PG (26-34); Mean Corpuscular Volume 90.2 fL (80-100); Monocytes Absolute Auto 500 /uL (0-900); Monocytes Percent Auto 11.6 % (3-14); Neutrophils Absolute Auto 1700 /uL (1500-7000); Neutrophils Percent Auto 36.6 % (50-75); Platelet Count 301 X10^3/uL (150-400); Red Cell Distribution Width 13.9 % (11.6-14.8); White Blood Cell Count 4.6 X10^3/uL (4.5-11.0)
[2020-01-05 05:59] LABS: Alanine Aminotransferase 15 IU/L (<35); Albumin 3.4 g/dL (3.5-5.0); Albumin Globulin Ratio 1.2 (1.0-2.8); Alkaline Phosphatase 45 U/L (38-126); Aspartate Aminotransferase 23 IU/L (14-36); BUN Creatinine Ratio 9.3 (6-22); Bilirubin Total 0.3 mg/dL (0.2-1.3); Bilirubin Unconjugated 0.3 mg/dL (0.0-1.1); Blood Urea Nitrogen 5 mg/dL (7-17); Calcium 8.4 mg/dL (8.4-10.2); Carbon Dioxide 29 mmol/L (22-32); Chloride 107 mmol/L (98-107); Estimated Glomerular Filt Rate > 60.0 mL/min (>60); Globulin 2.9 g/dL (1.7-4.1); Glucose 81 mg/dL (70-100); HEMOLYSIS < 15 (0-50); Magnesium 2.2 mg/dL (1.6-2.3); Potassium 3.6 mmol/L (3.4-5.1); Sodium 140 mmol/L (137-145); Total Protein 6.3 g/dL (6.3-8.2)
[2020-01-05] MEDS: KETOROLAC 15 MG/ML VIAL IV (06:00)
[2020-01-05 06:52] LABS: HIV 1 & 2 Ab/Ag 4th Gen Combo NEGATIVE (NEGATIVE)
[2020-01-05] MEDS: LEVOTHYROXINE INJ 100 MCG/5 ML VIAL IV (08:48)
[2020-01-05] MEDS: FLUTICASONE 120 SPRAY/16 GM SPRAY.SUSP NASAL (08:48)
[2020-01-05] MEDS: ENOXAPARIN 40 MG/0.4 ML SYRINGE SUBCUT (08:48)
[2020-01-05] MEDS: HYDROMORPHONE 0.5 MG INJ IV (08:48)
[2020-01-05] MEDS: PANTOPRAZOLE 40 MG VIAL IV (08:49)
[2020-01-05] MEDS: SODIUM CHLORIDE 0.9% 1,000 ML 100 ML IV (10:26)
[2020-01-05] MEDS: CIPROFLOXACIN 400 MG/200 ML PIGGYBACK 200 MG IV ×2 (12:23→23:56)
--- NOTE | 2020-01-05 15:27 | PC.NURSE ---
Patient able to rest this afternoon, with her mom at bedside. Up with assistance (standby for safety) to bathroom. Patient picked up at this time for her procedure with Dr. Hernandez, patient to sign consent with MD prior. Patient has no further questions at this time.
[2020-01-05] MEDS: LACTATED RINGERS 1,000 ML 200 ML IV (15:29)
[2020-01-05] MEDS: LIDOCAINE 4% SOLN 50 ML 20 ML TOP (15:59)
[2020-01-05] MEDS: fentaNYL 250 MCG/5 ML INJ IV ×2 (16:03→16:15)
[2020-01-05] MEDS: MIDAZOLAM 5 MG/5 ML VIAL IV (16:04)
--- NOTE | 2020-01-05 16:15 | PM.OP.ENDO ---
Operative Date/Time/Diagnoses Date of procedure: 01/05/20 Time of procedure: 16:15 Pre-op diagnosis: Dysphagia Post-op diagnosis: other (Gastritis) Procedure & Clinicians Study performed: Esophagoduodenoscopy Same procedure as scheduled: Yes Indications: 34-year-old woman presented with nausea and new onset dysphagia taken for a diagnostic EGD Surgeon: Adriano Hernandez Procedure Notes SCOAP/Timeout: Performed Procedure in detail: Patient placed in left lateral decubitus position. Time out was performed. Procedural sedation was administered with Versed and Fentanyl. A bite block was placed. the scope was inserted into the mouth and advanced through the esophagus and into the stomach. The stomach was notable for diffuse mild gastritis there were no gustavo ulcerations. Several random gastric biopsies were taken with the forceps. The pylorus was intubated and the duodenum was normal to the 2nd portion.. The scope was retroflexed within the stomach and there was no hiatal hernia. The scope was withdrawn into the esophagus the Z line was seen at 35 cm from the incisions. There was no stanley's esophagitis or masses or strictures. Stomach was desufflated and scope removed. Patient tolerated procedure well. Sedation minutes: 10 Findings: gastritis Specimen(s): other (Random gastric biopsies) Complications: none Impression: Gastritis Post-procedure Recommendations: Continue medication(s) (Protonix) Disposition: Acute Care
--- NOTE | 2020-01-05 16:30 | SUR.PHASEI ---
Patient A/O x 4. Denies pain and nausea. Tolerating po.
--- NOTE | 2020-01-05 17:45 | P.PN_ITS ---
Subjective Subjective Date Patient Seen: 01/05/20 Time Patient Seen: 17:45 Interval history: Lexy Callahan is a 34-year-old female who was admitted for intractable nausea and vomiting. She was improved today and was able to tolerate some liquids but after yesterday reporting intolerance to solids advancing her diet was withheld until endoscopy was performed this afternoon. Endoscopy revealed mild gastritis but no strictures. After the procedure the patient was wanting to try regular food and will again attempt to do this. She does complain worsening dysuria and urinary frequency this morning, but is now improved. She denies any abdominal pain, fever, chills, shortness of breath, chest pain, diarrhea today. Exam Vital Signs (past 8 hours): - 01/05/20 11:05 01/05/20 15:30 01/05/20 16:20 Temperature 98.0 F 96.6 F L 98.4 F Pulse Rate 55 L 60 87 Respiratory Rate 16 18 18 Blood Pressure 125/58 L 110/65 137/71 Pulse Oximetry 98 99 95 01/05/20 16:22 01/05/20 16:27 01/05/20 16:32 Temperature 97.8 F Pulse Rate 65 70 71 Respiratory Rate 19 20 14 Blood Pressure 105/69 102/65 103/61 Pulse Oximetry 97 96 96 01/05/20 16:45 01/05/20 17:15 Temperature 97.6 F 98.0 F Pulse Rate 70 67 Respiratory Rate 16 16 Blood Pressure 111/64 107/67 Pulse Oximetry 98 97 Oxygen Delivery Method Room Air Oxygen Flow Rate 0 Narrative Exam Narrative: GENERAL APPEARANCE: well developed, obese female, in no acute distress HEENT: Normocephalic, PERRLA, conjunctiva clear, EOMs intact without nystagmus, no sinus tenderness to percussion, no rhinorrhea, mucous membranes are dry and pink without lesions or exudate. NECK/THYROID: Preserved ROM, tenderness on palpation without muscular rigidity, no JVD, well-healed thyroid surgical scar, trachea midline. LYMPH NODES: no cervical or supraclavicular lymphadenopathy. SKIN: [place], warm and dry, no visible lesions, rashes, ulcerations or petechiae. HEART: regular rate and rhythm, S1-S2, no murmur, no rubs or gallops, brisk capillary refill, no edema LUNGS: clear to auscultation bilaterally, no coarseness crackles or wheezing, no cough present CHEST: Symmetrical movement, no accessory muscle use, shallow tidal volume ABDOMEN: Soft, no distention, generalized abdominal pain on palpation greatest right upper and lower quadrants, no rigidity or peritoneal signs, no organomeg meera, no flank or suprapubic tenderness, hyperactive bowel tones. BACK: Normal curvature, nontender to palpation, no CVA tenderness on percussion EXTREMITIES: moves all extremities, strength is 5/5 and symmetrical, no deformities or joint effusions. NEUROLOGIC: AAO x4, no focal neurologic deficits, cranial nerves II-XII grossly intact, decreased sensation bilateral lower extremities to light touch, hearing grossly normal to speech. PSYCH: linear thought, cooperative, stable behavior Objective Labs Result Diagrams: 01/05/20 05:20 01/05/20 05:20 Labs: Laboratory Results - last 24 hr 01/05/20 01/05/20 01/05/20 05:20 05:20 05:20 WBC 4.6 RBC 4.20 Hgb 12.9 Hct 37.9 MCV 90.2 MCH 30.8 MCHC 34.1 RDW 13.9 Plt Count 301 Neut % (Auto) 36.6 L Lymph % (Auto) 47.3 H [place] % (Auto) 11.6 Eos % (Auto) 4.0 Baso % (Auto) 0.5 Neut # (Auto) 1700 Lymph # (Auto) 2200 [place] # (Auto) 500 Eos # (Auto) 200 Baso # (Auto) 0 Sodium 140 Potassium 3.6 Chloride 107 Carbon Dioxide 29 BUN 5 L Creatinine 0.54 Estimated GFR > 60.0 BUN/Creatinine Ratio 9.3 Glucose 81 Calcium 8.4 Magnesium 2.2 Total Bilirubin 0.3 Conjugated Bilirubin 0.0 Unconjugated Bilirubin 0.3 AST 23 ALT 15 Alkaline Phosphatase 45 Total Protein 6.3 Albumin 3.4 L Globulin 2.9 Albumin/Globulin Ratio 1.2 HIV 1&2 Ab/P24 Ag 4thGn Negative Assessment & Plan Assessment & Plan narrative: This is a 34-year-old female patient who presented to the ER for the 4th time in 1 week with intractable nausea, vomiting and diarrhea with worsening abdominal pain, patient was able to tolerate some clears but reported dysphagia today to solids only. EGD revealed only mild gastritis today and patient is feeling slightly improved with ciprofloxacin, PPI, and nausea medications. 1. Acute intractable nausea and vomiting with diarrhea, present on admission, active. -patient has been to the ER 3 times previously for intractable nausea vomiting and discharged home with Zofran and metoclopramide. She was unable to keep down her regular home medications. Reported dysphagia to solid foods. EGD ultimately showed only gastritis. Will re-trial regular diet this evening. If tolerating can potentially discharge tomorrow morning. -the patient does endorse smoking marijuana daily and states helps her nausea and anxiety. Consideration is given to cannabis hyperemesis emesis syndrome whe n the patient requests take shower and showers frequently at home. Her symptoms improving over time are also indicative of this. -ordered Zofran 4 mg IV every 6 hours as needed. -ordered promethazine 25 mg oral or rectally every 6 hours as needed. -ordered Ativan 0.5 mg IV every 6 hours as needed. -HIV testing was negative. -COVID -19 testing negative. 2. Acute abdominal pain, probable gastroenteritis, present on admission, active. -patient will marked tenderness on palpation over epigastrium and abdomen on admission. Greatest pain over right upper lower quadrants but this is worsened after meals. -CT scan finds excess large and small bowel fluid without obstruction, possible enteritis. Possible mesenteric angiitis or mesenteric panniculitis. -white count is normal at 5.9 and lactic acid is 1.5. Liver functions and lipase are all normal. -ordered GI PCR and procalcitonin, CRP. Patient without diarrhea this admission. -ordered Cipro 400 mg IV every 12 hours, will continue course of 7 days as this may be improving her symptoms, although not completely clear. -ordered hydromorphone 0.5 mg IV every 4 hours as needed for pain 3. Acute solid food dysphagia - as noted above in nausea/vomiting/abdominal pain. EGD revealed gastritis. May be related to gastritis, psychatric comorbidites / anxiety, or dehydration / electrolyte abnormalities although less likely. - if continues consider GI evaluation for possible dysmotility. 4. Acute hypokalemia, present on admission, active. -patient with acute hyperkalemia secondary to nausea vomiting and diarrhea. -Serum per 10 level on admission is 2.7 and on 12/31/19 her level was 2.5 at which time she was prescribed 20 mEq of potassium twice daily which she was unable to tolerate. -in the ER the patient received 20 mEq of potassium IV, ordered an additional 40 mEq of potassium IV. -recheck potassium level on chemistries in the morning 5. Acquired hypothyroidism, chronic, present on admission, active. -the patient underwent total thyroidectomy in 2008 for thyroid cancer. -she takes home regimen of 200 mcg of levothyroxine daily but states she has not been able to keep medication down for 1 week. -ordered levothyroxine 100 mcg IV since the patient is unable to tolerate oral medication. Will transition to oral medication once tolerating orals. -patient with normal free t4 level. Continue management as above. TSH not relia ble in setting of surgical resection. 6. Bipolar disorder with anxiety and depression, chronic, stable. -patient is uncomfortable restless but remains cooperative and is able to focus on conversation and respond to questions appropriately. -the patient normally takes lamotrigine 200 mg daily, lithium 300 mg in the morning and 600 mg at night and trazodone 150 mg at bedtime. -ordered lithium level which is found to be less than 0.2. -ordered lorazepam 0.5 mg IV every 6 hours as needed. -will resume oral medications when patient is able to take POs. 7. Acute cystitis without hematuria. -patient with recent UTI treated with nitro for on 10 in October of 2019 -patient complains of suprapubic pain on palpation, did endorse urinary frequency and dysuria during admission. -partial screening UA of from the ER finds and many bacteria, wbc's 1-5 and reflex to culture. Started on cipro as noted above. Urine culture with E. Coli sensitive to cipro so will complete cipro course as noted above and this will adequately treat acute cysitis. VTE prophylaxis: Bilateral SCDs, enoxaparin Diet: Regular, advance as tolerated. Code status: FULL CODE, the patient designates her mother Lamar ([phone]) to be her surrogate decision maker. Dispo: changed to inpatient for continued nausea, then dysphagia requiring EGD today. Anticipate discharge in the next 24-48 hours, possibly tomorrow if tolerating PO intake and medications without intractable nausea/vomiting. Quality VTE Deep Vein Thrombosis/Pulmonary Embolism Present on Admission: No
[2020-01-05] MEDS: ACETAMINOPHEN 325 MG TABLET 650 MG PO (21:05)
[2020-01-05] MEDS: MELATONIN 3 MG TABLET 6 MG PO (21:06)
[2020-01-06] VITALS: BP 111/71; PULSE 61; RESP 16; TEMP 36.6; O2SAT 100
[2020-01-06] MEDS: SODIUM CHLORIDE 0.9% 1,000 ML 100 ML IV (02:50)
[2020-01-06] MEDS: ONDANSETRON 4 MG/2 ML INJ IV (02:59)
[2020-01-06 05:47] LABS: Alanine Aminotransferase 14 IU/L (<35); Albumin 3.6 g/dL (3.5-5.0); Albumin Globulin Ratio 1.3 (1.0-2.8); Alkaline Phosphatase 43 U/L (38-126); Aspartate Aminotransferase 22 IU/L (14-36); BUN Creatinine Ratio 10.9 (6-22); Bilirubin Total 0.4 mg/dL (0.2-1.3); Bilirubin Unconjugated 0.4 mg/dL (0.0-1.1); Blood Urea Nitrogen 6 mg/dL (7-17); Calcium 8.3 mg/dL (8.4-10.2); Carbon Dioxide 28 mmol/L (22-32); Chloride 104 mmol/L (98-107); Estimated Glomerular Filt Rate > 60.0 mL/min (>60); Globulin 2.8 g/dL (1.7-4.1); Glucose 87 mg/dL (70-100); HEMOLYSIS < 15 (0-50); Magnesium 2.3 mg/dL (1.6-2.3); Potassium 3.9 mmol/L (3.4-5.1); Sodium 139 mmol/L (137-145); Total Protein 6.4 g/dL (6.3-8.2)
[2020-01-06 06:00] VITALS: BP 111/77; PULSE 62; RESP 16; TEMP 36.4; O2SAT 98
[2020-01-06] MEDS: ACETAMINOPHEN 325 MG TABLET 650 MG PO (06:14)
[2020-01-06 06:42] LABS: Add Manual Diff / Slide Review NO; Basophils Absolute Auto 0 /uL (0-100); Eosinophils Absolute Auto 200 /uL (0-450); Eosinophils Percent Auto 3.5 % (2-4); Hematocrit 39.8 % (36-46); Hemoglobin 13.5 g/dL (12.0-16.0); Lymphocytes Absolute Auto 2100 /uL (1100-4500); Lymphocytes Percent Auto 45.1 % (25-40); Mean Corpuscular HGB Conc 33.9 % (30-36); Mean Corpuscular Hemoglobin 30.7 PG (26-34); Mean Corpuscular Volume 90.5 fL (80-100); Monocytes Absolute Auto 600 /uL (0-900); Monocytes Percent Auto 12.7 % (3-14); Neutrophils Absolute Auto 1800 /uL (1500-7000); Neutrophils Percent Auto 37.7 % (50-75); Platelet Count 310 X10^3/uL (150-400); Red Cell Distribution Width 14.2 % (11.6-14.8); White Blood Cell Count 4.6 X10^3/uL (4.5-11.0)
[2020-01-06 08:00] VITALS: BP 143/79; PULSE 62; RESP 16; TEMP 36.4; O2SAT 98
[2020-01-06] MEDS: PANTOPRAZOLE 40 MG VIAL IV (08:26)
[2020-01-06] MEDS: lamoTRIgine 100 MG TABLET 200 MG PO (09:31)
[2020-01-06] MEDS: ENOXAPARIN 40 MG/0.4 ML SYRINGE SUBCUT (09:31)
[2020-01-06] MEDS: FLUTICASONE 120 SPRAY/16 GM SPRAY.SUSP NASAL (09:31)
[2020-01-06] MEDS: estradioL 1 MG TABLET PO (09:31)
[2020-01-06] MEDS: LEVOTHYROXINE 100 MCG TABLET 200 MCG PO (10:29)
--- NOTE | 2020-01-06 10:40 | P.DS_ITS ---
History of Present Illness History of Present Illness Date Patient Seen: 01/06/20 Time Patient Seen: 10:40 Chief complaint: Nausea/CP Narrative: As per HIGINIO Jarrell: Ms. Lexy Callahan is a 34-year-old female with a past medical history attention deficit disorder, bipolar disorder, anxiety, hypothyroidism status post thyroidectomy for thyroid cancer and migraine headaches who presents to the ER via EMS with complaints of nausea, vomiting and diarrhea and abdominal pain. The patient has been seen in the ER 3 times this week on December 27, December 28 and December 30 and returned today for worsening symptoms uncontrolled with outpatient medications. The patient has and continuous nausea vomiting and associated increased weakness and has been sleeping on the on the ground floor for 2 story house because she is too weak to ascend stairs and complains of frontal headache unlike her typical migraines and has had diarrhea since Thursday which started as explosive liquid and now she describes as ?baby poop?. She denies hematemesis, hematochezia or melena. She could describes her abdominal pain as a generalized intense aching but great is on the right side that she rates as a 10/10 upon arrival to the ER. The patient also reports that she has been able to keep down many of her medications for 1 week. Patient also resources smoking marijuana daily which helps with her nausea and anxiety. She has had no recent travel, no sick contacts including COVID-19 or dietary changes. Describes headache as above with mild photophobia and states her last migraine headache was 1 month ago. She does complain of generalized neck pain without nuchal rigidity or fever. Denies complaints of chest pain or palpitations. She reports no shortness of breath but has abdominal discomfort on taking a deep inspiration. She denies cough or wheezing. Chest abdominal pain is above. She denies urinary symptoms but has had a recent urinary tract infection treated with antibiotics in Oct, 2019. Patient has generalized weaknes s and denies falls or trauma. Upon arrival to the ER the patient is afebrile with temperature 97.8?, heart rate of 76, blood pressure 131/75, respirations 16, oxygen saturation 98% on room air. The patient has had serial imaging completed over the course of several visits this week. On 12/29/2019 she had abdominal ultrasound that was unremarkable. She had a CT of the abdomen and pelvis on 12/31/2019 finding excess of large and small bowel fluid without obstruction and possible enteritis, possible mesenteric angiitis or mesenteric panniculitis, low-density lesion in the right lobe of the liver which is described as possible hemangioma, spleen with 1 cm cyst or hemangioma. On laboratory analysis she has white count of 5.9, hemoglobin of 13.8, hematocrit of 39.7 and platelets of 223. She has a PT of 11.5, INR 1.0, PTT of 31. She has a sodium 138 and potassium at 2.7 with a BUN is 7 and creatinine is 0.52. Her of nonfasting glucose is 95. Magnesium level is 1.9 She has a total bilirubin of 0.3, AST of 36, ALT is yet pending and alkaline phosphatase 54. She has an albumin of 4.2 and lipase of 85. Her lactic acid is 1.9. Total CK is 58 and troponin is negative is less than 0.012. Twelve lead EKG is obtained du to hypokalemia revealing sinus rhythm without conduction abnormalities, block, ectopy, ST or T-wave changes. The patient is admitted to the medicine service for intractable nausea vomiting secondary to probable gastroenteritis. Discharge Providers Provider Date of admission: 01/05/20 15:44 Discharge Date: 01/06/20 Primary care physician: Aldo Hernadez MD Consults: 01/03/20 19:51 Consult to Dietitian, Adult Routine Comment: Reason For Exam: Gastroenteritis, hypokalemia 01/03/20 19:52 Consult to Discharge Planning Routine Comment: 01/04/20 14:32 Consult to General Surgery Routine Comment: Consulting Provider: Adriano Hernandez Reason for consultation: dysphagia Has provider been notified: Yes Discharge provider: Micky Brizuela DO Summary Hospital Course Hospital Course: This is a 34-year-old female patient who presented to the ER for the 4th time in 1 week with intractable nausea, vomiting and diarrhea with worsening abdominal pain, patient was able to tolerate some clears but reported dysphagia today to solids only. EGD revealed only mild gastritis. Patient improved with PPI and antibiotics for panniculitis. 1. Acute intractable nausea and vomiting with diarrhea, present on admission, active. -patient has been to the ER 3 times previously for intractable nausea vomiting and discharged home with Zofran and metoclopramide. She was unable to keep down her regular home medications. Reported dysphagia to solid foods. EGD ultimately showed only gastritis. Patient retrialed on a regular diet and tolerated without further symptoms. -the patient does endorse smoking marijuana daily and states helps her nausea and anxiety. Consideration is given to cannabis hyperemesis emesis syndrome when the patient requests take shower and showers frequently at home. Her symptoms improving over time are also indicative of this. -patient was treated with anti nausea medication. -HIV testing was negative. -COVID -19 testing negative. -may be related to panniculitis as she improved with ciprofloxacin. 2. Acute abdominal pain, probable gastroenteritis, present on admission, active. -patient will marked tenderness on palpation over epigastrium and abdomen on admission. Greatest pain over right upper lower quadrants but this is worsened after meals. -CT scan finds excess large and small bowel fluid without obstruction, possible enteritis. Possible mesenteric angiitis or mesenteric panniculitis. -white count is normal at 5.9 and lactic acid is 1.5. Liver functions and lipase are all normal. -ordered GI PCR and procalcitonin, CRP. Patient without diarrhea this admission and not collected. -ordered Cipro 400 mg IV every 12 hours, will continue course of 7 days as this may be improving her symptoms, although not completely clear if this was truly helping.. -ordered hydromorphone 0.5 mg IV every 4 hours as needed for pain 3. Acute solid food dysphagia - as noted above in nausea/vomiting/abdominal pain. EGD revealed gastritis. May be related to gastritis, psychatric comorbidites / anxiety, or dehydration / electrolyte abnormalities although less likely. - if continues consider GI evaluation for possible dysmotility but patient tolerating diet upon discharge. 4. Acute hypokalemia, present on admission, active. -patient with acute hyperkalemia secondary to nausea vomiting and diarrhea. -imrproved with repletion, both IV and PO and was tolerating a diet upon discharge. 5. Acquired hypothyroidism, chronic, present on admission, active. -the patient underwent total thyroidectomy in 2008 for thyroid cancer. -she takes home regimen of 200 mcg of levothyroxine daily but states she has not been able to keep medication down for 1 week. -ordered levothyroxine 100 mcg IV since the patient is unable to tolerate oral medication. Will transition to oral medication once tolerating orals. -patient with normal free t4 level. Continue management as above. TSH not reliable in setting of surgical resection. 6. Bipolar disorder with anxiety and depression, chronic, stable. -patient is uncomfortable restless but remains cooperative and is able to focus on conversation and respond to questions appropriately. -the patient normally takes lamotrigine 200 mg daily, lithium 300 mg in the morning and 600 mg at night and trazodone 150 mg at bedtime. -ordered lithium level which is found to be less than 0.2. -ordered lorazepam 0.5 mg IV every 6 hours as needed. -will resume oral medications when patient is able to take POs. 7. Acute cystitis without hematuria. -patient with recent UTI treated with nitro for on 10 in October of 2019 -patient complained of suprapubic pain on palpation, did endorse urinary frequency and dysuria during admission. -partial screening UA of from the ER finds and many bacteria, wbc's 1-5 and reflex to culture. Started on cipro as noted above. Urine culture with E. Coli sensitive to cipro so will complete cipro course as noted above and this will adequately treat acute cysitis. Exam Vital Signs (past 8 hours): - 01/06/20 06:00 01/06/20 08:00 Temperature 97.6 F 97.6 F Pulse Rate 62 62 Respiratory Rate 16 16 Blood Pressure 111/77 143/79 H Pulse Oximetry 98 98 Oxygen Delivery Method Room Air Oxygen Flow Rate 0 Narrative Exam Narrative: GENERAL APPEARANCE: well developed, obese female, in no acute distress HEENT: Normocephalic, PERRLA, conjunctiva clear, EOMs intact without nystagmus, no sinus tenderness to percussion, no rhinorrhea, mucous membranes are dry and pink without lesions or exudate. NECK/THYROID: Preserved ROM, tenderness on palpation without muscular rigidity, no JVD, well-healed thyroid surgical scar, trachea midline. LYMPH NODES: no cervical or supraclavicular lymphadenopathy. SKIN: [place], warm and dry, no visible lesions, rashes, ulcerations or petechiae. HEART: regular rate and rhythm, S1-S2, no murmur, no rubs or gallops, brisk capillary refill, no edema LUNGS: clear to auscultation bilaterally, no coarseness crackles or wheezing, no cough present CHEST: Symmetrical movement, no accessory muscle use, shallow tidal volume ABDOMEN: Soft, no distention, generalized abdominal pain on palpation greatest right upper and lower quadrants, no rigidity or peritoneal signs, no organo megaly, no flank or suprapubic tenderness, hyperactive bowel tones. BACK: Normal curvature, nontender to palpation, no CVA tenderness on percussion EXTREMITIES: moves all extremities, strength is 5/5 and symmetrical, no deformities or joint effusions. NEUROLOGIC: AAO x4, no focal neurologic deficits, cranial nerves II-XII grossly intact, decreased sensation bilateral lower extremities to light touch, hearing grossly normal to speech. PSYCH: linear thought, cooperative, stable behavior Objective Labs Result Diagrams: 01/06/20 05:10 01/06/20 05:10 Labs: Laboratory Results - last 24 hr 01/06/20 01/06/20 05:10 05:10 WBC 4.6 RBC 4.40 Hgb 13.5 Hct 39.8 MCV 90.5 MCH 30.7 MCHC 33.9 RDW 14.2 Plt Count 310 Neut % (Auto) 37.7 L Lymph % (Auto) 45.1 H Kimble % (Auto) 12.7 Eos % (Auto) 3.5 Baso % (Auto) 1.0 Neut # (Auto) 1800 Lymph # (Auto) 2100 Kimble # (Auto) 600 Eos # (Auto) 200 Baso # (Auto) 0 Sodium 139 Potassium 3.9 Chloride 104 Carbon Dioxide 28 BUN 6 L Creatinine 0.55 Estimated GFR > 60.0 BUN/Creatinine Ratio 10.9 Glucose 87 Calcium 8.3 L Magnesium 2.3 Total Bilirubin 0.4 Conjugated Bilirubin 0.0 Unconjugated Bilirubin 0.4 AST 22 ALT 14 Alkaline Phosphatase 43 Total Protein 6.4 Albumin 3.6 Globulin 2.8 Albumin/Globulin Ratio 1.3 Discharge Plan Discharge Plan Patient Disposition: Home Discharge comment: You were admitted to the hospital with nausea and vomiting. You endorsed difficulty swallowing solid foods. You underwent an endoscopy which showed only gastritis. 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 Please follow up with your primary care provider as previously scheduled. You had an abnormal CT scan showing adenitis, this finding is most likely viral in origin but you did start to improve after antibiotic therapy so you are being prescribed 5 additional days of ciprofloxacin. Frequent marijuana usage can also lead to cyclic vomiting, so please stop marijuana if you're able to. Discharge orders & Medications Prescriptions: Continued sumatriptan succinate [Imitrex] 100 MG tablet 100 mg PO PRN PRN (Reason: Migraine Headache) Qty: 0 RF: 0 estradiol 1 mg tablet 1 mg PO DAILY Qty: 90 RF: 3 All Day Allergy (cetirizine) 10 mg capsule 10 mg PO DAILY RF: 0 fluticasone propionate [Flonase Allergy Relief] 50 mcg/actuation spray,li spension 1 spray NASAL DAILY RF: 0 dextroamphetamine-amphetamine [Adderall XR] 20 mg Capsule,Extended Release 24hr 20 mg PO QAM PRN (Reason: to help focus at work) RF: 0 trazodone 100 mg tablet 150 mg PO QPM RF: 0 lithium carbonate 300 mg tablet 300 mg PO QAM RF: 0 lithium carbonate 300 mg tablet 600 mg PO QPM RF: 0 lamotrigine 100 mg tablet 200 mg PO DAILY RF: 0 ondansetron 4 mg tablet,disintegrating 4 mg PO Q6H PRN (Reason: nausea and vomiting) Qty: 10 RF: 0 pantoprazole 40 mg tablet,delayed release (DR/EC) 40 mg PO DAILY Qty: 30 RF: 0 metoclopramide HCl [Reglan] 10 mg tablet 10 mg PO Q6H PRN (Reason: nausea and vomiting) Qty: 10 RF: 0 levothyroxine 200 mcg tablet 200 mcg PO DAILY RF: 0 albuterol sulfate 90 mcg/actuation HFA aerosol inhaler 2 puff INHALATION Q4-6H PRN (Reason: shortness of breath) Qty: 18 RF: 0 prednisone 50 mg tablet 50 mg PO DAILY Qty: 5 RF: 0 Follow up/Referrals: Aldo Hernadez MD [Primary Care Provider] - Diet/Activity/Treatments Diet: Diet as Tolerated Activity: As tolerated Visit Report/Discharge Packet Visit Report Forms: Patient Portal/API, Stroke Signs & Symptoms Discharge Data Primary Care Provider: Aldo Hernadez Discharges patient from system. Discharge Date/Time: 01/06/20 12:10 Quality VTE Deep Vein Thrombosis/Pulmonary Embolism Present on Admission: No
--- NOTE | 2020-01-06 12:38 | PC.NURSE ---
Day shift discharge note: Patient discharge home, discussed importance of dietary changes, medication adherence, and F/U with Dr. Hernadez 01/12. Verbalized understanding of instructions. Home in stable condition with Mom via private vehicle.
== END 2020-01-06 12:10 | disposition home or self-care (01) | DRG 249 ==
LOC: ED 15:44 → AC 18:42
PROVIDERS: Nurse Practitioner Adult Health; Surgery; Admitting Provider Internal Medicine; Emergency Provider Nurse Practitioner Family; Family Provider Family Medicine; PCP Family Medicine; Visit Provider Internal Medicine
PROC: 0DJ08ZZ Inspection of Upper Intestinal Tract, Via Natural or Artificial Opening Endoscopic (ICD-10-PCS; CPT 43235; principal; 2020-01-05 15:15)
DX: R11.2 Nausea with vomiting, unspecified (principal); E87.6 Hypokalemia; N30.00 Acute cystitis without hematuria; K29.70 Gastritis, unspecified, without bleeding; R13.10 Dysphagia, unspecified; F31.9 Bipolar disorder, unspecified; F98.8 Other specified behavioral and emotional disorders with onset usually occurring in childhood and adolescence; F41.9 Anxiety disorder, unspecified; J45.909 Unspecified asthma, uncomplicated; E89.0 Postprocedural hypothyroidism; Z85.850 Personal history of malignant neoplasm of thyroid; Z03.818 Encounter for observation for suspected exposure to other biological agents ruled out
CPT/HCPCS: 36415; 74022; 80048; 80053; 80076; 80178; 81003; 81015; 82150; 82550; 83605; 83690; 83735; 84145; 84439; 84443; 84484; 85025; 85610; 85730; 86140; 87077; 87086; 87186; 87389; 87635; 93005; 93010; 96361; 96365; 96366; 96375; 99285; G0378; C9113; J0744; J1170; J1650; J1885; J2060; J2250; J2405; J2765; J3010; J3480

== ENCOUNTER → 2020-02-20 10:13 | Outpatient (CLI) | payer OTHER, MEDICAID, SELFPAY ==
[2020-01-03 20:33] VITALS: BMI 30.6
[2020-02-20 11:05] LABS: Add Manual Diff / Slide Review NO; Basophils Absolute Auto 0 /uL (0-100); Basophils Percent Auto 0.8 % (0-2); Eosinophils Absolute Auto 300 /uL (0-450); Eosinophils Percent Auto 6.6 % (2-4); Hematocrit 38.2 % (36-46); Lymphocytes Absolute Auto 2000 /uL (1100-4500); Lymphocytes Percent Auto 49.7 % (25-40); Mean Corpuscular HGB Conc 33.9 % (30-36); Mean Corpuscular Hemoglobin 30.1 PG (26-34); Mean Corpuscular Volume 88.7 fL (80-100); Monocytes Absolute Auto 400 /uL (0-900); Neutrophils Absolute Auto 1300 /uL (1500-7000); Neutrophils Percent Auto 32.9 % (50-75); Platelet Count 241 X10^3/uL (150-400); Red Blood Cell Count 4.31 X10^6/uL (4.0-5.2); Red Cell Distribution Width 12.7 % (11.6-14.8); White Blood Cell Count 4.1 X10^3/uL (4.5-11.0)
[2020-02-20 11:16] LABS: Alanine Aminotransferase 19 IU/L (<35); Albumin 3.9 g/dL (3.5-5.0); Albumin Globulin Ratio 1.3 (1.0-2.8); Alkaline Phosphatase 50 U/L (38-126); Aspartate Aminotransferase 25 IU/L (14-36); BUN Creatinine Ratio 16.9 (6-22); Bilirubin Total 0.7 mg/dL (0.2-1.3); Blood Urea Nitrogen 10 mg/dL (7-17); Calcium 8.7 mg/dL (8.4-10.2); Carbon Dioxide 26 mmol/L (22-32); Chloride 105 mmol/L (98-107); Estimated Glomerular Filt Rate > 60.0 mL/min (>60); Globulin 2.9 g/dL (1.7-4.1); Glucose 105 mg/dL (70-100); HEMOLYSIS < 15 (0-50); Potassium 3.5 mmol/L (3.4-5.1); Sodium 136 mmol/L (137-145); Total Protein 6.8 g/dL (6.3-8.2)
[2020-02-20 11:49] LABS: Thyroid Stimulating Hormone 0.018 uIU/mL (0.47-4.68)
== END ==
PROVIDERS: Family Provider Family Medicine; PCP Family Medicine; Referring Provider Family Medicine; Visit Provider Family Medicine
DX: E03.9 Hypothyroidism, unspecified (principal); R23.8 Other skin changes
CPT/HCPCS: 36415; 80053; 84443; 85025

== ENCOUNTER → 2020-03-18 10:41 | Outpatient (CLI) | payer OTHER, SELFPAY ==
[2020-01-03 20:33] VITALS: BMI 30.6
--- NOTE | 2020-03-18 10:43 | DI.RAD.S_ITS ---
PROCEDURE: XR SHOULDER RT MIN 2V INDICATIONS: R superior/anterior shoulder pain post direct impact TECHNIQUE: 3 views of the shoulder were acquired. COMPARISON: None. FINDINGS: Bones: No fractures or dislocations. No suspicious bony lesions. Visualized ribs appear intact. Soft tissues: No suspicious soft tissue calcifications. The visualized lung demonstrates an unremarkable appearance. IMPRESSION: Normal right shoulder plain films. If it would be helpful for clinical management decision making, please consider a dedicated shoulder MRI for further evaluation (assuming that there is no contraindication). If there is strong clinical concern for a labral abnormality, this should be performed according to the arthrogram protocol. Dictated by: Virgil Bailey M.D. on 03/18/2020 at 11:28 Approved by: Virgil Bailey M.D. on 03/18/2020 at 11:28
== END ==
PROVIDERS: Family Provider Family Medicine; PCP Family Medicine; Referring Provider Nurse Practitioner; Visit Provider Nurse Practitioner
DX: S49.91XA Unspecified injury of right shoulder and upper arm, initial encounter (principal); X58.XXXA Exposure to other specified factors, initial encounter
CPT/HCPCS: 73030

== ENCOUNTER 2020-06-11 14:13 | Emergency (ER) | payer OTHER, MEDICAID, SELFPAY ==
[2020-01-03 20:33] VITALS: BMI 30.6
[2020-06-11 15:19] VITALS: BP 114/54; PULSE 66; RESP 16; TEMP 36.9; O2SAT 99; BMI 25.7
--- NOTE | 2020-06-11 15:23 | DI.RAD.S_ITS ---
PROCEDURE: XR FINGER RT MIN 2V INDICATIONS: R 2nd finger injury TECHNIQUE: AP hand, 2 views of the 2nd finger(s) acquired. COMPARISON: None. FINDINGS: Bones: No fractures or dislocations. No suspicious bony lesions. Soft tissues: No suspicious soft tissue calcifications. IMPRESSION: No trauma found. Dictated by: Duglas Abrams M.D. on 06/11/2020 at 16:18 Approved by: Duglas Abrams M.D. on 06/11/2020 at 16:19
--- NOTE | 2020-06-11 18:55 | ED.UPPEXIN ---
HPI - Extremity Injury (Upper) General Chief Complaint: Extremity Injury, Upper Stated Complaint: thinks her finger might be broke,r hand pointer Time Seen by Provider: 06/11/20 16:56 Source: patient Mode of arrival: Ambulatory Limitations: no limitations History of Present Illness HPI narrative: 34F nonsmoker with history of ADHD presents with a chief complaint of an injury to her right index finger suffered a few hours ago. She was organizing some items at home and swinging her arm forward when her index finger struck the wall and she fell significant pain in her 1st knuckle. She has developed increasing swelling and bruising ever since. She denies any numbness or tingling. She does have range of motion but this is limited due to pain. She is otherwise well and free of complaint. MD complaint: injury to: right Onset (ago): hour(s) Other Extremity Injury: Right: fingers Other injuries: none Handedness: right Place: home Severity: mild Relieving factors: immobilization Exacerbating factors: movement of extremity Context: direct blow Associated symptoms: denies other symptoms Related Data Home Medications Medication Instructions Recorded Confirmed sumatriptan succinate [Imitrex] 100 mg PO PRN PRN #0 08/22/12 03/18/20 dextroamphetamine-amphetamine 20 mg PO QAM PRN 02/11/18 03/18/20 [Adderall XR] lamotrigine 200 mg PO DAILY 05/24/18 03/18/20 lithium carbonate 300 mg PO QAM 05/24/18 03/18/20 lithium carbonate 600 mg PO QPM 05/24/18 03/18/20 trazodone 150 mg PO QPM 05/24/18 03/18/20 cetirizine 10 mg capsule 10 mg PO DAILY 12/14/18 03/18/20 fluticasone propionate 50 1 spray NASAL DAILY 12/14/18 03/18/20 mcg/actuation nasal spray,suspension levothyroxine 200 mcg PO DAILY 04/26/19 03/18/20 Previous Rx's Medication Instructions Recorded estradiol 1 mg tablet 1 mg PO DAILY #90 tab 03/30/19 albuterol sulfate 2 puff INHALATION Q4-6H PRN #18 06/17/19 gram prednisone 50 mg PO DAILY #5 tab 06/17/19 ondansetron 4 mg PO Q6H PRN #10 tab 12/28/19 pantoprazole 40 mg PO DAILY #30 tab 12/29/19 metoclopramide HCl [Reglan] 10 mg PO Q6H PRN #10 tab 12/31/19 cyclobenzaprine 10 mg tablet 10 mg PO TID PRN #20 tab 03/18/20 hydrocodone-acetaminophen 1 tab PO Q4-6H PRN #10 tab 06/11/20 Allergies Allergy/AdvReac Type Severity Reaction Status Date / Time adhesive [ADHESIVE] Allergy Intermediate Rash Verified 06/11/20 15:19 amoxicillin [AMOXICILLIN] Allergy Intermediate Vomiting, Verified 06/11/20 15:19 tongue swelling cephalexin [From KEFLEX] Allergy Intermediate Hives Verified 06/11/20 15:19 clindamycin [CLINDAMYCIN] Allergy Intermediate Hives, Verified 06/11/20 15:19 vomiting doxycycline [DOXYCYCLINE] Allergy Intermediate Hives Verified 06/11/20 15:19 iodine [IODINE] Allergy Intermediate Hives Verified 06/11/20 15:19 Sulfa (Sulfonamide Allergy Intermediate Hives Verified 06/11/20 15:19 Antibiotics) [SULFA (SULFONAMIDE ANTIBIOTICS)] Penicillins [PENICILLINS] Allergy Unknown Hives, Verified 06/11/20 15:19 vomiting levofloxacin Allergy Unknown Verified 06/11/20 15:19 Review of Systems Constitutional Constitutional: Denies chills, Denies fatigue, Denies fever(s), Denies frequent falls, Denies lethargy and Denies weakness Eyes Eyes: Denies change in vision, Denies eye discharge, Denies irritation and Denies loss of vision ENT Ears, Nose, Mouth, and Throat: Denies change in voice, Denies dizziness, Denies neck pain, Denies sore throat and Denies throat swelling Cardiovascular Cardiovascular: Denies chest pain, Denies irregular heart rhythm, Denies lightheadedness, Denies palpitations, Denies dyspnea, Denies dyspnea on exertion and Denies orthopnea Respiratory Respiratory: Denies cough, Denies dyspnea, Denies dyspnea on exertion and Denies wheezing Gastrointestinal Gastrointestinal: Denies abdominal pain, Denies change in bowel habits, Denies diarrhea, Denies nausea and Denies vomiting Musculoskeletal Musculoskeletal: Reports arthralgias, Reports joint swelling, Denies neck pain and Denies numbness Integumentary/Breasts Skin/Breast: Denies pruritus, Denies erythema, Denies rash and Denies wounds Neurologic Neurologic: Denies behavioral changes, Denies confusion, Denies dizziness, Denies frequent falls, Denies loss of vision, Denies numbness and Denies weakness Psychiatric Psychiatric: Denies anxiety, Denies behavioral changes, Denies confusion, Denies depression, Denies homicidal ideation and Denies suicidal ideation Endocrine Endocrine: Denies fatigue, Denies flushing and Denies palpitations Hematologic/Lymphatic Hematologic/Lymphatic: Denies easy bruising Allergic/Immunologic Allergic/Immunologic: Denies urticaria, Denies throat swelling and Denies wheezing Patient History Medical History ADHD (~1991) Anxiety Asthma Bipolar 1 disorder Chicken pox (~1988) Chronic back pain Depression Herpes Hypothyroid Post traumatic stress disorder (PTSD) Thyroid cancer (~2008) Surgical History Anesthesia H/O thyroidectomy (~05/2009) H/O: hysterectomy History of hysterectomy (~11/2011) History of knee surgery (~04/2009) History of partial hysterectomy (~09/2009) History of tonsillectomy and adenoidectomy (~06/2008) Family History Mother Breast cancer Grandmother History of cancer of spinal cord Lung cancer Grandfather Lung cancer Father Hyperlipidemia Social History household members: significant other and other Smoking Status: Former smoker alcohol intake: current Smoking Status: Former smoker alcohol intake frequency: a few times a month Substance Use Type: marijuana Exam Narrative Exam Narrative: GEN: AOx3 and in mild distress EYES: Pupils are equal, round, and reactive to light and accommodation. Extraoccular muscles are intact bilaterally. There is no subconjunctival hemorrhage or exudate. CHEST: Lungs are clear to auscultation bilaterally and free of wheezes, rales, or rhonchi. Heart rate is regular rhythm, there are no murmurs, clicks, rubs, or gallops. There is no chest wall tenderness. ABD: Abdomen is soft and nontender. There is no guarding or rebound. Bowel sounds are normal in all 4 quadrants. There is no mass or organomegaly. EXT: Painful and slightly decreased ROM of R index finger with ecchymosis noted. Closed, isolated, and N/V intact. Otherwise full painless ROM of all extremities with no loss of sensation or strength. SKIN: Warm, pink, and dry. No erythema or rash Initial Vital Signs Initial Vital Signs: Vital Signs Temperature 98.5 F 06/11/20 15:19 Pulse Rate 66 06/11/20 15:19 Respiratory Rate 16 06/11/20 15:19 Blood Pressure 114/54 L 06/11/20 15:19 Pulse Oximetry 99 06/11/20 15:19 Procedures Orthopedic Splinting/Casting Injury #1: Side: right Upper Extremity Injury Location: finger Upper Extremity Immobilizer: finger (other) Post splinting neuro exam: intact Post splinting vascular exam: intact Placed by: Nursing Course Orders Ordered: ED Orders 06/11/20 15:23 XR finger RT min 2V Stat Vital Signs Vital signs: Vital Signs - 8 hr 06/11/20 15:19 Temperature 98.5 F Pulse Rate 66 Respiratory Rate 16 Blood Pressure 114/54 L Pulse Oximetry 99 MDM - Extremity Injury (Upper) Imaging Data Extremity x-ray #1: Radiologist's Impression: Lexy Callahan Betsy 34 F [address] [address]QNta ReportSigned Patient: Lexy Callahan LMR#: [id number]: [id number]:[id number]/Sex: 34 / FDate of Service: 06/11/20Loc: EDAccession Number: [id number] Procedure: XR finger RT min 2V Ordering Provider: Fela Cifuentes D.O. PROCEDURE: XR FINGER RT MIN 2V INDICATIONS: R 2nd finger injury TECHNIQUE: AP hand, 2 views of the 2nd finger(s) acquired. COMPARISON: None. FINDINGS: Bones: No fractures or dislocations. No suspicious bony lesions. Soft tissues: No suspicious soft tissue calcifications. IMPRESSION: No trauma found. Dictated by: Duglas Abrams M.D. on 06/11/2020 at 16:18 Approved by: Duglas Abrams M.D. on 06/11/2020 at 16:19 [facility] Narrative Medical decision making narrative: Pain, swelling and ecchymosis present in closed, isolated, NV intact finger. Full strength and ROM. Concern for occult fx, tendonous or capsule injury. Return precautions given, importance of follow up relayed. Questions answered to her apparent satisfaction Discharge Plan Departure Patient Disposition: Home Clinical Impression: Contusion of right index finger Qualifiers: Encounter type: initial encounter Damage to nail status: without damage Qualified Code(s): S60.021A - Contusion of right index finger without damage to nail, initial encounter Instructions: DI for Finger Sprain Activity Restrictions/Additional Instructions: *You have been diagnosed with [right index finger, soft tissue injury. X-ray does not demonstrate any fracture or dislocation] *What to do: *Take medications as directed * please contact [facility] for follow-up as there is a potential for a minor ligamentous or tendinous injury. *Return to ER if you should have any new, worsening or concerning symptoms Prescriptions: New hydrocodone-acetaminophen 5-325 mg tablet 1 tab PO Q4-6H PRN (Reason: pain) Qty: 10 RF: 0 No Action cyclobenzaprine 10 mg tablet 10 mg PO TID PRN (Reason: muscle spasm) Qty: 20 RF: 0 sumatriptan succinate [Imitrex] 100 MG tablet 100 mg PO PRN PRN (Reason: Migraine Headache) Qty: 0 RF: 0 estradiol 1 mg tablet 1 mg PO DAILY Qty: 90 RF: 3 All Day Allergy (cetirizine) 10 mg capsule 10 mg PO DAILY RF: 0 fluticasone propionate [Flonase Allergy Relief] 50 mcg/actuation spray,suspension 1 spray NASAL DAILY RF: 0 dextroamphetamine-amphetamine [Adderall XR] 20 mg Capsule,Extended Release 24hr 20 mg PO QAM PRN (Reason: to help focus at work) RF: 0 trazodone 100 mg tablet 150 mg PO QPM RF: 0 lithium carbonate 300 mg tablet 300 mg PO QAM RF: 0 lithium carbonate 300 mg tablet 600 mg PO QPM RF: 0 lamotrigine 100 mg tablet 200 mg PO DAILY RF: 0 ondansetron 4 mg tablet,disintegrating 4 mg PO Q6H PRN (Reason: nausea and vomiting) Qty: 10 RF: 0 pantoprazole 40 mg tablet,delayed release (DR/EC) 40 mg PO DAILY Qty: 30 RF: 0 metoclopramide HCl [Reglan] 10 mg tablet 10 mg PO Q6H PRN (Reason: nausea and vomiting) Qty: 10 RF: 0 levothyroxine 200 mcg tablet 200 mcg PO DAILY RF: 0 albuterol sulfate 90 mcg/actuation HFA aerosol inhaler 2 puff INHALATION Q4-6H PRN (Reason: shortness of breath) Qty: 18 RF: 0 prednisone 50 mg tablet 50 mg PO DAILY Qty: 5 RF: 0 Referrals: Aldo Hernadez MD [Primary Care Provider] -
[2020-06-11 19:22] VITALS: BP 104/54; PULSE 74; RESP 16; O2SAT 97
== END 2020-06-11 19:29 | disposition home or self-care (01) ==
PROVIDERS: Emergency Provider Emergency Medicine; Family Provider Family Medicine; PCP Family Medicine
DX: S60.021A Contusion of right index finger without damage to nail, initial encounter (principal); W22.8XXA Striking against or struck by other objects, initial encounter
CPT/HCPCS: 73140; 99281; 99283

== ENCOUNTER → 2020-07-31 14:08 | Outpatient (CLI) | payer OTHER, MEDICAID, SELFPAY ==
[2020-01-03 20:33] VITALS: BMI 30.6
[2020-07-31 16:11] LABS: Alanine Aminotransferase 16 IU/L (<35); Albumin 4.3 g/dL (3.5-5.0); Albumin Globulin Ratio 1.3 (1.0-2.8); Alkaline Phosphatase 50 U/L (38-126); Aspartate Aminotransferase 25 IU/L (14-36); BUN Creatinine Ratio 16.5 (6-22); Bilirubin Total 0.4 mg/dL (0.2-1.3); Blood Urea Nitrogen 13 mg/dL (7-17); Calcium 9.4 mg/dL (8.4-10.2); Carbon Dioxide 28 mmol/L (22-32); Chloride 105 mmol/L (98-107); Estimated Glomerular Filt Rate > 60.0 mL/min (>60); Globulin 3.3 g/dL (1.7-4.1); Glucose 68 mg/dL (70-100); HEMOLYSIS < 15 (0-50); Potassium 3.7 mmol/L (3.4-5.1); Sodium 136 mmol/L (137-145); Total Protein 7.6 g/dL (6.3-8.2)
[2020-07-31 16:27] LABS: Free T4, Direct Thyroxine 1.93 ng/dL (0.78-2.19)
[2020-07-31 16:42] LABS: Thyroid Stimulating Hormone < 0.015 uIU/mL (0.47-4.68)
== END ==
PROVIDERS: Family Provider Family Medicine; PCP Family Medicine; Referring Provider Family Medicine; Visit Provider Family Medicine
DX: R23.8 Other skin changes (principal); E89.0 Postprocedural hypothyroidism
CPT/HCPCS: 36415; 80053; 84439; 84443

== ENCOUNTER 2020-09-01 22:15 | Emergency (ER) | payer OTHER, MEDICAID, SELFPAY ==
[2020-01-03 20:33] VITALS: BMI 30.6
[2020-09-01 22:36] VITALS: BP 116/55; PULSE 89; RESP 18; TEMP 37.2; O2SAT 99; BMI 26.6
--- NOTE | 2020-09-02 00:39 | ED.WOUNDLAC ---
HPI - Wound/Laceration General Chief Complaint: Wound/Laceration Stated Complaint: cut middle finger left hand at work Time Seen by Provider: 09/02/20 00:04 Source: patient Mode of arrival: Ambulatory History of Present Illness HPI narrative: 34-year-old woman with a history of ADD, asthma and bipolar disorder presents after cutting the middle finger of her left hand while at work this evening. She was cutting deep and the knife slipped she has a cut on the dorsal portion the middle finger just proximal to the nail bed. Bleeding is controlled she comes in for further evaluation. Related Data Home Medications Medication Instructions Recorded Confirmed sumatriptan succinate [Imitrex] 100 mg PO PRN PRN #0 08/22/12 03/18/20 dextroamphetamine-amphetamine 20 mg PO QAM PRN 02/11/18 03/18/20 [Adderall XR] lamotrigine 200 mg PO DAILY 05/24/18 03/18/20 lithium carbonate 300 mg PO QAM 05/24/18 03/18/20 lithium carbonate 600 mg PO QPM 05/24/18 03/18/20 trazodone 150 mg PO QPM 05/24/18 03/18/20 cetirizine 10 mg capsule 10 mg PO DAILY 12/14/18 03/18/20 fluticasone propionate 50 1 spray NASAL DAILY 12/14/18 03/18/20 mcg/actuation nasal spray,suspension levothyroxine 200 mcg PO DAILY 04/26/19 03/18/20 Previous Rx's Medication Instructions Recorded estradiol 1 mg tablet 1 mg PO DAILY #90 tab 03/30/19 albuterol sulfate 2 puff INHALATION Q4-6H PRN #18 06/17/19 gram prednisone 50 mg PO DAILY #5 tab 06/17/19 ondansetron 4 mg PO Q6H PRN #10 tab 12/28/19 pantoprazole 40 mg PO DAILY #30 tab 12/29/19 metoclopramide HCl [Reglan] 10 mg PO Q6H PRN #10 tab 12/31/19 cyclobenzaprine 10 mg tablet 10 mg PO TID PRN #20 tab 03/18/20 hydrocodone-acetaminophen 1 tab PO Q4-6H PRN #10 tab 06/11/20 Allergies Allergy/AdvReac Type Severity Reaction Status Date / Time adhesive [ADHESIVE] Allergy Intermediate Rash Verified 06/11/20 15:19 amoxicillin [AMOXICILLIN] Allergy Intermediate Vomiting, Verified 06/11/20 15:19 tongue swelling cephalexin [From KEFLEX] Allergy Intermediate Hives Verified 06/11/20 15:19 clindamycin [CLINDAMYCIN] Allergy Intermediate Hives, Verified 06/11/20 15:19 vomiting doxycycline [DOXYCYCLINE] Allergy Intermediate Hives Verified 06/11/20 15:19 iodine [IODINE] Allergy Intermediate Hives Verified 06/11/20 15:19 Sulfa (Sulfonamide Allergy Intermediate Hives Verified 06/11/20 15:19 Antibiotics) [SULFA (SULFONAMIDE ANTIBIOTICS)] Penicillins [PENICILLINS] Allergy Unknown Hives, Verified 06/11/20 15:19 vomiting levofloxacin Allergy Unknown Verified 06/11/20 15:19 Review of Systems Review of Systems Narrative: Remainder of review of systems including constitutional, ENT, cardiovascular, respiratory, GI, , musculoskeletal, skin, neurologic and psychiatric systems reviewed and are unremarkable except as noted in HPI. Patient History Medical History ADHD (~1991) Anxiety Asthma Bipolar 1 disorder Chicken pox (~1988) Chronic back pain Depression Herpes Hypothyroid Post traumatic stress disorder (PTSD) Thyroid cancer (~2008) Surgical History Anesthesia H/O thyroidectomy (~05/2009) H/O: hysterectomy History of hysterectomy (~11/2011) History of knee surgery (~04/2009) History of partial hysterectomy (~09/2009) History of tonsillectomy and adenoidectomy (~06/2008) Family History Mother Breast cancer Grandmother History of cancer of spinal cord Lung cancer Grandfather Lung cancer Father Hyperlipidemia Social History household members: significant other and other Smoking Status: Former smoker alcohol intake: current Smoking Status: Former smoker alcohol intake frequency: a few times a month Substance Use Type: marijuana Exam Narrative Exam Narrative: General: Alert appropriate in no acute distress Respiratory: Able to speak in full sentences, no obvious respiratory distress Skin: No obvious rashes, warm and dry Neurologic: Grossly intact no obvious asymmetries or abnormalities Psych: appropriate insight and affect, cooperative Extremity: Small laceration dorsal surface left middle finger that approaches the nail bed but does not seem to involve the nail bed itself. Initial Vital Signs Initial Vital Signs: Vital Signs Temperature 99.0 F 09/01/20 22:36 Pulse Rate 89 09/01/20 22:36 Respiratory Rate 18 09/01/20 22:36 Blood Pressure 116/55 L 09/01/20 22:36 Pulse Oximetry 99 09/01/20 22:36 Procedures Laceration Repair left middle finger: Site: hand Side (If applicable): left Size (cm): 2 Description: flap Depth: simple, single layer Local Anesthetic: lidocaine 1% Amount of anesthesia used (mL): 2 Pre-repair: wound explored Skin layer closed with: nylon Size (cm): 4-0 Number of sutures: 1 Technique: horizontal mattress Course Orders Ordered: Discontinued Medications Lidocaine HCl (Lidocaine 1% (Pf)) 2 ml INJ NOW ONE Stop: 09/02/20 00:08 Vital Signs Vital signs: Vital Signs - 8 hr 09/01/20 22:36 Temperature 99.0 F Pulse Rate 89 Respiratory Rate 18 Blood Pressure 116/55 L Pulse Oximetry 99 MDM - Wound/Laceration MDM Narrative Medical decision making narrative: 34-year-old woman with small flap like laceration to the left middle finger at work. Single horizontal mattress suture is used to reapproximate edges and secure the center of the wound. Patient tolerated the procedure well. L and I paperwork is filled out. Low risk for infection at this point. Safe for home discharge Discharge Plan Departure Patient Disposition: Home Clinical Impression: Laceration Instructions: DI for Laceration Repair Activity Restrictions/Additional Instructions: Thank you for coming in The wound is clean. Suture was placed. Please keep the suture covered until you have it removed on or about the 09 of September. If you have increasing redness, drainage, pain or swelling these are signs of infection and need to be further evaluated. I hope you heal quickly. Prescriptions: No Action cyclobenzaprine 10 mg tablet 10 mg PO TID PRN (Reason: muscle spasm) Qty: 20 RF: 0 sumatriptan succinate [Imitrex] 100 MG tablet 100 mg PO PRN PRN (Reason: Migraine Headache) Qty: 0 RF: 0 estradiol 1 mg tablet 1 mg PO DAILY Qty: 90 RF: 3 All Day Allergy (cetirizine) 10 mg capsule 10 mg PO DAILY RF: 0 fluticasone propionate [Flonase Allergy Relief] 50 mcg/actuation spray,suspension 1 spray NASAL DAILY RF: 0 dextroamphetamine-amphetamine [Adderall XR] 20 mg Capsule,Extended Release 24hr 20 mg PO QAM PRN (Reason: to help focus at work) RF: 0 trazodone 100 mg tablet 150 mg PO QPM RF: 0 lithium carbonate 300 mg tablet 300 mg PO QAM RF: 0 lithium carbonate 300 mg tablet 600 mg PO QPM RF: 0 lamotrigine 100 mg tablet 200 mg PO DAILY RF: 0 ondansetron 4 mg tablet,disintegrating 4 mg PO Q6H PRN (Reason: nausea and vomiting) Qty: 10 RF: 0 pantoprazole 40 mg tablet,delayed release (DR/EC) 40 mg PO DAILY Qty: 30 RF: 0 metoclopramide HCl [Reglan] 10 mg tablet 10 mg PO Q6H PRN (Reason: nausea and vomiting) Qty: 10 RF: 0 hydrocodone-acetaminophen 5-325 mg tablet 1 tab PO Q4-6H PRN (Reason: pain) Qty: 10 RF: 0 levothyroxine 200 mcg tablet 200 mcg PO DAILY RF: 0 albuterol sulfate 90 mcg/actuation HFA aerosol inhaler 2 puff INHALATION Q4-6H PRN (Reason: shortness of breath) Qty: 18 RF: 0 prednisone 50 mg tablet 50 mg PO DAILY Qty: 5 RF: 0 Referrals: Aldo Hernadez MD [Primary Care Provider] -
[2020-09-02 01:38] VITALS: BP 106/60; PULSE 70; RESP 20; TEMP 36.8; O2SAT 100
== END 2020-09-02 01:39 | disposition home or self-care (01) ==
PROVIDERS: Emergency Provider Emergency Medicine; Family Provider Family Medicine; PCP Family Medicine
DX: S61.412A Laceration without foreign body of left hand, initial encounter (principal); W26.0XXA Contact with knife, initial encounter; Y99.0 Civilian activity done for income or pay
CPT/HCPCS: 12001; 99281; 99283

== ENCOUNTER 2020-09-09 11:27 | Emergency (ER) | payer OTHER, MEDICAID, SELFPAY ==
[2020-01-03 20:33] VITALS: BMI 30.6
[2020-09-09 11:35] VITALS: BP 105/72; PULSE 74; RESP 16; TEMP 36.5; O2SAT 99; BMI 26.6
--- NOTE | 2020-09-09 11:37 | ED.SKABFB ---
HPI - Skin/Abscess/Foreign Bdy General Chief complaint: Skin/Abscess/Foreign Body Stated complaint: needs stitches removed Time Seen by Provider: 09/09/20 11:33 Source: patient Mode of arrival: Ambulatory Limitations: no limitations History of Present Illness HPI narrative: Patient here for suture removal. She had sutures placed on 09/02/2020 1 suture was placed on her left middle finger after cutting it is at work while chopping deep. No significant redness post or swelling. She says it is still mildly tender no decreased range of motion. MD complaint: laceration Onset (ago): week(s) (1) Related Data Home Medications Medication Instructions Recorded Confirmed sumatriptan succinate [Imitrex] 100 mg PO PRN PRN #0 08/22/12 03/18/20 dextroamphetamine-amphetamine 20 mg PO QAM PRN 02/11/18 03/18/20 [Adderall XR] lamotrigine 200 mg PO DAILY 05/24/18 03/18/20 lithium carbonate 300 mg PO QAM 05/24/18 03/18/20 lithium carbonate 600 mg PO QPM 05/24/18 03/18/20 trazodone 150 mg PO QPM 05/24/18 03/18/20 cetirizine 10 mg capsule 10 mg PO DAILY 12/14/18 03/18/20 fluticasone propionate 50 1 spray NASAL DAILY 12/14/18 03/18/20 mcg/actuation nasal spray,suspension levothyroxine 200 mcg PO DAILY 04/26/19 03/18/20 Previous Rx's Medication Instructions Recorded estradiol 1 mg tablet 1 mg PO DAILY #90 tab 03/30/19 albuterol sulfate 2 puff INHALATION Q4-6H PRN #18 06/17/19 gram prednisone 50 mg PO DAILY #5 tab 06/17/19 ondansetron 4 mg PO Q6H PRN #10 tab 12/28/19 pantoprazole 40 mg PO DAILY #30 tab 12/29/19 metoclopramide HCl [Reglan] 10 mg PO Q6H PRN #10 tab 12/31/19 cyclobenzaprine 10 mg tablet 10 mg PO TID PRN #20 tab 03/18/20 hydrocodone-acetaminophen 1 tab PO Q4-6H PRN #10 tab 06/11/20 Allergies Allergy/AdvReac Type Severity Reaction Status Date / Time adhesive [ADHESIVE] Allergy Intermediate Rash Verified 06/11/20 15:19 amoxicillin [AMOXICILLIN] Allergy Intermediate Vomiting, Verified 06/11/20 15:19 tongue swelling cephalexin [From KEFLEX] Allergy Intermediate Hives Verified 06/11/20 15:19 clindamycin [CLINDAMYCIN] Allergy Intermediate Hives, Verified 06/11/20 15:19 vomiting doxycycline [DOXYCYCLINE] Allergy Intermediate Hives Verified 06/11/20 15:19 iodine [IODINE] Allergy Intermediate Hives Verified 06/11/20 15:19 Sulfa (Sulfonamide Allergy Intermediate Hives Verified 06/11/20 15:19 Antibiotics) [SULFA (SULFONAMIDE ANTIBIOTICS)] Penicillins [PENICILLINS] Allergy Unknown Hives, Verified 06/11/20 15:19 vomiting levofloxacin Allergy Unknown Verified 06/11/20 15:19 Review of Systems Review of Systems Narrative: GENERAL: Denies chills,fever HEENT: Denies throat pain RESPIRATORY: Denies dyspnea, cough, wheezing CARDIOVASCULAR: Denies chest pain, palpitations GASTROINTESTINAL: Denies nausea, vomiting MUSCULOSKELETAL: Denies extremity pain, injury SKIN: See HPI NEUROLOGIC: Denies weakness, dizziness, headache, numbness 8 point review of systems is negative except for those stated above and HPI Patient History Medical History ADHD (~1991) Anxiety Asthma Bipolar 1 disorder Chicken pox (~1988) Chronic back pain Depression Herpes Hypothyroid Post traumatic stress disorder (PTSD) Thyroid cancer (~2008) Surgical History Anesthesia H/O thyroidectomy (~05/2009) H/O: hysterectomy History of hysterectomy (~11/2011) History of knee surgery (~04/2009) History of partial hysterectomy (~09/2009) History of tonsillectomy and adenoidectomy (~06/2008) Family History Mother Breast cancer Grandmother History of cancer of spinal cord Lung cancer Grandfather Lung cancer Father Hyperlipidemia Social History household members: significant other and other Smoking Status: Former smoker alcohol intake: current Smoking Status: Former smoker alcohol intake frequency: a few times a month Substance Use Type: marijuana Exam Initial Vital Signs Initial Vital Signs: Vital Signs Temperature 97.7 F 09/09/20 11:35 Pulse Rate 74 09/09/20 11:35 Respiratory Rate 16 09/09/20 11:35 Blood Pressure 105/72 09/09/20 11:35 Pulse Oximetry 99 09/09/20 11:35 GENERAL: Well-appearing, well-nourished and in no acute distress. CARDIOVASCULAR: peripheral pulses in tact, cap refill <2 sec RESPIRATORY: No respiratory distress, speaks in full sentences without difficulty EXTREMITIES: Normal range of motion, no clubbing or edema. Neurovascularly intact NEUROLOGICAL: Cranial nerves II through XII grossly intact. Normal gait and speech. SKIN: Laceration left middle finger healed minimal erythema but no swelling or drainage. Does not appear infected Course Vital Signs Vital signs: Vital Signs - 8 hr 09/09/20 11:35 Temperature 97.7 F Pulse Rate 74 Respiratory Rate 16 Blood Pressure 105/72 Pulse Oximetry 99 MDM - Skin/Abscess/Foreign Bdy MDM Narrative Medical decision making narrative: 1 suture removed by nurse. Discharge Plan Departure Patient Disposition: Home Clinical Impression: Encounter for removal of sutures Instructions: DI for Suture Removal Activity Restrictions/Additional Instructions: *You have been diagnosed with suture removal *What to do: Continue to monitor for infection redness post her swelling no this time it looks S Luiz healing *Continue to take medications as directed *Follow up with your primary care provider in 2-3 days *Return to ER if you should have any new, worsening or concerning symptoms Prescriptions: No Action cyclobenzaprine 10 mg tablet 10 mg PO TID PRN (Reason: muscle spasm) Qty: 20 RF: 0 sumatriptan succinate [Imitrex] 100 MG tablet 100 mg PO PRN PRN (Reason: Migraine Headache) Qty: 0 RF: 0 estradiol 1 mg tablet 1 mg PO DAILY Qty: 90 RF: 3 All Day Allergy (cetirizine) 10 mg capsule 10 mg PO DAILY RF: 0 fluticasone propionate [Flonase Allergy Relief] 50 mcg/actuation spray,suspension 1 spray NASAL DAILY RF: 0 dextroamphetamine-amphetamine [Adderall XR] 20 mg Capsule,Extended Release 24hr 20 mg PO QAM PRN (Reason: to help focus at work) RF: 0 trazodone 100 mg tablet 150 mg PO QPM RF: 0 lithium carbonate 300 mg tablet 300 mg PO QAM RF: 0 lithium carbonate 300 mg tablet 600 mg PO QPM RF: 0 lamotrigine 100 mg tablet 200 mg PO DAILY RF: 0 ondansetron 4 mg tablet,disintegrating 4 mg PO Q6H PRN (Reason: nausea and vomiting) Qty: 10 RF: 0 pantoprazole 40 mg tablet,delayed release (DR/EC) 40 mg PO DAILY Qty: 30 RF: 0 metoclopramide HCl [Reglan] 10 mg tablet 10 mg PO Q6H PRN (Reason: nausea and vomiting) Qty: 10 RF: 0 hydrocodone-acetaminophen 5-325 mg tablet 1 tab PO Q4-6H PRN (Reason: pain) Qty: 10 RF: 0 levothyroxine 200 mcg tablet 200 mcg PO DAILY RF: 0 albuterol sulfate 90 mcg/actuation HFA aerosol inhaler 2 puff INHALATION Q4-6H PRN (Reason: shortness of breath) Qty: 18 RF: 0 prednisone 50 mg tablet 50 mg PO DAILY Qty: 5 RF: 0 Referrals: Aldo Hernadez MD [Primary Care Provider] -
== END 2020-09-09 11:41 | disposition home or self-care (01) ==
PROVIDERS: Emergency Provider Emergency Medicine; Family Provider Family Medicine; PCP Family Medicine
DX: Z48.02 Encounter for removal of sutures (principal); Y99.0 Civilian activity done for income or pay
CPT/HCPCS: 99281

== ENCOUNTER 2020-09-10 10:43 | Emergency (ER) | payer OTHER, MEDICAID, SELFPAY ==
[2020-01-03 20:33] VITALS: BMI 30.6
[2020-09-10 10:45] VITALS: BP 109/70; PULSE 77; RESP 17; TEMP 36.8; O2SAT 99
[2020-09-10 11:08] LABS: Add Manual Diff / Slide Review NO; Basophils Absolute Auto 0 /uL (0-100); Basophils Percent Auto 0.5 % (0-2); Eosinophils Absolute Auto 0 /uL (0-450); Eosinophils Percent Auto 0.8 % (2-4); Hematocrit 41.2 % (36-46); Hemoglobin 14.2 g/dL (12.0-16.0); Lymphocytes Absolute Auto 1300 /uL (1100-4500); Lymphocytes Percent Auto 21.1 % (25-40); Mean Corpuscular HGB Conc 34.5 % (30-36); Mean Corpuscular Hemoglobin 31.5 PG (26-34); Mean Corpuscular Volume 91.3 fL (80-100); Monocytes Absolute Auto 300 /uL (0-900); Monocytes Percent Auto 4.4 % (3-14); Neutrophils Absolute Auto 4400 /uL (1500-7000); Neutrophils Percent Auto 73.2 % (50-75); Platelet Count 248 X10^3/uL (150-400); Red Blood Cell Count 4.51 X10^6/uL (4.0-5.2); Red Cell Distribution Width 13.5 % (11.6-14.8)
[2020-09-10 11:22] LABS: Alanine Aminotransferase 17 IU/L (<35); Albumin 4.5 g/dL (3.5-5.0); Albumin Globulin Ratio 1.4 (1.0-2.8); Alkaline Phosphatase 62 U/L (38-126); Aspartate Aminotransferase 29 IU/L (14-36); Bilirubin Total 0.5 mg/dL (0.2-1.3); Blood Urea Nitrogen 16 mg/dL (7-17); Calcium 9.5 mg/dL (8.4-10.2); Carbon Dioxide 25 mmol/L (22-32); Chloride 105 mmol/L (98-107); Estimated Glomerular Filt Rate > 60.0 mL/min (>60); Globulin 3.2 g/dL (1.7-4.1); Glucose 115 mg/dL (70-100); HEMOLYSIS < 15 (0-50); Potassium 3.4 mmol/L (3.4-5.1); Sodium 138 mmol/L (137-145); Total Protein 7.7 g/dL (6.3-8.2)
[2020-09-10 11:24] LABS: Lithium 0.7 mmol/L (0.6-1.2)
[2020-09-10] MEDS: SODIUM CHLORIDE 0.9% 1,000 ML 1000 ML IV (11:25)
[2020-09-10] MEDS: KETOROLAC 60 MG/2 ML VIAL 15 MG IV (11:26)
[2020-09-10] MEDS: METOCLOPRAMIDE 10 MG/2 ML INJ IV (11:26)
--- NOTE | 2020-09-10 12:22 | ED_ITS ---
HPI - Headache <Fela Bruce, [employer] WORKER-BC - Last Filed: 09/10/20 15:34> General Chief Complaint: Headache Stated Complaint: migrane Time Seen by Provider: 09/10/20 11:14 Source: patient Mode of arrival: Ambulatory Limitations: no limitations History of Present Illness HPI Narrative: The patient is a 34-year-old female former smoker with history of migraines and hysterectomy who presents with a chief complaint of a migraine. She states she had a headache yesterday, woke up at 3:00 a.m. with a full-blown migraine. She states that this is very typical of her migraines, she did not have a thunderclap sensation, no fevers, she endorses photophobia and phonophobia. She endorses nausea and vomiting. She took several doses of Imitrex but did not feel better so she came to the emergency department. She denies any confusion, slurred speech. She was seen at this facility yesterday for suture removal. She states that she plans on finding a online headache journal application so that she can follow up with primary care provider in the next few days. She does have history of a complete hysterectomy. She denies any falls or trauma. Related Data Home Medications Medication Instructions Recorded Confirmed sumatriptan succinate [Imitrex] 100 mg PO PRN PRN #0 08/22/12 03/18/20 dextroamphetamine-amphetamine 20 mg PO QAM PRN 02/11/18 03/18/20 [Adderall XR] lamotrigine 200 mg PO DAILY 05/24/18 03/18/20 lithium carbonate 300 mg PO QAM 05/24/18 03/18/20 lithium carbonate 600 mg PO QPM 05/24/18 03/18/20 trazodone 150 mg PO QPM 05/24/18 03/18/20 cetirizine 10 mg capsule 10 mg PO DAILY 12/14/18 03/18/20 fluticasone propionate 50 1 spray NASAL DAILY 12/14/18 03/18/20 mcg/actuation nasal spray,suspension levothyroxine 200 mcg PO DAILY 04/26/19 03/18/20 lamotrigine 100 mg PO BID 09/10/20 09/10/20 Previous Rx's Medication Instructions Recorded estradiol 1 mg tablet 1 mg PO DAILY #90 tab 03/30/19 albuterol sulfate 2 puff INHALATION Q4-6H PRN #18 06/17/19 gram prednisone 50 mg PO DAILY #5 tab 06/17/19 ondansetron 4 mg PO Q6H PRN #10 tab 12/28/19 pantoprazole 40 mg PO DAILY #30 tab 12/29/19 metoclopramide HCl [Reglan] 10 mg PO Q6H PRN #10 tab 12/31/19 cyclobenzaprine 10 mg tablet 10 mg PO TID PRN #20 tab 03/18/20 hydrocodone-acetaminophen 1 tab PO Q4-6H PRN #10 tab 06/11/20 Allergies Allergy/AdvReac Type Severity Reaction Status Date / Time adhesive [ADHESIVE] Allergy Intermediate Rash Verified 09/10/20 10:59 amoxicillin [AMOXICILLIN] Allergy Intermediate Vomiting, Verified 09/10/20 10:59 tongue swelling cephalexin [From KEFLEX] Allergy Intermediate Hives Verified 09/10/20 10:59 clindamycin [CLINDAMYCIN] Allergy Intermediate Hives, Verified 09/10/20 10:59 vomiting doxycycline [DOXYCYCLINE] Allergy Intermediate Hives Verified 09/10/20 10:59 iodine [IODINE] Allergy Intermediate Hives Verified 09/10/20 10:59 Sulfa (Sulfonamide Allergy Intermediate Hives Verified 09/10/20 10:59 Antibiotics) [SULFA (SULFONAMIDE ANTIBIOTICS)] Penicillins [PENICILLINS] Allergy Unknown Hives, Verified 09/10/20 10:59 vomiting levofloxacin Allergy Unknown Verified 09/10/20 10:59 Review of Systems <POONAM Najera-BC - Last Filed: 09/10/20 15:34> Review of Systems Narrative: GENERAL: Denies chills, fatigue, malaise, fever, sweats. HEENT: Denies sinus pain, ear pain, sore throat, difficulty swallowing, dizziness. RESPIRATORY: Denies dyspnea, cough, wheezing, hemoptysis, sputum. CARDIOVASCULAR: Denies chest pain, palpitations, orthopnea, edema, GASTROINTESTINAL: See HPI : Denies dysuria, frequency, incontinence, hematuria, urinary retention. MUSCULOSKELETAL: denies weakness, joint pain, or bony pain SKIN: Denies rash, skin lesions, or other NEUROLOGIC: See HPI PSYCHIATRIC: No concerning psychosocial issues. 12 point review of systems is negative except for those stated above Patient History <RADHA Najera - Last Filed: 09/10/20 15:34> Medical History (Updated 09/10/20 @ 12:27 by RADHA Najera) ADHD (~1991) Anxiety Asthma Bipolar 1 disorder Chicken pox (~1988) Chronic back pain Depression Herpes Hypothyroid Post traumatic stress disorder (PTSD) Thyroid cancer (~2008) Surgical History Anesthesia H/O thyroidectomy (~05/2009) H/O: hysterectomy History of hysterectomy (~11/2011) History of knee surgery (~04/2009) History of partial hysterectomy (~09/2009) History of tonsillectomy and adenoidectomy (~06/2008) Family History Mother Breast cancer Grandmother History of cancer of spinal cord Lung cancer Grandfather Lung cancer Father Hyperlipidemia Social History household members: significant other and other Smoking Status: Former smoker alcohol intake: current Smoking Status: Former smoker alcohol intake frequency: a few times a month Substance Use Type: marijuana Exam <RADHA Naejra - Last Filed: 09/10/20 15:34> Narrative Exam Narrative: GENERAL: This is a well-nourished, well-developed patient, in no acute distress HEAD: Atraumatic. Normocephalic. No temporal or scalp tenderness. EYES: Pupils equal round and reactive. Extraocular motions intact. No scleral icterus. No injection or drainage. ENT: Nose without bleeding, purulent drainage or septal hematoma. Throat without erythema, tonsillar hypertrophy or exudate. Uvula midline. Airway patent. NECK: Trachea midline. No JVD or lymphadenopathy. Supple, nontender, no meningeal signs. CARDIOVASCULAR: Regular rate and rhythm RESPIRATORY: Clear to auscultation. Breath sounds equal bilaterally. No wheezes, rales, or rhonchi. No cough. No increased respiratory effort. No accessory muscle use GASTROINTESTINAL: Abdomen soft, non-tender, nondistended. No hepato- splenomegaly, or palpable masses. No guarding. EXTREMITIES: No clubbing, cyanosis, or edema. No joint tenderness, effusion, or edema noted. BACK: Nontender without deformity or crepitance. No flank tenderness. NEURO: AOx3. Clear speech. No cranial nerve deficit, alert oriented, interactive, age appropriate, strength is equal upper and lower extremities bilaterally. Able to follow commands. SKIN: No rash or erythema on visible skin Initial Vital Signs Initial Vital Signs: Vital Signs Temperature 98.2 F 09/10/20 10:45 Pulse Rate 77 09/10/20 10:45 Respiratory Rate 17 09/10/20 10:45 Blood Pressure 109/70 09/10/20 10:45 Pulse Oximetry 99 09/10/20 10:45 <Ana Gunderson DO - Last Filed: 09/11/20 07:41> Initial Vital Signs Initial Vital Signs: Vital Signs Temperature 98.2 F 09/10/20 10:45 Pulse Rate 77 09/10/20 10:45 Respiratory Rate 17 09/10/20 10:45 Blood Pressure 109/70 09/10/20 10:45 Pulse Oximetry 99 09/10/20 10:45 Course <RADHA Najera - Last Filed: 09/10/20 15:34> Orders Ordered: Discontinued Medications Sodium Chloride (Normal Saline 0.9%) 1,000 mls @ 1,000 mls/hr IV BOLUS ONE Stop: 09/10/20 12:22 Last Infusion: 09/10/20 12:22 Dose: 0 mls/hr Documented by: Admin: 09/10/20 11:25 Dose: 1,000 mls/hr Documented by: STERLING Ketorolac Tromethamine (Ketorolac 60 Mg/2 Ml Vial) 15 mg IV NOW ONE Stop: 09/10/20 11:03 Last Admin: 09/10/20 11:26 Dose: 15 mg Documented by: STERLING Metoclopramide HCl (Metoclopramide 10 Mg/2 Ml Inj) 10 mg IV NOW ONE Stop: 09/10/20 11:03 Last Admin: 09/10/20 11:26 Dose: 10 mg Documented by: STERLING Sodium Chloride (Sodium Chloride 0.9% 100 Ml) 1,000 ml IV NOW ONE Stop: 09/10/20 11:03 Last Admin: 09/10/20 11:23 Dose: Not Given Documented by: STERLING Vital Signs Vital signs: Vital Signs - 8 hr 09/10/20 10:45 09/10/20 12:26 Temperature 98.2 F Pulse Rate 77 78 Respiratory Rate 17 18 Blood Pressure 109/70 105/55 L Pulse Oximetry 99 100 <Ana Gunderson DO - Last Filed: 09/11/20 07:41> Orders Ordered: Discontinued Medications Sodium Chloride (Normal Saline 0.9%) 1,000 mls @ 1,000 mls/hr IV BOLUS ONE Stop: 09/10/20 12:22 Last Infusion: 09/10/20 12:22 Dose: 0 mls/hr Documented by: Admin: 09/10/20 11:25 Dose: 1,000 mls/hr Documented by: STERLING Ketorolac Tromethamine (Ketorolac 60 Mg/2 Ml Vial) 15 mg IV NOW ONE Stop: 09/10/20 11:03 Last Admin: 09/10/20 11:26 Dose: 15 mg Documented by: STERLING Metoclopramide HCl (Metoclopramide 10 Mg/2 Ml Inj) 10 mg IV NOW ONE Stop: 09/10/20 11:03 Last Admin: 09/10/20 11:26 Dose: 10 mg Documented by: STERLING Sodium Chloride (Sodium Chloride 0.9% 100 Ml) 1,000 ml IV NOW ONE Stop: 09/10/20 11:03 Last Admin: 09/10/20 11:23 Dose: Not Given Documented by: STERLING Vital Signs Vital signs: Vital Signs - 8 hr 09/10/20 10:45 09/10/20 12:26 Temperature 98.2 F Pulse Rate 77 78 Respiratory Rate 17 18 Blood Pressure 109/70 105/55 L Pulse Oximetry 99 100 MDM - Headache <RADHA Najera - Last Filed: 09/10/20 15:34> Lab Data Attestation: I reviewed the patient's lab results. Result diagrams: 09/10/20 10:50 09/10/20 10:50 Labs: Lab Results 09/10/20 09/10/20 09/10/20 Range/Units 10:50 10:50 10:50 WBC 6.0 (4.5-11.0) X10^3/uL RBC 4.51 (4.0-5.2) X10^6/uL Hgb 14.2 (12.0-16.0) g/dL Hct 41.2 (36-46) % MCV 91.3 (80-100) fL MCH 31.5 (26-34) PG MCHC 34.5 (30-36) % RDW 13.5 (11.6-14.8) % Plt Count 248 (150-400) X10^3/uL Neut % (Auto) 73.2 (50-75) % Lymph % (Auto) 21.1 L (25-40) % [place] % (Auto) 4.4 (3-14) % Eos % (Auto) 0.8 L (2-4) % Baso % (Auto) 0.5 (0-2) % Neut # (Auto) 4400 (2215-9790) /uL Lymph # (Auto) 1300 (5504-4975) /uL [place] # (Auto) 300 (0-900) /uL Eos # (Auto) 0 (0-450) /uL Baso # (Auto) 0 (0-100) /uL Sodium 138 (137-145) mmol/L Potassium 3.4 (3.4-5.1) mmol/L Chloride 105 (98-107) mmol/L Carbon Dioxide 25 (22-32) mmol/L BUN 16 (7-17) mg/dL Creatinine 0.64 (0.52-1.04) mg/dL Estimated GFR > 60.0 (>60) mL/min BUN/Creatinine Ratio 25.0 H (6-22) Glucose 115 H (70-100) mg/dL Calcium 9.5 (8.4-10.2) mg/dL Total Bilirubin 0.5 (0.2-1.3) mg/dL AST 29 (14-36) IU/L ALT 17 (<35) IU/L Alkaline Phosphatase 62 (38-126) U/L Total Protein 7.7 (6.3-8.2) g/dL Albumin 4.5 (3.5-5.0) g/dL Globulin 3.2 (1.7-4.1) g/dL Albumin/Globulin Ratio 1.4 (1.0-2.8) [place] 0.7 (0.6-1.2) mmol/L MDM Narrative Medical decision making narrative: The patient is a 34-year-old female who presents with a chief complaint of a migraine since yesterday. She states that this is very typical migraine for her, denies any confusion or acute neurological concerns. Will hold off on CT as she has no thunderclap sensation, states this is history of typical migraine, and no acute findings on exam. She feels much improved after the above-stated therapies, states that she plans on following up with primary care provider keeping a headache journal in the meantime. I discussed at length come back to the ER for acute concerns. Offered work note which declined, encourage pushing fluids and rest over the next few days. Patient has no questions or concerns upon discharge states understanding return precautions well as follow-up care. <Ana Gunderson, DO - Last Filed: 09/11/20 07:41> Lab Data Labs: Lab Results 09/10/20 09/10/20 09/10/20 Range/Units 10:50 10:50 10:50 WBC 6.0 (4.5-11.0) X10^3/uL RBC 4.51 (4.0-5.2) X10^6/uL Hgb 14.2 (12.0-16.0) g/dL Hct 41.2 (36-46) % MCV 91.3 (80-100) fL MCH 31.5 (26-34) PG MCHC 34.5 (30-36) % RDW 13.5 (11.6-14.8) % Plt Count 248 (150-400) X10^3/uL Neut % (Auto) 73.2 (50-75) % Lymph % (Auto) 21.1 L (25-40) % [place] % (Auto) 4.4 (3-14) % Eos % (Auto) 0.8 L (2-4) % Baso % (Auto) 0.5 (0-2) % Neut # (Auto) 4400 (2288-3161) /uL Lymph # (Auto) 1300 (9195-3390) /uL [place] # (Auto) 300 (0-900) /uL Eos # (Auto) 0 (0-450) /uL Baso # (Auto) 0 (0-100) /uL Sodium 138 (137-145) mmol/L Potassium 3.4 (3.4-5.1) mmol/L Chloride 105 (98-107) mmol/L Carbon Dioxide 25 (22-32) mmol/L BUN 16 (7-17) mg/dL Creatinine 0.64 (0.52-1.04) mg/dL Estimated GFR > 60.0 (>60) mL/min BUN/Creatinine Ratio 25.0 H (6-22) Glucose 115 H (70-100) mg/dL Calcium 9.5 (8.4-10.2) mg/dL Total Bilirubin 0.5 (0.2-1.3) mg/dL AST 29 (14-36) IU/L ALT 17 (<35) IU/L Alkaline Phosphatase 62 (38-126) U/L Total Protein 7.7 (6.3-8.2) g/dL Albumin 4.5 (3.5-5.0) g/dL Globulin 3.2 (1.7-4.1) g/dL Albumin/Globulin Ratio 1.4 (1.0-2.8) [place] 0.7 (0.6-1.2) mmol/L Discharge Plan Departure Patient Disposition: Home Clinical Impression: Migraines Qualifiers: Migraine type: unspecified Status migrainosus presence: without status migrainosus Intractability: not intractable Qualified Code(s): G43.909 - Migraine, unspecified, not intractable, without status migrainosus Instructions: DI for Migraine, DI for Headache Activity Restrictions/Additional Instructions: Thank you for trusting us with your care today. Please follow-up with primary care provider in the next few days. I highly suggest a headache journal so that you can watch for triggers. Please come back to the emergency department for any acute concerns such as confusion, acute neurological deficit Please go home and rest push fluids Please come back to emergency department if you have any acute concerns Prescriptions: No Action cyclobenzaprine 10 mg tablet 10 mg PO TID PRN (Reason: muscle spasm) Qty: 20 RF: 0 sumatriptan succinate [Imitrex] 100 MG tablet 100 mg PO PRN PRN (Reason: Migraine Headache) Qty: 0 RF: 0 estradiol 1 mg tablet 1 mg PO DAILY Qty: 90 RF: 3 All Day Allergy (cetirizine) 10 mg capsule 10 mg PO DAILY RF: 0 fluticasone propionate [Flonase Allergy Relief] 50 mcg/actuation spray,suspension 1 spray NASAL DAILY RF: 0 dextroamphetamine-amphetamine [Adderall XR] 20 mg Capsule,Extended Release 24hr 20 mg PO QAM PRN (Reason: to help focus at work) RF: 0 trazodone 100 mg tablet 150 mg PO QPM RF: 0 lithium carbonate 300 mg tablet 300 mg PO QAM RF: 0 lithium carbonate 300 mg tablet 600 mg PO QPM RF: 0 lamotrigine 100 mg tablet 200 mg PO DAILY RF: 0 ondansetron 4 mg tablet,disintegrating 4 mg PO Q6H PRN (Reason: nausea and vomiting) Qty: 10 RF: 0 pantoprazole 40 mg tablet,delayed release (DR/EC) 40 mg PO DAILY Qty: 30 RF: 0 metoclopramide HCl [Reglan] 10 mg tablet 10 mg PO Q6H PRN (Reason: nausea and vomiting) Qty: 10 RF: 0 hydrocodone-acetaminophen 5-325 mg tablet 1 tab PO Q4-6H PRN (Reason: pain) Qty: 10 RF: 0 levothyroxine 200 mcg tablet 200 mcg PO DAILY RF: 0 albuterol sulfate 90 mcg/actuation HFA aerosol inhaler 2 puff INHALATION Q4-6H PRN (Reason: shortness of breath) Qty: 18 RF: 0 prednisone 50 mg tablet 50 mg PO DAILY Qty: 5 RF: 0 lamotrigine 100 mg tablet 100 mg PO BID RF: 0 Referrals: Aldo Hernadez MD [Primary Care Provider] - <Ana Gunderson DO - Last Filed: 09/11/20 07:41> Cosign ED Attending Martha Attestation: I was immediately available in the [facility] tment for consultation. Documentation has been reviewed. I agree with assessment and plan.
[2020-09-10 12:26] VITALS: BP 105/55; PULSE 78; RESP 18; O2SAT 100
== END 2020-09-10 12:35 | disposition home or self-care (01) ==
PROVIDERS: Emergency Medicine; Emergency Provider Nurse Practitioner Family; Family Provider Family Medicine; PCP Family Medicine
DX: G43.909 Migraine, unspecified, not intractable, without status migrainosus (principal)
CPT/HCPCS: 36415; 80053; 80178; 85025; 96361; 96374; 96375; 99284; J1885; J2765

== ENCOUNTER → 2020-11-05 09:13 | Outpatient (CLI) | payer OTHER, MEDICAID, SELFPAY ==
[2020-01-03 20:33] VITALS: BMI 30.6
--- NOTE | 2020-11-05 | DI.MRI.S_ITS ---
PROCEDURE: MR KNEE RT WO CON INDICATIONS: Other meniscus derangements, unspecified meniscus, TECHNIQUE: Noncontrast sagittal PD fast spin echo and T2 fast spin echo with fat saturation, sagittal 3-D FLASH with fat saturation; coronal T1 spin echo and PD fast spin echo with fat saturation, and axial PD fast spin echo with fat saturation through the knee. COMPARISON: [facility], CR, XR KNEE ARTHRITIC SERIES BI, 10/16/2020, 12:01. FINDINGS: Image quality: Partially degraded by motion artifact. Menisci: The medial and lateral menisci demonstrate normal morphology and internal signal. The meniscal root ligaments appear intact. Cruciate ligaments: The anterior and posterior cruciate ligaments appear intact. Medial structures: The medial collateral ligament appears intact. Visualized portions of the pes anserinus tendons appear normal. No abnormal bursal fluid. Lateral structures: The lateral collateral ligament, long and short heads of the biceps femoris tendon appear intact. The popliteus tendon appears normal. Iliotibial band appears normal. Anterior structures: The quadriceps and patellar tendons appear intact. Mild T2 signal elevation within the quadriceps and patellar tendons at the patellar insertion site. Patellar alignment is normal. No femoral trochlear dysplasia or ventral trochlear prominence. No edema in the infrapatellar fat pad. Bones and cartilage: There is a small focus of curvilinear low T1/T2 signal intensity within the posterior weight-bearing aspect of the medial tibial plateau measuring roughly 4 mm anteroposterior, with moderate surrounding ill-defined T2 signal elevation. Joint space: There is physiologic knee joint fluid. Small Cooney's cyst. Normal appearing synovial plicae are incidentally noted. IMPRESSION: 1. Stress fracture with surrounding contusion/stress reaction in the medial tibial plateau posteriorly. 2. No internal derangement. 3. Mild quadriceps and patellar tendinopathy. 4. Small knee joint effusion and Cooney's cyst. Dictated by: Jayshree Adan M.D. on 11/05/2020 at 10:46 Approved by: Jayshree Adan M.D. on 11/05/2020 at 10:49
== END ==
PROVIDERS: Family Provider Family Medicine; PCP Family Medicine; Referring Provider Family Medicine; Visit Provider Family Medicine
DX: M25.461 Effusion, right knee (principal); M84.361A Stress fracture, right tibia, initial encounter for fracture; M71.21 Synovial cyst of popliteal space [Baker], right knee
CPT/HCPCS: 73721

== ENCOUNTER 2021-05-16 09:14 | Emergency (ER) | payer OTHER, MEDICAID, SELFPAY ==
[2020-01-03 20:33] VITALS: BMI 30.6
[2021-05-16 09:24] VITALS: PULSE 71; RESP 20; O2SAT 97
[2021-05-16 09:26] VITALS: BP 107/56; PULSE 73; O2SAT 100
[2021-05-16] MEDS: SODIUM CHLORIDE 0.9% 1,000 ML 1000 ML IV (09:36)
[2021-05-16] MEDS: METOCLOPRAMIDE 10 MG/2 ML INJ IV (09:37)
[2021-05-16] MEDS: KETOROLAC 30 MG/ML VIAL 15 MG IV (09:38)
[2021-05-16] MEDS: DEXAMETHASONE 10 MG/ML VIAL IV (09:38)
[2021-05-16] MEDS: diphenhydrAMINE 50 MG/ML VIAL 25 MG IV (09:40)
--- NOTE | 2021-05-16 10:04 | ED.HA ---
HPI - Headache General Chief Complaint: Headache Stated Complaint: Migraine 2 days, vomitting, abd pain Time Seen by Provider: 05/16/21 09:29 Mode of arrival: Wheelchair Limitations: no limitations History of Present Illness HPI Narrative: 35-year-old woman with a history of chronic migraine that usually is treated with Imitrex, she is on lamotrigine daily, hypothyroidism, bipolar disorder intermittent asthma and seasonal allergies presents with 48 hours of severe headache consistent with her usual migraine. On arrival she has fairly dramatic affect of behavior and is hyperventilating to the point that she is having myoclonus. She is unable to trace state in history or exam beyond her pain behaviors. Related Data Home Medications Medication Instructions Recorded Confirmed sumatriptan succinate 100 mg 100 mg PO PRN PRN #0 08/22/12 03/18/20 tablet (Imitrex) dextroamphetamine-amphetamine ER 20 mg PO QAM PRN 02/11/18 03/18/20 20 mg 24hr capsule,extend release (Adderall XR) lamotrigine 100 mg tablet 200 mg PO DAILY 05/24/18 03/18/20 lithium carbonate 300 mg tablet 300 mg PO QAM 05/24/18 03/18/20 lithium carbonate 300 mg tablet 600 mg PO QPM 05/24/18 03/18/20 trazodone 100 mg tablet 150 mg PO QPM 05/24/18 03/18/20 cetirizine 10 mg capsule (All Day 10 mg PO DAILY 12/14/18 03/18/20 Allergy (cetirizine)) fluticasone propionate 50 1 spray NASAL DAILY 12/14/18 03/18/20 mcg/actuation nasal spray,suspension (Flonase Allergy Relief) levothyroxine 200 mcg tablet 200 mcg PO DAILY 04/26/19 03/18/20 lamotrigine 100 mg tablet 100 mg PO BID 09/10/20 09/10/20 Previous Rx's Medication Instructions Recorded estradiol 1 mg tablet 1 mg PO DAILY #90 tab 03/30/19 albuterol sulfate 90 mcg/actuation 2 puff INHALATION Q4-6H PRN #18 06/17/19 aerosol inhaler gram prednisone 50 mg tablet 50 mg PO DAILY #5 tab 06/17/19 ondansetron 4 mg disintegrating 4 mg PO Q6H PRN #10 tab 12/28/19 tablet pantoprazole 40 mg tablet,delayed 40 mg PO DAILY #30 tab 12/29/19 release metoclopramide HCl 10 mg tablet 10 mg PO Q6H PRN #10 tab 12/31/19 (Reglan) cyclobenzaprine 10 mg tablet 10 mg PO TID PRN #20 tab 03/18/20 hydrocodone 5 mg-acetaminophen 325 1 tab PO Q4-6H PRN #10 tab 06/11/20 mg tablet Allergies Allergy/AdvReac Type Severity Reaction Status Date / Time adhesive [ADHESIVE] Allergy Intermediate Rash Verified 09/10/20 10:59 amoxicillin [AMOXICILLIN] Allergy Intermediate Vomiting, Verified 09/10/20 10:59 tongue swelling cephalexin [From KEFLEX] Allergy Intermediate Hives Verified 09/10/20 10:59 clindamycin [CLINDAMYCIN] Allergy Intermediate Hives, Verified 09/10/20 10:59 vomiting doxycycline [DOXYCYCLINE] Allergy Intermediate Hives Verified 09/10/20 10:59 iodine [IODINE] Allergy Intermediate Hives Verified 09/10/20 10:59 Sulfa (Sulfonamide Allergy Intermediate Hives Verified 09/10/20 10:59 Antibiotics) [SULFA (SULFONAMIDE ANTIBIOTICS)] Penicillins [PENICILLINS] Allergy Unknown Hives, Verified 09/10/20 10:59 vomiting levofloxacin Allergy Unknown Verified 09/10/20 10:59 Review of Systems Review of Systems ROS Unobtainable: Unobtainable due to medical condition Patient History Medical History (Updated 05/16/21 @ 11:40 by Monika Rivas MD) ADHD (~1991) Anxiety Asthma Bipolar 1 disorder Chicken pox (~1988) Chronic back pain Depression Herpes Hypothyroid Post traumatic stress disorder (PTSD) Thyroid cancer (~2008) Surgical History Anesthesia H/O thyroidectomy (~05/2009) H/O: hysterectomy History of hysterectomy (~11/2011) History of knee surgery (~04/2009) History of partial hysterectomy (~09/2009) History of tonsillectomy and adenoidectomy (~06/2008) Family History Mother Breast cancer Grandmother History of cancer of spinal cord Lung cancer Grandfather Lung cancer Father Hyperlipidemia Social History household members: significant other and other Smoking Status: Former smoker alcohol intake: current Smoking Status: Former smoker alcohol intake frequency: a few times a month Substance Use Type: marijuana Exam Narrative Exam Narrative: Initial brief screening exam indicates pain, no respiratory issues and no evidence of acute stroke Once headache has been treated more thorough exam is done General: Has now calmed and is Able to give a complete and coherent history. Well-nourished well-developed HEENT: Moist mucous membranes, normal sclera with reactive pupils, Neck: No JVD, supple Respiratory: Lungs are clear to auscultation, no wheezing no rales no rhonchi. Full and symmetrical air movement Cardiac: Regular rate and rhythm no murmurs no bruits Abdomen: Soft, nontender, good bowel tones, no flank pain Skin: Warm and dry, no rashes Neurologic: Grossly neurologically intact with no obvious asymmetries or abnormalities Extremities: No trauma, well perfused Psych: Cooperative, appropriate insight and affect Initial Vital Signs Initial Vital Signs: Vital Signs Pulse Rate 71 05/16/21 09:24 Respiratory Rate 20 05/16/21 09:24 Pulse Oximetry 97 05/16/21 09:24 Course Orders Ordered: Discontinued Medications Dexamethasone (Dexamethasone 10 Mg/Ml Vial) 10 mg IV NOW ONE Stop: 05/16/21 09:30 Last Admin: 05/16/21 09:38 Dose: 10 mg Documented by: DENIZ Diphenhydramine HCl (Diphenhydramine 50 Mg/Ml Vial) 25 mg IV NOW ONE Stop: 05/16/21 09:30 Last Admin: 05/16/21 09:40 Dose: 25 mg Documented by: DENIZ Sodium Chloride (Normal Saline 0.9%) 1,000 mls @ 1,000 mls/hr IV BOLUS ONE Stop: 05/16/21 10:28 Last Infusion: 05/16/21 10:46 Dose: 0 mls/hr Documented by: Admin: 05/16/21 09:36 Dose: 1,000 mls/hr Documented by: DENIZ Ketorolac Tromethamine (Ketorolac 30 Mg/Ml Vial) 15 mg IV NOW ONE Stop: 05/16/21 09:32 Last Admin: 05/16/21 09:38 Dose: 15 mg Documented by: DENIZ Metoclopramide HCl (Metoclopramide 10 Mg/2 Ml Inj) 10 mg IV NOW ONE Stop: 05/16/21 09:30 Last Admin: 05/16/21 09:37 Dose: 10 mg Documented by: DENIZ Vital Signs Vital signs: Vital Signs - 8 hr 05/16/21 09:24 Pulse Rate 71 Respiratory Rate 20 Pulse Oximetry 97 MDM - Headache MDM Narrative Medical decision making narrative: 35-year-old woman with bipolar type 1 and migraine. Presents with severe pain and carpal pedal spasm. She is given a L of fluid, because the headache has been present for 48 hours she is given 10 mg of Decadron, IV Toradol, IV Benadryl and IV Reglan and symptoms are entirely resolved. She states that all of her symptoms have gotten progressively worse over the past 48 hours consistent with previous migraine headache with no red flags or concerning symptoms. She has Imitrex available to her at home and follow-up scheduled with her primary care physician. At this point headache is resolved, there is no evidence of stroke, infection or intracranial bleeding and and she is safe for home discharge Discharge Plan Departure Patient Disposition: Home Clinical Impression: Migraines Instructions: DI for Migraine Activity Restrictions/Additional Instructions: Thank you for coming in today I am glad we were able to help with her migraine. With your next migraine please make sure that you are using your Imitrex as soon as you notice symptoms to try and prevent things from getting this severe. I wish you the best Prescriptions: No Action cyclobenzaprine 10 mg tablet 10 mg PO TID PRN (Reason: muscle spasm) Qty: 20 0RF sumatriptan succinate [Imitrex] 100 MG tablet 100 mg PO PRN PRN (Reason: Migraine Headache) Qty: 0 0RF estradiol 1 mg tablet 1 mg PO DAILY Qty: 90 3RF Rx Instructions: off 1 week; repeat cycle All Day Allergy (cetirizine) 10 mg capsule 10 mg PO DAILY 0RF fluticasone propionate [Flonase Allergy Relief] 50 mcg/actuation spray,suspension 1 spray NASAL DAILY 0RF dextroamphetamine-amphetamine [Adderall XR] 20 mg Capsule,Extended Release 24hr 20 mg PO QAM PRN (Reason: to help focus at work) 0RF trazodone 100 mg tablet 150 mg PO QPM 0RF Label Comments: take 1 and 1/2 tablets by mouth NIGHTLY lithium carbonate 300 mg tablet 300 mg PO QAM 0RF Label Comments: take 1 tablet by mouth every morning and 2 tablets every evening withfood lithium carbonate 300 mg tablet 600 mg PO QPM 0RF Label Comments: take 1 tablet by mouth every morning and 2 tablets every evening withfood lamotrigine 100 mg tablet 200 mg PO DAILY 0RF Label Comments: take 2 tablets by mouth once daily ondansetron 4 mg tablet,disintegrating 4 mg PO Q6H PRN (Reason: nausea and vomiting) Qty: 10 0RF pantoprazole 40 mg tablet,delayed release (DR/EC) 40 mg PO DAILY Qty: 30 0RF metoclopramide HCl [Reglan] 10 mg tablet 10 mg PO Q6H PRN (Reason: nausea and vomiting) Qty: 10 0RF hydrocodone-acetaminophen 5-325 mg tablet 1 tab PO Q4-6H PRN (Reason: pain) Qty: 10 0RF levothyroxine 200 mcg tablet 200 mcg PO DAILY 0RF albuterol sulfate 90 mcg/actuation HFA aerosol inhaler 2 puff INHALATION Q4-6H PRN (Reason: shortness of breath) Qty: 18 0RF prednisone 50 mg tablet 50 mg PO DAILY Qty: 5 0RF lamotrigine 100 mg tablet 100 mg PO BID 0RF Referrals: Aldo Hernadez MD [Primary Care Provider] -
[2021-05-16 11:46] VITALS: BP 94/59; PULSE 70; RESP 16; O2SAT 99
== END 2021-05-16 11:51 | disposition home or self-care (01) ==
PROVIDERS: Emergency Provider Emergency Medicine; Family Provider Family Medicine; PCP Family Medicine
DX: G43.909 Migraine, unspecified, not intractable, without status migrainosus (principal)
CPT/HCPCS: 36415; 96361; 96374; 96375; 99284; J1100; J1200; J1885; J2765

== ENCOUNTER 2021-07-06 10:52 | Emergency (ER) | payer OTHER, MEDICAID, SELFPAY ==
[2020-01-03 20:33] VITALS: BMI 30.6
[2021-07-06] VITALS (21 sets, daily range): BP systolic 79–111; BP diastolic 41–70; PULSE 47–80; RESP 16–18; TEMP 36.6; O2SAT 87–100
[2021-07-06] MEDS: PANTOPRAZOLE 40 MG VIAL IV (11:29)
[2021-07-06] MEDS: SODIUM CHLORIDE 0.9% 1,000 ML 1000 ML IV ×2 (11:29→14:25)
[2021-07-06] MEDS: ONDANSETRON 4 MG/2 ML INJ IV (11:29)
--- NOTE | 2021-07-06 11:52 | ED.NAVMDI ---
HPI - Nausea/Vomiting/Diarrhea General Chief complaint: Nausea/Vomiting/Diarrhea Stated complaint: throwing up, stomach/back pain Time Seen by Provider: 07/06/21 11:20 Source: patient Mode of arrival: Ambulatory History of Present Illness HPI Narrative: 35-year-old female. Here for evaluation of less than 24 hours of throwing up and stomach pain and back pain. She states she has tried ?everything ?at home but she has still been throwing up. Decreased urine output because of this. Has also had some loose stools. The vomiting in the a loose stools do not change her abdominal pain and potentially make it worse if anything. No fevers. No recent travel. No recent antibiotics. Has had a hysterectomy. Related Data Home Medications Medication Instructions Recorded Confirmed sumatriptan succinate 100 mg 100 mg PO PRN PRN #0 08/22/12 03/18/20 tablet (Imitrex) dextroamphetamine-amphetamine ER 20 mg PO QAM PRN 02/11/18 03/18/20 20 mg 24hr capsule,extend release (Adderall XR) lamotrigine 100 mg tablet 200 mg PO DAILY 05/24/18 03/18/20 lithium carbonate 300 mg tablet 300 mg PO QAM 05/24/18 03/18/20 lithium carbonate 300 mg tablet 600 mg PO QPM 05/24/18 03/18/20 trazodone 100 mg tablet 150 mg PO QPM 05/24/18 03/18/20 cetirizine 10 mg capsule (All Day 10 mg PO DAILY 12/14/18 03/18/20 Allergy (cetirizine)) fluticasone propionate 50 1 spray NASAL DAILY 12/14/18 03/18/20 mcg/actuation nasal spray,suspension (Flonase Allergy Relief) levothyroxine 200 mcg tablet 200 mcg PO DAILY 04/26/19 03/18/20 lamotrigine 100 mg tablet 100 mg PO BID 09/10/20 09/10/20 Previous Rx's Medication Instructions Recorded estradiol 1 mg tablet 1 mg PO DAILY #90 tab 03/30/19 albuterol sulfate 90 mcg/actuation 2 puff INHALATION Q4-6H PRN #18 06/17/19 aerosol inhaler gram prednisone 50 mg tablet 50 mg PO DAILY #5 tab 06/17/19 ondansetron 4 mg disintegrating 4 mg PO Q6H PRN #10 tab 12/28/19 tablet pantoprazole 40 mg tablet,delayed 40 mg PO DAILY #30 tab 12/29/19 release metoclopramide HCl 10 mg tablet 10 mg PO Q6H PRN #10 tab 12/31/19 (Reglan) cyclobenzaprine 10 mg tablet 10 mg PO TID PRN #20 tab 03/18/20 hydrocodone 5 mg-acetaminophen 325 1 tab PO Q4-6H PRN #10 tab 06/11/20 mg tablet ondansetron 4 mg disintegrating 4 mg PO Q6H PRN #14 tab 07/06/21 tablet Allergies Allergy/AdvReac Type Severity Reaction Status Date / Time adhesive [ADHESIVE] Allergy Intermediate Rash Verified 07/06/21 11:21 amoxicillin [AMOXICILLIN] Allergy Intermediate Vomiting, Verified 07/06/21 11:21 tongue swelling cephalexin [From KEFLEX] Allergy Intermediate Hives Verified 07/06/21 11:21 clindamycin [CLINDAMYCIN] Allergy Intermediate Hives, Verified 07/06/21 11:21 vomiting doxycycline [DOXYCYCLINE] Allergy Intermediate Hives Verified 07/06/21 11:21 iodine [IODINE] Allergy Intermediate Hives Verified 07/06/21 11:21 Sulfa (Sulfonamide Allergy Intermediate Hives Verified 07/06/21 11:21 Antibiotics) [SULFA (SULFONAMIDE ANTIBIOTICS)] Penicillins [PENICILLINS] Allergy Unknown Hives, Verified 07/06/21 11:21 vomiting levofloxacin Allergy Unknown Verified 07/06/21 11:21 Review of Systems Review of Systems ROS Unobtainable: All systems reviewed & are unremarkable except as noted in HPI and below Cardiovascular Cardiovascular: Reports system reviewed and no additional complaints, except as documented Respiratory Respiratory: Reports system reviewed and no additional complaints, except as documented Gastrointestinal Gastrointestinal: Reports as per HPI and Reports system reviewed and no additional complaints, except as documented Genitourinary Genitourinary: Reports system reviewed and no additional complaints, except as documented and Reports as per HPI Musculoskeletal Musculoskeletal: Reports system reviewed and no additional complaints, except as documented and Reports as per HPI Integumentary/Breasts Skin/Breast: Reports system reviewed and no additional complaints, except as documented Neurologic Neurologic: Reports system reviewed and no additional complaints, except as documented Hematologic/Lymphatic On Anticoagulants: No Patient History Medical History (Updated 07/06/21 @ 13:58 by Thiago Kulkarni DO) ADHD (~1991) Anxiety Asthma Bipolar 1 disorder Chicken pox (~1988) Chronic back pain Depression Herpes Hypothyroid Post traumatic stress disorder (PTSD) Thyroid cancer (~2008) Surgical History Anesthesia H/O thyroidectomy (~05/2009) H/O: hysterectomy History of hysterectomy (~11/2011) History of knee surgery (~04/2009) History of partial hysterectomy (~09/2009) History of tonsillectomy and adenoidectomy (~06/2008) Family History Mother Breast cancer Grandmother History of cancer of spinal cord Lung cancer Grandfather Lung cancer Father Hyperlipidemia Social History household members: significant other and other Smoking Status: Former smoker alcohol intake: current Smoking Status: Former smoker alcohol intake frequency: a few times a month Substance Use Type: marijuana Exam Initial Vital Signs Initial Vital Signs: Vital Signs Temperature 97.8 F 07/06/21 11:18 Pulse Rate 64 07/06/21 11:18 Respiratory Rate 18 07/06/21 11:18 Blood Pressure 110/57 L 07/06/21 11:18 Pulse Oximetry 99 07/06/21 11:18 Const General: cooperative, healthy appearing, comfortable and well developed Limitations: mental status not altered HENMT Head: normal to inspection and normocephalic Resp Effort & Inspection: normal respiratory effort Auscultation: clear to auscultation bilaterally Cardio Rate: regular rate Rhythm: regular rhythm GI Inspection: non-distended Palpation: soft and tender (Diffusely tender) Back/Spine/Pelvis Back: normal to inspection Skin General: no rashes or lesions noted Neuro General: patient alert, patient awake and moves all extremities Extrem General: normal to inspection and capillary refill normal Psych Appearance: grossly normal and well kempt Course Orders Ordered: ED Orders 07/06/21 11:15 Complete Blood Count AUTO DIFF Stat Comprehensive Metabolic Panel Stat Lipase Stat Oretta Stat 07/06/21 11:34 COVID19 -Nasal swab/Pre-Proc Stat 07/06/21 11:55 CT abdomen pelvis w con Stat 07/06/21 13:52 Urine Microscopic Stat Discontinued Medications Diphenhydramine HCl (Diphenhydramine 50 Mg/Ml Vial) 25 mg IV NOW ONE Stop: 07/06/21 12:08 Last Admin: 07/06/21 12:16 Dose: 25 mg Documented by: ROMEO Sodium Chloride (Normal Saline 0.9%) 1,000 mls @ 1,000 mls/hr IV BOLUS ONE Stop: 07/06/21 12:16 Last Infusion: 07/06/21 13:25 Dose: 0 mls/hr Documented by: Admin: 07/06/21 11:29 Dose: 1,000 mls/hr Documented by: JODIE Ketorolac Tromethamine (Ketorolac 30 Mg/Ml Vial) 30 mg IV NOW ONE Stop: 07/06/21 11:54 Last Admin: 07/06/21 12:16 Dose: 30 mg Documented by: ROMEO Methylprednisolone (Methylprednisolone 125 Mg/2 Ml Vial) 125 mg IV NOW ONE Stop: 07/06/21 12:08 Last Admin: 07/06/21 12:16 Dose: 125 mg Documented by: ROMEO Ondansetron HCl (Ondansetron 4 Mg/2 Ml Inj) 4 mg IV NOW ONE Stop: 07/06/21 11:18 Last Admin: 07/06/21 11:29 Dose: 4 mg Documented by: JODIE Pantoprazole Sodium (Pantoprazole 40 Mg Vial) 40 mg IV NOW ONE Stop: 07/06/21 11:23 Last Admin: 07/06/21 11:29 Dose: 40 mg Documented by: JODIE Vital Signs Vital signs: Vital Signs - 8 hr 07/06/21 11:18 Temperature 97.8 F Pulse Rate 64 Respiratory Rate 18 Blood Pressure 110/57 L Pulse Oximetry 99 MDM - Nausea/Vomiting/Diarrhea Lab Data Result diagrams: 07/06/21 11:15 07/06/21 11:15 Labs: Lab Results 07/06/21 07/06/21 07/06/21 Range/Units 11:15 11:15 11:15 WBC 12.5 H (4.5-11.0) X10^3/uL RBC 4.45 (4.0-5.2) X10^6/uL Hgb 13.7 (12.0-16.0) g/dL Hct 40.6 (36-46) % MCV 91.2 (80-100) fL MCH 30.8 (26-34) PG MCHC 33.7 (30-36) % RDW 13.8 (11.6-14.8) % Plt Count 337 (150-400) X10^3/uL Neut % (Auto) 78.6 H (50-75) % Lymph % (Auto) 15.9 L (25-40) % Hawkins % (Auto) 4.8 (3-14) % Eos % (Auto) 0.1 L (2-4) % Baso % (Auto) 0.6 (0-2) % Neut # (Auto) 9800 H (5870-5664) /uL Lymph # (Auto) 2000 (0257-1022) /uL Hawkins # (Auto) 600 (0-900) /uL Eos # (Auto) 0 (0-450) /uL Baso # (Auto) 100 (0-100) /uL Sodium 142 (137-145) mmol/L Potassium 2.8 L (3.4-5.1) mmol/L Chloride 111 H (98-107) mmol/L Carbon Dioxide 24 (22-32) mmol/L BUN 19 H (7-17) mg/dL Creatinine 0.61 (0.52-1.04) mg/dL Estimated GFR > 60.0 (>60) mL/min BUN/Creatinine Ratio 31.1 H (6-22) Glucose 96 (70-100) mg/dL Calcium 8.5 (8.4-10.2) mg/dL Total Bilirubin 0.7 (0.2-1.3) mg/dL AST 37 H (14-36) IU/L ALT 22 (<35) IU/L Alkaline Phosphatase 62 (38-126) U/L Total Protein 7.2 (6.3-8.2) g/dL Albumin 4.2 (3.5-5.0) g/dL Globulin 3.0 (1.7-4.1) g/dL Albumin/Globulin Ratio 1.4 (1.0-2.8) Lipase 34 (23-300) U/L Oretta < 0.2 L (0.6-1.2) mmol/L SARS-CoV-2 (PCR) (Negative) 07/06/21 Range/Units 11:34 WBC (4.5-11.0) X10^3/uL RBC (4.0-5.2) X10^6/uL Hgb (12.0-16.0) g/dL Hct (36-46) % MCV (80-100) fL MCH (26-34) PG MCHC (30-36) % RDW (11.6-14.8) % Plt Count (150-400) X10^3/uL Neut % (Auto) (50-75) % Lymph % (Auto) (25-40) % Hawkins % (Auto) (3-14) % Eos % (Auto) (2-4) % Baso % (Auto) (0-2) % Neut # (Auto) (4341-7270) /uL Lymph # (Auto) (0083-9931) /uL Hawkins # (Auto) (0-900) /uL Eos # (Auto) (0-450) /uL Baso # (Auto) (0-100) /uL Sodium (137-145) mmol/L Potassium (3.4-5.1) mmol/L Chloride (98-107) mmol/L Carbon Dioxide (22-32) mmol/L BUN (7-17) mg/dL Creatinine (0.52-1.04) mg/dL Estimated GFR (>60) mL/min BUN/Creatinine Ratio (6-22) Glucose (70-100) mg/dL Calcium (8.4-10.2) mg/dL Total Bilirubin (0.2-1.3) mg/dL AST (14-36) IU/L ALT (<35) IU/L Alkaline Phosphatase (38-126) U/L Total Protein (6.3-8.2) g/dL Albumin (3.5-5.0) g/dL Globulin (1.7-4.1) g/dL Albumin/Globulin Ratio (1.0-2.8) Lipase (23-300) U/L Oretta (0.6-1.2) mmol/L SARS-CoV-2 (PCR) Negative (Negative) Urine Dip Bedside Urine Glucose Negative Bedside Urine Bilirubin - Negative Bedside Urine Ketone +++ 80 Urine Specific Killen 1.015 Bedside Urine Occult Blood +/- Bedside Urine pH 8.0 Bedside Urine Protein +/- 15 Bedside Urine Urobilinogen - Negative Bedside Urine Nitrite - Negative Bedside Urine Leukocytes - Negative Esterase Imaging Data CT scan - abdomen/pelvis: Radiologist's Impression: Launch?Image [address] [address] [address] Scan Report Signed Patient: Lexy Callahan MR#: [id number] : 1985 Acct:[id number] Age/Sex: 35 / F Date of Service: 07/06/21 Loc: ED Accession Number: [id number] ?? Procedure: CT abdomen pelvis w con Ordering Provider: Thiago Kulkarni D.O. PROCEDURE:? CT ABDOMEN PELVIS W CON ? INDICATIONS:? Generalized abdominal pain with vomiting ? TECHNIQUE:? After the administration of IV contrast, axial sections were acquired from the lung bases to the pubic symphysis.? Coronal and sagittal reformats were performed.? For radiation dose reduction, the following was used:? automated exposure control, adjustment of mA and/or kV according to patient size. ? COMPARISON:? [facility], CT, CT ABDOMEN PELVIS W CON, 10/17/2018, 15:19.? [facility], CT, CT ABDOMEN PELVIS W CON, 12/31/2019, 1:45. ? FINDINGS:? Image quality:? Excellent.? ? Lung bases:? Unremarkable.? ? Heart:? No significant findings. ? ? ABDOMEN: Liver: Diffuse fatty liver infiltration is noted.? A stable low-density lesion is seen along the posterior aspect of the right lobe of the liver. Gallbladder:? Unremarkable.? ? Biliary ducts:? Unremarkable.? ? Pancreas:? Unremarkable.? ? Spleen:? There is a 7 mm stable low-density nodule along the periphery of the spleen, as on series 2, image 25. Adrenal Glands:? Unremarkable.? ? Kidneys and Ureters:? Unremarkable.? ? ? Stomach and Bowel:? Stomach, small bowel loops, and colon are unremarkable.? A normal appendix is seen.? No focal right lower quadrant inflammatory changes are seen. Peritoneum:? No abnormal intraperitoneal fluid.? No free air.? ? Ventral Wall: ? No hernia.? Abdominal Nodes:? No retroperitoneal or mesenteric adenopathy by size criteria.? Vessels:? Aorta and inferior vena cava are normal in size.? ? PELVIS: Pelvic Organs: This patient is status post hysterectomy. No adnexal masses are seen.? Bladder:? Unremarkable.? ? Pelvic Nodes: No enlarged lymph nodes.? Miscellaneous: No inguinal hernias are seen. ? ? ? Bones:? Unremarkable.? IMPRESSION:? No imaging explanation is found for this patient's presenting symptoms.? ? No dilated loops of bowel are seen. ? Normal appendix.? ? The previously seen mesenteric edema and prominent mesenteric lymph nodes are no longer seen. ? Potential liver hemangioma, which appears stable from prior studies.? Liver MRI may be helpful for further diagnosis. ? Likely splenic cyst versus hemangioma, stable. ? ? ? Incidental note is made of: Fatty liver infiltration Hysterectomy ? Dictated by: Virgil Bailey M.D. on 07/06/2021 at 12:31 ? ? Approved by: Virgil Bailey M.D. on 07/06/2021 at 12:34? MDM Narrative Medical decision making narrative: Patient has a relatively benign exam. Labs unremarkable except for a leukocytosis of 12 which is most likely stress secondary to vomiting. CT scan does not show any acute surgical issues. Feel that we can hold on further workup for now. Was given fluids. Will have her contact her primary doctor for follow-up. She was given return precautions. She expressed understanding agreement. Discharge Plan Departure Patient Disposition: Home Clinical Impression: Nausea & vomiting, Abdominal pain Instructions: DI for Abdominal Pain-Adult, DI for Vomiting -- Child Activity Restrictions/Additional Instructions: Continue to take all of your medications as directed. Be sure to increase your fluid intake. Drink small amounts of fluid over longer periods of time. Advance her diet as tolerated. Contact her primary doctor for a follow-up. Prescriptions: New ondansetron 4 mg tablet,disintegrating 4 mg PO Q6H PRN (Reason: nausea and vomiting) Qty: 14 0RF No Action cyclobenzaprine 10 mg tablet 10 mg PO TID PRN (Reason: muscle spasm) Qty: 20 0RF sumatriptan succinate [Imitrex] 100 MG tablet 100 mg PO PRN PRN (Reason: Migraine Headache) Qty: 0 0RF estradiol 1 mg tablet 1 mg PO DAILY Qty: 90 3RF Rx Instructions: off 1 week; repeat cycle All Day Allergy (cetirizine) 10 mg capsule 10 mg PO DAILY 0RF fluticasone propionate [Flonase Allergy Relief] 50 mcg/actuation spray,suspension 1 spray NASAL DAILY 0RF dextroamphetamine-amphetamine [Adderall XR] 20 mg Capsule,Extended Release 24hr 20 mg PO QAM PRN (Reason: to help focus at work) 0RF trazodone 100 mg tablet 150 mg PO QPM 0RF Label Comments: take 1 and 1/2 tablets by mouth NIGHTLY lithium carbonate 300 mg tablet 300 mg PO QAM 0RF Label Comments: take 1 tablet by mouth every morning and 2 tablets every evening withfood lithium carbonate 300 mg tablet 600 mg PO QPM 0RF Label Comments: take 1 tablet by mouth every morning and 2 tablets every evening withfood lamotrigine 100 mg tablet 200 mg PO DAILY 0RF Label Comments: take 2 tablets by mouth once daily ondansetron 4 mg tablet,disintegrating 4 mg PO Q6H PRN (Reason: nausea and vomiting) Qty: 10 0RF pantoprazole 40 mg tablet,delayed release (DR/EC) 40 mg PO DAILY Qty: 30 0RF metoclopramide HCl [Reglan] 10 mg tablet 10 mg PO Q6H PRN (Reason: nausea and vomiting) Qty: 10 0RF hydrocodone-acetaminophen 5-325 mg tablet 1 tab PO Q4-6H PRN (Reason: pain) Qty: 10 0RF levothyroxine 200 mcg tablet 200 mcg PO DAILY 0RF albuterol sulfate 90 mcg/actuation HFA aerosol inhaler 2 puff INHALATION Q4-6H PRN (Reason: shortness of breath) Qty: 18 0RF prednisone 50 mg tablet 50 mg PO DAILY Qty: 5 0RF lamotrigine 100 mg tablet 100 mg PO BID 0RF Referrals: Aldo Hernadez MD [Primary Care Provider] -
--- NOTE | 2021-07-06 11:55 | DI.CT.S_ITS ---
PROCEDURE: CT ABDOMEN PELVIS W CON INDICATIONS: Generalized abdominal pain with vomiting TECHNIQUE: After the administration of IV contrast, axial sections were acquired from the lung bases to the pubic symphysis. Coronal and sagittal reformats were performed. For radiation dose reduction, the following was used: automated exposure control, adjustment of mA and/or kV according to patient size. COMPARISON: [facility], CT, CT ABDOMEN PELVIS W CON, 10/17/2018, 15:19. [facility], CT, CT ABDOMEN PELVIS W CON, 12/31/2019, 1:45. FINDINGS: Image quality: Excellent. Lung bases: Unremarkable. Heart: No significant findings. ABDOMEN: Liver: Diffuse fatty liver infiltration is noted. A stable low-density lesion is seen along the posterior aspect of the right lobe of the liver. Gallbladder: Unremarkable. Biliary ducts: Unremarkable. Pancreas: Unremarkable. Spleen: There is a 7 mm stable low-density nodule along the periphery of the spleen, as on series 2, image 25. Adrenal Glands: Unremarkable. Kidneys and Ureters: Unremarkable. Stomach and Bowel: Stomach, small bowel loops, and colon are unremarkable. A normal appendix is seen. No focal right lower quadrant inflammatory changes are seen. Peritoneum: No abnormal intraperitoneal fluid. No free air. Ventral Wall: No hernia. Abdominal Nodes: No retroperitoneal or mesenteric adenopathy by size criteria. Vessels: Aorta and inferior vena cava are normal in size. PELVIS: Pelvic Organs: This patient is status post hysterectomy. No adnexal masses are seen. Bladder: Unremarkable. Pelvic Nodes: No enlarged lymph nodes. Miscellaneous: No inguinal hernias are seen. Bones: Unremarkable. IMPRESSION: No imaging explanation is found for this patient's presenting symptoms. No dilated loops of bowel are seen. Normal appendix. The previously seen mesenteric edema and prominent mesenteric lymph nodes are no longer seen. Potential liver hemangioma, which appears stable from prior studies. Liver MRI may be helpful for further diagnosis. Likely splenic cyst versus hemangioma, stable. Incidental note is made of: Fatty liver infiltration Hysterectomy Dictated by: Virgil Bailey M.D. on 07/06/2021 at 12:31 Approved by: Virgil Bailey M.D. on 07/06/2021 at 12:34
[2021-07-06 12:12] LABS: COVID19 -Nasal RAPID Negative (Negative)
[2021-07-06] MEDS: KETOROLAC 30 MG/ML VIAL IV (12:16)
[2021-07-06] MEDS: diphenhydrAMINE 50 MG/ML VIAL 25 MG IV (12:16)
[2021-07-06] MEDS: methylPREDNISolone 125 MG/2 ML VIAL IV (12:16)
[2021-07-06 13:04] LABS: Alanine Aminotransferase 22 IU/L (<35); Albumin 4.2 g/dL (3.5-5.0); Albumin Globulin Ratio 1.4 (1.0-2.8); Alkaline Phosphatase 62 U/L (38-126); Aspartate Aminotransferase 37 IU/L (14-36); BUN Creatinine Ratio 31.1 (6-22); Bilirubin Total 0.7 mg/dL (0.2-1.3); Blood Urea Nitrogen 19 mg/dL (7-17); Calcium 8.5 mg/dL (8.4-10.2); Carbon Dioxide 24 mmol/L (22-32); Chloride 111 mmol/L (98-107); Estimated Glomerular Filt Rate > 60.0 mL/min (>60); Glucose 96 mg/dL (70-100); HEMOLYSIS < 15 (0-50); Lipase 34 U/L (23-300); Potassium 2.8 mmol/L (3.4-5.1); Sodium 142 mmol/L (137-145); Total Protein 7.2 g/dL (6.3-8.2)
[2021-07-06 13:06] LABS: Add Manual Diff / Slide Review NO; Basophils Absolute Auto 100 /uL (0-100); Basophils Percent Auto 0.6 % (0-2); Eosinophils Absolute Auto 0 /uL (0-450); Eosinophils Percent Auto 0.1 % (2-4); Hematocrit 40.6 % (36-46); Hemoglobin 13.7 g/dL (12.0-16.0); Lymphocytes Absolute Auto 2000 /uL (1100-4500); Lymphocytes Percent Auto 15.9 % (25-40); Mean Corpuscular HGB Conc 33.7 % (30-36); Mean Corpuscular Hemoglobin 30.8 PG (26-34); Mean Corpuscular Volume 91.2 fL (80-100); Monocytes Absolute Auto 600 /uL (0-900); Monocytes Percent Auto 4.8 % (3-14); Neutrophils Absolute Auto 9800 /uL (1500-7000); Neutrophils Percent Auto 78.6 % (50-75); Platelet Count 337 X10^3/uL (150-400); Red Blood Cell Count 4.45 X10^6/uL (4.0-5.2); Red Cell Distribution Width 13.8 % (11.6-14.8); White Blood Cell Count 12.5 X10^3/uL (4.5-11.0)
[2021-07-06 13:25] LABS: Lithium < 0.2 mmol/L (0.6-1.2)
[2021-07-06 14:22] LABS: Bacteria Urine None Seen; Culture Indicated Urine Cult Not Indicated; RBC Urine 1-5/HPF (0-5/HPF); WBC Urine 0-1/HPF (0-5/HPF)
--- NOTE | 2021-07-06 15:08 | PC.NURSE ---
Patient is A&O x 4. She denies any pain or nausea. Sitting upright in bed with call light in reach. No distress noted. SORIN Ramirez and this student RN present upon assessment.
--- NOTE | 2021-07-06 15:59 | PC.NURSE ---
Pt reports nausea returned and pain, Dr. Kulkarni notified.
[2021-07-06] MEDS: METOCLOPRAMIDE 10 MG/2 ML INJ IV (16:03)
== END 2021-07-06 17:05 | disposition home or self-care (01) ==
PROVIDERS: Emergency Provider Emergency Medicine; Family Provider Family Medicine; PCP Family Medicine
DX: R11.2 Nausea with vomiting, unspecified (principal); R10.9 Unspecified abdominal pain; Z87.891 Personal history of nicotine dependence; Z20.822 Contact with and (suspected) exposure to COVID-19
CPT/HCPCS: 36415; 74177; 80053; 80178; 81003; 81015; 83690; 85025; 87635; 93005; 93010; 96361; 96374; 96375; 99284; C9803; C9113; J1200; J1885; J2405; J2765; J2930

== ENCOUNTER → 2022-01-25 16:39 | Outpatient (CLI) | payer OTHER, MEDICAID, SELFPAY ==
[2020-01-03 20:33] VITALS: BMI 30.6
== END ==
PROVIDERS: Family Provider Family Medicine; PCP Family Medicine; Visit Provider Physician Assistant
DX: R30.0 Dysuria (principal)
CPT/HCPCS: 81002; 87086

== ENCOUNTER 2022-03-10 14:13 | Emergency (ER) | payer OTHER, SELFPAY ==
[2020-01-03 20:33] VITALS: BMI 30.6
[2022-03-10 14:27] VITALS: BP 110/57; PULSE 71; RESP 18; TEMP 36.7; O2SAT 100
--- NOTE | 2022-03-10 14:30 | DI.RAD.S_ITS ---
PROCEDURE: XR HAND RT MIN 3V INDICATIONS: crush injury 3rd-5th TECHNIQUE: 3 views of the hand(s) acquired. COMPARISON: None. FINDINGS: Bones: Suspect nondisplaced fractures at the 3rd-5th proximal phalanges at the distal aspects. No intra-articular extension demonstrated. No dislocations. Carpal bones are normally aligned. No suspicious bony lesions. Soft tissues: Swelling at the 2nd and 3rd digits. No suspicious soft tissue calcifications. IMPRESSION: Suspect nondisplaced fractures at the 3rd-5th proximal phalanges. Dictated by: Jose Flores M.D. on 03/10/2022 at 14:58 Approved by: Jose Flores M.D. on 03/10/2022 at 15:01
[2022-03-10] MEDS: HYDROCODONE/ACET 5/325 TABLET 1 TAB PO (15:40)
[2022-03-10] MEDS: ONDANSETRON 4 MG ODT PO (15:43)
[2022-03-10] MEDS: LIDOCAINE 2% INJ SDV 5 ML (15:43)
[2022-03-10 16:13] VITALS: O2SAT 98
[2022-03-10 16:14] VITALS: BP 114/65; PULSE 67; O2SAT 99
--- NOTE | 2022-03-10 17:23 | ED_ITS ---
HPI - Wound/Laceration <Mikel Goodman PA-C - Last Filed: 03/10/22 17:47> General Chief Complaint: Wound/Laceration Stated Complaint: cut finger open at work Time Seen by Provider: 03/10/22 15:25 Source: patient Mode of arrival: Ambulatory History of Present Illness HPI narrative: This is a 36-year-old female presents to the emergency department due to a left hand injury. Patient states that she was closing a heavy metal door when it slammed on her fingers. Patient is complaining of primarily left 3rd 4th and 5th finger pain. Denies any significant numbness. States her tetanus is up-to-date. No injuries to the rest of the upper extremity. Not on blood thinners. Related Data Home Medications Medication Instructions Recorded Confirmed sumatriptan succinate 100 mg 100 mg PO PRN PRN Migraine 08/22/12 01/25/22 tablet (Imitrex) Headache ##0 dextroamphetamine-amphetamine ER 20 mg PO QAM PRN to help focus at 02/11/18 01/25/22 20 mg 24hr capsule,extend release work (Adderall XR) lamotrigine 100 mg tablet 200 mg PO DAILY 05/24/18 01/25/22 lithium carbonate 300 mg tablet 300 mg PO QAM 05/24/18 01/25/22 lithium carbonate 300 mg tablet 600 mg PO QPM 05/24/18 01/25/22 trazodone 100 mg tablet 150 mg PO QPM 05/24/18 01/25/22 cetirizine 10 mg capsule (All Day 10 mg PO DAILY 12/14/18 01/25/22 Allergy (cetirizine)) fluticasone propionate 50 1 spray intranasal DAILY 12/14/18 01/25/22 mcg/actuation nasal spray,suspension (Flonase Allergy Relief) levothyroxine 200 mcg tablet 200 mcg PO DAILY 04/26/19 01/25/22 lamotrigine 100 mg tablet 100 mg PO BID 09/10/20 01/25/22 Previous Rx's Medication Instructions Recorded estradiol 1 mg tablet 1 mg PO DAILY #90 tabs 03/30/19 albuterol sulfate 90 mcg/actuation 2 puff inhalation Q4-6H PRN 06/17/19 aerosol inhaler shortness of breath #18 grams prednisone 50 mg tablet 50 mg PO DAILY #5 tabs 06/17/19 ondansetron 4 mg disintegrating 4 mg PO Q6H PRN nausea and 12/28/19 tablet vomiting #10 tabs pantoprazole 40 mg tablet,delayed 40 mg PO DAILY #30 tabs 12/29/19 release metoclopramide HCl 10 mg tablet 10 mg PO Q6H PRN nausea and 12/31/19 (Reglan) vomiting #10 tabs cyclobenzaprine 10 mg tablet 10 mg PO TID PRN muscle spasm #20 03/18/20 tabs hydrocodone 5 mg-acetaminophen 325 1 tab PO Q4-6H PRN pain #10 tabs 06/11/20 mg tablet metoclopramide HCl 10 mg tablet 10 mg PO Q6H PRN nausea and 07/06/21 (Reglan) vomiting #14 tabs ondansetron 4 mg disintegrating 4 mg PO Q6H PRN nausea and 07/06/21 tablet vomiting #14 tabs benzonatate 100 mg capsule 100 mg PO BID PRN cough #20 caps 12/05/21 ondansetron 4 mg disintegrating 4 mg PO Q6H PRN nausea and 01/25/22 tablet vomiting #15 tabs tamsulosin 0.4 mg capsule 0.4 mg PO DAILY #5 caps 01/25/22 hydrocodone 5 mg-acetaminophen 325 1 tab PO Q8H PRN pain #20 tabs 03/10/22 mg tablet Allergies Allergy/AdvReac Type Severity Reaction Status Date / Time adhesive [ADHESIVE] Allergy Intermediate Rash Verified 01/25/22 16:43 amoxicillin [AMOXICILLIN] Allergy Intermediate Vomiting, Verified 01/25/22 16:43 tongue swelling cephalexin [From KEFLEX] Allergy Intermediate Hives Verified 01/25/22 16:43 clindamycin [CLINDAMYCIN] Allergy Intermediate Hives, Verified 01/25/22 16:43 vomiting doxycycline [DOXYCYCLINE] Allergy Intermediate Hives Verified 01/25/22 16:43 iodine [IODINE] Allergy Intermediate Hives Verified 01/25/22 16:43 Sulfa (Sulfonamide Allergy Intermediate Hives Verified 01/25/22 16:43 Antibiotics) [SULFA (SULFONAMIDE ANTIBIOTICS)] Penicillins [PENICILLINS] Allergy Unknown Hives, Verified 01/25/22 16:43 vomiting levofloxacin Allergy Unknown Verified 01/25/22 16:43 Review of Systems <Mikel Goodman PA-C - Last Filed: 03/10/22 17:47> Review of Systems Narrative: GENERAL: Denies chills, fatigue, malaise, fever, sweats. HEENT: Denies sinus pain, ear pain, sore throat, difficulty swallowing, dizziness. RESPIRATORY: Denies dyspnea, cough, wheezing, hemoptysis, sputum. CARDIOVASCULAR: Denies chest pain, palpitations, orthopnea, edema, GASTROINTESTINAL: Denies nausea, vomiting, abdominal pain, diarrhea, c onstipation, melena. : Denies dysuria, frequency, incontinence, hematuria, urinary retention. MUSCULOSKELETAL: Left 3rd 4th and 5th finger pain SKIN: Left 3rd finger laceration NEUROLOGIC: Denies weakness, headache, numbness, change in speech, confusion, seizures, incoordination. PSYCHIATRIC: No concerning psychosocial issues. 12 point review of systems is negative except for those stated above Patient History <Mikel Goodman PA-C - Last Filed: 03/10/22 17:47> Medical History (Updated 03/10/22 @ 17:31 by Mikel Goodman PA-C) ADHD (~1991) Anxiety Asthma Bipolar 1 disorder Chicken pox (~1988) Chronic back pain Depression Herpes Hypothyroid Post traumatic stress disorder (PTSD) Thyroid cancer (~2008) Surgical History Anesthesia H/O thyroidectomy (~05/2009) H/O: hysterectomy History of hysterectomy (~11/2011) History of knee surgery (~04/2009) History of partial hysterectomy (~09/2009) History of tonsillectomy and adenoidectomy (~06/2008) Family History Mother Breast cancer Grandmother History of cancer of spinal cord Lung cancer Grandfather Lung cancer Father Hyperlipidemia Social History household members: significant other and other Smoking Status: Former smoker alcohol intake: current Smoking Status: Former smoker alcohol intake frequency: a few times a month Substance Use Type: marijuana Exam <Mikel Goodman PA-C - Last Filed: 03/10/22 17:47> Narrative Exam Narrative: GENERAL: Well-developed patient, in mild distress. HEAD: Atraumatic. Normocephalic. EYES: Pupils equal round and reactive. Extraocular motions intact. No scleral icterus. No injection or drainage. ENT: Nose without bleeding, purulent drainage. Throat without erythema, tonsillar hypertrophy or exudate. Airway patent. NECK: Trachea midline. Non tender CARDIOVASCULAR: Regular rate and rhythm without murmurs, gallops, or rubs. RESPIRATORY: Clear to auscultation. Breath sounds equal bilaterally. No wheezes, rales, or rhonchi. GASTROINTESTINAL: Abdomen soft, non-tender, nondistended. EXTREMITIES: Diffuse tenderness to palpation and mild edema to the left 3rd 4th and 5th fingers. Distally neurovascularly intact BACK: Nontender without deformity or crepitance. No flank tenderness. NEURO: AOx3. SKIN: Approximately 2 cm laceration to the palmar aspect of the 3rd finger at the PIP joint. No active bleeding Initial Vital Signs Initial Vital Signs: Vital Signs Temperature 98.1 F 03/10/22 14:27 Pulse Rate 71 03/10/22 14:27 Respiratory Rate 18 03/10/22 14:27 Blood Pressure 110/57 L 03/10/22 14:27 Pulse Oximetry 100 03/10/22 14:27 Oxygen Delivery Method 03/10/22 14:27 <Thiago Kulkarni DO - Last Filed: 03/20/22 07:44> Initial Vital Signs Initial Vital Signs: Vital Signs Temperature 98.1 F 03/10/22 14:27 Pulse Rate 71 03/10/22 14:27 Respiratory Rate 18 03/10/22 14:27 Blood Pressure 110/57 L 03/10/22 14:27 Pulse Oximetry 100 03/10/22 14:27 Oxygen Delivery Method 03/10/22 14:27 Procedures <CORTNEY Amaya Last Filed: 03/10/22 17:47> Laceration Repair Laceration 1: Time of procedure: 17:25 Site: other (Finger, left 3rd) Size (cm): 2 Depth: simple, single layer Local Anesthetic: lidocaine 2% Amount of anesthesia used (mL): 4 Pre-repair: irrigated extensively Skin layer closed with: nylon Skin layer suture size: 5-0 Number of sutures: 4 Technique: simple, interrupted Course <CORTNEY Amaya Last Filed: 03/10/22 17:47> Orders Ordered: Discontinued Medications Hydrocodone Bitart/Acetaminophen (Hydrocodone/Acet 5/325 Tablet) 1 tab PO NOW ONE Stop: 03/10/22 15:31 Last Admin: 03/10/22 15:40 Dose: 1 tab Documented By: CATHIE Lidocaine HCl (Lidocaine 1% 20 Ml) 20 ml INJ INTRA-OP ONE Stop: 03/10/22 15:31 Last Admin: 03/10/22 15:40 Dose: Not Given Documented By: SB Lidocaine HCl (Lidocaine 2% Inj Mdv 10ml) 1 mg SUBCUT NOW ONE Stop: 03/10/22 15:41 Last Admin: 03/10/22 15:54 Dose: Not Given Documented By: SB Ondansetron HCl (Ondansetron 4 Mg Odt) 4 mg PO NOW ONE Stop: 03/10/22 15:46 Last Admin: 03/10/22 15:43 Dose: 4 mg Documented By: CATHIE Vital Signs Vital signs: Vital Signs - 8 hr 03/10/22 14:27 03/10/22 16:13 03/10/22 16:14 Temperature 98.1 F Pulse Rate 71 Respiratory Rate 18 Blood Pressure 110/57 L 114/65 Pulse Oximetry 100 98 Oxygen Delivery Method Room Air 03/10/22 16:14 Temperature Pulse Rate 67 Respiratory Rate Blood Pressure Pulse Oximetry 99 Oxygen Delivery Method <Thiago Kulkarni DO - Last Filed: 03/20/22 07:44> Orders Ordered: Discontinued Medications Hydrocodone Bitart/Acetaminophen (Hydrocodone/Acet 5/325 Tablet) 1 tab PO NOW ONE Stop: 03/10/22 15:31 Last Admin: 03/10/22 15:40 Dose: 1 tab Documented By: CATHIE Lidocaine HCl (Lidocaine 1% 20 Ml) 20 ml INJ INTRA-OP ONE Stop: 03/10/22 15:31 Last Admin: 03/10/22 15:40 Dose: Not Given Documented By: CATHIE Lidocaine HCl (Lidocaine 2% Inj Mdv 10ml) 1 mg SUBCUT NOW ONE Stop: 03/10/22 15:41 Last Admin: 03/10/22 15:54 Dose: Not Given Documented By: CATHIE Ondansetron HCl (Ondansetron 4 Mg Odt) 4 mg PO NOW ONE Stop: 03/10/22 15:46 Last Admin: 03/10/22 15:43 Dose: 4 mg Documented By: SB Vital Signs Vital signs: Vital Signs - 8 hr 03/10/22 14:27 03/10/22 16:13 03/10/22 16:14 Temperature 98.1 F Pulse Rate 71 Respiratory Rate 18 Blood Pressure 110/57 L 114/65 Pulse Oximetry 100 98 Oxygen Delivery Method Room Air 03/10/22 16:14 Temperature Pulse Rate 67 Respiratory Rate Blood Pressure Pulse Oximetry 99 Oxygen Delivery Method MDM - Wound/Laceration <Mikel Goodman PA-C - Last Filed: 03/10/22 17:47> Imaging Data Left hand XR: Radiologist's Impression: [address] [address] XRay Report Signed Patient: Lexy Callahan MR#: [id number] : 1985 Acct:[id number] Age/Sex: 36 / F Date of Service: 03/10/22 Loc: ED Accession Number: [id number] ?? Procedure: XR hand RT min 3V Ordering Provider: Thiago Kulkarni D.O. PROCEDURE:? XR HAND RT MIN 3V ? INDICATIONS:? crush injury 3rd-5th ? TECHNIQUE:? 3 views of the hand(s) acquired.? ? COMPARISON:? None. ? FINDINGS:? ? Bones:? Suspect nondisplaced fractures at the 3rd-5th proximal phalanges at the distal aspects.? No intra-articular extension demonstrated.? No dislocations.? Carpal bones are normally aligned.? No suspicious bony lesions.? ? Soft tissues:? Swelling at the 2nd and 3rd digits.? No suspicious soft tissue calcifications.? ? ? IMPRESSION:? Suspect nondisplaced fractures at the 3rd-5th proximal phalanges. ? ? Dictated by: Jose Flores M.D. on 03/10/2022 at 14:58 ? ? Approved by: Jose Flores M.D. on 03/10/2022 at 15:01 ? [facility] Narrative Medical decision making narrative: This is a 36-year-old female presenting to the emergency department due to left hand injury. X-ray showed small nondisplaced fractures at the left 3rd through 5th proximal phalanges. Patient also presented with a small laceration to the palmar aspect of the 3rd digit which was closed without complications. Advised to follow up with her primary care provider in 7-10 days for suture removal. Patient will be prescribed antibiotics due to the possible open fracture. Tetanus up-to-date. Patient was placed in a modified volar splint to immobilize the fractures and instructed follow-up with orthopedics. [place] will be prescribed for pain control. Patient states she is not have cephalexin allergy. Discharge Plan Departure Patient Disposition: Home Clinical Impression: Hand injury, Laceration, Phalanx, multiple sites fracture of hand Instructions: DI for Laceration Repair, DI for a Hand Fracture, How to Take Care of Your Splint Activity Restrictions/Additional Instructions: Thank you for coming to the [facility] Emergency Department today. I am glad that we are able to close up the laceration to your finger. Please follow-up with the primary care provider in 7-10 days for re-evaluation and possible suture removal. The x-ray shows that you have fractured the middle, ring, and pinky finger of your left hand. We have placed you in a splint but we would like you to follow-up with orthopedics who is information is attached below. Please use ibuprofen as needed for the pain but you may use the [place] prescribed if needed. Please use as recommended. Please also take the antibiotics as prescribed to avoid any kind of infection. I hope you feel better soon. Prescriptions: New hydrocodone-acetaminophen 5-325 mg tablet 1 tab PO Q8H PRN (Reason: pain) Qty: 20 0RF No Action cyclobenzaprine 10 mg tablet 10 mg PO TID PRN (Reason: muscle spasm) Qty: 20 0RF benzonatate 100 mg capsule 100 mg PO BID PRN (Reason: cough) Qty: 20 0RF tamsulosin 0.4 mg capsule 0.4 mg PO DAILY Qty: 5 0RF ondansetron 4 mg tablet,disintegrating 4 mg PO Q6H PRN (Reason: nausea and vomiting) Qty: 15 0RF sumatriptan succinate [Imitrex] 100 MG tablet 100 mg PO PRN PRN (Reason: Migraine Headache) Qty: 0 estradiol 1 mg tablet 1 mg PO DAILY Qty: 90 3RF Rx Instructions: off 1 week; repeat cycle All Day Allergy (cetirizine) 10 mg capsule 10 mg PO DAILY fluticasone propionate [Flonase Allergy Relief] 50 mcg/actuation spray,suspension 1 spray NASAL DAILY dextroamphetamine-amphetamine [Adderall XR] 20 mg Capsule,Extended Release 24hr 20 mg PO QAM PRN (Reason: to help focus at work) trazodone 100 mg tablet 150 mg PO QPM Label Comments: take 1 and 1/2 tablets by mouth NIGHTLY lithium carbonate 300 mg tablet 300 mg PO QAM Label Comments: take 1 tablet by mouth every morning and 2 tablets every evening withfood lithium carbonate 300 mg tablet 600 mg PO QPM Label Comments: take 1 tablet by mouth every morning and 2 tablets every evening withfood lamotrigine 100 mg tablet 200 mg PO DAILY Label Comments: take 2 tablets by mouth once daily ondansetron 4 mg tablet,disintegrating 4 mg PO Q6H PRN (Reason: nausea and vomiting) Qty: 10 0RF pantoprazole 40 mg tablet,delayed release (DR/EC) 40 mg PO DAILY Qty: 30 0RF metoclopramide HCl [Reglan] 10 mg tablet 10 mg PO Q6H PRN (Reason: nausea and vomiting) Qty: 10 0RF hydrocodone-acetaminophen 5-325 mg tablet 1 tab PO Q4-6H PRN (Reason: pain) Qty: 10 0RF ondansetron 4 mg tablet,disintegrating 4 mg PO Q6H PRN (Reason: nausea and vomiting) Qty: 14 0RF metoclopramide HCl [Reglan] 10 mg tablet 10 mg PO Q6H PRN (Reason: nausea and vomiting) Qty: 14 0RF levothyroxine 200 mcg tablet 200 mcg PO DAILY albuterol sulfate 90 mcg/actuation HFA aerosol inhaler 2 puff INHALATION Q4-6H PRN (Reason: shortness of breath) Qty: 18 0RF prednisone 50 mg tablet 50 mg PO DAILY Qty: 5 0RF lamotrigine 100 mg tablet 100 mg PO BID Referrals: William Murrieta MD [Physician] - As soon as possible (Please f/u for your 3-5 proximal phalanx fractures ) Mikel Goodman PA-C [Emergency Provider] - Aldo Hernadez MD [Primary Care Provider] - Visit Report Forms: Patient Portal/API <Thiago Kulkarni DO - Last Filed: 03/20/22 07:44> [facility] Dr Kulkarni Co-Sign Statement: I was available for consultation during this patient's emergency department visit. This chart is signed by myself for administrative purposes only. I did not have direct contact with this patient during this visit. They were seen independently by the APC.
[2022-03-10 17:49] VITALS: BP 116/57; PULSE 70; O2SAT 100
== END 2022-03-10 17:50 | disposition home or self-care (01) ==
PROVIDERS: Emergency Provider Physician Assistant Medical; Family Provider Family Medicine; PCP Family Medicine
DX: S61.213A Laceration without foreign body of left middle finger without damage to nail, initial encounter (principal); S62.643A Nondisplaced fracture of proximal phalanx of left middle finger, initial encounter for closed fracture; S62.641A Nondisplaced fracture of proximal phalanx of left index finger, initial encounter for closed fracture; S62.647A Nondisplaced fracture of proximal phalanx of left little finger, initial encounter for closed fracture; W23.0XXA Caught, crushed, jammed, or pinched between moving objects, initial encounter; Y99.0 Civilian activity done for income or pay
CPT/HCPCS: 12001; 73130; 99283

== ENCOUNTER 2022-03-31 23:11 | Emergency (ER) | payer OTHER, MEDICAID, SELFPAY ==
[2020-01-03 20:33] VITALS: BMI 30.6
[2022-04-01 00:03] VITALS: BP 104/53; PULSE 66; RESP 18; TEMP 36.7; O2SAT 98; BMI 26.4
--- NOTE | 2022-04-01 01:32 | ED_ITS ---
HPI - Headache General Chief Complaint: Headache Stated Complaint: migraine, cant eat or drink, vomiting Time Seen by Provider: 03/31/22 23:58 Mode of arrival: Ambulatory History of Present Illness HPI Narrative: Patient is a 36-year-old female history of migraine headaches thyroid cancer with thyroidectomy and hysterectomy presenting today with headache. She says he presented like typical migraine about 5 days ago she took Imitrex at home is however it has not helped. She has had persistent headache with nausea vomiting unable to keep anything down. No numbness tingling or weakness. Sensitive blood to both light and noise. Related Data Home Medications Medication Instructions Recorded Confirmed sumatriptan succinate 100 mg 100 mg PO PRN PRN Migraine 08/22/12 01/25/22 tablet (Imitrex) Headache ##0 dextroamphetamine-amphetamine ER 20 mg PO QAM PRN to help focus at 02/11/18 01/25/22 20 mg 24hr capsule,extend release work (Adderall XR) lamotrigine 100 mg tablet 200 mg PO DAILY 05/24/18 01/25/22 lithium carbonate 300 mg tablet 300 mg PO QAM 05/24/18 01/25/22 lithium carbonate 300 mg tablet 600 mg PO QPM 05/24/18 01/25/22 trazodone 100 mg tablet 150 mg PO QPM 05/24/18 01/25/22 cetirizine 10 mg capsule (All Day 10 mg PO DAILY 12/14/18 01/25/22 Allergy (cetirizine)) fluticasone propionate 50 1 spray intranasal DAILY 12/14/18 01/25/22 mcg/actuation nasal spray,suspension (Flonase Allergy Relief) levothyroxine 200 mcg tablet 200 mcg PO DAILY 04/26/19 01/25/22 lamotrigine 100 mg tablet 100 mg PO BID 09/10/20 01/25/22 Previous Rx's Medication Instructions Recorded estradiol 1 mg tablet 1 mg PO DAILY #90 tabs 03/30/19 albuterol sulfate 90 mcg/actuation 2 puff inhalation Q4-6H PRN 06/17/19 aerosol inhaler shortness of breath #18 grams prednisone 50 mg tablet 50 mg PO DAILY #5 tabs 06/17/19 ondansetron 4 mg disintegrating 4 mg PO Q6H PRN nausea and 12/28/19 tablet vomiting #10 tabs pantoprazole 40 mg tablet,delayed 40 mg PO DAILY #30 tabs 12/29/19 release metoclopramide HCl 10 mg tablet 10 mg PO Q6H PRN nausea and 12/31/19 (Reglan) vomiting #10 tabs cyclobenzaprine 10 mg tablet 10 mg PO TID PRN muscle spasm #20 03/18/20 tabs hydrocodone 5 mg-acetaminophen 325 1 tab PO Q4-6H PRN pain #10 tabs 06/11/20 mg tablet metoclopramide HCl 10 mg tablet 10 mg PO Q6H PRN nausea and 07/06/21 (Reglan) vomiting #14 tabs ondansetron 4 mg disintegrating 4 mg PO Q6H PRN nausea and 07/06/21 tablet vomiting #14 tabs benzonatate 100 mg capsule 100 mg PO BID PRN cough #20 caps 12/05/21 ondansetron 4 mg disintegrating 4 mg PO Q6H PRN nausea and 01/25/22 tablet vomiting #15 tabs tamsulosin 0.4 mg capsule 0.4 mg PO DAILY #5 caps 01/25/22 hydrocodone 5 mg-acetaminophen 325 1 tab PO Q8H PRN pain #20 tabs 03/10/22 mg tablet Allergies Allergy/AdvReac Type Severity Reaction Status Date / Time adhesive [ADHESIVE] Allergy Intermediate Rash Verified 04/01/22 00:03 amoxicillin [AMOXICILLIN] Allergy Intermediate Vomiting, Verified 04/01/22 00:03 tongue swelling iodine [IODINE] Allergy Intermediate Hives Verified 04/01/22 00:03 Penicillins [PENICILLINS] Allergy Unknown Hives, Verified 04/01/22 00:03 vomiting Review of Systems Review of Systems Narrative: GENERAL: Denies chills, fatigue, malaise, fever, sweats, travel HEENT: Denies sinus pain, ear pain, sore throat, difficulty swallowing, neck pain RESPIRATORY: Denies dyspnea, cough, wheezing, hemoptysis, sputum. CARDIOVASCULAR: Denies chest pain, palpitations, orthopnea, edema GASTROINTESTINAL: Denies nausea, vomiting, abdominal pain, diarrhea, constipation, melena. : Denies dysuria, frequency, incontinence, hematuria, urinary retention, flank pain. MUSCULOSKELETAL: Denies weakness, joint pain, or bony pain SKIN: No rash, no erythema, no pruritus NEUROLOGIC: See HPI PSYCHIATRIC: No concerning psychosocial issues. 12 point review of systems is negative except for those stated above and HPI Patient History Medical History (Updated 04/01/22 @ 04:41 by Ana Gunderson DO) ADHD (~1991) Anxiety Asthma Bipolar 1 disorder Chicken pox (~1988) Chronic back pain Depression Herpes Hypothyroid Post traumatic stress disorder (PTSD) Thyroid cancer (~2008) Surgical History Anesthesia H/O thyroidectomy (~05/2009) H/O: hysterectomy History of hysterectomy (~11/2011) History of knee surgery (~04/2009) History of partial hysterectomy (~09/2009) History of tonsillectomy and adenoidectomy (~06/2008) Family History Mother Breast cancer Grandmother History of cancer of spinal cord Lung cancer Grandfather Lung cancer Father Hyperlipidemia Social History household members: significant other and other Smoking Status: Former smoker alcohol intake: current Smoking Status: Former smoker alcohol intake frequency: 0-2 drinks per day Substance Use Type: marijuana Exam Initial Vital Signs Initial Vital Signs: Vital Signs Temperature 98.0 F 04/01/22 00:03 Pulse Rate 66 04/01/22 00:03 Respiratory Rate 18 04/01/22 00:03 Blood Pressure 104/53 L 04/01/22 00:03 Pulse Oximetry 98 04/01/22 00:03 Oxygen Delivery Method 04/01/22 00:03 GENERAL: Alert 46-year-old male in darkened room HEENT: Head atraumatic,EOMI, pupils reactive, face symmetric, neck is supple CARDIOVASCULAR: Regular rate and rhythm without murmurs, rubs or gallops. RESPIRATORY: Breath sounds equal bilaterally, no wheezes rales or rhonchi. ABDOMEN: Soft, nontender. Normoactive bowel sounds all 4 quadrants. No g uarding or rebound. EXTREMITIES: Normal range of motion, no clubbing or edema. Neurovascularly inta ct NEUROLOGICAL: Alert and oriented x4.Normal gait and speech. Cranial nerves II through XII grossly intact. SKIN: Warm, dry, no laceration, no petechiae, no rashes or lesions. Scores GCS Western coma scale eye opening: Spontaneous Western coma scale verbal response: Orientated Western coma scale motor response: Obey commands Western coma scale total score: 15 Course Orders Ordered: ED Orders 04/01/22 01:16 CBC Auto Diff [Complete Blood Count AUTO DIFF] Stat CMP [Comprehensive Metabolic Panel] Stat 04/01/22 01:37 Urine Microscopic Stat 04/01/22 01:38 Urine Culture Stat Discontinued Medications Dexamethasone (Dexamethasone 10 Mg/Ml Vial) 6 mg IV NOW ONE Stop: 04/01/22 01:22 Last Admin: 04/01/22 01:55 Dose: 6 mg Documented By: BHARATI Diphenhydramine HCl (Diphenhydramine 50 Mg/Ml Vial) 25 mg IV NOW ONE Stop: 04/01/22 01:22 Last Admin: 04/01/22 01:49 Dose: 25 mg Documented By: BHARATI Sodium Chloride (Normal Saline 0.9%) 1,000 mls @ 1,000 mls/hr IV BOLUS ONE Stop: 04/01/22 02:20 Last Admin: 04/01/22 01:43 Dose: 1,000 mls/hr Documented By: BHARATI Ketorolac Tromethamine (Ketorolac 30 Mg/Ml Vial) 15 mg IV NOW ONE Stop: 04/01/22 01:22 Last Admin: 04/01/22 01:50 Dose: 15 mg Documented By: BHARATI Prochlorperazine (Prochlorperazine 10 Mg/2 Ml Vial) 10 mg IV NOW ONE Stop: 04/01/22 01:22 Last Admin: 04/01/22 01:45 Dose: 10 mg Documented By: BHARATI Vital Signs Vital signs: Vital Signs - 8 hr 04/01/22 00:03 04/01/22 01:45 04/01/22 04:58 Temperature 98.0 F Pulse Rate 66 66 Respiratory Rate 18 Blood Pressure 104/53 L 104/53 L 94/52 L Pulse Oximetry 98 Oxygen Delivery Method Room Air Room Air MDM - Headache Lab Data Result diagrams: 04/01/22 01:16 04/01/22 01:16 Labs: Lab Results 04/01/22 04/01/22 04/01/22 Range/Units 01:16 01:16 01:37 WBC 5.7 (4.5-11.0) X10^3/uL RBC 4.39 (4.0-5.2) X10^6/uL Hgb 13.2 (12.0-16.0) g/dL Hct 38.8 (36-46) % MCV 88.4 (80-100) fL MCH 30.0 (26-34) PG MCHC 34.0 (30-36) % RDW 13.1 (11.6-14.8) % Plt Count 234 (150-400) X10^3/uL Neut % (Auto) 65.1 (50-75) % Lymph % (Auto) 27.4 (25-40) % [place] % (Auto) 5.8 (3-14) % Eos % (Auto) 1.2 L (2-4) % Baso % (Auto) 0.5 (0-2) % Neut # (Auto) 3700 (2496-3231) /uL Lymph # (Auto) 1600 (2439-6614) /uL [place] # (Auto) 300 (0-900) /uL Eos # (Auto) 100 (0-450) /uL Baso # (Auto) 0 (0-100) /uL Sodium 136 L (137-145) mmol/L Potassium 3.1 L (3.4-5.1) mmol/L Chloride 103 (98-107) mmol/L Carbon Dioxide 26 (22-32) mmol/L BUN 15 (7-17) mg/dL Creatinine 0.71 (0.52-1.04) mg/dL Estimated GFR > 60 (>60) mL/min BUN/Creatinine Ratio 21.1 (6-22) Glucose 96 (70-100) mg/dL Calcium 8.5 (8.4-10.2) mg/dL Total Bilirubin 0.7 (0.2-1.3) mg/dL AST 30 (14-36) IU/L ALT 16 (<35) IU/L Alkaline Phosphatase 57 (38-126) U/L Total Protein 7.4 (6.3-8.2) g/dL Albumin 4.1 (3.5-5.0) g/dL Globulin 3.3 (1.7-4.1) g/dL Albumin/Globulin Ratio 1.2 (1.0-2.8) Urine RBC 0-1/hpf (0-5/HPF) Urine WBC 1-5/hpf (0-5/HPF) Ur Squamous Epith Cells 1-5 /hpf (0-5/HPF) Urine Bacteria Few (2-10) H (None) Ur Culture Indicated? Culture not indicate Micro UA Comment * Urine Dip Bedside Urine Glucose Negative Bedside Urine Bilirubin - Negative Bedside Urine Ketone +/- 5 Urine Specific [place] 1.015 Bedside Urine Occult Blood + Bedside Urine pH 5.5 Bedside Urine Protein - Negative Bedside Urine Urobilinogen - Negative Bedside Urine Nitrite - Negative Bedside Urine Leukocytes - Negative Esterase MDM Narrative Medical decision making narrative: Patient has a history of migraine headaches she took Imitrex at home she continued to vomit. Blood work does show that she is mildly hypokalemic is. Headache is is similar to all previous migraines. She has no focal deficits. At this time I see no need for his head CT. She is given migraine cocktail which seemed to help significantly. No longer vomiting. Discharge Plan Departure Patient Disposition: Home Clinical Impression: Migraines, Acute hypokalemia Instructions: DI for Migraine Activity Restrictions/Additional Instructions: *You have been diagnosed with migraine headache *What to do: At this time you had a migraine headache. I hope that you feel better in that it does not reoccur. He did have some mildly low potassium likely from vomiting. Please ensure your drinking Gatorade or Gatorade like product and starting to increase her diet as tolerated *Continue to take medications as directed *Follow up with your primary care provider in 2-3 days or call [phone] *Return to ER if you should have coarsening headache persistent vomiting numb ness tingling or weakness or any new, worsening or concerning symptoms Prescriptions: No Action cyclobenzaprine 10 mg tablet 10 mg PO TID PRN (Reason: muscle spasm) Qty: 20 0RF benzonatate 100 mg capsule 100 mg PO BID PRN (Reason: cough) Qty: 20 0RF tamsulosin 0.4 mg capsule 0.4 mg PO DAILY Qty: 5 0RF ondansetron 4 mg tablet,disintegrating 4 mg PO Q6H PRN (Reason: nausea and vomiting) Qty: 15 0RF sumatriptan succinate [Imitrex] 100 MG tablet 100 mg PO PRN PRN (Reason: Migraine Headache) Qty: 0 estradiol 1 mg tablet 1 mg PO DAILY Qty: 90 3RF Rx Instructions: off 1 week; repeat cycle All Day Allergy (cetirizine) 10 mg capsule 10 mg PO DAILY fluticasone propionate [Flonase Allergy Relief] 50 mcg/actuation spray,suspension 1 spray NASAL DAILY dextroamphetamine-amphetamine [Adderall XR] 20 mg Capsule,Extended Release 24hr 20 mg PO QAM PRN (Reason: to help focus at work) trazodone 100 mg tablet 150 mg PO QPM Label Comments: take 1 and 1/2 tablets by mouth NIGHTLY lithium carbonate 300 mg tablet 300 mg PO QAM Label Comments: take 1 tablet by mouth every morning and 2 tablets every evening withfood lithium carbonate 300 mg tablet 600 mg PO QPM Label Comments: take 1 tablet by mouth every morning and 2 tablets every evening withfood lamotrigine 100 mg tablet 200 mg PO DAILY Label Comments: take 2 tablets by mouth once daily ondansetron 4 mg tablet,disintegrating 4 mg PO Q6H PRN (Reason: nausea and vomiting) Qty: 10 0RF pantoprazole 40 mg tablet,delayed release (DR/EC) 40 mg PO DAILY Qty: 30 0RF metoclopramide HCl [Reglan] 10 mg tablet 10 mg PO Q6H PRN (Reason: nausea and vomiting) Qty: 10 0RF hydrocodone-acetaminophen 5-325 mg tablet 1 tab PO Q4-6H PRN (Reason: pain) Qty: 10 0RF ondansetron 4 mg tablet,disintegrating 4 mg PO Q6H PRN (Reason: nausea and vomiting) Qty: 14 0RF metoclopramide HCl [Reglan] 10 mg tablet 10 mg PO Q6H PRN (Reason: nausea and vomiting) Qty: 14 0RF hydrocodone-acetaminophen 5-325 mg tablet 1 tab PO Q8H PRN (Reason: pain) Qty: 20 0RF levothyroxine 200 mcg tablet 200 mcg PO DAILY albuterol sulfate 90 mcg/actuation HFA aerosol inhaler 2 puff INHALATION Q4-6H PRN (Reason: shortness of breath) Qty: 18 0RF prednisone 50 mg tablet 50 mg PO DAILY Qty: 5 0RF lamotrigine 100 mg tablet 100 mg PO BID Referrals: Aldo Hernadez MD [Primary Care Provider] - Visit Report Forms: Patient Portal/API
[2022-04-01] MEDS: SODIUM CHLORIDE 0.9% 1,000 ML 1000 ML IV (01:43)
[2022-04-01 01:45] VITALS: BP 104/53; PULSE 66
[2022-04-01] MEDS: PROCHLORPERAZINE 10 MG/2 ML VIAL IV (01:45)
--- NOTE | 2022-04-01 01:45 | PC.NURSE ---
Assumed care of pt at this time - SORIN Larios at bedside to medicate pt
[2022-04-01] MEDS: diphenhydrAMINE 50 MG/ML VIAL 25 MG IV (01:49)
[2022-04-01] MEDS: KETOROLAC 30 MG/ML VIAL 15 MG IV (01:50)
[2022-04-01 01:53] LABS: Bacteria Urine Few (2-10); RBC Urine 0-1/HPF (0-5/HPF); Squamous Epithelial Cell Urine 1-5 /HPF (0-5/HPF); WBC Urine 1-5/HPF (0-5/HPF)
[2022-04-01 01:54] LABS: Add Manual Diff / Slide Review NO; Basophils Absolute Auto 0 /uL (0-100); Basophils Percent Auto 0.5 % (0-2); Eosinophils Absolute Auto 100 /uL (0-450); Eosinophils Percent Auto 1.2 % (2-4); Hematocrit 38.8 % (36-46); Hemoglobin 13.2 g/dL (12.0-16.0); Lymphocytes Absolute Auto 1600 /uL (1100-4500); Lymphocytes Percent Auto 27.4 % (25-40); Mean Corpuscular Volume 88.4 fL (80-100); Monocytes Absolute Auto 300 /uL (0-900); Monocytes Percent Auto 5.8 % (3-14); Neutrophils Absolute Auto 3700 /uL (1500-7000); Neutrophils Percent Auto 65.1 % (50-75); Platelet Count 234 X10^3/uL (150-400); Red Blood Cell Count 4.39 X10^6/uL (4.0-5.2); Red Cell Distribution Width 13.1 % (11.6-14.8); White Blood Cell Count 5.7 X10^3/uL (4.5-11.0)
[2022-04-01] MEDS: DEXAMETHASONE 10 MG/ML VIAL 6 MG IV (01:55)
[2022-04-01 01:57] LABS: Alanine Aminotransferase 16 IU/L (<35); Albumin 4.1 g/dL (3.5-5.0); Albumin Globulin Ratio 1.2 (1.0-2.8); Alkaline Phosphatase 57 U/L (38-126); Aspartate Aminotransferase 30 IU/L (14-36); BUN Creatinine Ratio 21.1 (6-22); Bilirubin Total 0.7 mg/dL (0.2-1.3); Blood Urea Nitrogen 15 mg/dL (7-17); Calcium 8.5 mg/dL (8.4-10.2); Carbon Dioxide 26 mmol/L (22-32); Chloride 103 mmol/L (98-107); Estimated Glomerular Filt Rate > 60 mL/min (>60); Globulin 3.3 g/dL (1.7-4.1); Glucose 96 mg/dL (70-100); HEMOLYSIS < 15 (0-50); Potassium 3.1 mmol/L (3.4-5.1); Sodium 136 mmol/L (137-145); Total Protein 7.4 g/dL (6.3-8.2)
--- NOTE | 2022-04-01 02:45 | PC.NURSE ---
Resting quietly in darkened room - no needs voiced - NAD
--- NOTE | 2022-04-01 04:14 | PC.NURSE ---
States that she is feeling much better at this time - states that she feels like she is able to go home - calling boyfriend to come pick her up - states that he has to walk her so it will be a little while before he arrives
[2022-04-01 04:58] VITALS: BP 94/52
== END 2022-04-01 04:59 | disposition home or self-care (01) ==
PROVIDERS: Emergency Provider Emergency Medicine; Family Provider Family Medicine; PCP Family Medicine
DX: G43.909 Migraine, unspecified, not intractable, without status migrainosus (principal); E87.6 Hypokalemia; R11.2 Nausea with vomiting, unspecified
CPT/HCPCS: 80053; 81003; 81015; 85025; 87086; 96374; 96375; 99283; 99284; J0780; J1100; J1200; J1885

== ENCOUNTER 2022-10-07 19:06 | Emergency (ER) | payer OTHER, MEDICAID, SELFPAY ==
[2020-01-03 20:33] VITALS: BMI 30.6
[2022-10-07 19:20] VITALS: BP 133/58; PULSE 88; RESP 18; TEMP 37.3; O2SAT 98; BMI 23.1
--- NOTE | 2022-10-07 19:26 | DI.RAD.S_ITS ---
PROCEDURE: XR ANKLE LT MIN 3V INDICATIONS: pain/swelling TECHNIQUE: 3 views of the ankle were acquired. COMPARISON: None. FINDINGS: Bones: No displaced fracture. No dislocation. Small bone fragment adjacent to the posterior talus, likely an ossicle. Soft tissues: No suspicious calcifications. There is some soft tissue edema. IMPRESSION: No acute radiographic abnormality. If there is high concern for occult injury, consider repeat radiography or cross-sectional imaging. Dictated by: Wilder Murphy M.D. on 10/07/2022 at 21:06 Approved by: Wilder Murphy M.D. on 10/07/2022 at 21:08
[2022-10-07 20:00] VITALS: BP 102/56; PULSE 78; RESP 16; O2SAT 99
== END 2022-10-08 00:31 | disposition left against medical advice (07) ==
PROVIDERS: Emergency Provider Emergency Medicine; Family Provider Family Medicine; PCP Family Medicine
DX: M25.572 Pain in left ankle and joints of left foot (principal)
CPT/HCPCS: 73610; 99281

== ENCOUNTER 2023-03-28 15:40 | Emergency (ER) | payer OTHER, MEDICAID, SELFPAY ==
[2020-01-03 20:33] VITALS: BMI 30.6
[2023-03-28 15:47] VITALS: BP 127/57; PULSE 96; RESP 18; TEMP 36.8; O2SAT 100; BMI 25.7
[2023-03-28 16:15] LABS: Add Manual Diff / Slide Review NO; Basophils Absolute Auto 0 /uL (0-100); Eosinophils Absolute Auto 100 /uL (0-450); Eosinophils Percent Auto 2.7 % (2-4); Hematocrit 39.7 % (36-46); Hemoglobin 13.6 g/dL (12.0-16.0); Lymphocytes Absolute Auto 900 /uL (1100-4500); Mean Corpuscular HGB Conc 34.1 % (30-36); Mean Corpuscular Hemoglobin 30.2 PG (26-34); Mean Corpuscular Volume 88.5 fL (80-100); Monocytes Absolute Auto 400 /uL (0-900); Monocytes Percent Auto 9.6 % (3-14); Neutrophils Absolute Auto 3000 /uL (1500-7000); Neutrophils Percent Auto 65.7 % (50-75); Platelet Count 237 X10^3/uL (150-400); Red Blood Cell Count 4.49 X10^6/uL (4.0-5.2); Red Cell Distribution Width 13.1 % (11.6-14.8); White Blood Cell Count 4.5 X10^3/uL (4.5-11.0)
[2023-03-28 16:18] LABS: COVID19 -Nasal RAPID POSITIVE (Negative)
[2023-03-28 16:23] LABS: Alanine Aminotransferase 19 IU/L (<35); Albumin 4.4 g/dL (3.5-5.0); Albumin Globulin Ratio 1.4 (1.0-2.8); Alkaline Phosphatase 63 U/L (38-126); Aspartate Aminotransferase 30 IU/L (14-36); BUN Creatinine Ratio 20.6 (6-22); Bilirubin Total 0.3 mg/dL (0.2-1.3); Blood Urea Nitrogen 13 mg/dL (7-17); Calcium 9.3 mg/dL (8.4-10.2); Carbon Dioxide 25 mmol/L (22-32); Chloride 101 mmol/L (98-107); Estimated Glomerular Filt Rate > 60 mL/min (>60); Globulin 3.2 g/dL (1.7-4.1); Glucose 111 mg/dL (70-100); HEMOLYSIS < 15 (0-50); Potassium 3.4 mmol/L (3.4-5.1); Sodium 137 mmol/L (137-145); Total Protein 7.6 g/dL (6.3-8.2)
[2023-03-28 18:59] VITALS: BP 103/57
[2023-03-28 19:00] VITALS: BP 99/58; PULSE 100; RESP 18; O2SAT 98
--- NOTE | 2023-03-28 19:13 | PC.NURSE ---
Patient states she has been feeling sick since yesterday. She was out at [employer] today and on her drive home she experienced losing sensation of her hands, and that they cramped up and she could not use them. Pt states she had to have a friend put her car into park because she could not use her hands.
--- NOTE | 2023-03-28 19:15 | ED_ITS ---
HPI - Extremity Problem General Chief complaint: Extremity Problem,Nontraumatic Stated complaint: Hot, Dizzy, Hand pain, Numbness Time Seen by Provider: 03/28/23 19:15 Source: patient Mode of arrival: Wheelchair History of Present Illness HPI Narrative: Patient 37-year-old female history of bipolar depression presenting today with hot flashes and bilateral hand cramping. She reports that she was driving home she started feeling hot last sweaty her hands got really cramps and clammy. She denies that she was hyperventilating or feeling panicked. She felt well earlier today she does have any fever of respiratory symptoms. She she was having some allergies to the little he is in the car she had slightly stuffy nose. She is not pass out no shortness of breath Related Data Home Medications Medication Instructions Recorded Confirmed sumatriptan succinate 100 mg 100 mg PO PRN PRN Migraine 08/22/12 07/08/22 tablet (Imitrex) Headache ##0 dextroamphetamine-amphetamine ER 20 mg PO QAM PRN to help focus at 02/11/18 07/08/22 20 mg 24hr capsule,extend release work (Adderall XR) lamotrigine 100 mg tablet 200 mg PO DAILY 05/24/18 07/08/22 lithium carbonate 300 mg tablet 300 mg PO QAM 05/24/18 07/08/22 lithium carbonate 300 mg tablet 600 mg PO QPM 05/24/18 07/08/22 trazodone 100 mg tablet 150 mg PO QPM 05/24/18 07/08/22 cetirizine 10 mg capsule (All Day 10 mg PO DAILY 12/14/18 07/08/22 Allergy (cetirizine)) fluticasone propionate 50 1 spray intranasal DAILY 12/14/18 07/08/22 mcg/actuation nasal spray,suspension (Flonase Allergy Relief) levothyroxine 200 mcg tablet 200 mcg PO DAILY 04/26/19 07/08/22 lamotrigine 100 mg tablet 100 mg PO BID 09/10/20 07/08/22 Previous Rx's Medication Instructions Recorded estradiol 1 mg tablet 1 mg PO DAILY #90 tabs 03/30/19 albuterol sulfate 90 mcg/actuation 2 puff inhalation Q4-6H PRN 06/17/19 aerosol inhaler shortness of breath #18 grams prednisone 50 mg tablet 50 mg PO DAILY #5 tabs 06/17/19 ondansetron 4 mg disintegrating 4 mg PO Q6H PRN nausea and 12/28/19 tablet vomiting #10 tabs pantoprazole 40 mg tablet,delayed 40 mg PO DAILY #30 tabs 12/29/19 release metoclopramide HCl 10 mg tablet 10 mg PO Q6H PRN nausea and 12/31/19 (Reglan) vomiting #10 tabs cyclobenzaprine 10 mg tablet 10 mg PO TID PRN muscle spasm #20 03/18/20 tabs hydrocodone 5 mg-acetaminophen 325 1 tab PO Q4-6H PRN pain #10 tabs 06/11/20 mg tablet metoclopramide HCl 10 mg tablet 10 mg PO Q6H PRN nausea and 07/06/21 (Reglan) vomiting #14 tabs ondansetron 4 mg disintegrating 4 mg PO Q6H PRN nausea and 07/06/21 tablet vomiting #14 tabs benzonatate 100 mg capsule 100 mg PO BID PRN cough #20 caps 12/05/21 ondansetron 4 mg disintegrating 4 mg PO Q6H PRN nausea and 01/25/22 tablet vomiting #15 tabs tamsulosin 0.4 mg capsule 0.4 mg PO DAILY #5 caps 01/25/22 hydrocodone 5 mg-acetaminophen 325 1 tab PO Q8H PRN pain #20 tabs 03/10/22 mg tablet mupirocin 2 % topical ointment See Rx Instructions topical BID 07/08/22 #22 grams Allergies Allergy/AdvReac Type Severity Reaction Status Date / Time adhesive [ADHESIVE] Allergy Intermediate Rash Verified 03/28/23 15:47 amoxicillin [AMOXICILLIN] Allergy Intermediate Vomiting, Verified 03/28/23 15:47 tongue swelling iodine [IODINE] Allergy Intermediate Hives Verified 03/28/23 15:47 Penicillins [PENICILLINS] Allergy Unknown Hives, Verified 03/28/23 15:47 vomiting Review of Systems Review of Systems ROS Unobtainable: All systems reviewed & are unremarkable except as noted in HPI and below Patient History Medical History (Updated 03/28/23 @ 19:26 by Ana Gunderson DO) Asthma Post traumatic stress disorder (PTSD) Depression Anxiety ADHD (~1991) Chronic back pain Herpes Chicken pox (~1988) Bipolar 1 disorder Hypothyroid Thyroid cancer (~2008) Surgical History Anesthesia History of knee surgery (~04/2009) History of hysterectomy (~11/2011) History of partial hysterectomy (~09/2009) History of tonsillectomy and adenoidectomy (~06/2008) H/O thyroidectomy (~05/2009) H/O: hysterectomy Family History Mother Breast cancer Grandmother History of cancer of spinal cord Lung cancer Grandfather Lung cancer Father Hyperlipidemia Social History household members: significant other and other Smoking Status: Former smoker alcohol intake: current Smoking Status: Former smoker alcohol intake frequency: 0-2 drinks per day Substance Use Type: marijuana Exam Initial Vital Signs Initial Vital Signs: Vital Signs Temperature 98.3 F 03/28/23 15:47 Pulse Rate 96 H 03/28/23 15:47 Respiratory Rate 18 03/28/23 15:47 Blood Pressure 127/57 L 03/28/23 15:47 Pulse Oximetry 100 03/28/23 15:47 Oxygen Delivery Method Room Air 03/28/23 15:47 GENERAL: Alert 37-year-old well-appearing and in no acute distress. HEENT: Head atraumatic,EOMI, pupils reactive, face symmetric, moist mucous membranes CARDIOVASCULAR: Regular rate and rhythm without murmurs, rubs or gallops. RESPIRATORY: Breath sounds equal bilaterally, no wheezes rales or rhonchi. EXTREMITIES: Normal range of motion, no clubbing or edema. Neurovascularly intact NEUROLOGICAL: Alert and oriented x4.Normal gait and speech. SKIN: Warm, dry, no laceration, no petechiae, no rashes or lesions. Course Orders Ordered: Discontinued Medications Acetaminophen (Acetaminophen 325 Mg Tablet) 975 mg PO NOW ONE Stop: 03/28/23 19:26 Last Admin: 03/28/23 19:28 Dose: 975 mg Documented By: KENNEDY Vital Signs Vital signs: Vital Signs - 8 hr 03/28/23 15:47 Temperature 98.3 F Pulse Rate 96 H Respiratory Rate 18 Blood Pressure 127/57 L Pulse Oximetry 100 Oxygen Delivery Method Room Air MDM - Extremity (Nontraumatic) Lab Data 03/28/23 16:00 03/28/23 16:00 Labs: Lab Results 03/28/23 Range/Units 16:00 WBC 4.5 (4.5-11.0) X10^3/uL RBC 4.49 (4.0-5.2) X10^6/uL Hgb 13.6 (12.0-16.0) g/dL Hct 39.7 (36-46) % MCV 88.5 (80-100) fL MCH 30.2 (26-34) PG MCHC 34.1 (30-36) % RDW 13.1 (11.6-14.8) % Plt Count 237 (150-400) X10^3/uL Neut % (Auto) 65.7 (50-75) % Lymph % (Auto) 21.0 L (25-40) % [place] % (Auto) 9.6 (3-14) % Eos % (Auto) 2.7 (2-4) % Baso % (Auto) 1.0 (0-2) % Neut # (Auto) 3000 (7622-5684) /uL Lymph # (Auto) 900 L (1930-0526) /uL [place] # (Auto) 400 (0-900) /uL Eos # (Auto) 100 (0-450) /uL Baso # (Auto) 0 (0-100) /uL Sodium 137 (137-145) mmol/L Potassium 3.4 (3.4-5.1) mmol/L Chloride 101 (98-107) mmol/L Carbon Dioxide 25 (22-32) mmol/L BUN 13 (7-17) mg/dL Creatinine 0.63 (0.52-1.04) mg/dL Estimated GFR > 60 (>60) mL/min BUN/Creatinine Ratio 20.6 (6-22) Glucose 111 H (70-100) mg/dL Calcium 9.3 (8.4-10.2) mg/dL Total Bilirubin 0.3 (0.2-1.3) mg/dL AST 30 (14-36) IU/L ALT 19 (<35) IU/L Alkaline Phosphatase 63 (38-126) U/L Total Protein 7.6 (6.3-8.2) g/dL Albumin 4.4 (3.5-5.0) g/dL Globulin 3.2 (1.7-4.1) g/dL Albumin/Globulin Ratio 1.4 (1.0-2.8) SARS-CoV-2 (PCR) Positive H (Negative) MDM Narrative Medical decision making narrative: Patient 37-year-old female presents today with hot flashes hand cramping no chest pain or dizziness. Basic blood work CBC CMP have been reviewed and otherwise unremarkable. She is found to be COVID positive, which would explain her hot flash which was probably fever related. No evidence of sepsis. Vitals are stable. She is tolerating fluids. At this time no need for admission. Supportive care only. Discussed with patient. No need for imaging. Discharge Plan Departure Patient Disposition: Home Clinical Impression: COVID-19 Instructions: COVID-19 Activity Restrictions/Additional Instructions: *You have been diagnosed with COVID-19 *What to do: Increase fluids as tolerated. Fever control as needed rest. This can last for up to 2 weeks *Continue to take medications as directed Tylenol 1000 mg every 6 hours if needed for [id number] pain or fever Motrin 600 mg every 6 hours if needed for ltek-[id number] pain or fever *Follow up with your primary care provider in 2-3 days or call [phone] *Return to ER if you should have oxygen less than 90% not tolerating fluids passing out or any new, worsening or concerning symptoms Prescriptions: No Action cyclobenzaprine 10 mg tablet 10 mg PO TID PRN (Reason: muscle spasm) Qty: 20 0RF benzonatate 100 mg capsule 100 mg PO BID PRN (Reason: cough) Qty: 20 0RF tamsulosin 0.4 mg capsule 0.4 mg PO DAILY Qty: 5 0RF ondansetron 4 mg tablet,disintegrating 4 mg PO Q6H PRN (Reason: nausea and vomiting) Qty: 15 0RF mupirocin 2 % ointment See Rx Instructions topical BID Qty: 22 1RF Rx Instructions: apply to both nostrils BID topically twice a day; sumatriptan succinate [Imitrex] 100 MG tablet 100 mg PO PRN PRN (Reason: Migraine Headache) Qty: 0 estradiol 1 mg tablet 1 mg PO DAILY Qty: 90 3RF Rx Instructions: off 1 week; repeat cycle All Day Allergy (cetirizine) 10 mg capsule 10 mg PO DAILY fluticasone propionate [Flonase Allergy Relief] 50 mcg/actuation spray,suspension 1 spray NASAL DAILY dextroamphetamine-amphetamine [Adderall XR] 20 mg Capsule,Extended Release 24hr 20 mg PO QAM PRN (Reason: to help focus at work) trazodone 100 mg tablet 150 mg PO QPM Patient Comments: take 1 and 1/2 tablets by mouth NIGHTLY lithium carbonate 300 mg tablet 300 mg PO QAM Patient Comments: take 1 tablet by mouth every morning and 2 tablets every evening withfood lithium carbonate 300 mg tablet 600 mg PO QPM Patient Comments: take 1 tablet by mouth every morning and 2 tablets every evening withfood lamotrigine 100 mg tablet 200 mg PO DAILY Patient Comments: take 2 tablets by mouth once daily ondansetron 4 mg tablet,disintegrating 4 mg PO Q6H PRN (Reason: nausea and vomiting) Qty: 10 0RF pantoprazole 40 mg tablet,delayed release (DR/EC) 40 mg PO DAILY Qty: 30 0RF metoclopramide HCl [Reglan] 10 mg tablet 10 mg PO Q6H PRN (Reason: nausea and vomiting) Qty: 10 0RF hydrocodone-acetaminophen 5-325 mg tablet 1 tab PO Q4-6H PRN (Reason: pain) Qty: 10 0RF ondansetron 4 mg tablet,disintegrating 4 mg PO Q6H PRN (Reason: nausea and vomiting) Qty: 14 0RF metoclopramide HCl [Reglan] 10 mg tablet 10 mg PO Q6H PRN (Reason: nausea and vomiting) Qty: 14 0RF hydrocodone-acetaminophen 5-325 mg tablet 1 tab PO Q8H PRN (Reason: pain) Qty: 20 0RF levothyroxine 200 mcg tablet 200 mcg PO DAILY albuterol sulfate 90 mcg/actuation HFA aerosol inhaler 2 puff INHALATION Q4-6H PRN (Reason: shortness of breath) Qty: 18 0RF prednisone 50 mg tablet 50 mg PO DAILY Qty: 5 0RF lamotrigine 100 mg tablet 100 mg PO BID Referrals: Adlo Hernadez MD [Primary Care Provider] - Stand Alone Forms: Patient Portal/API
[2023-03-28] MEDS: ACETAMINOPHEN 325 MG TABLET 975 MG PO (19:28)
== END 2023-03-28 19:34 | disposition home or self-care (01) ==
PROVIDERS: Emergency Medicine; Emergency Provider Emergency Medicine; Family Provider Family Medicine; PCP Family Medicine
DX: U07.1 COVID-19 (principal)
CPT/HCPCS: 80053; 85025; 87635; 99283; C9803

== ENCOUNTER 2023-06-15 23:23 | Emergency (ER) | payer OTHER, MEDICAID, SELFPAY ==
[2020-01-03 20:33] VITALS: BMI 30.6
[2023-06-15 23:30] VITALS: BP 170/87; PULSE 67; RESP 18; TEMP 36.3; O2SAT 97; BMI 26.4
--- NOTE | 2023-06-15 23:37 | ED_ITS ---
HPI - Headache General Chief Complaint: Headache Stated Complaint: vomiting headach dizzy Time Seen by Provider: 06/15/23 23:28 Source: patient Mode of arrival: Ambulatory History of Present Illness HPI Narrative: Patient is a 37-year-old female. She is here for evaluation of a couple days of vomiting, left-sided headache and dizziness. She does have a history of migraines. She states this feels somewhat different in the prior migraine as it is not as sharp in his on the left side of her the knot over her whole head. She did try her Imitrex at home without any improvement. No fevers. No trauma. Related Data Home Medications Medication Instructions Recorded Confirmed sumatriptan succinate 100 mg 100 mg PO PRN PRN Migraine 08/22/12 07/08/22 tablet (Imitrex) Headache ##0 dextroamphetamine-amphetamine ER 20 mg PO QAM PRN to help focus at 02/11/18 07/08/22 20 mg 24hr capsule,extend release work (Adderall XR) lamotrigine 100 mg tablet 200 mg PO DAILY 05/24/18 07/08/22 lithium carbonate 300 mg tablet 300 mg PO QAM 05/24/18 07/08/22 lithium carbonate 300 mg tablet 600 mg PO QPM 05/24/18 07/08/22 trazodone 100 mg tablet 150 mg PO QPM 05/24/18 07/08/22 cetirizine 10 mg capsule (All Day 10 mg PO DAILY 12/14/18 07/08/22 Allergy (cetirizine)) fluticasone propionate 50 1 spray intranasal DAILY 12/14/18 07/08/22 mcg/actuation nasal spray,suspension (Flonase Allergy Relief) levothyroxine 200 mcg tablet 200 mcg PO DAILY 04/26/19 07/08/22 lamotrigine 100 mg tablet 100 mg PO BID 09/10/20 07/08/22 Previous Rx's Medication Instructions Recorded estradiol 1 mg tablet 1 mg PO DAILY #90 tabs 03/30/19 albuterol sulfate 90 mcg/actuation 2 puff inhalation Q4-6H PRN 06/17/19 aerosol inhaler shortness of breath #18 grams prednisone 50 mg tablet 50 mg PO DAILY #5 tabs 06/17/19 ondansetron 4 mg disintegrating 4 mg PO Q6H PRN nausea and 12/28/19 tablet vomiting #10 tabs pantoprazole 40 mg tablet,delayed 40 mg PO DAILY #30 tabs 12/29/19 release metoclopramide HCl 10 mg tablet 10 mg PO Q6H PRN nausea and 12/31/19 (Reglan) vomiting #10 tabs cyclobenzaprine 10 mg tablet 10 mg PO TID PRN muscle spasm #20 03/18/20 tabs hydrocodone 5 mg-acetaminophen 325 1 tab PO Q4-6H PRN pain #10 tabs 06/11/20 mg tablet metoclopramide HCl 10 mg tablet 10 mg PO Q6H PRN nausea and 07/06/21 (Reglan) vomiting #14 tabs ondansetron 4 mg disintegrating 4 mg PO Q6H PRN nausea and 07/06/21 tablet vomiting #14 tabs benzonatate 100 mg capsule 100 mg PO BID PRN cough #20 caps 12/05/21 ondansetron 4 mg disintegrating 4 mg PO Q6H PRN nausea and 01/25/22 tablet vomiting #15 tabs tamsulosin 0.4 mg capsule 0.4 mg PO DAILY #5 caps 01/25/22 hydrocodone 5 mg-acetaminophen 325 1 tab PO Q8H PRN pain #20 tabs 03/10/22 mg tablet mupirocin 2 % topical ointment See Rx Instructions topical BID 07/08/22 #22 grams Allergies Allergy/AdvReac Type Severity Reaction Status Date / Time adhesive [ADHESIVE] Allergy Intermediate Rash Verified 03/28/23 15:47 amoxicillin [AMOXICILLIN] Allergy Intermediate Vomiting, Verified 03/28/23 15:47 tongue swelling iodine [IODINE] Allergy Intermediate Hives Verified 03/28/23 15:47 Penicillins [PENICILLINS] Allergy Unknown Hives, Verified 03/28/23 15:47 vomiting Review of Systems Constitutional Constitutional: Reports system reviewed and no additional complaints, except as documented Eyes Eyes: Reports system reviewed and no additional complaints, except as documented Integumentary/Breasts Skin/Breast: Reports system reviewed and no additional complaints, except as documented Neurologic Neurologic: Reports system reviewed and no additional complaints, except as documented Patient History Medical History (Updated 06/16/23 @ 01:09 by Thiago Kulkarni DO) Asthma Post traumatic stress disorder (PTSD) Depression Anxiety ADHD (~1991) Chronic back pain Herpes Chicken pox (~1988) Bipolar 1 disorder Hypothyroid Thyroid cancer (~2008) Surgical History Anesthesia History of knee surgery (~04/2009) History of hysterectomy (~11/2011) History of partial hysterectomy (~09/2009) History of tonsillectomy and adenoidectomy (~06/2008) H/O thyroidectomy (~05/2009) H/O: hysterectomy Family History Mother Breast cancer Grandmother History of cancer of spinal cord Lung cancer Grandfather Lung cancer Father Hyperlipidemia Social History household members: significant other and other Smoking Status: Former smoker alcohol intake: current Smoking Status: Former smoker alcohol intake frequency: 0-2 drinks per day Substance Use Type: marijuana Exam Initial Vital Signs Initial Vital Signs: Vital Signs Temperature 97.4 F L 06/15/23 23:30 Pulse Rate 67 06/15/23 23:30 Respiratory Rate 18 06/15/23 23:30 Blood Pressure 170/87 H 06/15/23 23:30 Pulse Oximetry 97 06/15/23 23:30 Oxygen Delivery Method Room Air 06/15/23 23:30 HENTX Head: normal to inspection and normocephalic Eyes General: Yes appearance normal, both eyes and all related structures Neuro General: patient alert, patient awake, patient oriented x3 and moves all extremities Course Orders Ordered: Discontinued Medications Diphenhydramine HCl (Diphenhydramine 50 Mg/Ml Vial) 25 mg IV NOW ONE Stop: 06/15/23 23:39 Last Admin: 06/15/23 23:45 Dose: 25 mg Documented By: ALISHA Sodium Chloride (Normal Saline 0.9%) 1,000 mls @ 1,000 mls/hr IV BOLUS ONE Stop: 06/16/23 00:36 Last Admin: 06/15/23 23:44 Dose: 1,000 mls/hr Documented By: ALISHA Ketorolac Tromethamine (Ketorolac 30 Mg/Ml Vial) 30 mg IV NOW ONE Stop: 06/15/23 23:39 Last Admin: 06/15/23 23:45 Dose: 30 mg Documented By: ALISHA Prochlorperazine (Prochlorperazine 10 Mg/2 Ml Vial) 10 mg IV NOW ONE Stop: 06/15/23 23:39 Last Admin: 06/15/23 23:45 Dose: 10 mg Documented By: ALISHA Vital Signs Vital signs: Vital Signs - 8 hr 06/15/23 23:30 06/16/23 00:45 Temperature 97.4 F L Pulse Rate 67 73 Respiratory Rate 18 16 Blood Pressure 170/87 H 123/67 Pulse Oximetry 97 96 Oxygen Delivery Method Room Air Room Air MDM - Headache MDM Narrative Medical decision making narrative: Pain has completely resolved after medications here in the ER. Low suspicion for meningitis. Low suspicion for head bleed given her presentation and her history. I do suspect that this is migraine headache. Patient states she feels well enough to go home. Will discharge home with return precautions. Discharge Plan Departure Patient Disposition: Home Clinical Impression: Migraines Instructions: DI for Migraine Activity Restrictions/Additional Instructions: Recommend that you continue to take all of your medications as directed. Contact your primary care provider for follow-up. Return to the emergency department for new or worsening symptoms. Prescriptions: No Action cyclobenzaprine 10 mg tablet 10 mg PO TID PRN (Reason: muscle spasm) Qty: 20 0RF benzonatate 100 mg capsule 100 mg PO BID PRN (Reason: cough) Qty: 20 0RF tamsulosin 0.4 mg capsule 0.4 mg PO DAILY Qty: 5 0RF ondansetron 4 mg tablet,disintegrating 4 mg PO Q6H PRN (Reason: nausea and vomiting) Qty: 15 0RF mupirocin 2 % ointment See Rx Instructions topical BID Qty: 22 1RF Rx Instructions: apply to both nostrils BID topically twice a day; sumatriptan succinate [Imitrex] 100 MG tablet 100 mg PO PRN PRN (Reason: Migraine Headache) Qty: 0 estradiol 1 mg tablet 1 mg PO DAILY Qty: 90 3RF Rx Instructions: off 1 week; repeat cycle All Day Allergy (cetirizine) 10 mg capsule 10 mg PO DAILY fluticasone propionate [Flonase Allergy Relief] 50 mcg/actuation spray,s uspension 1 spray NASAL DAILY dextroamphetamine-amphetamine [Adderall XR] 20 mg Capsule,Extended Release 24hr 20 mg PO QAM PRN (Reason: to help focus at work) trazodone 100 mg tablet 150 mg PO QPM Patient Comments: take 1 and 1/2 tablets by mouth NIGHTLY lithium carbonate 300 mg tablet 300 mg PO QAM Patient Comments: take 1 tablet by mouth every morning and 2 tablets every evening withfood lithium carbonate 300 mg tablet 600 mg PO QPM Patient Comments: take 1 tablet by mouth every morning and 2 tablets every evening withfood lamotrigine 100 mg tablet 200 mg PO DAILY Patient Comments: take 2 tablets by mouth once daily ondansetron 4 mg tablet,disintegrating 4 mg PO Q6H PRN (Reason: nausea and vomiting) Qty: 10 0RF pantoprazole 40 mg tablet,delayed release (DR/EC) 40 mg PO DAILY Qty: 30 0RF metoclopramide HCl [Reglan] 10 mg tablet 10 mg PO Q6H PRN (Reason: nausea and vomiting) Qty: 10 0RF hydrocodone-acetaminophen 5-325 mg tablet 1 tab PO Q4-6H PRN (Reason: pain) Qty: 10 0RF ondansetron 4 mg tablet,disintegrating 4 mg PO Q6H PRN (Reason: nausea and vomiting) Qty: 14 0RF metoclopramide HCl [Reglan] 10 mg tablet 10 mg PO Q6H PRN (Reason: nausea and vomiting) Qty: 14 0RF hydrocodone-acetaminophen 5-325 mg tablet 1 tab PO Q8H PRN (Reason: pain) Qty: 20 0RF levothyroxine 200 mcg tablet 200 mcg PO DAILY albuterol sulfate 90 mcg/actuation HFA aerosol inhaler 2 puff INHALATION Q4-6H PRN (Reason: shortness of breath) Qty: 18 0RF prednisone 50 mg tablet 50 mg PO DAILY Qty: 5 0RF lamotrigine 100 mg tablet 100 mg PO BID Referrals: Aldo Hernadez MD [Primary Care Provider] - Stand Alone Forms: Patient Portal/API
[2023-06-15] MEDS: SODIUM CHLORIDE 0.9% 1,000 ML 1000 ML IV (23:44)
[2023-06-15] MEDS: PROCHLORPERAZINE 10 MG/2 ML VIAL IV (23:45)
[2023-06-15] MEDS: diphenhydrAMINE 50 MG/ML VIAL 25 MG IV (23:45)
[2023-06-15] MEDS: KETOROLAC 30 MG/ML VIAL IV (23:45)
[2023-06-16 00:45] VITALS: BP 123/67; PULSE 73; RESP 16; O2SAT 96
[2023-06-16 01:17] VITALS: BP 93/54; PULSE 62; RESP 16; TEMP 36.9; O2SAT 97
== END 2023-06-16 01:17 | disposition home or self-care (01) ==
PROVIDERS: Emergency Provider Emergency Medicine; Family Provider Family Medicine; PCP Family Medicine
DX: G43.909 Migraine, unspecified, not intractable, without status migrainosus (principal)
CPT/HCPCS: 96361; 96374; 96375; 99283; 99284; J0780; J1200; J1885

== ENCOUNTER 2023-07-06 12:48 | Emergency (ER) | payer OTHER, MEDICAID, SELFPAY ==
[2020-01-03 20:33] VITALS: BMI 30.6
[2023-07-06] VITALS (8 sets, daily range): BP systolic 91–102; BP diastolic 51–58; PULSE 63–93; RESP 18; TEMP 36.1; O2SAT 94–100; BMI 29.2
[2023-07-06] MEDS: ONDANSETRON 4 MG/2 ML INJ IV (13:27)
[2023-07-06] MEDS: SODIUM CHLORIDE 0.9% 1,000 ML 1000 ML IV (13:27)
--- NOTE | 2023-07-06 13:48 | ED.HA ---
HPI - Headache General Chief Complaint: Headache Stated Complaint: pressure in head not migraine/vomitting/blurry vis Time Seen by Provider: 07/06/23 13:12 Mode of arrival: Ambulatory History of Present Illness HPI Narrative: 37-year-old female with a history of thyroid cancer and migraines presenting with a headache. Headache began about 10 hours ago. It was not thunderclap in onset. It is associated with nausea. She says her head feels like there is pressure in it. Did not have fevers although she has intermittently felt warm and flushed. Has not been vomiting, took Imitrex and Aleve more than 8 hours ago without relief. Related Data Home Medications Medication Instructions Recorded Confirmed sumatriptan succinate 100 mg 100 mg PO PRN PRN Migraine 08/22/12 07/08/22 tablet (Imitrex) Headache ##0 dextroamphetamine-amphetamine ER 20 mg PO QAM PRN to help focus at 02/11/18 07/08/22 20 mg 24hr capsule,extend release work (Adderall XR) lamotrigine 100 mg tablet 200 mg PO DAILY 05/24/18 07/08/22 lithium carbonate 300 mg tablet 300 mg PO QAM 05/24/18 07/08/22 lithium carbonate 300 mg tablet 600 mg PO QPM 05/24/18 07/08/22 trazodone 100 mg tablet 150 mg PO QPM 05/24/18 07/08/22 cetirizine 10 mg capsule (All Day 10 mg PO DAILY 12/14/18 07/08/22 Allergy (cetirizine)) fluticasone propionate 50 1 spray intranasal DAILY 12/14/18 07/08/22 mcg/actuation nasal spray,suspension (Flonase Allergy Relief) levothyroxine 200 mcg tablet 200 mcg PO DAILY 04/26/19 07/08/22 lamotrigine 100 mg tablet 100 mg PO BID 09/10/20 07/08/22 Previous Rx's Medication Instructions Recorded estradiol 1 mg tablet 1 mg PO DAILY #90 tabs 03/30/19 albuterol sulfate 90 mcg/actuation 2 puff inhalation Q4-6H PRN 06/17/19 aerosol inhaler shortness of breath #18 grams prednisone 50 mg tablet 50 mg PO DAILY #5 tabs 06/17/19 ondansetron 4 mg disintegrating 4 mg PO Q6H PRN nausea and 12/28/19 tablet vomiting #10 tabs pantoprazole 40 mg tablet,delayed 40 mg PO DAILY #30 tabs 12/29/19 release metoclopramide HCl 10 mg tablet 10 mg PO Q6H PRN nausea and 12/31/19 (Reglan) vomiting #10 tabs cyclobenzaprine 10 mg tablet 10 mg PO TID PRN muscle spasm #20 03/18/20 tabs hydrocodone 5 mg-acetaminophen 325 1 tab PO Q4-6H PRN pain #10 tabs 06/11/20 mg tablet metoclopramide HCl 10 mg tablet 10 mg PO Q6H PRN nausea and 07/06/21 (Reglan) vomiting #14 tabs ondansetron 4 mg disintegrating 4 mg PO Q6H PRN nausea and 07/06/21 tablet vomiting #14 tabs benzonatate 100 mg capsule 100 mg PO BID PRN cough #20 caps 12/05/21 ondansetron 4 mg disintegrating 4 mg PO Q6H PRN nausea and 01/25/22 tablet vomiting #15 tabs tamsulosin 0.4 mg capsule 0.4 mg PO DAILY #5 caps 01/25/22 hydrocodone 5 mg-acetaminophen 325 1 tab PO Q8H PRN pain #20 tabs 03/10/22 mg tablet mupirocin 2 % topical ointment See Rx Instructions topical BID 07/08/22 #22 grams Allergies Allergy/AdvReac Type Severity Reaction Status Date / Time amoxicillin [AMOXICILLIN] Allergy Intermediate Vomiting, Verified 07/06/23 12:52 tongue swelling adhesive [ADHESIVE] AdvReac Intermediate Rash Verified 07/06/23 12:52 iodine [IODINE] AdvReac Intermediate Hives Verified 07/06/23 12:52 Penicillins [PENICILLINS] AdvReac Unknown Hives, Verified 07/06/23 12:52 vomiting Patient History Medical History (Updated 07/06/23 @ 15:51 by Pasha Green MD) Asthma Post traumatic stress disorder (PTSD) Depression Anxiety ADHD (~1991) Chronic back pain Herpes Chicken pox (~1988) Bipolar 1 disorder Hypothyroid Thyroid cancer (~2008) Surgical History Anesthesia History of knee surgery (~04/2009) History of hysterectomy (~11/2011) History of partial hysterectomy (~09/2009) History of tonsillectomy and adenoidectomy (~06/2008) H/O thyroidectomy (~05/2009) H/O: hysterectomy Family History Mother Breast cancer Grandmother History of cancer of spinal cord Lung cancer Grandfather Lung cancer Father Hyperlipidemia Social History household members: significant other and other Smoking Status: Former smoker alcohol intake: current Smoking Status: Former smoker alcohol intake frequency: 0-2 drinks per day Substance Use Type: marijuana Exam Initial Vital Signs Initial Vital Signs: Vital Signs Temperature 97.0 F L 07/06/23 12:52 Pulse Rate 75 07/06/23 12:52 Respiratory Rate 18 07/06/23 12:52 Blood Pressure 102/51 L 07/06/23 12:52 Pulse Oximetry 99 07/06/23 12:52 Oxygen Delivery Method Room Air 07/06/23 12:52 Alert, no acute distress HEENT: Normocephalic, atraumaitic moist mucus membranes Neck: Supple no midline tenderness Lungs: Clear to ascultaion, no respiratory distress Heart: Regular rhythm and rate no murmur Abdomen: Normal bowel sounds, soft and nontender Extremeties: Full range of motion no deformity Neuro: Alert and oriented, normal speech moves x4 Course Orders Ordered: Discontinued Medications Diphenhydramine HCl (Diphenhydramine 50 Mg/Ml Vial) 25 mg IV NOW ONE Stop: 07/06/23 13:48 Last Admin: 07/06/23 13:53 Dose: 25 mg Documented By: PEE Droperidol (Droperidol 5 Mg/2 Ml Vial) 0.625 mg IV NOW ONE Stop: 07/06/23 13:48 Last Admin: 07/06/23 13:55 Dose: 0.625 mg Documented By: PEE Sodium Chloride (Normal Saline 0.9%) 1,000 mls @ 1,000 mls/hr IV BOLUS ONE Stop: 07/06/23 14:20 Last Infusion: 07/06/23 14:20 Dose: Infused Documented By: Admin: 07/06/23 13:27 Dose: 1,000 mls/hr Documented By: PEE Ketorolac Tromethamine (Ketorolac 30 Mg/Ml Vial) 30 mg IV NOW ONE Stop: 07/06/23 13:48 Last Admin: 07/06/23 13:54 Dose: 30 mg Documented By: PEE Ondansetron HCl (Ondansetron 4 Mg/2 Ml Inj) 4 mg IV NOW ONE Stop: 07/06/23 13:22 Last Admin: 07/06/23 13:27 Dose: 4 mg Documented By: PEE Vital Signs Vital signs: Vital Signs - 8 hr 07/06/23 12:52 Temperature 97.0 F L Pulse Rate 75 Respiratory Rate 18 Blood Pressure 102/51 L Pulse Oximetry 99 Oxygen Delivery Method Room Air MDM - Headache Lab Data Labs: Lab Results 07/06/23 Range/Units 12:56 SARS-CoV-2 (PCR) Negative (Negative) Influenza A (RT-PCR) Flu a negative (NEGATIVE) Influenza B (RT-PCR) Flu b negative (NEGATIVE) RSV (PCR) Negative (Negative) MDM Narrative Medical decision making narrative: 37-year-old female with a history of headaches presenting with a headache. Did not have features to suggest meningitis hemorrhage or mass. Treated with droperidol and ketorolac with good results. Discharge Plan Departure Patient Disposition: Home Clinical Impression: Migraine Qualifiers: Migraine type: unspecified Status migrainosus presence: without status migrainosus Intractability: not intractable Qualified Code(s): G43.909 - Migraine, unspecified, not intractable, without status migrainosus Activity Restrictions/Additional Instructions: Today, we treated you for a migraine headache. I am glad that you are feeling better. I think it is safe for you to go home, continue previous home medications. Follow up with your primary care provider soon. Return to the emergency department for uncontrolled vomiting recurrent severe headache or other acute symptoms Prescriptions: No Action cyclobenzaprine 10 mg tablet 10 mg PO TID PRN (Reason: muscle spasm) Qty: 20 0RF benzonatate 100 mg capsule 100 mg PO BID PRN (Reason: cough) Qty: 20 0RF tamsulosin 0.4 mg capsule 0.4 mg PO DAILY Qty: 5 0RF ondansetron 4 mg tablet,disintegrating 4 mg PO Q6H PRN (Reason: nausea and vomiting) Qty: 15 0RF mupirocin 2 % ointment See Rx Instructions topical BID Qty: 22 1RF Rx Instructions: apply to both nostrils BID topically twice a day; sumatriptan succinate [Imitrex] 100 MG tablet 100 mg PO PRN PRN (Reason: Migraine Headache) Qty: 0 estradiol 1 mg tablet 1 mg PO DAILY Qty: 90 3RF Rx Instructions: off 1 week; repeat cycle All Day Allergy (cetirizine) 10 mg capsule 10 mg PO DAILY fluticasone propionate [Flonase Allergy Relief] 50 mcg/actuation spray,suspension 1 spray NASAL DAILY dextroamphetamine-amphetamine [Adderall XR] 20 mg Capsule,Extended Release 24hr 20 mg PO QAM PRN (Reason: to help focus at work) trazodone 100 mg tablet 150 mg PO QPM Patient Comments: take 1 and 1/2 tablets by mouth NIGHTLY lithium carbonate 300 mg tablet 300 mg PO QAM Patient Comments: take 1 tablet by mouth every morning and 2 tablets every evening withfood lithium carbonate 300 mg tablet 600 mg PO QPM Patient Comments: take 1 tablet by mouth every morning and 2 tablets every evening withfood lamotrigine 100 mg tablet 200 mg PO DAILY Patient Comments: take 2 tablets by mouth once daily ondansetron 4 mg tablet,disintegrating 4 mg PO Q6H PRN (Reason: nausea and vomiting) Qty: 10 0RF pantoprazole 40 mg tablet,delayed release (DR/EC) 40 mg PO DAILY Qty: 30 0RF metoclopramide HCl [Reglan] 10 mg tablet 10 mg PO Q6H PRN (Reason: nausea and vomiting) Qty: 10 0RF hydrocodone-acetaminophen 5-325 mg tablet 1 tab PO Q4-6H PRN (Reason: pain) Qty: 10 0RF ondansetron 4 mg tablet,disintegrating 4 mg PO Q6H PRN (Reason: nausea and vomiting) Qty: 14 0RF metoclopramide HCl [Reglan] 10 mg tablet 10 mg PO Q6H PRN (Reason: nausea and vomiting) Qty: 14 0RF hydrocodone-acetaminophen 5-325 mg tablet 1 tab PO Q8H PRN (Reason: pain) Qty: 20 0RF levothyroxine 200 mcg tablet 200 mcg PO DAILY albuterol sulfate 90 mcg/actuation HFA aerosol inhaler 2 puff INHALATION Q4-6H PRN (Reason: shortness of breath) Qty: 18 0RF prednisone 50 mg tablet 50 mg PO DAILY Qty: 5 0RF lamotrigine 100 mg tablet 100 mg PO BID Referrals: Aldo Hernadez MD [Primary Care Provider] - Stand Alone Forms: Patient Portal/API
[2023-07-06] MEDS: diphenhydrAMINE 50 MG/ML VIAL 25 MG IV (13:53)
[2023-07-06] MEDS: KETOROLAC 30 MG/ML VIAL IV (13:54)
[2023-07-06 13:55] LABS: Influenza A - CEPHEID Flu A NEGATIVE (NEGATIVE); Influenza B - CEPHEID Flu B NEGATIVE (NEGATIVE); Respiratory Syncytial Virus Negative (Negative)
[2023-07-06] MEDS: DROPERIDOL 5 MG/2 ML VIAL 0.625 MG IV (13:55)
[2023-07-06 13:56] LABS: COVID-19 CEPHEID 4-PLEX PCR Negative (Negative)
== END 2023-07-06 15:59 | disposition home or self-care (01) ==
PROVIDERS: Emergency Provider Emergency Medicine; Family Provider Family Medicine; PCP Family Medicine
DX: G43.909 Migraine, unspecified, not intractable, without status migrainosus (principal); R11.0 Nausea; Z20.822 Contact with and (suspected) exposure to COVID-19
CPT/HCPCS: 0241U; 36415; 96361; 96374; 96375; 99284; J1200; J1790; J1885; J2405

== ENCOUNTER 2023-08-06 19:33 | Emergency (ER) | payer OTHER, MEDICAID, SELFPAY ==
[2020-01-03 20:33] VITALS: BMI 30.6
[2023-08-06 19:40] VITALS: BP 107/70; PULSE 70; RESP 16; TEMP 36.5; O2SAT 99; BMI 29.2
--- NOTE | 2023-08-06 19:44 | DI.RAD.S_ITS ---
PROCEDURE: XR CHEST 2V INDICATIONS: reproducable anterior chest pain TECHNIQUE: 2 views of the chest were acquired. COMPARISON: [facility], , XR CHEST 2V, 06/17/2019, 16:11. FINDINGS: Surgical changes and devices: Surgical clips overlie the lower neck Lungs and pleura: Lungs are clear. No pleural effusions or pneumothorax. Mediastinum: Mediastinal contours are normal. Heart size is normal. Bones and chest wall: No suspicious bony abnormalities. Soft tissues appear unremarkable. IMPRESSION: No acute cardiopulmonary abnormality is seen. Dictated by: Daksha Michael M.D. on 08/06/2023 at 20:18 Approved by: Daksha Michael M.D. on 08/06/2023 at 20:19
[2023-08-06] MEDS: KETOROLAC 30 MG/ML VIAL IM (21:37)
== END 2023-08-06 23:02 | disposition left against medical advice (07) ==
PROVIDERS: Emergency Provider Emergency Medicine; Family Provider Family Medicine; PCP Family Medicine
DX: R07.9 Chest pain, unspecified (principal)
CPT/HCPCS: 71046; 99283; J1885

== ENCOUNTER 2024-06-10 22:32 | Emergency (ER) | payer OTHER, SELFPAY ==
[2020-01-03 20:33] VITALS: BMI 30.6
[2024-06-10 22:41] VITALS: BP 117/58; PULSE 85; RESP 17; TEMP 37; O2SAT 97; BMI 33.5
--- NOTE | 2024-06-10 22:42 | ED_ITS ---
HPI - Female Genitourinary General Chief complaint: Vaginal Bleeding Stated complaint: Vaginal Bleeding Time Seen by Provider: 06/10/24 22:37 History of Present Illness HPI Narrative: 38-year-old female with history of thyroid cancer presents for vaginal bleeding since this evening. Had total hysterectomy several years ago at [facility] For vaginal bleeding. Patient states that she was straining and had a hard bowel movement. After wiping she noticed blood. She states that she was getting blood from her vaginal region with clots. Patient complaining of lower abdominal pains as well this evening. Related Data Home Medications Medication Instructions Recorded Confirmed sumatriptan succinate 100 mg 100 mg PO PRN PRN Migraine 08/22/12 07/08/22 tablet (Imitrex) Headache ##0 dextroamphetamine-amphetamine ER 20 mg PO QAM PRN to help focus at 02/11/18 07/08/22 20 mg 24hr capsule,extend release work (Adderall XR) lamotrigine 100 mg tablet 200 mg PO DAILY 05/24/18 07/08/22 lithium carbonate 300 mg tablet 300 mg PO QAM 05/24/18 07/08/22 lithium carbonate 300 mg tablet 600 mg PO QPM 05/24/18 07/08/22 trazodone 100 mg tablet 150 mg PO QPM 05/24/18 07/08/22 cetirizine 10 mg capsule (All Day 10 mg PO DAILY 12/14/18 07/08/22 Allergy (cetirizine)) fluticasone propionate 50 1 spray intranasal DAILY 12/14/18 07/08/22 mcg/actuation nasal spray,suspension (Flonase Allergy Relief) levothyroxine 200 mcg tablet 200 mcg PO DAILY 04/26/19 07/08/22 lamotrigine 100 mg tablet 100 mg PO BID 09/10/20 07/08/22 Previous Rx's Medication Instructions Recorded estradiol 1 mg tablet 1 mg PO DAILY #90 tabs 03/30/19 albuterol sulfate 90 mcg/actuation 2 puff inhalation Q4-6H PRN 06/17/19 aerosol inhaler shortness of breath #18 grams prednisone 50 mg tablet 50 mg PO DAILY #5 tabs 06/17/19 ondansetron 4 mg disintegrating 4 mg PO Q6H PRN nausea and 12/28/19 tablet vomiting #10 tabs pantoprazole 40 mg tablet,delayed 40 mg PO DAILY #30 tabs 12/29/19 release metoclopramide HCl 10 mg tablet 10 mg PO Q6H PRN nausea and 12/31/19 (Reglan) vomiting #10 tabs cyclobenzaprine 10 mg tablet 10 mg PO TID PRN muscle spasm #20 03/18/20 tabs hydrocodone 5 mg-acetaminophen 325 1 tab PO Q4-6H PRN pain #10 tabs 06/11/20 mg tablet metoclopramide HCl 10 mg tablet 10 mg PO Q6H PRN nausea and 07/06/21 (Reglan) vomiting #14 tabs ondansetron 4 mg disintegrating 4 mg PO Q6H PRN nausea and 07/06/21 tablet vomiting #14 tabs benzonatate 100 mg capsule 100 mg PO BID PRN cough #20 caps 12/05/21 ondansetron 4 mg disintegrating 4 mg PO Q6H PRN nausea and 01/25/22 tablet vomiting #15 tabs tamsulosin 0.4 mg capsule 0.4 mg PO DAILY #5 caps 01/25/22 hydrocodone 5 mg-acetaminophen 325 1 tab PO Q8H PRN pain #20 tabs 03/10/22 mg tablet mupirocin 2 % topical ointment See Rx Instructions topical BID 07/08/22 #22 grams Allergies Allergy/AdvReac Type Severity Reaction Status Date / Time amoxicillin [AMOXICILLIN] Allergy Intermediate Vomiting, Verified 07/06/23 12:52 tongue swelling adhesive [ADHESIVE] AdvReac Intermediate Rash Verified 07/06/23 12:52 iodine [IODINE] AdvReac Intermediate Hives Verified 07/06/23 12:52 Penicillins [PENICILLINS] AdvReac Unknown Hives, Verified 07/06/23 12:52 vomiting Patient History Medical History Asthma Post traumatic stress disorder (PTSD) Depression Anxiety ADHD (~1991) Chronic back pain Herpes Chicken pox (~1988) Bipolar 1 disorder Hypothyroid Thyroid cancer (~2008) Surgical History Anesthesia History of knee surgery (~04/2009) History of hysterectomy (~11/2011) History of partial hysterectomy (~09/2009) History of tonsillectomy and adenoidectomy (~06/2008) H/O thyroidectomy (~05/2009) H/O: hysterectomy Family History Mother Breast cancer Grandmother History of cancer of spinal cord Lung cancer Grandfather Lung cancer Father Hyperlipidemia Last Alcoholic Drink: does not use Exam Initial Vital Signs Initial Vital Signs: Vital Signs Temperature 98.6 F 06/10/24 22:41 Pulse Rate 85 06/10/24 22:41 Respiratory Rate 17 06/10/24 22:41 Blood Pressure 117/58 L 06/10/24 22:41 Pulse Oximetry 97 06/10/24 22:41 Oxygen Delivery Method Room Air 06/10/24 22:41 Const: Awake, alert, no acute distress, nontoxic appearing Cardiac: regular rate, regular rhythm RESP: unlabored, clear bilaterally, no wheezing GI: Soft, suprapubic tenderness, no peritoneal signs /rectal: 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 Rectum normal, no gross blood Skin: Warm, Dry, intact, no rashes Neuro: AO x3, CN II-XII grossly intact, moves all extremities Course Orders Ordered: ED Orders 06/10/24 23:00 CBC Auto Diff [Complete Blood Count AUTO DIFF] Stat CMP [Comprehensive Metabolic Panel] Stat 06/10/24 23:08 UA Complete [Urinalysis and Microscopic] Stat 06/10/24 23:37 CT abdomen pelvis w con Stat Discontinued Medications Diphenhydramine HCl (Diphenhydramine 50 Mg/Ml Vial) 25 mg IV NOW ONE Stop: 06/10/24 23:50 Last Admin: 06/10/24 23:56 Dose: 25 mg Documented By: BERNADETTE Ketorolac Tromethamine (Ketorolac 30 Mg/Ml Vial) 15 mg IV NOW ONE Stop: 06/10/24 22:42 Last Admin: 06/10/24 22:55 Dose: 15 mg Documented By: BERNADETTE Methylprednisolone (Methylprednisolone 125 Mg/2 Ml Vial) 125 mg IV NOW ONE Stop: 06/10/24 23:50 Last Admin: 06/10/24 23:56 Dose: 125 mg Documented By: BERNADETTE Vital Signs Vital signs: Vital Signs - 8 hr 06/10/24 22:41 06/10/24 22:43 06/10/24 23:00 Temperature 98.6 F Pulse Rate 85 77 76 Respiratory Rate 17 18 Blood Pressure 117/58 L Pulse Oximetry 97 97 97 Oxygen Delivery Method Room Air MDM - Female Genitourinary Differential Diagnosis Differential diagnosis: Likely urinary tract infection, cystitis and other (hematuria) Lab Data 06/10/24 23:00 06/10/24 23:00 Labs: Lab Results 06/10/24 06/10/24 Range/Units 23:00 23:08 WBC 6.6 (4.5-11.0) X10^3/uL RBC 4.78 (4.0-5.2) X10^6/uL Hgb 14.0 (12.0-16.0) g/dL Hct 42.1 (36-46) % MCV 88.2 (80-100) fL MCH 29.3 (26-34) PG MCHC 33.3 (30-36) % RDW 13.8 (11.6-14.8) % Plt Count 293 (150-400) X10^3/uL Neut % (Auto) 50.6 (50-75) % Lymph % (Auto) 36.1 (25-40) % [place] % (Auto) 7.3 (3-14) % Eos % (Auto) 5.3 H (2-4) % Baso % (Auto) 0.7 (0-2) % Neut # (Auto) 3300 (7233-1792) /uL Lymph # (Auto) 2400 (7971-6785) /uL [place] # (Auto) 500 (0-900) /uL Eos # (Auto) 300 (0-450) /uL Baso # (Auto) 0 (0-100) /uL Sodium 132 L (137-145) mmol/L Potassium 3.7 (3.4-5.1) mmol/L Chloride 104 (98-107) mmol/L Carbon Dioxide 26 (22-32) mmol/L BUN 18 H (7-17) mg/dL Creatinine 1.00 (0.52-1.04) mg/dL Estimated GFR > 60 (>60) mL/min BUN/Creatinine Ratio 18.0 (6-22) Glucose 82 (70-100) mg/dL Calcium 8.6 (8.4-10.2) mg/dL Total Bilirubin 0.4 (0.2-1.3) mg/dL AST 39 H (14-36) IU/L ALT 27 (<35) IU/L Alkaline Phosphatase 64 (38-126) U/L Total Protein 7.4 (6.3-8.2) g/dL Albumin 3.9 (3.5-5.0) g/dL Globulin 3.5 (1.7-4.1) g/dL Albumin/Globulin Ratio 1.1 (1.0-2.8) Urine Color Yellow Urine Appearance Clear Urine pH 5.5 (4.5-8.0) Ur Specific [place] 1.025 (1.000-1.035) Urine Protein Negative (Negative) Urine Glucose (UA) Negative (Negative) g/dL Urine Ketones Negative (NEGATIVE) Urine Occult Blood 2+ H (Negative) Urine Nitrate Negative (Negative) Urine Bilirubin Negative (NEGATIVE) Urine Urobilinogen 0.2 (0.2) E.U./dL Ur Leukocyte Esterase Negative (NEGATIVE) Urine RBC 0-1/hpf (0-5/HPF) Urine WBC 0-1/hpf (0-5/HPF) Ur Squamous Epith Cells 0-1 /hpf (0-5/HPF) Urine Bacteria Occasional (0-1) (None) Ur Culture Indicated? Cult not indicated Vol Urine Centrifuged 10ml (spun) Imaging Data CT scan - abdomen/pelvis: Radiologist's Impression: PROCEDURE: CT ABDOMEN PELVIS W CON INDICATIONS: HEMATURIA, LOWER ABD PAIN TECHNIQUE: After the administration of intravenous contrast, axial sections acquired from the lung bases to the pubic symphysis. Coronal and sagittal reformats were performed. For radiation dose reduction, the following was used: automated exposure control, adjustment of mA and/or kV according to patient size. COMPARISON: [facility], CT, CT ABDOMEN PELVIS W CON, 07/06/2021, 13:11. FINDINGS: Image quality: Diagnostic. Lower Chest: No significant findings. Small hiatal hernia. ABDOMEN: Liver: 1.9 cm hemangioma in segment 7. Gallbladder: Contracted, without stones. Biliary ducts: No biliary dilation. Pancreas: No ductal dilation. Spleen: Size is within normal limits. Mildly heterogeneous attenuation, nonspecific. Adrenal Glands: No adrenal nodules. Kidneys and Ureters: No hydronephrosis. No solid mass. No complex renal cystic lesion which requires follow up. Stomach and Bowel: Normal colonic caliber, without significant wall thickening. Normal appendix. Peritoneum: No abnormal intraperitoneal fluid. No free air. Ventral Wall: No significant ventral hernia. Abdominal Nodes: No retroperitoneal or mesenteric adenopathy by size criteria. Vessels: Aorta and inferior vena cava are normal in size. PELVIS: Pelvic Organs: Unremarkable. Bladder: Mild bladder wall thickening. Submucosal fat deposition within the urinary bladder wall. Pelvic Nodes: No enlarged lymph nodes. Miscellaneous: Small left inguinal hernia containing fat. Bones: No aggressive osseous abnormality. IMPRESSION: Mild bladder wall thickening, which may indicate cystitis. Correlate with urinalysis. No nephrolithiasis or hydronephrosis. Submucosal fat deposition within the urinary bladder wall, suggestive of a superimposed chronic inflammatory or infectious process. Dictated by: Donis Leavitt M.D. on 06/11/2024 at 0:40 Approved by: Donis Leavitt M.D. on 06/11/2024 at 0:47 MDM Narrative Medical decision making narrative: patient presenting stating that she had bleeding with clots from her vagina earlier today. History of hysterectomy. On exam there is no gross blood, vaginal cuff is intact, no obvious source of bleeding seen. Labs/ua ordered. UA with blood, no signs of UTI. Labs with normal hemoglobin, normal renal/hepatic enzymes. CT ordered. CT shows liver hemangioma, signs of chronic bladder inflammation, no other concerning findings. Patient informed of lab/imaging findings. Uncertain etiology of bladder inflammatory changes, but no evidence of acute infection at this time. Recommended urology follow up. Discharge Plan Departure Patient Disposition: Home Clinical Impression: Hematuria Instructions: DI for Hematuria Activity Restrictions/Additional Instructions: Your laboratory work today showed that you have a normal hemoglobin. There was a small amount of blood in your urine, but no signs of infection. Your CT scan today showed findings of chronic inflammation in your bladder. I do not know the exact cause of this inflammation, but it does not appear that you need antibiotics here today. I would recommend following up with Urology if you continue to experience symptoms. Take anti-inflammatories such as alleve or ibuprofen for pain. Prescriptions: No Action cyclobenzaprine 10 mg tablet 10 mg PO TID PRN (Reason: muscle spasm) Qty: 20 0RF benzonatate 100 mg capsule 100 mg PO BID PRN (Reason: cough) Qty: 20 0RF tamsulosin 0.4 mg capsule 0.4 mg PO DAILY Qty: 5 0RF ondansetron 4 mg tablet,disintegrating 4 mg PO Q6H PRN (Reason: nausea and vomiting) Qty: 15 0RF mupirocin 2 % ointment See Rx Instructions topical BID Qty: 22 1RF Rx Instructions: apply to both nostrils BID topically twice a day; sumatriptan succinate [Imitrex] 100 MG tablet 100 mg PO PRN PRN (Reason: Migraine Headache) Qty: 0 estradiol 1 mg tablet 1 mg PO DAILY Qty: 90 3RF Rx Instructions: off 1 week; repeat cycle All Day Allergy (cetirizine) 10 mg capsule 10 mg PO DAILY fluticasone propionate [Flonase Allergy Relief] 50 mcg/actuation spray,suspension 1 spray NASAL DAILY dextroamphetamine-amphetamine [Adderall XR] 20 mg Capsule,Extended Release 24hr 20 mg PO QAM PRN (Reason: to help focus at work) trazodone 100 mg tablet 150 mg PO QPM Patient Comments: take 1 and 1/2 tablets by mouth NIGHTLY lithium carbonate 300 mg tablet 300 mg PO QAM Patient Comments: take 1 tablet by mouth every morning and 2 tablets every evening withfood lithium carbonate 300 mg tablet 600 mg PO QPM Patient Comments: take 1 tablet by mouth every morning and 2 tablets every evening withfood lamotrigine 100 mg tablet 200 mg PO DAILY Patient Comments: take 2 tablets by mouth once daily ondansetron 4 mg tablet,disintegrating 4 mg PO Q6H PRN (Reason: nausea and vomiting) Qty: 10 0RF pantoprazole 40 mg tablet,delayed release (DR/EC) 40 mg PO DAILY Qty: 30 0RF metoclopramide HCl [Reglan] 10 mg tablet 10 mg PO Q6H PRN (Reason: nausea and vomiting) Qty: 10 0RF hydrocodone-acetaminophen 5-325 mg tablet 1 tab PO Q4-6H PRN (Reason: pain) Qty: 10 0RF ondansetron 4 mg tablet,disintegrating 4 mg PO Q6H PRN (Reason: nausea and vomiting) Qty: 14 0RF metoclopramide HCl [Reglan] 10 mg tablet 10 mg PO Q6H PRN (Reason: nausea and vomiting) Qty: 14 0RF hydrocodone-acetaminophen 5-325 mg tablet 1 tab PO Q8H PRN (Reason: pain) Qty: 20 0RF levothyroxine 200 mcg tablet 200 mcg PO DAILY albuterol sulfate 90 mcg/actuation HFA aerosol inhaler 2 puff INHALATION Q4-6H PRN (Reason: shortness of breath) Qty: 18 0RF prednisone 50 mg tablet 50 mg PO DAILY Qty: 5 0RF lamotrigine 100 mg tablet 100 mg PO BID Referrals: Ron Chong DO [Physician] - Aldo Hernadez MD [Primary Care Provider] - Stand Alone Forms: Patient Portal/API/Survey, Work Release Note
[2024-06-10 22:43] VITALS: PULSE 77; O2SAT 97
[2024-06-10] MEDS: KETOROLAC 30 MG/ML VIAL 15 MG IV (22:55)
[2024-06-10 23:00] VITALS: PULSE 76; RESP 18; O2SAT 97
[2024-06-10 23:07] LABS: Add Manual Diff / Slide Review NO; Basophils Absolute Auto 0 /uL (0-100); Basophils Percent Auto 0.7 % (0-2); Eosinophils Absolute Auto 300 /uL (0-450); Eosinophils Percent Auto 5.3 % (2-4); Hematocrit 42.1 % (36-46); Lymphocytes Absolute Auto 2400 /uL (1100-4500); Lymphocytes Percent Auto 36.1 % (25-40); Mean Corpuscular HGB Conc 33.3 % (30-36); Mean Corpuscular Hemoglobin 29.3 PG (26-34); Mean Corpuscular Volume 88.2 fL (80-100); Monocytes Absolute Auto 500 /uL (0-900); Monocytes Percent Auto 7.3 % (3-14); Neutrophils Absolute Auto 3300 /uL (1500-7000); Neutrophils Percent Auto 50.6 % (50-75); Platelet Count 293 X10^3/uL (150-400); Red Blood Cell Count 4.78 X10^6/uL (4.0-5.2); Red Cell Distribution Width 13.8 % (11.6-14.8); White Blood Cell Count 6.6 X10^3/uL (4.5-11.0)
[2024-06-10 23:18] LABS: Alanine Aminotransferase 27 IU/L (<35); Albumin 3.9 g/dL (3.5-5.0); Albumin Globulin Ratio 1.1 (1.0-2.8); Alkaline Phosphatase 64 U/L (38-126); Aspartate Aminotransferase 39 IU/L (14-36); Bilirubin Total 0.4 mg/dL (0.2-1.3); Blood Urea Nitrogen 18 mg/dL (7-17); Calcium 8.6 mg/dL (8.4-10.2); Carbon Dioxide 26 mmol/L (22-32); Chloride 104 mmol/L (98-107); Estimated Glomerular Filt Rate > 60 mL/min (>60); Globulin 3.5 g/dL (1.7-4.1); Glucose 82 mg/dL (70-100); HEMOLYSIS < 15 (0-50); Potassium 3.7 mmol/L (3.4-5.1); Sodium 132 mmol/L (137-145); Total Protein 7.4 g/dL (6.3-8.2)
[2024-06-10 23:22] LABS: Appearance Urine UA CLEAR; Bilirubin Urine UA NEGATIVE (NEGATIVE); Color Urine UA YELLOW; Glucose Urine UA NEGATIVE (Negative); Ketones Urine UA NEGATIVE (NEGATIVE); Leukocyte Esterase Urine UA NEGATIVE (NEGATIVE); Nitrite Urine UA NEGATIVE (Negative); Occult Blood Urine UA 2+ (Negative); Protein Urine UA NEGATIVE (Negative); Specific Gravity Urine UA 1.025 (1.000-1.035); Urobilinogen Urine UA 0.2 E.U./dL (0.2)
[2024-06-10 23:29] LABS: pH Urine UA 5.5 (4.5-8.0)
[2024-06-10 23:30] LABS: Bacteria Urine Occasional (0-1); RBC Urine 0-1/HPF (0-5/HPF); Squamous Epithelial Cell Urine 0-1 /HPF (0-5/HPF); Urine Volume 10mL (spun); WBC Urine 0-1/HPF (0-5/HPF)
[2024-06-10 23:31] LABS: Culture Indicated Urine Cult Not Indicated
--- NOTE | 2024-06-10 23:37 | DI.CT.S_ITS ---
PROCEDURE: CT ABDOMEN PELVIS W CON INDICATIONS: HEMATURIA, LOWER ABD PAIN TECHNIQUE: After the administration of intravenous contrast, axial sections acquired from the lung bases to the pubic symphysis. Coronal and sagittal reformats were performed. For radiation dose reduction, the following was used: automated exposure control, adjustment of mA and/or kV according to patient size. COMPARISON: [facility], CT, CT ABDOMEN PELVIS W CON, 07/06/2021, 13:11. FINDINGS: Image quality: Diagnostic. Lower Chest: No significant findings. Small hiatal hernia. ABDOMEN: Liver: 1.9 cm hemangioma in segment 7. Gallbladder: Contracted, without stones. Biliary ducts: No biliary dilation. Pancreas: No ductal dilation. Spleen: Size is within normal limits. Mildly heterogeneous attenuation, nonspecific. Adrenal Glands: No adrenal nodules. Kidneys and Ureters: No hydronephrosis. No solid mass. No complex renal cystic lesion which requires follow up. Stomach and Bowel: Normal colonic caliber, without significant wall thickening. Normal appendix. Peritoneum: No abnormal intraperitoneal fluid. No free air. Ventral Wall: No significant ventral hernia. Abdominal Nodes: No retroperitoneal or mesenteric adenopathy by size criteria. Vessels: Aorta and inferior vena cava are normal in size. PELVIS: Pelvic Organs: Unremarkable. Bladder: Mild bladder wall thickening. Submucosal fat deposition within the urinary bladder wall. Pelvic Nodes: No enlarged lymph nodes. Miscellaneous: Small left inguinal hernia containing fat. Bones: No aggressive osseous abnormality. IMPRESSION: Mild bladder wall thickening, which may indicate cystitis. Correlate with urinalysis. No nephrolithiasis or hydronephrosis. Submucosal fat deposition within the urinary bladder wall, suggestive of a superimposed chronic inflammatory or infectious process. Dictated by: Donis Leavitt M.D. on 06/11/2024 at 0:40 Approved by: Donsi Leavitt M.D. on 06/11/2024 at 0:47
[2024-06-10] MEDS: diphenhydrAMINE 50 MG/ML VIAL 25 MG IV (23:56)
[2024-06-10] MEDS: methylPREDNISolone 125 MG/2 ML VIAL IV (23:56)
[2024-06-11 01:07] VITALS: BP 115/56; PULSE 74; RESP 17; O2SAT 99
== END 2024-06-11 01:10 | disposition home or self-care (01) ==
PROVIDERS: Emergency Provider Emergency Medicine; Family Provider Family Medicine; PCP Family Medicine
DX: R31.9 Hematuria, unspecified (principal); N93.9 Abnormal uterine and vaginal bleeding, unspecified
CPT/HCPCS: 36415; 74177; 80053; 81001; 85025; 96374; 96375; 99284; J1200; J1885; J2919; Q9967

== ENCOUNTER → 2024-08-20 11:17 | Outpatient (CLI) | payer OTHER, SELFPAY ==
[2020-01-03 20:33] VITALS: BMI 30.6
[2024-08-20 12:18] LABS: Influenza A - CEPHEID Flu A NEGATIVE (NEGATIVE); Influenza B - CEPHEID Flu B NEGATIVE (NEGATIVE); Respiratory Syncytial Virus Negative (Negative)
[2024-08-20 12:33] LABS: COVID-19 CEPHEID 4-PLEX PCR Negative (Negative)
== END ==
PROVIDERS: Family Provider Family Medicine; PCP Family Medicine; Referring Provider Physician Assistant Surgical; Visit Provider Physician Assistant Surgical
DX: R05.9 Cough, unspecified (principal)
CPT/HCPCS: 87635; 87400 ×2; 87420; 0241U

== ENCOUNTER 2024-08-25 08:41 | Emergency (ER) | payer OTHER, SELFPAY ==
[2020-01-03 20:33] VITALS: BMI 30.6
[2024-08-25] VITALS (13 sets, daily range): BP systolic 84–110; BP diastolic 47–63; PULSE 52–75; RESP 16–18; TEMP 36.9; O2SAT 93–98; BMI 29.9
[2024-08-25] MEDS: SODIUM CHLORIDE 0.9% 1,000 ML 1000 ML IV ×2 (09:00→09:53)
[2024-08-25] MEDS: DEXAMETHASONE 10 MG/ML VIAL IV (09:08)
[2024-08-25] MEDS: diphenhydrAMINE 50 MG/ML VIAL 25 MG IV (09:09)
[2024-08-25] MEDS: KETOROLAC 30 MG/ML VIAL IV (09:12)
[2024-08-25] MEDS: PROCHLORPERAZINE 10 MG/2 ML VIAL IV (09:14)
--- NOTE | 2024-08-25 09:49 | PC.NURSE ---
Pt states her normal resting BP is 90/50 and it's always been that way and no one has ever been worried about my low BP so it must be ok. After medication administration, pt's BP dropped to 84/48, ED physician and charge account identification clerk aware. Additional liter of NS administered.
[2024-08-25 10:13] LABS: Appearance Urine UA CLEAR; Bilirubin Urine UA NEGATIVE (NEGATIVE); Color Urine UA YELLOW; Glucose Urine UA NEGATIVE (Negative); Ketones Urine UA TRACE (NEGATIVE); Leukocyte Esterase Urine UA NEGATIVE (NEGATIVE); Nitrite Urine UA NEGATIVE (Negative); Occult Blood Urine UA 1+ (Negative); Protein Urine UA NEGATIVE (Negative); Urobilinogen Urine UA 0.2 E.U./dL (0.2)
[2024-08-25 10:16] LABS: pH Urine UA 6.5 (4.5-8.0)
[2024-08-25 10:22] LABS: Bacteria Urine None Seen; Culture Indicated Urine Cult Not Indicated; RBC Urine 0-1/HPF (0-5/HPF); Squamous Epithelial Cell Urine None Seen (0-5/HPF); Urine Volume 10mL (spun); WBC Urine None Seen (0-5/HPF)
--- NOTE | 2024-08-25 10:57 | ED.HA ---
HPI - Headache General Chief Complaint: Headache Stated Complaint: Bad Headache Time Seen by Provider: 08/25/24 08:44 Mode of arrival: Ambulatory History of Present Illness HPI Narrative: 38-year-old woman with a history of migraine headache ADHD hypothyroidism depression who began developing a headache yesterday by the late evening it had clearly developed into a migraine, she took 2 appropriately dosed doses of Imitrex and pain continues to increase and she comes to the ER for help with pain control. No recent fevers, she states that this migraine is similar to her usual once perhaps a bit worse and that it did not resolve with the Imitrex. No vomiting, chest pain, cough, diarrhea Related Data Home Medications Medication Instructions Recorded Confirmed sumatriptan succinate 100 mg 100 mg PO PRN PRN Migraine 08/22/12 08/20/24 tablet (Imitrex) Headache ##0 dextroamphetamine-amphetamine ER 20 mg PO QAM PRN to help focus at 02/11/18 08/20/24 20 mg 24hr capsule,extend release work (Adderall XR) cetirizine 10 mg capsule (All Day 10 mg PO DAILY 12/14/18 08/20/24 Allergy (cetirizine)) fluticasone propionate 50 1 spray intranasal DAILY 12/14/18 08/20/24 mcg/actuation nasal spray,suspension (Flonase Allergy Relief) dextroamphetamine-amphetamine 10 PO DAILY 08/20/24 08/20/24 mg tablet famotidine 40 mg tablet mg PO DAILY 08/20/24 08/20/24 folic acid 1 mg tablet PO DAILY 08/20/24 08/20/24 levothyroxine 125 mcg tablet mcg PO DAILY 08/20/24 08/20/24 quetiapine 25 mg tablet mg PO 08/20/24 08/20/24 sertraline 100 mg tablet mg PO 08/20/24 08/20/24 sumatriptan succinate 50 mg tablet mg PO 08/20/24 08/20/24 trazodone 50 mg tablet mg PO 08/20/24 08/20/24 Previous Rx's Medication Instructions Recorded albuterol sulfate 90 mcg/actuation 2 puff inhalation Q4-6H PRN 06/17/19 aerosol inhaler shortness of breath #18 grams pantoprazole 40 mg tablet,delayed 40 mg PO DAILY #30 tabs 12/29/19 release cyclobenzaprine 10 mg tablet 10 mg PO TID PRN muscle spasm #20 03/18/20 tabs benzonatate 100 mg capsule 100 mg PO BID PRN cough #20 caps 12/05/21 benzonatate 200 mg capsule 200 mg PO BID PRN cough #30 caps 08/20/24 ipratropium bromide 21 mcg (0.03 2 spray intranasal BID PRN nasal 08/20/24 %) nasal spray congestion #30 mL ondansetron 4 mg disintegrating 4 mg PO Q8H PRN nausea and 08/20/24 tablet vomiting #8 tabs Allergies Allergy/AdvReac Type Severity Reaction Status Date / Time amoxicillin [AMOXICILLIN] Allergy Intermediate Vomiting, Verified 08/20/24 11:08 tongue swelling adhesive [ADHESIVE] AdvReac Intermediate Rash Verified 08/20/24 11:08 iodine [IODINE] AdvReac Intermediate Hives Verified 08/20/24 11:08 Penicillins [PENICILLINS] AdvReac Unknown Hives, Verified 08/20/24 11:08 vomiting Review of Systems Review of Systems Narrative: Pertinent positive and negative findings as per HPI Patient History Medical History (Updated 08/25/24 @ 11:01 by Monika Rivas MD) Asthma Post traumatic stress disorder (PTSD) Depression Anxiety ADHD (~1991) Chronic back pain Herpes Chicken pox (~1988) Bipolar 1 disorder Hypothyroid Thyroid cancer (~2008) Surgical History Anesthesia History of knee surgery (~04/2009) History of hysterectomy (~11/2011) History of partial hysterectomy (~09/2009) History of tonsillectomy and adenoidectomy (~06/2008) H/O thyroidectomy (~05/2009) H/O: hysterectomy Family History Mother Breast cancer Grandmother History of cancer of spinal cord Lung cancer Grandfather Lung cancer Father Hyperlipidemia Social History household members: significant other and other Smoking Status: Former smoker alcohol intake: current Smoking Status: Former smoker alcohol intake frequency: 0-2 drinks per day Exam Initial Vital Signs Initial Vital Signs: Vital Signs Pulse Rate 70 08/25/24 08:46 Blood Pressure 110/63 08/25/24 08:46 Pulse Oximetry 98 08/25/24 08:46 General: Alert appropriate in no acute distress Respiratory: Able to speak in full sentences, no obvious respiratory distress Cardiac: No murmurs Skin: No obvious rashes, warm and dry Neurologic: Grossly intact no obvious asymmetries or abnormalities Psych: appropriate insight and affect, cooperative Course Orders Ordered: ED Orders 08/25/24 09:57 Urinalysis and Microscopic Stat Discontinued Medications Dexamethasone (Dexamethasone 10 Mg/Ml Vial) 10 mg IV NOW ONE Stop: 08/25/24 08:55 Last Admin: 08/25/24 09:08 Dose: 10 mg Documented By: VELIA Diphenhydramine HCl (Diphenhydramine 50 Mg/Ml Vial) 25 mg IV NOW ONE Stop: 08/25/24 08:55 Last Admin: 08/25/24 09:09 Dose: 25 mg Documented By: VELIA Sodium Chloride (Normal Saline 0.9%) 1,000 mls @ 1,000 mls/hr IV BOLUS ONE Stop: 08/25/24 09:53 Last Infusion: 08/25/24 09:50 Dose: Infused Documented By: Admin: 08/25/24 09:00 Dose: 1,000 mls/hr Documented By: VELIA Sodium Chloride (Normal Saline 0.9%) 1,000 mls @ 1,000 mls/hr IV BOLUS ONE Stop: 08/25/24 10:51 Last Infusion: 08/25/24 10:44 Dose: Infused Documented By: Admin: 08/25/24 09:53 Dose: 1,000 mls/hr Documented By: VELIA Ketorolac Tromethamine (Ketorolac 30 Mg/Ml Vial) 30 mg IV NOW ONE Stop: 08/25/24 08:55 Last Admin: 08/25/24 09:12 Dose: 30 mg Documented By: VELIA Prochlorperazine (Prochlorperazine 10 Mg/2 Ml Vial) 10 mg IV NOW ONE Stop: 08/25/24 08:55 Last Admin: 08/25/24 09:14 Dose: 10 mg Documented By: VELIA Vital Signs Vital signs: Vital Signs - 8 hr 08/25/24 08:46 08/25/24 08:46 08/25/24 09:00 Temperature Pulse Rate 70 75 Respiratory Rate Blood Pressure 110/63 Pulse Oximetry 98 98 Oxygen Delivery Method 08/25/24 09:00 08/25/24 09:01 08/25/24 09:14 Temperature 98.4 F Pulse Rate 57 L 60 Respiratory Rate 18 Blood Pressure 96/54 L 106/58 L 106/58 L Pulse Oximetry 98 Oxygen Delivery Method Room Air 08/25/24 09:17 08/25/24 09:17 08/25/24 09:30 Temperature Pulse Rate 56 L 66 Respiratory Rate Blood Pressure 97/60 Pulse Oximetry 96 97 Oxygen Delivery Method 08/25/24 09:30 08/25/24 09:37 08/25/24 09:37 Temperature Pulse Rate 63 Respiratory Rate Blood Pressure 91/52 L 84/48 L Pulse Oximetry 95 Oxygen Delivery Method 08/25/24 09:57 08/25/24 09:57 08/25/24 10:00 Temperature Pulse Rate 60 Respiratory Rate Blood Pressure 88/47 L 88/50 L Pulse Oximetry 96 Oxygen Delivery Method 08/25/24 10:00 08/25/24 10:10 08/25/24 10:10 Temperature Pulse Rate 52 L 52 L Respiratory Rate Blood Pressure 86/54 L Pulse Oximetry 93 94 Oxygen Delivery Method 08/25/24 10:20 08/25/24 10:20 Temperature Pulse Rate 69 Respiratory Rate Blood Pressure 92/50 L Pulse Oximetry 98 Oxygen Delivery Method MDM - Headache Lab Data Labs: Lab Results 08/25/24 Range/Units 09:57 Urine Color Yellow Urine Appearance Clear Urine pH 6.5 (4.5-8.0) Ur Specific [place] 1.010 (1.000-1.035) Urine Protein Negative (Negative) Urine Glucose (UA) Negative (Negative) g/dL Urine Ketones Trace H (NEGATIVE) Urine Occult Blood 1+ H (Negative) Urine Nitrate Negative (Negative) Urine Bilirubin Negative (NEGATIVE) Urine Urobilinogen 0.2 (0.2) E.U./dL Ur Leukocyte Esterase Negative (NEGATIVE) Urine RBC 0-1/hpf (0-5/HPF) Urine WBC None seen (0-5/HPF) Ur Squamous Epith Cells None seen (0-5/HPF) Urine Bacteria None seen (None) Ur Culture Indicated? Cult not indicated Vol Urine Centrifuged 10ml (spun) MDM Narrative Medical decision making narrative: 38-year-old woman with a history of migraine headache presents with migraine headache. No other concerning symptoms to suggest alternate diagnosis this time such as stroke, infection, meningitis. She has given a total of 2 L of fluid, Compazine and dexamethasone with complete relief of her pain. She does have follow up appointment she has refills of her Imitrex there was no indication for additional workup or hospitalization at this time and she is safe for discharge Discharge Plan Departure Patient Disposition: Home Clinical Impression: Migraines Instructions: DI for Migraine Activity Restrictions/Additional Instructions: Thank you for coming in today You were given fluid, Compazine and dexamethasone (steroid). I am glad that you are headache pain has resolved. Hopefully the dexamethasone will help so that does not return once all that this medication has worn off. If you find that you are getting worse or develop any new symptoms, please feel free to return to the emergency department for further evaluation. Prescriptions: No Action cyclobenzaprine 10 mg tablet 10 mg PO TID PRN (Reason: muscle spasm) Qty: 20 0RF benzonatate 100 mg capsule 100 mg PO BID PRN (Reason: cough) Qty: 20 0RF levothyroxine 125 mcg tablet PO DAILY sumatriptan succinate 50 mg tablet PO sertraline 100 mg tablet PO Patient Comments: [NO ORIGINAL SIG] dextroamphetamine-amphetamine 10 mg tablet PO DAILY famotidine 40 mg tablet PO DAILY folic acid 1 mg tablet PO DAILY quetiapine 25 mg tablet PO Patient Comments: [NO ORIGINAL SIG] trazodone 50 mg tablet PO ondansetron 4 mg tablet,disintegrating 4 mg PO Q8H PRN (Reason: nausea and vomiting) Qty: 8 0RF benzonatate 200 mg capsule 200 mg PO BID PRN (Reason: cough) Qty: 30 0RF ipratropium bromide 21 mcg (0.03 %) spray,non-aerosol 2 spray intranasal BID PRN (Reason: nasal congestion) Qty: 30 0RF Rx Instructions: administer into each nostril sumatriptan succinate [Imitrex] 100 MG tablet 100 mg PO PRN PRN (Reason: Migraine Headache) Qty: 0 All Day Allergy (cetirizine) 10 mg capsule 10 mg PO DAILY fluticasone propionate [Flonase Allergy Relief] 50 mcg/actuation spray,suspension 1 spray NASAL DAILY dextroamphetamine-amphetamine [Adderall XR] 20 mg Capsule,Extended Release 24hr 20 mg PO QAM PRN (Reason: to help focus at work) pantoprazole 40 mg tablet,delayed release (DR/EC) 40 mg PO DAILY Qty: 30 0RF albuterol sulfate 90 mcg/actuation HFA aerosol inhaler 2 puff INHALATION Q4-6H PRN (Reason: shortness of breath) Qty: 18 0RF Referrals: Aldo Hernadez MD [Primary Care Provider] - Stand Alone Forms: Patient Portal/API/Survey
--- NOTE | 2024-08-25 11:11 | PC.NURSE ---
Physician aware BP was low at time of d/c. Pt states her BP is normally 90/50. Physician aware.
== END 2024-08-25 11:14 | disposition home or self-care (01) ==
PROVIDERS: Emergency Provider Emergency Medicine; Family Provider Family Medicine; PCP Family Medicine
DX: G43.909 Migraine, unspecified, not intractable, without status migrainosus (principal)
CPT/HCPCS: 36415; 81001; 96361; 96374; 96375; 99284; J0780; J1100; J1200; J1885

== ENCOUNTER 2024-12-25 21:35 | Emergency (ER) | payer OTHER, SELFPAY ==
[2020-01-03 20:33] VITALS: BMI 30.6
[2024-12-25 21:37] VITALS: BP 121/58; PULSE 94; RESP 18; TEMP 36.7; O2SAT 99; BMI 30.5
--- NOTE | 2024-12-25 21:43 | DI.CT.S_ITS ---
PROCEDURE: CT HEAD/BRAIN WO CON INDICATIONS: injury, pain TECHNIQUE: Noncontrast 4.5 mm thick angled axial sections acquired from the foramen magnum to the vertex, with coronal and sagittal reformats. For radiation dose reduction, the following was used: automated exposure control, adjustment of mA and/or kV according to patient size. COMPARISON: [facility], CT, CT FACIAL BONES WO CON, 12/25/2024, 21:56. FINDINGS: Image quality: Diagnostic. CSF spaces: Basal cisterns are patent. No extra-axial fluid collections. Ventricles are normal in size and shape. Brain: No midline shift. No intracranial mass effect or hemorrhage. Thompson- white matter interface is normal. Skull and face: Calvarium and visualized facial bones are intact, without suspicious lesions. Sinuses: Visualized sinuses and mastoids are clear. IMPRESSION: No acute intracranial pathology. Dictated by: Gisselle Bañuelos M.D. on 12/25/2024 at 22:10 Approved by: Gisselle Bañuelos M.D. on 12/25/2024 at 22:11
--- NOTE | 2024-12-25 21:43 | DI.CT.S_ITS ---
PROCEDURE: CT FACIAL BONES WO CON INDICATIONS: injury, pain TECHNIQUE: Noncontrast 2.5 mm thick axial images acquired from the mandible through the frontal sinuses, with coronal and sagittal reformatting. For radiation dose reduction, the following was used: automated exposure control, adjustment of mA and/or kV according to patient size. COMPARISON: None. FINDINGS: Image quality: Excellent. Bones and teeth: Orbital mccall are intact. Sinus mccall show no fracture or deformity. Nasal bones and septum are intact. Visualized portions of the mandible demonstrate no fractures or subluxation. Zygomatic arches are intact. Pterygoid plates are intact. Visualized portions of the skull base and auditory canals are intact. Sinuses: Paranasal sinuses are aerated, without fluid levels, mucosal thickening, or mucoceles. Mastoid air cells are aerated. Soft tissues: No edema, masses, or fluid collections. No enlarged lymph nodes. No soft tissue lacerations or debris. Vascular: Visualized vascular structures appear normal in the absence of contrast. Bony vascular foramina and canals are intact. IMPRESSION: No visualized fracture. Dictated by: Gisselle Bañuelos M.D. on 12/25/2024 at 22:11 Approved by: Gisselle Bañuelos M.D. on 12/25/2024 at 22:12
[2024-12-25 22:54] VITALS: PULSE 88; O2SAT 98
[2024-12-25 22:56] VITALS: BP 103/58; PULSE 79; O2SAT 98
[2024-12-25 23:00] VITALS: PULSE 78; O2SAT 97
[2024-12-25 23:30] VITALS: PULSE 76; O2SAT 96
--- NOTE | 2024-12-25 23:37 | ED.HEATRA ---
HPI - Head Injury General Chief complaint: Head Injury Stated complaint: hit [id number] ago, lump on head,nose pain Time Seen by Provider: 12/25/24 23:37 Source: patient Mode of arrival: Ambulatory History of Present Illness HPI Narrative: 39-year-old female 2 days ago was pulling down a heavy mixer, lid fell down onto her bridge nose, small laceration to the bridge of her nose, increasing nose and facial pain, right forehead pain, nausea without emesis. No focal weakness face arm or leg. No focal numbness to face arm or leg. No other injuries recalled. No neck pain. Related Data Home Medications ?Medication ?Instructions ?Recorded ?Confirmed sumatriptan succinate 100 mg 100 mg PO PRN Migraine Headache ##0 08/22/12 12/25/24 tablet (Imitrex) cetirizine 10 mg capsule (All Day 10 mg PO DAILY 12/14/18 12/25/24 Allergy (cetirizine)) fluticasone propionate 50 1 spray intranasal DAILY 12/14/18 12/25/24 mcg/actuation nasal spray,suspension (Flonase Allergy Relief) famotidine 40 mg tablet 40 mg PO DAILY 08/20/24 12/25/24 folic acid 1 mg tablet 1 mg PO DAILY 08/20/24 12/25/24 levothyroxine 125 mcg tablet 125 mcg PO DAILY 08/20/24 12/25/24 quetiapine 25 mg tablet 25 mg PO .HS 08/20/24 12/25/24 sertraline 100 mg tablet 100 mg PO Q24H 08/20/24 12/25/24 sumatriptan succinate 50 mg tablet 50 mg PO PRN PRN migraine headache 08/20/24 12/25/24 nortriptyline 10 mg capsule 10 mg PO BEDTIME 12/25/24 12/25/24 Previous Rx's ?Medication ?Instructions ?Recorded albuterol sulfate 90 mcg/actuation 2 puff inhalation Q4-6H PRN 06/17/19 aerosol inhaler shortness of breath #18 grams cyclobenzaprine 10 mg tablet 10 mg PO TID PRN muscle spasm #20 03/18/20 tabs ipratropium bromide 21 mcg (0.03 2 spray intranasal BID PRN nasal 08/20/24 %) nasal spray congestion #30 mL ondansetron 4 mg disintegrating 4 mg PO Q8H PRN nausea and 08/20/24 tablet vomiting #8 tabs Allergies Allergy/AdvReac Type Severity Reaction Status Date / Time amoxicillin (AMOXICILLIN) Allergy Intermediate Vomiting, Verified 12/25/24 21:38 tongue swelling adhesive (ADHESIVE) AdvReac Intermediate Rash Verified 12/25/24 21:38 iodine (IODINE) AdvReac Intermediate Hives Verified 12/25/24 21:38 Penicillins (PENICILLINS) AdvReac Unknown Hives, Verified 12/25/24 21:38 vomiting Patient History Medical History (Updated 12/26/24 @ 00:08 by Rogelio Aldrich MD) Asthma Post traumatic stress disorder (PTSD) Depression Anxiety ADHD (~1991) Chronic back pain Herpes Chicken pox (~1988) Bipolar 1 disorder Hypothyroid Thyroid cancer (~2008) Surgical History Anesthesia History of knee surgery (~04/2009) History of hysterectomy (~11/2011) History of partial hysterectomy (~09/2009) History of tonsillectomy and adenoidectomy (~06/2008) H/O thyroidectomy (~05/2009) H/O: hysterectomy Family History Mother Breast cancer Grandmother History of cancer of spinal cord Lung cancer Grandfather Lung cancer Father Hyperlipidemia Social History household members: significant other and other Smoking Status: Never smoker alcohol intake: current Smoking Status: Never smoker alcohol intake frequency: 0-2 drinks per day Exam Narrative Exam Narrative: GENERAL: Well-developed patient, in mild distress. HEAD: Atraumatic. Normocephalic. EYES: Pupils equal round and reactive. Extraocular motions intact. No scleral icterus. No injection or drainage. ENT: Nose without bleeding, purulent drainage. Throat without erythema, tonsillar hypertrophy or exudate. Airway patent. Small horizontal laceration 0.5 cm well-approximated superficial to the bridge of her nose. No crepitance, mild edema. No blood nasal septum or alae. NECK: Trachea midline. Non tender CARDIOVASCULAR: Regular rate and rhythm without murmurs, gallops, or rubs. RESPIRATORY: Clear to auscultation. Breath sounds equal bilaterally. No wheezes, rales, or rhonchi. GASTROINTESTINAL: Abdomen soft, non-tender, nondistended. EXTREMITIES: No edema or joint tenderness. BACK: Nontender without deformity or crepitance. No flank tenderness. NEURO: AOx3. Motor functions grossly nonfocal. SKIN: No rash or erythema of visible areas Initial Vital Signs Initial Vital Signs: Vital Signs Temperature 98.1 F 12/25/24 21:37 Pulse Rate 94 H 12/25/24 21:37 Respiratory Rate 18 12/25/24 21:37 Blood Pressure 121/58 L 12/25/24 21:37 Pulse Oximetry 99 12/25/24 21:37 Oxygen Delivery Method Room Air 12/25/24 21:37 Course Orders Ordered: ED Orders 12/25/24 21:43 CT facial bones wo con Stat CT head/brain wo con Stat Vital Signs Vital signs: Vital Signs - 8 hr 12/25/24 21:37 12/25/24 22:54 12/25/24 22:56 Temperature 98.1 F Pulse Rate 94 H 88 79 Respiratory Rate 18 Blood Pressure 121/58 L Pulse Oximetry 99 98 98 Oxygen Delivery Method Room Air 12/25/24 22:56 12/25/24 23:00 12/25/24 23:30 Temperature Pulse Rate 78 76 Respiratory Rate Blood Pressure 103/58 L Pulse Oximetry 97 96 Oxygen Delivery Method 12/26/24 00:00 12/26/24 00:06 12/26/24 00:06 Temperature Pulse Rate 78 81 Respiratory Rate Blood Pressure 109/70 Pulse Oximetry 96 96 Oxygen Delivery Method Room Air MDM - Head Injury Imaging Data CT scan - head: Radiologist's Impression: [place] [address] CT Scan Report Signed Patient: Lexy Callahan MR#: [id number] : 1985 Acct:[id number] Age/Sex: 39 / F Date of Service: 12/25/24 Loc: ED Accession Number: [id number] Procedure: CT head/brain wo con Ordering Provider: Rogelio Aldrich MD PROCEDURE: CT HEAD/BRAIN WO CON INDICATIONS: injury, pain TECHNIQUE: Noncontrast 4.5 mm thick angled axial sections acquired from the foramen magnum to the vertex, with coronal and sagittal reformats. For radiation dose reduction, the following was used: automated exposure control, adjustment of mA and/or kV according to patient size. COMPARISON: [facility], CT, CT FACIAL BONES WO CON, 12/25/2024, 21:56. FINDINGS: Image quality: Diagnostic. CSF spaces: Basal cisterns are patent. No extra-axial fluid collections. Ventricles are normal in size and shape. Brain: No midline shift. No intracranial mass effect or hemorrhage. Thompson-white matter interface is normal. Skull and face: Calvarium and visualized facial bones are intact, without suspicious lesions. Sinuses: Visualized sinuses and mastoids are clear. IMPRESSION: No acute intracranial pathology. Dictated by: Gisselle Bañuelos M.D. on 12/25/2024 at 22:10 Approved by: Gisselle Bañuelos M.D. on 12/25/2024 at 22:11 CT maxillofacial: Radiologist's Impression: [place] [address] CT Scan Report Signed Patient: Lexy Callahan MR#: [id number] : 1985 Acct:[id number] Age/Sex: 39 / F Date of Service: 12/25/24 Loc: ED Accession Number: [id number] Procedure: CT facial bones wo con Ordering Provider: Rogelio Aldrich MD PROCEDURE: CT FACIAL BONES WO CON INDICATIONS: injury, pain TECHNIQUE: Noncontrast 2.5 mm thick axial images acquired from the mandible through the frontal sinuses, with coronal and sagittal reformatting. For radiation dose reduction, the following was used: automated exposure control, adjustment of mA and/or kV according to patient size. COMPARISON: None. FINDINGS: Image quality: Excellent. Bones and teeth: Orbital mccall are intact. Sinus mccall show no fracture or deformity. Nasal bones and septum are intact. Visualized portions of the mandible demonstrate no fractures or subluxation. Zygomatic arches are intact. Pterygoid plates are intact. Visualized portions of the skull base and auditory canals are intact. Sinuses: Paranasal sinuses are aerated, without fluid levels, mucosal thickening, or mucoceles. Mastoid air cells are aerated. Soft tissues: No edema, masses, or fluid collections. No enlarged lymph nodes. No soft tissue lacerations or debris. Vascular: Visualized vascular structures appear normal in the absence of contrast. Bony vascular foramina and canals are intact. IMPRESSION: No visualized fracture. Dictated by: Gisselle Bañuelos M.D. on 12/25/2024 at 22:11 Approved by: Gisselle Bañuelos M.D. on 12/25/2024 at 22:12 [facility] Narrative Medical decision making narrative: 39-year-old female with nasal bridge injury from fallen lead from overhead heavy mixer 2 days ago, nasal bridge small nonsuturable superficial laceration 0.5 cm. No nose bleeding, nasal bridge seems well aligned. Increasing facial pain. Increasing headache pain. Some nausea without vomiting. CT head no acute changes. CT facial bone series no acute changes. See radiology reports. Tetanus might be greater than 5 years, declines tetanus update when offered. She would like Steri-Strips application over superficial wound, applied by nursing. Offered ODT Zofran, she has a supply at home to use if needed. Consider wound check in the next couple of days. Also given contact information for otolaryngology if she is not happy with nasal bridge when swelling diminishes next few days, if she would like consultation for realignment procedure through otolaryngology. Discharged home. Return precautions discussed. Discharge Plan Departure Patient Disposition: Home Clinical Impression: Contusion of scalp, Concussion, Contusion of nose, Laceration of nose Activity Restrictions/Additional Instructions: Contusion to the nasal bridge and frontal scalp from falling lid of overhead heavy mixer, small nonsuturable 5 mm laceration to the bridge of the nose, Steri-Strips applied, no loss of consciousness but nausea and persisting/increasing headache pain. CT head and CT facial bone series negative for acute injuries, per radiology reports. Consider ondansetron oral dissolvable tablets to control nausea, you stated that you had a supply. Consider antibiotic ointment over the laceration area. Recheck if increasing redness or signs and symptoms of infection. As swelling of the nasal bridge goes down in the next few days, consider otolaryngology consultation if you think that alignment procedure is needed, but do not wait more than 5 days as bone healing might set any you would have to have Re breakage for any procedure. Contact information for local otolaryngology services also provided on discharge. Regarding your head/face injury and increasing pain with nausea, consider concussion. Recommend cognitive and physical rest for the next [address] Recheck with your regular doctor in the next 48 hours to reassess symptoms and appropriateness of increased activities. Recheck earlier to this/nearest emergency department for any change worsening symptoms or any concerns prior. Prescriptions: No Action cyclobenzaprine 10 mg tablet 10 mg PO TID PRN (Reason: muscle spasm) Qty: 20 0RF levothyroxine 125 mcg tablet 125 mcg PO DAILY sumatriptan succinate 50 mg tablet 50 mg PO PRN PRN (Reason: migraine headache) sertraline 100 mg tablet 100 mg PO Q24H Patient Comments: [NO ORIGINAL SIG] famotidine 40 mg tablet 40 mg PO DAILY folic acid 1 mg tablet 1 mg PO DAILY quetiapine 25 mg tablet 25 mg PO .HS Patient Comments: [NO ORIGINAL SIG] ondansetron 4 mg tablet,disintegrating 4 mg PO Q8H PRN (Reason: nausea and vomiting) Qty: 8 0RF ipratropium bromide 21 mcg (0.03 %) spray,non-aerosol 2 spray intranasal BID PRN (Reason: nasal congestion) Qty: 30 0RF Rx Instructions: administer into each nostril sumatriptan succinate [Imitrex] 100 MG tablet 100 mg PO PRN Qty: 0 All Day Allergy (cetirizine) 10 mg capsule 10 mg PO DAILY fluticasone propionate [Flonase Allergy Relief] 50 mcg/actuation spray,suspension 1 spray NASAL DAILY albuterol sulfate 90 mcg/actuation HFA aerosol inhaler 2 puff INHALATION Q4-6H PRN (Reason: shortness of breath) Qty: 18 0RF nortriptyline 10 mg capsule 10 mg PO BEDTIME Referrals: Param Claros MD [Physician, Ear, Nose, Throat] Aldo Hernadez MD [Primary Care Provider, Medical] Stand Alone Forms: Patient Portal/API
[2024-12-26] VITALS: PULSE 78; O2SAT 96
[2024-12-26 00:06] VITALS: BP 109/70; PULSE 81; O2SAT 96
== END 2024-12-26 00:13 | disposition home or self-care (01) ==
PROVIDERS: Emergency Provider Emergency Medicine; Family Provider Family Medicine; PCP Family Medicine
DX: S06.0X0A Concussion without loss of consciousness, initial encounter (principal); S00.03XA Contusion of scalp, initial encounter; S00.33XA Contusion of nose, initial encounter; S01.21XA Laceration without foreign body of nose, initial encounter; R11.0 Nausea; W22.8XXA Striking against or struck by other objects, initial encounter
CPT/HCPCS: 70450; 70486; 99281; 99284

== ENCOUNTER 2025-03-24 22:03 | Emergency (ER) | payer OTHER, SELFPAY ==
[2020-01-03 20:33] VITALS: BMI 30.6
[2025-03-24 22:18] VITALS: BP 123/60; PULSE 97; RESP 18; TEMP 36.7; O2SAT 97; BMI 31.7
--- NOTE | 2025-03-24 22:23 | DI.RAD.S_ITS ---
PROCEDURE: XR HAND RT MIN 3V INDICATIONS: fell, pain TECHNIQUE: 3 views of the hand(s) acquired. COMPARISON: [facility], CR, XR HAND RT MIN 3V, 03/10/2022, 14:34. FINDINGS: Bones: No fractures or dislocations. Carpal bones are normally aligned. No suspicious bony lesions. Soft tissues: No suspicious soft tissue calcifications. IMPRESSION: No acute bony abnormality. Dictated by: Jose Flores M.D. on 03/25/2025 at 0:09 Approved by: Jose Flores M.D. on 03/25/2025 at 0:11
--- NOTE | 2025-03-24 22:23 | DI.RAD.S_ITS ---
PROCEDURE: XR FOOT RT MIN 3V INDICATIONS: fell, pain TECHNIQUE: 3 views of the foot were acquired. COMPARISON: [facility], CR, XR FOOT 3+ VIEWS RIGHT, 10/06/2023, 9:11. FINDINGS: Bones: Osteotomy at the 1st metatarsal head. Screw at the 1st metatarsal head. No fractures or dislocations. No suspicious bony lesions. Soft tissues: No tibiotalar joint effusion. Achilles tendon appears normal. IMPRESSION: No acute bony abnormality. Dictated by: Jose Flores M.D. on 03/25/2025 at 0:06 Approved by: Jose Flores M.D. on 03/25/2025 at 0:09
--- NOTE | 2025-03-24 23:37 | ED.FALL ---
HPI - Fall General Chief Complaint: Fall Stated Complaint: RLE pain, swollen from fall Time Seen by Provider: 03/24/25 23:35 Source: patient Mode of arrival: Ambulatory History of Present Illness HPI Narrative: Patient is a 39-year-old right-hand, dominant, female who presents with acute foot and right wrist pain after a ground level fall. Past medical history significant for bunion surgery in her right foot proximally a year ago. She states that she was walking home around 7:00 p.m. tonight when she rolled her right lower extremity and fell on outstretched right hand. She denies any loss of consciousness for anticoagulant use. She denies any chest pain, dyspnea, diaphoresis prior to the fall and states that the fall was secondary to the sidewalk being uneven. She was able to get back up and ambulate with an antalgic gait, which prompted her to present to the ER this evening. Related Data Home Medications ?Medication ?Instructions ?Recorded ?Confirmed sumatriptan succinate 100 mg 100 mg PO PRN Migraine Headache ##0 08/22/12 12/25/24 tablet (Imitrex) cetirizine 10 mg capsule (All Day 10 mg PO DAILY 12/14/18 12/25/24 Allergy (cetirizine)) fluticasone propionate 50 1 spray intranasal DAILY 12/14/18 12/25/24 mcg/actuation nasal spray,suspension (Flonase Allergy Relief) famotidine 40 mg tablet 40 mg PO DAILY 08/20/24 12/25/24 folic acid 1 mg tablet 1 mg PO DAILY 08/20/24 12/25/24 levothyroxine 125 mcg tablet 125 mcg PO DAILY 08/20/24 12/25/24 quetiapine 25 mg tablet 25 mg PO .HS 08/20/24 12/25/24 sertraline 100 mg tablet 100 mg PO Q24H 08/20/24 12/25/24 sumatriptan succinate 50 mg tablet 50 mg PO PRN PRN migraine headache 08/20/24 12/25/24 nortriptyline 10 mg capsule 10 mg PO BEDTIME 12/25/24 12/25/24 Previous Rx's ?Medication ?Instructions ?Recorded albuterol sulfate 90 mcg/actuation 2 puff inhalation Q4-6H PRN 06/17/19 aerosol inhaler shortness of breath #18 grams cyclobenzaprine 10 mg tablet 10 mg PO TID PRN muscle spasm #20 03/18/20 tabs ipratropium bromide 21 mcg (0.03 2 spray intranasal BID PRN nasal 08/20/24 %) nasal spray congestion #30 mL ondansetron 4 mg disintegrating 4 mg PO Q8H PRN nausea and 08/20/24 tablet vomiting #8 tabs ibuprofen 200 mg tablet (Motrin IB) 400 mg (2 x 200 mg) PO Q8H #14 tabs 03/25/25 Allergies Allergy/AdvReac Type Severity Reaction Status Date / Time amoxicillin (AMOXICILLIN) Allergy Intermediate Vomiting, Verified 03/24/25 22:19 tongue swelling adhesive (ADHESIVE) AdvReac Intermediate Rash Verified 03/24/25 22:19 iodine (IODINE) AdvReac Intermediate Hives Verified 03/24/25 22:19 Penicillins (PENICILLINS) AdvReac Unknown Hives, Verified 03/24/25 22:19 vomiting Review of Systems Review of Systems Narrative: See HPI. Patient History Medical History (Updated 03/25/25 @ 01:16 by Marisa Steele MD) Asthma Post traumatic stress disorder (PTSD) Depression Anxiety ADHD (~1991) Chronic back pain Herpes Chicken pox (~1988) Bipolar 1 disorder Hypothyroid Thyroid cancer (~2008) Surgical History Anesthesia History of knee surgery (~04/2009) History of hysterectomy (~11/2011) History of partial hysterectomy (~09/2009) History of tonsillectomy and adenoidectomy (~06/2008) H/O thyroidectomy (~05/2009) H/O: hysterectomy Family History Mother Breast cancer Grandmother History of cancer of spinal cord Lung cancer Grandfather Lung cancer Father Hyperlipidemia Social History household members: significant other and other Smoking Status: Former smoker alcohol intake: current Smoking Status: Former smoker alcohol intake frequency: 0-2 drinks per day Exam Initial Vital Signs Initial Vital Signs: Vital Signs Temperature 98.0 F 03/24/25 22:18 Pulse Rate 97 H 03/24/25 22:18 Respiratory Rate 18 03/24/25 22:18 Blood Pressure 123/60 03/24/25 22:18 Pulse Oximetry 97 03/24/25 22:18 Oxygen Delivery Method Room Air 03/24/25 22:18 Reviewed. Const Other: Well-developed well-nourished, in no acute distress. Neck Other: No midline tenderness to palpation. Resp Other: Clear to auscultation bilaterally. Cardio Other: Regular rate, without any murmurs, rubs, gallops. Back/Spine/Pelvis Other: No midline tenderness to palpation in T, L spine. No crepitus or step-offs. Skin Other: Patient has a superficial abrasion to the anterior patella of her right knee. Extrem Other: 2+ radial pulses bilaterally. No tenderness to palpation along the wrist. There is no limitation with range of motion at the right wrist. No obvious deformity in the right ankle. Patient has 2+ PT and DP pulses bilaterally. There is minimal tenderness to palpation along the anterior border of the lateral malleolus. No ecchymosis, erythema. Course Course Course Narrative: Patient is a 39-year-old right-hand, dominant, female who presents with acute foot and right wrist pain after a ground level mechanical fall. She is predominantly complaining of right wrist and right ankle pain. Differential diagnosis includes: Fractures, dislocation, tendon tear versus complete rupture, muscle sprain versus strain, contusion, other. Orders Ordered: ED Orders 03/24/25 22:23 XR foot RT min 3V Stat XR hand RT min 3V Stat Discontinued Medications Ibuprofen (Ibuprofen 400 Mg Tablet) 400 mg PO NOW ONE Stop: 03/25/25 01:12 Last Admin: 03/25/25 01:15 Dose: 400 mg Documented By: Reevaluation(s) Reevaluation #1: Inform patient of x-ray results. She reports she does not have to return to work until Thursday evening. She also declined any prescription for analgesia. Vital Signs Vital signs: Vital Signs - 8 hr 03/24/25 22:18 03/25/25 01:23 Temperature 98.0 F Pulse Rate 97 H 82 Respiratory Rate 18 16 Blood Pressure 123/60 102/85 Pulse Oximetry 97 98 Oxygen Delivery Method Room Air Room Air MDM - Fall Lab Data Labs: No labs were obtained. Imaging Data Extremity x-ray #1: My Impression: No obvious fracture or dislocations. Radiologist's Impression: XR hand RT: Bones: No fractures or dislocations. Carpal bones are normally aligned. No suspicious bony lesions. Soft tissues: No suspicious soft tissue calcifications. Extremity x-ray #2: My Impression: No obvious deformities or fractures or dislocations. There is a metal orthopedic object at the 1st metatarsal head. Radiologist's Impression: XR right foot: Osteotomy at the 1st metatarsal head. Screw at the 1st metatarsal head. No fractures or dislocations. No suspicious bony lesions. Soft tissues: No tibiotalar joint effusion. Achilles tendon appears normal. Treatment and disposition Social Determinants of Health that impact treatment or disposition: None. MDM Narrative Medical decision making narrative: Patient is a 39-year-old right-hand, dominant, female who presents with acute foot and right wrist pain after a ground level mechanical fall. She is predominantly complaining of right wrist and right ankle pain. Differential diagnosis includes: Fractures, dislocation, tendon tear versus complete rupture, muscle sprain versus strain, contusion, other. Plain films to include x-ray of the right foot and right wrist did not reveal any acute injuries. Given patient's story, did not complete a workup for acute coronary syndrome. I also did not feel that labs was warranted. I discussed the x-ray findings with patient. Her right ankle so was wrapped with an Evaristo bandage. She declined any prescription for analgesia. She also declined a work note and was discharged from the ER in stable condition. Discharge Plan Departure Patient Disposition: Home Clinical Impression: Ankle sprain Qualifiers: Encounter type: initial encounter Involved ligament of ankle: unspecified ligament Laterality: right Qualified Code(s): S93.401A - Sprain of unspecified ligament of right ankle, initial encounter Right wrist sprain Qualifiers: Encounter type: initial encounter Wrist sprain location: unspecified location Qualified Code(s): S63.501A - Unspecified sprain of right wrist, initial encounter Instructions: DI for Wrist Sprain, DI for Ankle Sprain Activity Restrictions/Additional Instructions: Activity as tolerated. Prescriptions: New ibuprofen [Motrin IB] 200 mg tablet 400 mg PO Q8H Qty: 14 0RF No Action cyclobenzaprine 10 mg tablet 10 mg PO TID PRN (Reason: muscle spasm) Qty: 20 0RF levothyroxine 125 mcg tablet 125 mcg PO DAILY sumatriptan succinate 50 mg tablet 50 mg PO PRN PRN (Reason: migraine headache) sertraline 100 mg tablet 100 mg PO Q24H Patient Comments: [NO ORIGINAL SIG] famotidine 40 mg tablet 40 mg PO DAILY folic acid 1 mg tablet 1 mg PO DAILY quetiapine 25 mg tablet 25 mg PO .HS Patient Comments: [NO ORIGINAL SIG] ondansetron 4 mg tablet,disintegrating 4 mg PO Q8H PRN (Reason: nausea and vomiting) Qty: 8 0RF ipratropium bromide 21 mcg (0.03 %) spray,non-aerosol 2 spray intranasal BID PRN (Reason: nasal congestion) Qty: 30 0RF Rx Instructions: administer into each nostril sumatriptan succinate [Imitrex] 100 MG tablet 100 mg PO PRN Qty: 0 All Day Allergy (cetirizine) 10 mg capsule 10 mg PO DAILY fluticasone propionate [Flonase Allergy Relief] 50 mcg/actuation spray,suspension 1 spray NASAL DAILY albuterol sulfate 90 mcg/actuation HFA aerosol inhaler 2 puff INHALATION Q4-6H PRN (Reason: shortness of breath) Qty: 18 0RF nortriptyline 10 mg capsule 10 mg PO BEDTIME Referrals: Aldo Hernadez MD [Primary Care Provider, Medical] Stand Alone Forms: Patient Portal/API
[2025-03-25] MEDS: IBUPROFEN 400 MG TABLET PO (01:15)
[2025-03-25 01:23] VITALS: BP 102/85; PULSE 82; RESP 16; O2SAT 98
== END 2025-03-25 01:24 | disposition home or self-care (01) ==
PROVIDERS: Emergency Provider Student in an Organized Health Care Education/Training Program; Family Provider Family Medicine; PCP Family Medicine
DX: S93.401A Sprain of unspecified ligament of right ankle, initial encounter (principal); S63.501A Unspecified sprain of right wrist, initial encounter; W18.30XA Fall on same level, unspecified, initial encounter
CPT/HCPCS: 73130; 73630; 99283